=== PATIENT | female | born 1965 | race Caucasian/White ===

== ENCOUNTER 2022-11-20 11:33 | Outpatient (OUT) | payer MEDICAID, SELFPAY ==
--- NOTE | 2022-11-20 11:46 | PM.CN ---
Consult Note: HPI Data of Consult Patient: known to practice within the last 3 years Consult date: 11/20/22 Requesting Physician: JÚNIOR GOLDBERG NP Primary Care Provider: BIANCA GARCIA Consult Narrative Reason for consult: right low back pain Narrative: Arianna is here for f/u to right LCIH injection 10/09/22. She received 85% relief with increased fx after procedure. She would like to proceed with RFA of same area. No new sensorimotor sx or bowel or bladder issues. No medication SE. Flexeril refilled. She does not have narcan at home. Will prescribe today. cc:: CC: JÚNIOR GOLDBERG NP Review of Systems ROS Status of ROS 10 or more systems reviewed and unremarkable except as noted in history and below Meds Home Medications and Allergies Home Medications Medication Instructions Recorded Confirmed Type albuterol sulfate 2.5 mg/3 mL 2.5 mg inhalation Q4H PRN 11/20/22 11/20/22 History (0.083 %) solution for nebulization shortness of breath or wheezing amlodipine 5 mg tablet (Norvasc) 5 mg PO QDAY 11/20/22 11/20/22 History cyclobenzaprine 10 mg tablet 10 mg PO TID 11/20/22 11/20/22 History meloxicam 15 mg tablet 15 mg PO QDAY 11/20/22 11/20/22 History multivitamin 1 tab PO QDAY 11/20/22 11/20/22 History oxycodone-acetaminophen 7.5 mg-325 1 tab PO TID 11/20/22 11/20/22 History mg tablet (Endocet) pregabalin 75 mg capsule (Lyrica) 75 mg PO QDAY 11/20/22 11/20/22 History trazodone 50 mg tablet 50 mg PO QDAY 11/20/22 11/20/22 History Allergies Allergy/AdvReac Type Severity Reaction Status Date / Time No Known Drug Allergies Allergy Verified 11/20/22 11:52 Exam Constitutional: Common normals: no apparent distress, average body habitus, oriented x3, no limitations, healthy appearing, alert and well nourished General appearance: cooperative and comfortable Orientation/consciousness: Yes awake, Yes oriented to person, Yes oriented to place and Yes oriented to time HENMT: Common normals: normocephalic Head and scalp: normal to inspection Face and sinus: normal facial exam Neck & C-Spine: Common normals: full ROM General: normal visual inspection Respiratory: Common normals: normal respiratory effort, no retractions and no use of accessory muscles Effort & inspection: able to speak in complete sentences Back & Pelvis: Common normals: thoracic and lumbar spine normal to inspection and straight leg raise negative bilaterally Lumbar spine/lower back: normal to inspection, ROM limited, pain with ROM, lumbar spinal tenderness, paraspinal muscle tenderness, paraspinal muscle spasm, straight leg raise negative bilaterally and other soft tissue findings (positive facet loading bilat, positive rosa right, positive thigh thrust) Extremity: Common normals: normal to inspection Other: muscle strength 5/5 bilat LE with intact sensation Skin: Common normals: no rashes or lesions noted and no wounds Assessment and Plan Assessment and Plan (1) Neuritis: (2) Muscle spasm: Plan schedule RFA right LCIH with sedation narcan rx flexeril refill
== END 2022-11-20 11:34 ==
PROVIDERS: PCP Family Medicine; Visit Provider Nurse Practitioner
DX: M79.2 Neuralgia and neuritis, unspecified (principal); M62.838 Other muscle spasm
CPT/HCPCS: G0463

== ENCOUNTER 2023-01-29 14:55 | Outpatient (OUT) | payer MEDICAID, SELFPAY ==
--- NOTE | 2023-01-29 | CONS_ITS ---
CONSULTATION DATE: ??01/29/2023 TO: Warren Harman D.O.? CHIEF COMPLAINT:? Includes right sided hip pain, buttock pain. HISTORY:? She reports this as 5-7/10 pain, sharp in character with a burning component, increased with activities such as standing, walking and performing transitioning maneuvers.? She feels most comfortable in the semi-recumbent position.? Denies any change in bowel and bladder habits or new sensorimotor changes in the lower extremities. EXAM:? Notable for patient having no clinical radiculopathy or myelopathy involving the lower extremities.? Patient did have dysesthesia and hyperesthesia overlying the distribution of the right superior gluteal nerve, and myofascial spasm of the right gluteus medius. IMPRESSION: ?Our impression is patient with chronic pain secondary to post laminectomy syndrome, complicated by neuritis involving the right superior gluteal nerve.? RECOMMENDATIONS:? I have recommended she proceed with diagnostic right superior gluteal nerve injection under fluoroscopic guidance.? I have asked her to continue with the Lyrica, Flexeril and Percocet.? She does report the Percocet improves her quality of life, level of functioning and, at times, her sleep pattern.? She denies any sign of < > with the same.? Her DONNA on today?s visit was 44. As part of providing excellent, safe, comprehensive care, the following was completed at our patient's visit: 1. A medication reconciliation and review to ensure accurate knowledge of current/active medications, including asking our patients to inform us about any yiym-wut-vljiyxh medications or herbal remedies/nutritional supplements/alternative remedies. 2. A review to specifically ensure our patients have had annual screening for: elevated body mass index (BMI, see intake chart for exact total), tobacco use, screening for depression, and screening for unhealthy alcohol use.? When screening is concerning, patients are provided with education and the specific recommendation to discuss the concerning health issue and treatment options with their primary care provider. WILI
== END 2023-01-29 14:56 | disposition home or self-care (01) ==
LOC: PM 14:56
PROVIDERS: PCP Family Medicine; Visit Provider Anesthesiology Pain Medicine
DX: M96.1 Postlaminectomy syndrome, not elsewhere classified (principal); M47.816 Spondylosis without myelopathy or radiculopathy, lumbar region; G89.29 Other chronic pain
CPT/HCPCS: 72100; G0463

== ENCOUNTER 2023-01-29 15:57 | Outpatient (OUT) | payer MEDICAID, SELFPAY ==
--- NOTE | 2023-01-29 | XR_ITS ---
The [address] [address] Patient Name: INGA POLO MRN: [id number] date: 1965 Sex: F Assigned Patient Location: [facility] Current Patient Location: Accession/Order Number: [id number] Exam Date: 01/29/2023 16:25 Report Date: 01/30/2023 09:28 At the request of: YANE VLAERA Procedure: XR lumbar spine 2-3V EXAM: XR lumbar spine 2-3V HISTORY: Lumbar Post Lami Syndrome COMPARISON: None. TECHNIQUE: 3 views FINDINGS/IMPRESSION: S-shaped scoliosis. Posterior fusion of L4-S1. Intact hardware. Multilevel endplate degenerative changes, disc disease and anterior spurring of L3-S1. No acute fracture. Electronically authenticated by: MARY MAHONEY Date: 01/30/2023 09:28
== END 2023-01-29 15:58 | disposition home or self-care (01) ==
PROVIDERS: PCP Family Medicine; Visit Provider Anesthesiology Pain Medicine
DX: M96.1 Postlaminectomy syndrome, not elsewhere classified (principal); M47.816 Spondylosis without myelopathy or radiculopathy, lumbar region
CPT/HCPCS: 72100

== ENCOUNTER 2023-03-11 10:58 | Outpatient (OUT) | payer MEDICAID, SELFPAY ==
--- NOTE | 2023-03-11 11:18 | P.CN_ITS ---
Consult Note: HPI Data of Consult Requesting Physician: Tori Noyola NP Primary Care Provider: BIANCA GARCIA Consult Narrative Reason for consult: f/u Narrative: Arianna Tucker a pleasant 58 year old female presents for evaluation of chronic low back and bilateral LCIH pain. Patient rating pain 5/10 today burning aching that radiates to bilateral knees, worse on left than right. cc:: CC: Tori Noyola NP Review of Systems ROS Status of ROS 10 or more systems reviewed and unremarkable except as noted in history and below Musculoskeletal Reports: back pain Meds Home Medications and Allergies Home Medications Medication Instructions Recorded Confirmed Type albuterol sulfate 2.5 mg/3 mL 2.5 mg inhalation Q4H PRN 11/20/22 11/20/22 History (0.083 %) solution for nebulization shortness of breath or wheezing amlodipine 5 mg tablet (Norvasc) 5 mg PO QDAY 11/20/22 11/20/22 History cyclobenzaprine 10 mg tablet 10 mg PO TID 11/20/22 11/20/22 History meloxicam 15 mg tablet 15 mg PO QDAY 11/20/22 11/20/22 History multivitamin 1 tab PO QDAY 11/20/22 11/20/22 History oxycodone-acetaminophen 7.5 mg-325 1 tab PO TID 11/20/22 11/20/22 History mg tablet (Endocet) pregabalin 75 mg capsule (Lyrica) 75 mg PO QDAY 11/20/22 11/20/22 History trazodone 50 mg tablet 50 mg PO QDAY 11/20/22 11/20/22 History cyclobenzaprine 10 mg tablet 20 mg PO DAILY #60 tabs 03/03/23 Rx oxycodone-acetaminophen 7.5 mg-325 1 tab PO TID PRN pain #90 tabs 03/03/23 Rx mg tablet (Percocet) pregabalin 75 mg capsule (Lyrica) 75 mg PO DAILY #30 caps 03/03/23 Rx celecoxib 100 mg capsule (Celebrex) 100 mg PO BID #60 caps 03/11/23 Rx Allergies Allergy/AdvReac Type Severity Reaction Status Date / Time No Known Drug Allergies Allergy Verified 11/20/22 11:52 Exam Constitutional Documenting provider has reviewed patient's vital signs: yes Common normals: no apparent distress, oriented x3, healthy appearing, alert and well nourished General appearance: cooperative HENMT Common normals: normocephalic, hearing grossly normal bilaterally and moist oral mucous membranes Head and scalp: normocephalic Eye Common normals: PERRL Pupil: PERRL Neck & C-Spine Common normals: full ROM General: normal visual inspection Chest Common normals: inspection of chest normal Respiratory Common normals: normal respiratory effort, no retractions and no use of accessory muscles Back & Pelvis Lumbar spine/lower back: ROM limited, pain with ROM, paraspinal muscle spasm and straight leg raise negative bilaterally Sacroiliac joints: SI joint(s) abnormal Other: bilateral facet loading positive L>R pain from back to anterior thighs stopping at the knees L>R tenderness over bilateral PSIS, positive gaenslens thigh thrust FABERS bilaterally L>R pain with pressure on bilateral LCIH nerve Extremity Common normals: normal to inspection and full ROM Neuro Common normals: oriented x3, CN's II-XII intact bilaterally, moves all extremities, no focal motor deficits, no sensory deficits noted and deep tendon reflexes 2+ bilaterally Sensorium/orientation: alert Gait (neuro): normal gait Motor exam: strength 5/5 throughout and no movement abnormalities noted Psych Common normals: mental status grossly normal, thought process normal, cooperative, affect normal, speech normal and activity/motor behavior normal Speech: normal speech Thought process: normal thought process Results Additional Findings Additional findings: I have checked an OARRS report on this patient today and there are no aberrancies noted in the prescribing history.?? A drug screen was completed and reviewed within the last year, and if there has not been a drug screen completed we ordered one today to monitor higher risk, state monitored pain medication use. As part of providing excellent, safe, comprehensive care, the following was completed at our patient's visit: 1. A medication reconciliation and review to ensure accurate knowledge of current/active medications, including asking our patients to inform us about any cboy-jpb-cqyuqyp medications or herbal remedies/nutritional supplements/alternative remedies. 2. A review to specifically ensure our patients have had annual screening for: elevated body mass index (BMI), tobacco use, screening for depression, and screening for unhealthy alcohol use. When screening is concerning, patients are provided with education and the specific recommendation to discuss the concerning health issue and treatment options with their primary care provider. Assessment and Plan Assessment and Plan (1) Muscle spasm: (2) Neuritis: Assessment and Plan: insurance denied right LCIH nerve block. 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 The patient does not report intolerable side effects. The patient is NOT opioid naive and non-pharmacologic and non-opioid treatment has failed to significantly relieve the patient's pain and improve functionality. The patient has a diagnosis that is related to a somatic or visceral pain etiology. ? ?? I reviewed with the patient the potential risks and side effects with the use of? opioid medications including but not limited to respiratory depression,? sedation, and even . I verified the patient has access to naloxone should? these effects occur. I advised the patient to avoid the use of any other? sedation substances including alcohol, THC, and benzodiazepines while? taking opioid medications due to the risk of compounding side effects and? detrimental outcomes. I reviewed the VENDING MACHINE ASSEMBLER, pain treatment agreement, urine? drug screen, and opioid start talking forms. The patient was advised to let? their family know they had Naloxone in case they would need to administer? the medication.? ?? (6) BMI 28.0-28.9,adult: Assessment and Plan: The patient was counseled that proper dietary changes and consistent participation in a home exercise plan can lead to weight loss. Weight loss can help to improve functionality in patients with chronic pain.? Plan stop mobic, start celebrex 100mg QD-BID PRN increase flexeril 10mg TID as previously tolerated continue HEP continue percocet 7.5-325 mg TID PRN, narcan previously ordered and discussed can discuss additional injection therapy at f/u in 2-3 months depending on insurance coverage at that time
== END 2023-03-11 10:59 | disposition home or self-care (01) ==
PROVIDERS: PCP Family Medicine; Visit Provider Nurse Practitioner
DX: M47.26 Other spondylosis with radiculopathy, lumbar region (principal); M62.838 Other muscle spasm; Z79.891 Long term (current) use of opiate analgesic; Z98.1 Arthrodesis status
CPT/HCPCS: G0463

== ENCOUNTER 2023-03-18 10:05 | Outpatient (OUT) | payer MEDICAID, SELFPAY ==
--- NOTE | 2023-03-18 10:08 | CT_ITS ---
[address] [address] Patient Name: INGA POLO MRN: [id number] date: 1965 Sex: F Assigned Patient Location: CT Current Patient Location: Accession/Order Number: [id number] Exam Date: 03/18/2023 10:15 Report Date: 03/19/2023 07:07 At the request of: BETY SILVERMAN Procedure: CT lung screening low-dose EXAMINATION: CT lung screening low-dose HISTORY: Cigarette Nicotine Dependence F17.219 COMPARISON: CT chest 03/01/2022, 08/30/2020 TECHNIQUE: Axial, Coronal, and Sagittal images were created without the administration of IV contrast material. Dose reduction techniques were achieved by using automated exposure control and/or adjustment of mA and/or kV according to patient size and/or use of iterative reconstruction technique. FINDINGS: LUNGS: Right middle lobe stable 5 mm nodule. Mild emphysematous changes. PLEURA: No mass, effusion, or pneumothorax. VASCULATURE: No abnormality. DALE: No mass or pathologic adenopathy. MEDIASTINUM: No mass or pathologic adenopathy. CARDIAC: No enlargement, pericardial thickening, or significant calcification. AORTA: No aneurysm or dissection. CHEST WALL: No mass or axillary adenopathy BONES: No bone lesion or fracture. LIMITED ABDOMEN: No suspicious findings. Limited images of the upper abdomen. OTHER: Negative. CT/CT lung screening low-dose IMPRESSION: 1. Lung-RADS 2- Benign Appearance or Behavior. Nodules with a very low likelihood of becoming a clinically active cancer due to size or lack of growth. Follow-up CT Chest in 1 year. Electronically authenticated by: SONU COLLINS Date: 03/19/2023 07:07
== END 2023-03-18 10:06 | disposition home or self-care (01) ==
LOC: CT 10:05
PROVIDERS: PCP Family Medicine; Visit Provider Internal Medicine
DX: F17.210 Nicotine dependence, cigarettes, uncomplicated (principal)
CPT/HCPCS: 71271

== ENCOUNTER 2023-05-06 11:33 | Outpatient (OUT) | payer MEDICAID, SELFPAY ==
--- NOTE | 2023-05-06 12:13 | P.CN_ITS ---
Consult Note: HPI Data of Consult Patient: known to practice within the last 3 years Requesting Physician: Tori Noyola NP Primary Care Provider: BIANCA GARCIA Consult Narrative Reason for consult: f/u Narrative: Arianna flores pleasant 58 year old female presents for evaluation and management of chronic low back pain and right knee pain. Patient reporting pain 8/10 today. Patient would like to discuss medication managent for chronic pain and further evaluate right knee pain. cc:: CC: Tori Noyola NP Review of Systems ROS Status of ROS 10 or more systems reviewed and unremarkable except as noted in history and below Meds Home Medications and Allergies Home Medications Medication Instructions Recorded Confirmed Type albuterol sulfate 2.5 mg/3 mL 2.5 mg inhalation Q4H PRN 11/20/22 11/20/22 History (0.083 %) solution for nebulization shortness of breath or wheezing amlodipine 5 mg tablet (Norvasc) 5 mg PO QDAY 11/20/22 11/20/22 History cyclobenzaprine 10 mg tablet 10 mg PO TID 11/20/22 11/20/22 History meloxicam 15 mg tablet 15 mg PO QDAY 11/20/22 11/20/22 History multivitamin 1 tab PO QDAY 11/20/22 11/20/22 History oxycodone-acetaminophen 7.5 mg-325 1 tab PO TID 11/20/22 11/20/22 History mg tablet (Endocet) pregabalin 75 mg capsule (Lyrica) 75 mg PO QDAY 11/20/22 11/20/22 History trazodone 50 mg tablet 50 mg PO QDAY 11/20/22 11/20/22 History cyclobenzaprine 10 mg tablet 20 mg PO DAILY #60 tabs 03/03/23 Rx oxycodone-acetaminophen 7.5 mg-325 1 tab PO TID PRN pain #90 tabs 03/03/23 Rx mg tablet (Percocet) pregabalin 75 mg capsule (Lyrica) 75 mg PO DAILY #30 caps 03/03/23 Rx celecoxib 100 mg capsule (Celebrex) 100 mg PO BID #60 caps 03/11/23 Rx oxycodone-acetaminophen 7.5 mg-325 1 tab PO TID PRN pain #90 tabs 04/02/23 Rx mg tablet (Percocet) oxycodone-acetaminophen 7.5 mg-325 1 tab PO TID PRN pain #90 tabs 04/30/23 Rx mg tablet (Percocet) Allergies Allergy/AdvReac Type Severity Reaction Status Date / Time No Known Drug Allergies Allergy Verified 11/20/22 11:52 Exam Constitutional Documenting provider has reviewed patient's vital signs: yes Common normals: no apparent distress, oriented x3, healthy appearing, alert and well nourished General appearance: cooperative HENMT Common normals: normocephalic, hearing grossly normal bilaterally and moist oral mucous membranes Head and scalp: normocephalic Eye Common normals: PERRL Pupil: PERRL Neck & C-Spine Common normals: full ROM General: normal visual inspection Chest Common normals: inspection of chest normal Respiratory Common normals: normal respiratory effort, no retractions and no use of accessory muscles Back & Pelvis Lumbar spine/lower back: ROM limited, pain with ROM, paraspinal muscle spasm and straight leg raise negative bilaterally Sacroiliac joints: SI joint(s) abnormal Other: bilateral facet loading positive L>R pain from back to anterior thighs stopping at the knees L>R tenderness over bilateral PSIS, positive gaenslens thigh thrust FABERS bilaterally L>R pain with pressure on bilateral LCIH nerve Extremity Common normals: normal to inspection and full ROM Right lower extremity: knee joint (enlarged diameter, mild crepitus on exam. ) Other: negative lateral and medial stress testing Neuro Common normals: oriented x3, CN's II-XII intact bilaterally, moves all extremities, no focal motor deficits, no sensory deficits noted and deep tendon reflexes 2+ bilaterally Sensorium/orientation: alert Gait (neuro): normal gait Motor exam: strength 5/5 throughout and no movement abnormalities noted Psych Common normals: mental status grossly normal, thought process normal, cooperative, affect normal, speech normal and activity/motor behavior normal Speech: normal speech Thought process: normal thought process Results Additional Findings Additional findings: I have checked an OARRS report on this patient today and there are no aberrancies noted in the prescribing history.?? A drug screen was completed and reviewed within the last year, and if there has not been a drug screen completed we ordered one today to monitor higher risk, state monitored pain medication use. As part of providing excellent, safe, comprehensive care, the following was completed at our patient's visit: 1. A medication reconciliation and review to ensure accurate knowledge of current/active medications, including asking our patients to inform us about any bxud-ktj-esvizhm medications or herbal remedies/nutritional sup plements/alternative remedies. 2. A review to specifically ensure our patients have had annual screening for: elevated body mass index (BMI), tobacco use, screening for depression, and screening for unhealthy alcohol use. When screening is concerning, patients are provided with education and the specific recommendation to discuss the concerning health issue and treatment options with their primary care provider. Assessment and Plan Assessment and Plan (1) Right knee pain: (2) Chronic prescription opiate use: Assessment and Plan: I feel these medications are improving the patient's quality of life and allow them to tolerate activities of daily living as well as participate in recreational activity.? The patient does not report intolerable side effects. The patient is NOT opioid naive and non-pharmacologic and non-opioid treatment has failed to significantly relieve the patient's pain and improve functionality. The patient has a diagnosis that is related to a somatic or visceral pain etiology. ? ?? I reviewed with the patient the potential risks and side effects with the use of? opioid medications including but not limited to respiratory depression,? sedation, and even . I verified the patient has access to naloxone should? these effects occur. I advised the patient to avoid the use of any other? sedation substances including alcohol, THC, and benzodiazepines while? taking opioid medications due to the risk of compounding side effects and? detrimental outcomes. I reviewed the FUNERAL DIRECTOR, pain treatment agreement, urine? drug screen, and opioid start talking forms. The patient was advised to let? their family know they had Naloxone in case they would need to administer? the medication.? patient able to work, complete ADLs, take care of self with the help of these medications. no adverse effects. discussed we will not increase the dose or frequency ?? (3) History of lumbar fusion: (4) Lumbar radiculopathy: (5) Lumbar spondylosis: (6) Muscle spasm: (7) Neuritis: Plan right knee xray, right knee steroid injection if evidence of OA continue celebrex 100mg QD-BID PRN continue flexeril 10mg TID PRN continue HEP continue percocet 7.5-325 mg TID PRN, narcan previously ordered and discussed xray reviewed, mild OA of right knee. Plan for steroid injection with Dr Murillo f/u 2-4 weeks post injection
== END 2023-05-06 11:34 | disposition home or self-care (01) ==
LOC: PM 11:33
PROVIDERS: PCP Family Medicine; Visit Provider Nurse Practitioner
DX: M25.561 Pain in right knee (principal); Z79.891 Long term (current) use of opiate analgesic
CPT/HCPCS: 73562; G0463

== ENCOUNTER 2023-05-06 12:25 | Outpatient (OUT) | payer MEDICAID, SELFPAY ==
--- NOTE | 2023-05-06 12:33 | XR_ITS ---
The [address] [address] Patient Name: INGA POLO MRN: [id number] date: 1965 Sex: F Assigned Patient Location: [facility] Current Patient Location: [facility] Accession/Order Number: [id number] Exam Date: 05/06/2023 12:43 Report Date: 05/06/2023 15:56 At the request of: FELICIA INGRAM Procedure: XR knee RT 3V EXAM: XR knee RT 3V 04/05/2023 FINDINGS: Frontal, oblique, and lateral views for 3 views obtained. HISTORY: right knee pain COMPARISON: None. XR/XR knee RT 3V IMPRESSION: 1. Mild varus deformity with moderate bicompartmental predominant arthritic changes involving patellofemoral and medial joint compartments noted. 2. No acute fracture or dislocation. 3. Trace volume of joint fluid within the suprapatellar bursa noted. Small superior patellar enthesophyte is noted. Electronically authenticated by: KHANH MATHEW Date: 05/06/2023 15:56
== END 2023-05-06 12:26 | disposition home or self-care (01) ==
LOC: RAD 12:28
PROVIDERS: PCP Family Medicine; Visit Provider Nurse Practitioner
DX: M25.561 Pain in right knee (principal)
CPT/HCPCS: 73562

== ENCOUNTER 2023-06-11 15:01 | Outpatient (OUT) | payer MEDICAID, SELFPAY ==
--- NOTE | 2023-06-11 | CONS_ITS ---
PROCEDURE DATE: 06/11/2023 PROCEDURE: Right knee joint injection. PREOPERATIVE DIAGNOSIS: Pain secondary to osteoarthrosis right knee joint. POSTOPERATIVE DIAGNOSIS: Pain secondary to osteoarthrosis right knee joint. SOLUTION USED FOR INJECTION: 2 mL of 2% lidocaine, 2 mL of 0.25% Marcaine and 10 mg of Kenalog, total of 5 mL. IMMEDIATE COMPLICATIONS: None. PROCEDURE: After informed consent was obtained from the patient, placed in the sitting. Skin overlying the area was prepped with alcohol. A 25 gauge, 1 ?? needle inserted into the right knee joint space. After encountering same, we injected 5 mL of solution. No indication of intravascular or intraneural needle tip placement or injection. Post procedure, patient reports reduction in pain symptoms. WILI
--- OUTSIDE RECORDS SUMMARY | 2023-06-11 15:04 | XMS_ITS | CCD ---
Author Name Unknown Address [address] [facility] [address] [place] [address] Organization [facility] Care Team Providers Care Panel Machine Setter Name Role Phone Bianca Garcia Unavailable AsaJohn vance Unavailable MARNI ., DR LENORE Becker Attending Unavailable JOSE, DR VALENZUELA Primary Care Unavailable STINSON ., JOSE ALEJANDRO Consulting Unavailable STOLL ., DR LENORE Becker Admitting Unavailable STOLL ., DR LENORE Becker Attending Unavailable STOLL ., DR LENORE Becker Admitting Unavailable JOSE, DR VALENZUELA Primary Care Unavailable STINSON ., JOSE ALEJANDRO Consulting Unavailable STOLL ., DR LENORE Becker Consulting Unavailable STOLL ., DR LENORE Becker Attending Unavailable JOSE, DR VALENZUELA Primary Care Unavailable STOLL ., DR LENORE Becker Admitting Unavailable STOLL ., DR LENORE Becker Attending Unavailable JOSE, DR VALENZUELA Primary Care Unavailable STINSON ., JOSE ALEJANDRO Consulting Unavailable STOLL ., DR LENORE Becker Admitting Unavailable HALKER ., JÚNIOR Admitting Unavailable JOSE, DR VALENZUELA Primary Care Unavailable HALKER ., JÚNIOR Attending Unavailable JOSE, DR VALENZUELA Primary Care Unavailable STOLL ., DR LENORE Becker Attending Unavailable STOLL ., DR LENORE Becker Admitting Unavailable STOLL ., DR LENORE Becker Consulting Unavailable GALDAMEZ, BEBA Consulting Unavailable JOSE, DR VALENZUELA Primary Care Unavailable STINSON ., JOSE ALEJANDRO Consulting Unavailable STOLL ., DR LENORE Becker Admitting Unavailable STOLL ., DR LENORE Becker Attending Unavailable STOLL ., DR LENORE Becker Consulting Unavailable STOLL ., DR LENORE Becker Attending Unavailable JOSE, DR VALENZUELA Primary Care Unavailable STOLL ., DR LENORE Becker Admitting Unavailable EDEN DAVIS Consulting Unavailable JOSE, DR VALENZUELA Primary Care Unavailable LAKSHMIPATHY ., NARENDRANATH Consulting Mora vailable LAKSHMIPATHY ., NARENDRANATH Attending Mora vailable LAKSHMIPATHY ., NARENDRANATH Admitting Mora tricia GARCIA, DR VALENZUELA Consulting Unavailable JOSE, DR VALENZUELA Attending Unavailable JOSE, DR VALENZUELA Admitting Unavailable JOSE, DR VALENZUELA Primary Care Unavailable ANDRA ., BETY Attending Unavailable ANDRA ., BETY Admitting Unavailable JOSE, DR VALENZUELA Primary Care Unavailable DENNIS, DR SONU Lozano Consulting Unavailable SAM ., BETY Consulting Unavailable ELIZAPATHCari ., YANE Consulting Mora tricia GARCIA, DR VALENZUELA Primary Care Unavailable CAYDENSHMIJACK ., YANE Attending Mora vailable LAKSHMIJACK ., NARENDRANATH Admitting Mora vailable STOLL ., DR LENORE Becker Attending Unavailable JOSE, DR VALENZUELA Primary Care Unavailable JOSE ALEJANDRO ARNETT Consulting Unavailable MARNI ., DR LENORE Becker Admitting Unavailable Allergies Allergy Classification Reported Allergen(s) Allergy Type Date of Onset Reaction(s) Facility (4 sources) hydrOXYzine Drug Allergy 3 heart palpitations IT'SUGAR Other Medications Current Medications Medication Drug Class(es) Dates Sig (Normalized) Sig (Original) acetaminophen 325 mg / oxyCODONE hydrochloride 7.5 mg oral tablet (4 sources) Opioid Agonist Start: 08-14-2014 Percocet 7.5-325 MG 1 tablet Orally q8-12 hrs prn Jul, Active [id number] actuat albuterol 0.09 mg/actuat metered dose inhaler (4 sources) beta2-Adrenergic Agonist Start: 05-27-2016 Ventolin HFA 108 (90 Base) MCG/ACT 2 inhalations Inhalation qid prn May, Active amLODIPine 5 mg oral tablet (4 sources) Dihydropyridine Calcium Channel Sabiha take 1 tablet by mouth once daily amLODIPine Besylate 5 mg TAKE 1 TABLET BY MOUTH ONCE DAILY for 30 Active cyclobenzaprine hydrochloride 10 mg oral tablet (4 sources) Muscle Relaxant take 2 tablets by mouth every twenty-four hours Cyclobenzaprine HCl 10 MG 2 tablet at bedtime as needed Orally Once a day Active melatonin 5 mg oral tablet (4 sources) take 1 tablet by mouth once daily at bedtime as needed Melatonin 5 MG 1 tablet at bedtime as needed Orally Once a day for 30 day(s) Active meloxicam 15 mg oral tablet (4 sources) Nonsteroidal Anti-inflammatory Drug take 1 tablet by mouth every twenty-four hours Meloxicam 15 MG 1 tablet Orally Once a day Active Multi For Her (4 sources) Multi For Her Orally Active pregabalin 75 mg oral capsule (4 sources) take 1 capsule by mouth once Pregabalin 75 MG 1 capsule Orally once at night Active 28 actuat tiotropium 0.0025 mg/actuat inhalation spray (4 sources) Anticholinergic take 2 puff(s) by inhalation once daily Spiriva Respimat 2.5 MCG/ACT 2 puffs Inhalation Once a day Active traZODone hydrochloride 50 mg oral tablet (4 sources) Serotonin Reuptake Inhibitor take 1 tablet by mouth every twenty-four hours traZODone HCl 50 MG 1 tablet at bedtime as needed Orally Once a day Active Completed/Discontinued Medications Medication Drug Class(es) Dates Sig (Normalized) Sig (Original) Triamcinolone (12 sources) Corticosteroid Start: 02-20-2017 KENALOG - 10 m g Feb, 2 cc Start: 01-08-2017 KENALOG - 10 m g Dec, 1.5 cc Start: 12-05-2016 KENALOG - 10 m g Nov, 1.5 cc Problems Active Problems Problem Classification Problem Date Documented Da te Episodic/Chronic Adjustment disorders (4 sources) Reaction to severe stress, unspecified; Translations: [Stress] Chronic Anxiety disorders (6 sources) Anxiety; Translations: [Anxiety disorder, unspecified] Chronic Calculus of urinary tract (4 sources) Kidney stone; Translations: [Calculus of kidney] Episodic Chronic obstructive pulmonary disease and bronchiectasis (6 sources) Chronic obstructive lung disease; Translations: [Chronic obstructive pulmonary disease, unspecified] Chronic Diseases of white blood cells (4 sources) Leukocytosis; Translations: [Elevated white blood cell count, unspecified] Chronic Disorders of lipid metabolism (7 sources) Hyperlipidemia; Translations: [Hyperlipidemia, unspecified] Onset: 07-27-2022 Chronic Osteoarthritis (4 sources) Arthritis; Translations: [Unspecified osteoarthritis, unspecified site] Chronic Other and unspecified benign neoplasm (4 sources) History of polyp of colon; Translations: [Personal history of colonic polyps] Episodic Other circulatory disease (1 source) Elevated blood-pressure reading, without diagnosis of hypertension Episodic Other connective tissue disease (4 sources) Other muscle spasm; Translations: [OTHER MUSCLE SPASM] Onset: 08-28-2022 Episodic Other gastrointestinal disorders (4 sources) Constipation; Translations: [Constipation, unspecified] Episodic Other liver diseases (1 source) Abnormal levels of other serum enzymes Episodic Other lower respiratory disease (4 sources) Nodule of lung; Translations: [Solitary pulmonary nodule] Episodic Other nervous system disorders (2 sources) Other chronic pain; Translations: [OTHER CHRONIC PAIN] Onset: 07-29-2022 Chronic Other nervous system disorders (1 source) Other specified mononeuropathies; Translations: [OTHER SPECIFIED MONONEUROPATHIES] Onset: 10-13-2022 Chronic Other nervous system disorders (4 sources) Skin sensation disturbance; Translations: [Paresthesia of skin] Episodic Other non-traumatic joint disorders (4 sources) Pain in right hip; Translations: [PAIN IN RIGHT HIP] Onset: 10-09-2022 Episodic Other screening for suspected conditions (not mental disorders or infectious disease) (2 sources) Encounter for screening for malignant neoplasm of colon; Translations: [Other abnormal findings in specimens from other organs, systems and tissues] Episodic Residual codes; unclassified (1 source) Other specified health status Episodic Spondylosis; intervertebral disc disorders; other back problems (11 sources) Spondylosis without myelopathy or radiculopathy, cervical region; Translations: [Other cervical disc degeneration, unspecified cervical region] Onset: 11-12-2021 Chronic Substance-related disorders (4 sources) Nicotine dependence; Translations: [Nicotine dependence, unspecified, uncomplicated] Chronic Unclassified (1 source) LOW BACK PAIN, UNSPECIFIED; Translations: [LOW BACK PAIN, UNSPECIFIED] Onset: 09-02-2022 Past or Other Problems Problem Classification Problem Date Documented Date Episodic/Chronic Diabetes mellitus without complication (6 sources) Hyperglycemia, unspecified; Translations: [HYPERGLYCEMIA UNSPECIFIED] Onset: 07-26-2022 Episodic Genitourinary symptoms and ill-defined conditions (3 sources) Hematuria, unspecified; Translations: [HEMATURIA UNSPECIFIED] Onset: 07-27-2022 Episodic Other aftercare (2 sources) Other exterminator helper termite (current) drug therapy; Translations: [OTH SENIOR LIVING CURRENT DRUG THERAPY] Onset: 07-27-2022 Episodic Other lower respiratory disease (5 sources) Solitary pulmonary nodule; Translations: [SOLITARY PULMONARY NODULE] Onset: 03-01-2022 Episodic Other nutritional; endocrine; and metabolic disorders (3 sources) Abnormal weight loss; Translations: [ABNORMAL WEIGHT LOSS] Onset: 07-27-2022 Episodic Spondylosis; intervertebral disc disorders; other back problems (11 sources) Intervertebral disc disorders with radiculopathy, lumbar region; Translations: [Radiculopathy, lumbar region] Onset: 11-13-2021 Episodic Unclassified (2 sources) Lumbar pain M54.50 Results Test Name Value Interpretation Reference Range Facil ity CBC AUTO DIFFon 07-26-2022 BASO # 0.1 103/ul Normal 0.0-0.1 [facility] Comment on above: Performed By: #### U RCX #### [facility] [address] [address] [address] Roderick Greene Basophils/100 WBC (Bld) 0.6 % Normal 0.2-2.0 [facility] Comment on above: Performed By: #### U RCX #### [facility] [address] [address] [address] Roderick Greene EO # 0.8 103/ul Critically high 0.0-0.7 [facility] Comment on above: Performed By: #### U RCX #### [facility] [address] [address] [address] Roderick Greene Eosinophils/100 WBC (Bld) 7.9 % Critically high 0.9-7.0 [facility] Comment on above: Performed By: #### U RCX #### [facility] [address] [address] [address] Roderick Greene Erythrocyte distribution width (RBC) [Ratio] 13.2 % Normal 11.0-15.0 [facility] Comment on above: Performed By: #### U RCX #### [facility] [address] [address] [address] Roderick Greene Hematocrit (Bld) [Volume fraction] 50.3 % Critically high 36.0-48.0 [facility] Comment on above: Performed By: #### U RCX #### [facility] [address] [address] [address] Roderick Greene Hemoglobin (Bld) [Mass/Vol] 16.0 g/dL Normal 12.0-16.0 [facility] Comment on above: Performed By: #### U RCX #### [facility] [address] [place] [address] Dr. Roderick Greene IG # 0.02 10e3/ul Normal 0.00-0.03 [facility] Comment on above: Performed By: #### U RCX #### [facility] [address] [place] [address] Dr. Roderick Greene IG % 0.2 % Normal 0.0-0.5 [facility] Comment on above: Performed By: #### U RCX #### [facility] [address] [place] [address] Dr. Roderick Greene LYMPH # 2.3 103/ul Normal 1.2-3.8 [facility] Comment on above: Performed By: #### U RCX #### [facility] [address] [place] [address] Dr. Roderick Greene Lymphocytes/100 WBC (Bld) 24.5 % Normal 20.5-60.0 [facility] Comment on above: Performed By: #### U RCX #### [facility] [address] [place] [address] Dr. Roderick Greene MANUAL DIFF REQ NO Normal [facility] Comment on above: Performed By: #### U RCX #### [facility] [address] [place] [address] Dr. Roderick Greene MCH (RBC) [Entitic mass] 31.4 pg Normal 26.7-34.0 [facility] Comment on above: Performed By: #### U RCX #### [facility] [address] [place] [address] Dr. Roderick Greene MCHC (RBC) [Mass/Vol] 31.8 g/dL Normal 29.9-35.2 [facility] Comment on above: Performed By: #### U RCX #### [facility] [address] [place] [address] Dr. Roderick Greene MCV (RBC) [Entitic vol] 98.8 fL Normal 81.0-99.0 [facility] Comment on above: Performed By: #### U RCX #### [facility] [address] [place] [address] Dr. Roderick Greene MONO # 0.4 103/ul Normal 0.3-0.8 [facility] Comment on above: Performed By: #### U RCX #### [facility] [address] [place] [address] Dr. Roderick Greene Monocytes/100 WBC (Bld) 3.7 % Normal 1.7-12.0 [facility] Comment on above: Performed By: #### U RCX #### [facility] [address] [place] [address] Dr. Roderick Greene NEUT # 6.0 103/ul Normal 1.4-6.5 [facility] Comment on above: Performed By: #### U RCX #### [facility] [address] [place] [address] Dr. Roderick Greene Neutrophils/100 WBC (Bld) 63.1 % Normal 43.0-75.0 [facility] Comment on above: Performed By: #### U RCX #### [facility] [address] [place] [address] Dr. Roderick Greene Platelet mean volume (Bld) [Entitic vol] 10.7 fL Normal 9.5-13.5 [facility] Comment on above: Performed By: #### U RCX #### [facility] [address] [place] [address] Dr. Roderick Greene PLT 290 103/ul Normal 150-450 [facility] Comment on above: Performed By: #### U RCX #### [facility] [address] [place] [address] Dr. Roderick Greene RBC 5.09 106/ul Normal 4.20-5.40 [facility] Comment on above: Performed By: #### U RCX #### [facility] [address] [place] [address] Dr. Roderick Greene WBC 9.5 103/ul Normal 4.0-11.0 [facility] Comment on above: Performed By: #### U RCX #### [facility] [address] [address] [address] Roderick Greene CULTURE URINEon 07-26-2022 CULTURE URINE Culture Observations: LIGHT GROWTH OF MIXED GENITAL MATEO. NO POTENTIAL PATHOGENS SEEN. Normal [facility] Comment on above: Performed By: #### U RCX #### [facility] [address] [address] [address] Roderick Greene GLYCOHEMOGLOBIN A1Con 2022 ADA RECOMMENDATION SEE BELOW Normal [facility] Comment on above: Result Comment: ADA RECOMMENDED LIMIT 4.0 - 6.0 ADA THERAPEUTIC TARGET < 7.0 ACTION SUGGESTED > 7.0 Performed By: #### A 1C #### [facility] [address] [place] [address] Dr. Roderick Greene Glucose [Mass/Vol] 108 mg/dL Critically high 74-106 [facility] Comment on above: Performed By: #### A 1C #### [facility] [address] [place] [address] Dr. Roderick Greene Performed By: #### T SH, LIPID, CMP #### [facility] [address] [place] [address] Dr. Roderick Greene HbA1c (Bld) [Mass fraction] 5.4 % Normal 4.5-6.2 [facility] Comment on above: Performed By: #### A 1C #### [facility] [address] [place] [address] Dr. Roderick Greene LIPID PROFILEon 07-26-2022 CHOL-HDL RATIO NORM SEE BELOW Normal [facility] Comment on above: Result Comment: 3.3 - 4.4 LOW RISK 4.4 - 7.1 AVERAGE RISK 7.1 - 11.0 MODERATE RISK >11.0 HIGH RISK Performed By: #### U RCX #### [facility] [address] [place] [address] Dr. Roderick Greene Cholesterol [Mass/Vol] 217 mg/dL Critically high <=200 [facility] Comment on above: Performed By: #### U RCX #### [facility] [address] [place], [place] [id number] Dr. Roderick Greene Cholesterol in HDL [Mass/Vol] 55 mg/dL Normal 40-60 [facility] Comment on above: Performed By: #### U RCX #### [facility] [address] [address] [address] Roderick Greene Cholesterol in LDL [Mass/Vol] 143.6 mg/dL Normal [facility] Comment on above: Performed By: #### U RCX #### [facility] [address] [address] [address] Roderick Greene Cholesterol.total/Cho lesterol in HDL [Mass ratio] 3.9 {ratio} Normal [facility] Comment on above: Performed By: #### U RCX #### [facility] [address] [place] [address] Dr. Roderick Greene HDL NORMAL > or = 60 mg/dl - LOW CARDIOVASCULAR RISK <40 mg/dl - HIGH CARDIOVASCULAR RISK Normal [facility] Comment on above: Performed By: #### U RCX #### [facility] [address] [address] [address] Roderick Greene LDL CALC NORMAL SEE BELOW Normal [facility] Comment on above: Result Comment: <100 mg/dl OPTIMAL 100 - 129 mg/dl NEAR OR ABOVE OPTIMAL 130 - 159 mg/dl BORDERLINE HIGH 160 - 189 mg/dl HIGH >190 mg/dl VERY HIGH Performed By: #### U RCX #### [facility] [address] [address] [address] Roderick Greene Triglyceride [Mass/Vol] 92 mg/dL Normal <=150 [facility] Comment on above: Performed By: #### U RCX #### [facility] [address] [address] [address] Roderick Greene VLDL CALC 18.4 mg/dL Normal [facility] Comment on above: Performed By: #### U RCX #### [facility] [address] [address] [address] Roderick Greene PROF 14(COMP METB)on 023 Albumin [Mass/Vol] 3.7 g/dL Normal 3.4-5.0 [facility] Comment on above: Performed By: #### T SH, LIPID, CMP #### [facility] [address] [address] [address] Roderick Greene Albumin/Globulin [Mass ratio] 1.0 {ratio} Normal [facility] Comment on above: Performed By: #### T SH, LIPID, CMP #### [facility] [address] [address] [address] Roderick Greene ALP [Catalytic activity/Vol] 146 U/L Critically high 46-116 [facility] Comment on above: Performed By: #### T SH, LIPID, CMP #### [facility] [address] [address] [address] Roderick Greene ALT [Catalytic activity/Vol] 24 U/L Normal 14-59 [facility] Comment on above: Performed By: #### T SH, LIPID, CMP #### [facility] [address] [address] [address] Roderick Greene Anion gap [Moles/Vol] 11.7 mmol/L Normal [facility] Comment on above: Performed By: #### T SH, LIPID, CMP #### [facility] [address] [address] [address] Roderick Greene AST [Catalytic activity/Vol] 23 U/L Normal 15-37 [facility] Comment on above: Performed By: #### T SH, LIPID, CMP #### [facility] [address] [address] [address] Roderick Greene Bilirubin [Mass/Vol] 0.5 mg/dL Normal 0.2-1.0 [facility] Comment on above: Performed By: #### T SH, LIPID, CMP #### [facility] [address] [address] [address] Roderick Greene Calcium [Mass/Vol] 9.3 mg/dL Normal 8.5-10.1 [facility] Comment on above: Performed By: #### T SH, LIPID, CMP #### [facility] [address] [address] [address] Roderick Greene Chloride [Moles/Vol] 105 mmol/L Normal 98-107 [facility] Comment on above: Performed By: #### T SH, LIPID, CMP #### [facility] [address] [address] [address] Roderick Greene CO2 [Moles/Vol] 31.0 mmol/L Normal 21.0-32.0 [facility] Comment on above: Performed By: #### T SH, LIPID, CMP #### [facility] [address] [place] [address] Dr. Roderick Greene Creatinine [Mass/Vol] 0.65 mg/dL Normal 0.55-1.02 [facility] Comment on above: Performed By: #### T SH, LIPID, CMP #### [facility] [address] [place] [address] Dr. Roderick Greene EGFR-AF CYMRO >60 Normal >=60 [facility] Comment on above: Performed By: #### T SH, LIPID, CMP #### [facility] [address] [place] [address] Dr. Roderick Greene EGFR-NON AF CYMRO >60 Normal >=60 [facility] Comment on above: Performed By: #### T SH, LIPID, CMP #### [facility] [address] [place] [address] Dr. Roderick Greene Globulin (S) [Mass/Vol] 3.6 g/dL Normal [facility] Comment on above: Performed By: #### T SH, LIPID, CMP #### [facility] [address] [place] [address] Dr. Roderick Greene Potassium [Moles/Vol] 4.7 mmol/L Normal 3.5-5.1 [facility] Comment on above: Performed By: #### T SH, LIPID, CMP #### [facility] [address] [place] [address] Dr. Roderick Greene Protein [Mass/Vol] 7.3 g/dL Normal 6.4-8.2 [facility] Comment on above: Performed By: #### T SH, LIPID, CMP #### [facility] [address] [place] [address] Dr. Roderick Greene Sodium [Moles/Vol] 143 mmol/L Normal 136-145 [facility] Comment on above: Performed By: #### T ASVANAH LIPID, CMP #### [facility] [address] [place] [address] Dr. Roderick Greene Urea nitrogen [Mass/Vol] 13.0 mg/dL Normal 7.0-18.0 [facility] Comment on above: Performed By: #### T SAVANAH LIPID, CMP #### [facility] [address] [place] [address] Dr. Roderick Greene Urea nitrogen/Creatinine [Mass ratio] 20.0 mg/mg Normal [facility] Comment on above: Performed By: #### T SAVANAH LIPID, CMP #### [facility] [address] [place] [address] Dr. Roderick Greene TSHon 07-26-2022 TSH 0.822 uIU/mL Normal 0.358-3.740 [facility] Comment on above: Performed By: #### T SAVANAH LIPID, CMP #### [facility] [address] [place] [address] Dr. Roderick Greene UA RANDOM W/MICROSCOPICon BACTERIA TRACE Abnormal NONE SEEN [facility] Comment on above: Performed By: #### U AMIC #### [facility] [address] [place] [address] Dr. Roderick Greene Bilirubin Ql (U) Negative Normal NEGATIVE [facility] Comment on above: Performed By: #### U AMIC #### [facility] [address] [place] [address] Dr. Rodeirck Greene CAST NONE SEEN Normal NONE SEEN [facility] Comment on above: Performed By: #### U AMIC #### [facility] [address] [place] [address] Dr. Roderick Greene Clarity (U) CLEAR Normal CLEAR [facility] Comment on above: Performed By: #### U AMIC #### [facility] [address] [place] [address] Dr. Roderick Greene Color (U) LT. YELLOW Normal YELLOW [facility] Comment on above: Performed By: #### U AMIC #### [facility] [address] [address] [address] Roderick Greene Crystals LM Nom (Urine sed) NONE SEEN Normal NONE SEEN [facility] Comment on above: Performed By: #### U AMIC #### [facility] [address] [address] [address] Roderick Greene Epithelial cells LM Ql (Urine sed) FEW Abnormal NONE SEEN /RARE [facility] Comment on above: Performed By: #### U AMIC #### [facility] [address] [address] [address] Roderick Greene Glucose Ql (U) Negative Normal NEGATIVE [facility] Comment on above: Performed By: #### U AMIC #### [facility] [address] [address] [address] Roderick Greene Hemoglobin Ql (U) Negative Normal NEGATIVE The [facility] Comment on above: Performed By: #### U AMIC #### [facility] [address] [address] [address] Roderick Greene Ketones Ql (U) Negative Normal NEGATIVE [facility] Comment on above: Performed By: #### U AMIC #### [facility] [address] [address] [address] Roderick Greene LEUKOCYTES Negative Normal NEGATIVE The [facility] Comment on above: Performed By: #### U AMIC #### [facility] [address] [address] [address] Roderick Greene MUCOUS SMALL Abnormal NONE SEEN The [facility] Comment on above: Performed By: #### U AMIC #### [facility] [address] [address] [address] Roderick Greene Nitrite Ql (U) Negative Normal NEGATIVE [facility] Comment on above: Performed By: #### U AMIC #### [facility] [address] [address] [address] Roderick Greene pH (U) 8.0 [pH] Normal 5-9 [facility] Comment on above: Performed By: #### U AMIC #### [facility] [address] [address] [address] Roderick Greene RBC NONE SEEN Abnormal 0-2 The [facility] Comment on above: Performed By: #### U AMIC #### [facility] [address] [address] [address] Roderick Greene SPEC GRAVITY 1.020 Normal 1.005-<=1.025 The [facility] Comment on above: Performed By: #### U AMIC #### [facility] [address] [place] [address] Dr. Roderick Greene UA PROTEIN Negative Normal NEGATIVE/ TRACE The [facility] Comment on above: Performed By: #### U AMIC #### [facility] [address] [place] [address] Dr. Roderick Greene Urobilinogen Qn (U) 0.2 {Jordan'U}/dL Normal 0.2 - 1. 0 The [facility] Comment on above: Performed By: #### U AMIC #### [facility] [address] [place] [address] Dr. Roderick Greene WBC NONE SEEN Normal NONE SEEN The [facility] Comment on above: Performed By: #### U AMIC #### [facility] [address] [place] [address] CHEST WO CONon 03-03-2022 CT CHEST WO CON EXAMINATION: CT CHEST WO CON HISTORY: Solitary nodule of lung COMPARISON: CT chest 03/04/2021, 08/30/2020 TECHNIQUE: Axial, Coronal, and Sagittal images were created without the administration of IV contrast material. Dose reduction techniques were achieved by using automated exposure control and/or adjustment of mA and/or kV according to patient size and/or use of iterative reconstruction technique. FINDINGS: LUNGS: Stable 5 mm nodule within right middle lobe. Minimal emphysematous changes bilaterally with apical predominance. PLEURA: No mass, effusion, or pneumothorax. VASCULATURE: No abnormality. DALE: No mass or adenopathy. MEDIASTINUM: No mass or adenopathy. CARDIAC: No enlargement or pericardial thickening. AORTA: No aneurysm or dissection. CHEST WALL: No mass or axillary adenopathy. BONES: No bone lesion or fracture. LIMITED ABDOMEN: No suspicious findings. Limited images of the upper abdomen. OTHER: Negative. IMPRESSION: 1. Stable 5 mm nodule within right middle lobe. 2. Mild emphysematous changes. 3. Consider follow-up imaging in one year to document stability if patient is at increased risk for lung cancer. Electronically authenticated by: SONU COLLINS Date: 2022-03-03 07:51 Normal [facility] Vital Signs Date Time Vital Sign Value Performing Clinician Facility 07-30-2022 12:10-0500 Body height 162.56 cm Bianca Garcia Other [facility] Other 07-30-2022 12:10-0500 Body mass index (BMI) [Ratio] 27.12 kg/m2 Bianca Garcia Other [facility] Other 07-30-2022 12:10-0500 Body temperature 96.6 [degF] Bianca Garcia Other [facility] Other 07-30-2022 12:10-0500 Body weight 71.67 kg Bianca Garcia Other [facility] Other 07-30-2022 12:10-0500 Diastolic blood pressure 86 mm[Hg] Bianca Garcia Other [facility] Other 07-30-2022 12:10-0500 Respiratory rate 18 /min Bianca Garcia Other [facility] Other 07-30-2022 12:10-0500 SaO2% (BldA) [Mass fraction] 98 % Bianca Garcia Other [facility] Other 07-30-2022 12:10-0500 Systolic blood pressure 120 mm[Hg] Bianca Garcia Other [facility] Other 07-21-2022 11:30-0500 Body height 162.56 cm Bianca Garcia Other [facility] Other 07-21-2022 11:30-0500 Body mass index (BMI) [Ratio] 27.55 kg/m2 Bianca Garcia Other [facility] Other 07-21-2022 11:30-0500 Body temperature 98.4 [degF] Bianca Garcia Other [facility] Other 07-21-2022 11:30-0500 Body weight 72.8 kg Bianca Garcia Other [facility] Other 07-21-2022 11:30-0500 Diastolic blood pressure 88 mm[Hg] Bianca Garcia Other [facility] Other 07-21-2022 11:30-0500 Respiratory rate 18 /min Bianca Garcia Other [facility] Other 07-21-2022 11:30-0500 SaO2% (BldA) [Mass fraction] 95 % Bianca Garcia Other [facility] Other 07-21-2022 11:30-0500 Systolic blood pressure 122 mm[Hg] Bianca Garcia Other [facility] Other Encounters Encounter Date Encounter Type Care Provider Facility Start: 11-20-2022 ambulatory JÚNIOR GOLDBERG . Facili ty:[facility] Start: 11-04-2022 End: 11-04-[address] BIANCA GARCIA Facility:[facility] Start: 10-09-2022 End: 10-10-2022 ambulatory YANE VALERA . Facility:[facility] Start: 10-01-2022 End: 10-01-2022 ambulatory Bianca Garcia Other [facility] Other Start: 10-01-2022 Telephone encounter Bianca Garcia [facility] Start: 08-28-2022 End: 08-29-[address] LENORE STOLL . Facility:[facility] Start: 08-05-2022 End: 08-05-2022 ambulatory John Diallopinky Other [facility] Other Start: 08-05-2022 Telephone encounter Lidiapinky [facility] Start: 07-30-2022 End: 07-30-2022 ambulatory Bianca Garcia Other [facility] Other Start: 07-30-2022 Office outpatient visit 25 minutes Bianca Garcia [facility] Start: 07-26-2022 End: 07-27-[address] BIANCA GARCIA Facility:[facility] Start: 07-24-2022 End: 07-25-[address] LENORE STOLL . Facility:[facility] Start: 07-21-2022 End: 07-21-2022 ambulatory Bianca Garcia Other [facility] Other Start: 07-21-2022 Office outpatient visit 15 minutes Bianca Garcia [facility] Start: 05-27-2022 End: 05-27-[address] LENORE STOLL . Facility:[facility] Start: 04-24-2022 End: 04-25-[address] LENORE STOLL . Facility:[facility] Start: 03-01-2022 End: 03-02-2022 ambulatory BETY CHARITY . Facility:[facility] Start: 02-20-2022 End: 02-21-[address] LENORE STOLL . Facility:[facility] Start: 01-14-2022 End: 01-14-[address] BIANCA GARCIA Facility:[facility] Start: 12-18-2021 End: 12-19-[address] BIANCA GARCIA Facility:[facility] Start: 11-12-2021 End: 11-12-[address] LENORE STOLL . Facility:[facility] Immunizations Immunization Date Immunization Notes Care Provider Fa cility 02-09-2021 COVID-19 Pfizer Bianca Garcia Other [facility] Other 01-21-2021 COVID-19 Irvin Garcia Other [facility] Other Payers Date Payer Category Payer Medicaid [id number] 2. [id number] 1965 Unknown [id number] 2.16.84 [id number] 1966 Unknown [id number] 2.16.84 [id number] 1966 Unknown [id number] 2.16.84 [id number] 1966 Unknown [id number] 2.16.84 [id number] 1966 Unknown [id number] 2.16.84 [id number] 1966 Unknown [id number] 2.16.84 0.1.561122.3.579.2.593 1966 Unknown [id number] 2.16.84 [id number] 1966 Unknown [id number] 2.16.84 [id number] 1966 Unknown [id number] 2.16.84 0.1.296944.3.579.2.593 1966 Unknown [id number] .16.84 [id number] 1966 Unknown [id number] 2.16.84 0.1.599116.3.579.2.593 1966 Unknown [id number] 2.16.84 [id number] 1966 Unknown [id number] 2.16.84 [id number] 1959 Unknown [id number] Social History Date Type Detail Facility Unknown if ever smoked [facility] Other Sex Assigned At Sex Assigned At Bir th [facility] Other Consultation note 10-09-2022 Note Date & Type Note Facility 10-09-2022 Note CONSULTATION CONSULTATION DATE: 10/09/2022 TO: Bianca Garcia D.O. CHIEF COMPLAINT: Includes severe right hip pain, buttock pain. HISTORY: She reports the pain as being 5-7/10 pain, sharp/burning in character, increased with activities such as standing, walking and performing transitioning maneuvers. She also reports sensitivity of her skin overlying the right hip and buttock area. She feels most comfortable in the semi-recumbent position. She denies any change in bowel and bladder habits or new sensorimotor changes in her lower extremities. EXAM: Notable for patient having no clinical radiculopathy or myelopathy involving the lower extremities. Patient did have spasms and tenderness involving the right gluteus medius and dysesthesia and hyperesthesia overlying the distribution of the lateral cutaneous branch of the iliohypogastric nerve on the right side. 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 RECOMMENDATIONS: I have asked her to increase the Flexeril as tolerated, 10 mg pills, half a pill b.i.d. and two at h.s., and to proceed with a diagnostic right sided injection of the lateral cutaneous branch of the iliohypogastric nerve under fluoroscopic guidance. We will also obtain urine toxicology screen on today's visit. As part of providing excellent, safe, comprehensive care, the following was completed at our patient's visit: 1. A medication reconciliation and review to ensure accurate knowledge of current/active medications, including asking our patients to inform us about any [id number] medications or herbal remedies/nutritional supplements/alternative remedies. 2. A review to specifically ensure our patients have had annual screening for: elevated body mass index (BMI, see intake chart for exact total), tobacco use, screening for depression, and screening for unhealthy alcohol use. When screening is concerning, patients are provided with education and the specific recommendation to discuss the concerning health issue and treatment options with their primary care provider. [facility] Consultation note 08-28-2022 Note Date & Type Note Facility 08-28-2022 Note CONSULTATION CONSULTATION DATE: 08/28/2022 HISTORY OF PRESENT ILLNESS: This is a 57-year-old female who returns to the clinic for a four week follow up for increased neck pain and lower back pain. Today, she rates her pain 7/10. It is primarily to her neck on the left side. She has been using heat and massage with minimal improvement. It is very painful to laterally rotate her neck as well as doing activities such as pushing, pulling and housework. Medications include Percocet 5/325 t.i.d., Lyrica 75 mg q.h.s., Mobic 15 mg daily, Flexeril 20 mg q.h.s., trazodone and multivitamin. Patient's REVIEW OF SYSTEMS / PAST MEDICAL HISTORY / ALLERGIES and IMAGES have been reviewed and noted on the chart. PHYSICAL EXAM: VITAL SIGNS: Blood pressure 150/89, heart rate is 59. Temperature is 97.5. She is 5'5 and weighs 74 kg. GENERAL IMPRESSION: Pleasant, appropriate, in no acute distress. FOCUSED EXAM - NECK: Range of motion is guarded with left lateral rotation. Point tenderness along the left cervical trapezius muscle at the level of C5. Compression of this reproduces the patient's pain pattern. Mild spinal axial pain upon compression of the cervical facets of C5-C6 bilaterally. BACK: Paravertebral muscles are taut but non-spasmodic. Point tenderness along the lower lumbar facets of L1, L2 and L3 bilaterally. Fullness palpated well, indicative of facet arthropathy, lumbar spondylosis. MUSCULOSKELETAL: Bilateral upper and lower extremities motor is 4/5 bilaterally. Slight muscle weakness noted to left hand. Gross and fine motor are intact. NEUROLOGICALLY: Patchy hypoesthesia noted along the left C5-C6 distribution to the level of the wrist. +1 bilateral brachioradialis reflexes. DIAGNOSIS: Cervical spasms, cervical spondylosis, cervical degenerative disc disease, cervicalgia, lower back pain. PLAN: We discussed cervical trigger point injection; however, it was decided that she will go on a prednisone burst to address inflammatory responses. She is to continue with heat and stretches for both her back and her neck. She is compliant with her multivitamin at this time. Patient will be brought back to the clinic in six weeks' time to re-evaluate her spinal axial pain of her neck as well as her spasms. Patient agrees with this plan and all questions answered. [facility] Evaluation note 07-30-2022 Note Date & Type Note Facility 07-30-2022 Evaluation note Encounter Date Diagnosis Assessment Notes Jul, Hyperlipidemia (ICD-10 - E78.5) Discussed cholesterol results with patient today. Total is 217. HDL is 55. LDL is 143.6. Triglycerides are 96. VLDL is 18.4. Her readings have improved since last checked. I encouraged her to watch her intake of carbs and sugars. Stay active. Jul, Hyperglycemia (ICD-10 - R73.9) Discussed blood sugar results with patient today. Glucose is 108. HgA1C is down from 5.9 to 5.4 which is normal. Jul, Elevated alkaline phosphatase level (ICD-10 - R74.8) Her alk phos level was elevated at 146 when checked. She has never been told that she has low Vitamin D before. I did advise her that this level can be elevated when someone's Vitamin D level is low. It can also be associated with bones, intestines or liver. If needed we may need to order a nuclear bone scan. Jul, Eosinophil count raised (ICD-10 - R89.8) Her eosinophils were elevated, she denies being sick or feeling sick recently. I will repeat lab to see if this has returned to normal. This could have been an allergic reaction to something. Jul, Elevated blood pressure (ICD-10 - R03.0) Blood pressure is controlled, continue with above medication daily. Jul, COPD (chronic obstructive pulmonary disease) (ICD-10 - J44.9) Continue with Dr. Govea as scheduled. Jul, Anxiety (ICD-10 - F41.9) She voices that the Vistaril made her heart race. I did advise her that because of the other medications she is on I am limited on what medications she can be given for her anxiety. I did recommend that she see a psychiatrist to discuss medications that she can take. I provided her with a name and phone number of someone she can see through [facility]. She voices that she will think about it. I asked her not to take anymore Vistaril. Jul, Lumbar pain (ICD-10 - M54.50) She voices that Dr. Stoll is retiring and his POSTAL WORKER is leaving. She is scheduled for an epidural on 08-27-22. She voices that her insurance will not cover anesthesia prior to the epidural so the last time she had to go through it without any medication. She cannot take Vistaril now. I would like her to contact Dr. Stoll's office and see if they will give her one Valium to take prior to the procedure to help calm her down but she would not be able to take her pain medication if she is given the Valium. I cannot prescribe Valium for her. Jul, Hematuria (ICD-10 - R31.9) No blood noted in her urinalysis. Jul, Weight loss (ICD-10 - R63.4) She voices that her weight fluctuates between 155-160. Since her last office visit here she has lost 2.5 pounds. When she was in the 200 pound range and dropped down to 145 and voices that she did this without trying. Her TSH is normal at 0.822. Jul, Other specified health status (ICD-10 - Z78.9) Jul, Other She refuses a mammogram today 07-30-22. She does do monthly self breast exams and reports no abnormalities. We discussed ovarian and cervical cancer today. She is to call for the lab results and at that time we will determine when she should be seen again and if/when testing needs to be repeated. [facility] Other Consultation note 07-24-2022 Note Date & Type Note Facility 07-24-2022 Note CONSULTATION CONSULTATION DATE: 07/24/2022 HISTORY OF PRESENT ILLNESS: This is a 57-year-old female who returns to the clinic for a three month follow up for her chronic lower back pain. Patient had a lumbar epidural steroid injection on 05/27/2022 and she received 75% improvement for two weeks. Prior to that, she had bilateral radicular pain, specifically to her right hip. The patient stated that epidural completely mitigated that pain but, as of today, it has returned. She feels her pain is back at baseline at 6/10. She reports sensation of a burning and aching, that does radiate down the anterior portion of her right lower extremity to her foot. Twisting, pushing, pulling, standing, walking, transitioning positions and bending aggravates the pain. Application of heat decreases the pain. Medications include Lyrica 75 mg q.h.s., Flexeril 20 mg q.h.s., trazodone and Percocet 7.5/325 t.i.d. Patient's REVIEW OF SYSTEMS / PAST MEDICAL HISTORY / ALLERGIES and IMAGES have been reviewed and noted on the chart. PHYSICAL EXAM: VITAL SIGNS: Blood pressure 155/83, heart rate is 87. Temperature is 98.2. She is 5'5 , weighs 73 kg. GENERAL IMPRESSION: Pleasant, appropriate, no acute distress. FOCUSED EXAM - BACK: Range of motion is functional in lateral rotation and flexion/extension. Paravertebral muscles are non-spasmodic. Mild spinal axial pain upon compression bilaterally of L4, L5, S1. Pain does radiate below the knee to the right side that extends to the foot. Patchy dermatomal radiating pain to her left leg to the level of the knee. MUSCULOSKELETAL: Motor is intact, 4/5 bilaterally. Patient walks unassisted with a stable gait. Muscle tone is good. NEUROLOGICALLY: Hypoesthesia noted to the L3, L4, L5 distribution bilaterally, right greater than left, to the level of the foot. +1 bilateral patellar reflexes. DIAGNOSIS: Lumbar radiculitis, chronic lower back pain, lumbar degenerative disc disease and lumbar spondylosis. PLAN: At this time, there will be no medication changes. She is to continue with heat application and stretches. She will receive an oral tox screen today. Patient will return to the clinic in 4-5 weeks for re-evaluation. The patient is in agreement to this. [facility] Evaluation note 07-21-2022 Note Date & Type Note Facility 07-21-2022 Evaluation note Encounter Date Diagnosis Assessment Notes Jun, Anxiety (ICD-10 - F41.9) In the last year she has had a lot of anxiety, she feels it is coming from the inside of her. She had an epidural injection last year and her insurance stopped paying for the anesthesia, and she had to go through with the procedure anyways and voices that she was hyperventilating because of the anxiety from the procedure. Because she is on pain medication I cannot give her a benzodiazepine medication. We discussed other medication that can be used to treat anxiety, medications that are used to treat depression cannot be used with Trazodone because they raise the serotonin level. I will provide her with Vistaril which is not addictive. Side effects/risks/bene fits of medication were reviewed. If she needs this prior to her procedure she should take it an hour and a half prior to the procedure and should have a electric mule driver to take her to the procedure and back home. She should only use the medication as needed. Jun, Lumbar pain (ICD-10 - M54.50) She continues to follow with Dr. Stoll for her back. She will return to see him on 07-24-22. She voices that the last epidural injection helped for about two weeks. It has been almost a year since her last epidural injection. She voices that she has pain in her right hip as well. 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 She is considering applying for disability. She voices that she tries to stay going because she was told that if she didn't keep moving she would lock up . I did advise her that I am not a disability determining doctor so she will have to see one to help guide her through this. Jun, Hyperlipidemia (ICD-10 - E78.5) Will provide her with an order to have fasting lab drawn soon. 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 Govea as directed/scheduled . Jun, Pulmonary nodule (ICD-10 - R91.1) She is following with Dr. Govea, she voices that the nodule is being watched but it has not grown any. Jun, Colon cancer screening (ICD-10 - Z12.11) I did recommend that she have a colonoscopy and she agrees. Jun, Other I did recommend that she have a mammogram done but she refuses. [facility] Other Consultation note 04-24-2022 Note Date & Type Note Facility 04-24-2022 Note CONSULTATION CONSULTATION DATE: 04/24/2022 HISTORY OF PRESENT ILLNESS: This is a 57-year-old female returning to the clinic for a two month follow up for her chronic lower back pain and left leg pain. Patient was last seen on 02/20/2022 and, at that time, she was started on Lyrica 75 mg q.h.s. and meloxicam 15 mg daily. The patient has noticed improvement with her left leg pain and with overall joint pain since starting those medications. In addition to those medications, she also takes trazodone 50 mg q.h.s. and Percocet 5/325 t.i.d. The patient was on long standing Percocet 7.5/325 t.i.d. and, with the introduction of the Lyrica and Mobic, she was trialed on 5 mg pills. She does report a pain of 7/10 today. 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 With increased activity, her pain can reach 9/10. Last intervention was a lumbar epidural steroid injection in December of this year, which afforded her significant relief. Patient is inquiring about another injection. The patient reports all physical activity aggravates her pain. Lying down and heat does improve her symptoms. Patient's REVIEW OF SYSTEMS / PAST MEDICAL HISTORY / ALLERGIES and IMAGES have been reviewed and they are noted on the chart. PHYSICAL EXAM: VITAL SIGNS: Blood pressure 126/77, heart rate is 54. She is 5'5 and weighs 71 kg. GENERAL IMPRESSION: Pleasant, appropriate, no acute distress. FOCUSED EXAM - BACK: Range of motion is functional in lateral rotation and flexion/extension. Paravertebral muscles are taut but non-spasmodic. Kaylin's point is non-tender. Negative FABERs and compression test. MUSCULOSKELETAL: Slight motor weakness noted to left anterior tibialis. Extensors are intact. Patient does not use assistive device and has a steady and equal gait. NEUROLOGICALLY: Patchy hypoesthesia noted along left L5-S1 to the level of the ankle. +1 left patellar, +2 right patellar reflexes. DIAGNOSIS: Lumbar radiculitis, lumbar degenerative disc disease and chronic lower back pain. PLAN: We will authorize for a lumbar epidural steroid injection at the level of L2. Patient is to maintain on the meloxicam and Lyrica at the set doses. I did agree, at her next Percocet refill, to revert back to the 7.5/325 t.i.d. Patient is in agreement with this plan of care and will be followed up in the clinic post procedure. [facility] Consultation note 02-20-2022 Note Date & Type Note Facility 02-20-2022 Note CONSULTATION CONSULTATION DATE: 02/20/2022 HISTORY OF PRESENT ILLNESS: This is a pleasant, 56-year-old female who returns to the clinic for a two month follow up and status post lumbar epidural steroid injection. Her procedure was on 01/14/2022, which afforded her 60% relief for five days. Historically, she does very well with epidural procedures, but they are not long lasting. She reports her pain a 6/10 today and describes it as achy and burning. She is having radiating pain down the left anterior portion of her left lower extremity as well as left upper extremity radicular pain to her forearm. Her pain is aggravated by twisting, turning, standing, walking, lifting, bending and housework. She does use heat to her back, which is helpful to her. She is requesting a trazodone refill today, as she has been on some medications for a long time and is unable to sleep comfortably. Current medications include Percocet 7.5/325 t.i.d., Flexeril 20 mg q.h.s., gabapentin 300 mg daily and trazodone 50 mg q.h.s. She does take the ibuprofen occasionally. She denies any new radicular pain. No vasomotor changes. Patient's REVIEW OF SYSTEMS / PAST MEDICAL HISTORY / ALLERGIES and IMAGES have been reviewed and they are noted on the chart. PHYSICAL EXAM: VITAL SIGNS: Blood pressure 146/84, heart rate is 84. Temperature is 98. She is 5'5 and weighs 70.4 kg. GENERAL APPEARANCE: Pleasant, appropriate, no acute distress. FOCUSED EXAM - BACK: Range of motion is functional in lateral rotation and flexion/extension. No reproduction of spinal axial pain to compression along the lumbar facets. Kaylin's point is non-tender bilaterally. Paravertebral muscles are non-spasmodic but taut. MUSCULOSKELETAL: Motor is intact to upper and lower extremities, 4/5, with no vasomotor changes noted. Muscle tone is good. Patient ambulates with a steady gait. Does not use an assistive device. Slight motor weakness noted to the left anterior tibialis in extensor digitorum longus. NEUROLOGICAL: Patchy hypoesthesia noted along left upper extremity along the C6-C7 dermatome to the level of the forearm and left lower extremity to L3-L4 dermatome to the level of the knee. +1 bilateral brachioradialis and patellar reflexes. DIAGNOSIS: Lumbar radiculitis, cervical neuritis, lumbar degenerative disc disease. PLAN: Refill for trazodone 50 mg q.h.s. will be sent. She was instructed to stop gabapentin and we will start her on Lyrica 75 mg q.h.s. in hopes of catching more radicular pain. We will start her on meloxicam 15 mg daily to address her inflammation. Vitamin compliance was encouraged. She will be brought back to the clinic in six weeks' time to re-evaluate our new plan of care and medication efficacy. Patient agrees to this and all questions answered. [facility] Consultation note 12-18-2021 Note Date & Type Note Facility 12-18-2021 Note CONSULTATION CONSULTATION DATE: 12/18/2921 This is a pleasant 56-year-old female who returns to the clinic for a follow-up bilateral cervical RFAs of C5, C6, C6 and T1, last completed on 11/12/2020. The patient has received 80% relief from that procedure. Approximately one week ago the patient states she picked up a heavy flower pot and felt a pop in her lower back. She is very uncomfortable today and did consider going to the emergency department. She was doing home stretches and taking her muscle relaxer which has been helpful. She does have a history of lumbar fusion in the past. Activities such as pushing, pulling, sitting, sanding, walking and bending aggravate her pain. She uses heat which helps to relieve her pain. Medications include ibuprofen 400 mg q. p.m., Percocet 7.5/325 t.i.d., Flexeril 20 mg q.h.s. and gabapentin 300 mg q. day. The patient is complaining of what she feels is muscle spasms as well in her back but pain does radiate through her bilateral buttocks into the lateral portion of her lower extremities. The patient did have a lumbar epidural steroid injection back in May 2021 that afforded her significant relief. REVIEW OF SYSTEMS, PAST MEDICAL HISTORY, ALLERGIES AND IMAGES: Have been reviewed and noted in the chart. PHYSICAL EXAM: VITAL SIGNS: Blood pressure 145/83, heart rate is 72. She is 5'5 and weighs 72 kg. GENERAL APPEARANCE: Pleasant, appropriate, uncomfortable sitting in a chair and leaning to her left side. FOCUSED EXAM: BACK: Range of motion is limited and guarded in lateral rotation and flexion/extension. Bilateral paravertebral muscles are spasmodic. Reproduction of spinoaxial pain to direct compression along T12 and L1 with positive jump response. Kaylin's point is non-tender bilaterally. Luisito's and compression test is negative. MUSCULOSKELETAL: Motor is intact bilaterally, 4 out of 5 with slight weakness noted to bilateral anterior tibialis. Patellar reflexes are +1. DIAGNOSIS: Lumbar radiculitis, lumbar spondylosis, lumbar degenerative disk spinoaxial lower back pain. PLAN: We will preauthorize for a lumbar epidural steroid injection at the level of L2. She is to start with her multivitamin and adding magnesium glycinate 400 mg q.h.s. I did encourage her to use a heat rub mixed with Voltaren as well as a heat source to her back. Extension exercises were encouraged as was massage for her lumbar spasms. The plan is for her next refill to decrease her Percocet to 5/325 t.i.d. The patient agrees to the plan of care and would like to proceed. She will be followed up in the clinic. [facility] Signed and Approved by: JOSE ALEJANDRO STINSON . 12/26/2021 16:26:00 [facility] History general Narrative - Reported 08-11-2011 Note Date & Type Note Facility 08-11-2011 History general N arrative - Reported Type Medical History Gestational Diabetes Medical History History of Hemorrhoids Medical History Chest X-Ray Done 08-11-11 Medical History Lumbar Spine X-Ray Done 08-11-11 Medical History Pelvic Ultrasound 08-11-12; [facility] Medical History Transvaginal US 08-12-12; [facility] Medical History CT Abdomen and Pelvi s 08-16-12; [facility] Medical History TDap (Adacel) 01-03-15 [place] [facility] Medical History 01/2015 Dr So, 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 Lu Colonosc opy, Diverticulosis 10-05-2012 Surgical History injection in back - Pain Mgmt Surgical History Nerve block in back 06/2019 Hospitalization History Tonsillectomy Hospitalization History Childbirth Hospitalization History [facility] hes in [facility] hand cut during washing dishes 01/03/2015 [facility] Other Evaluation note Note Date & Type Note Facility Evaluation note No Information [facility] Other Reason for Referral Reason appt 09/05/22 at 8am pt needs screening colonoscopy Diagnosis 1 Colon cancer screeni ng (Z12.11) Referral Organization [facility] Referring Provider First Name Bianca Referring Provider Last Name Jose Referring Provider Specialty Family Prac guero Referred Organization [facility] Gastroenterolo gy Referred Provider John Cedillo Referred Address [address] [place] [phone] Referred Provider Specialty Gastroentero logy Referral Priority Routine Referral Appointment Date 2022-09-05 General Notes Delilah Sandoval 07/21/2022 11:57:58 AM > referral sent p2p. pt understands she will be contacted to schedule this appt. Delilah Sandoval 08/06/2022 10:17:55 AM > colonoscopy scheduled on 09/05/22 at 8am Summary Purpose Family History No Family History Records Found Advance Directives No Advanced Directives Records Found Additional Source Comments REASON FOR VISIT (unrecogniz ed section and content) check upreview labsMAIL [facility] ammogram and Colonoscopy INFORMATION SOURCE (unrecogn ized section and content) DATE CREATED AUTHOR 11/05/2022 [facility] FOR RECORDS PERTAINING TO PATIENTS WHO ARE OR HAVE BEEN ENROLLED IN A CHEMICAL DEPENDENCY/SUBSTANCEABUSE PROGRAM, SOME INFORMATION MAY BE OMITTED. This clinical summary was aggregated from multiple sources. Caution should be exercised in using it in the provision of clinical care. This summary normalizes information from multiple sources, and as a consequence, information in this document may materially change the coding, format and clinical context of patient data. In addition, data may be omitted in some cases. CLINICAL DECISIONS SHOULD BE BASED ON THE PRIMARY CLINICAL RECORDS. [facility] [employer] [facility]. provides no warranty or guarantee of the accuracy or completeness of information in this document.
== END 2023-06-11 15:02 | disposition home or self-care (01) ==
LOC: PM 15:02
PROVIDERS: PCP Family Medicine; Visit Provider Anesthesiology Pain Medicine
DX: M17.5 Other unilateral secondary osteoarthritis of knee (principal)
CPT/HCPCS: 20610

== ENCOUNTER 2023-07-16 10:42 | Outpatient (OUT) | payer MEDICAID, SELFPAY ==
--- OUTSIDE RECORDS SUMMARY | 2023-07-16 10:46 | XMS_ITS | CCD ---
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 Name Role Phone Bianca Garcia Unavailable AsaJohn vance Unavailable MARNI ., DR LENORE Becker Attending Unavailable JOSE, DR VALENZEULA Primary Care Unavailable STINSON ., JOSE ALEJANDRO [...] Unavailable JOSE, DR VALENZUELA Primary Care Unavailable TSOLL ., DR LENORE Becker Attending Unavailable STOLL [...] sources) hydrOXYzine Drug Allergy 3 heart palpitations [employer] Other Medications Current Medications Medication Drug Class(es) Dates Sig (Normalized) Sig (Original) acetaminophen 325 mg / oxyCODONE hydrochloride 7.5 mg oral tablet (4 sources) Opioid Agonist Start: 08-14-2014 Percocet 7.5-325 MG 1 tablet Orally q8-12 hrs prn Jul, Active [id number] 200 actuat albuterol 0.09 mg/actuat metered dose [...] 07-27-2022 Episodic Other aftercare (2 sources) Other residential (current) drug therapy; 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 Roderick Greene Basophils/100 WBC (Bld) 0.6 % Normal 0.2-2.0 [facility] Comment on above: Performed By: #### U RCX #### [facility] [address] [address] [address] Roderick Greene EO # 0.8 103/ul Critically high 0.0-0.7 [facility] Comment on above: Performed By: #### U RCX #### [facility] [address] [address] [address] Roderick Greene Eosinophils/100 WBC (Bld) 7.9 % Critically high 0.9-7.0 [facility] Comment on above: Performed By: #### U RCX #### [facility] [address] [address] [address] Roderick Greene Erythrocyte distribution width (RBC) [Ratio] 13.2 % Normal 11.0-15.0 [facility] Comment on above: Performed By: #### U RCX #### [facility] [address] [address] [address] Roderick Greene Hematocrit (Bld) [Volume fraction] 50.3 % Critically high 36.0-48.0 [facility] Comment on above: Performed By: #### U RCX #### [facility] [address] [address] [address] Roderick Greene Hemoglobin (Bld) [Mass/Vol] 16.0 g/dL Normal 12.0-16.0 [facility] Comment on above: Performed By: #### U RCX #### [facility] [address] [place] [address] Dr. Roderick Greene IG # 0.02 10e3/ul Normal 0.00-0.03 [facility] Comment on above: Performed By: #### U RCX #### [facility] [address] [place] [address] Dr. Roderick Greene IG % 0.2 % Normal 0.0-0.5 [facility] Comment on above: Performed By: #### U RCX #### [facility] [address] [place] [address] Dr. Roderick Greene LYMPH # 2.3 103/ul Normal 1.2-3.8 [facility] Comment on above: Performed By: #### U RCX #### [facility] [address] [place] [address] Dr. Roderick Greene Lymphocytes/100 WBC (Bld) 24.5 % Normal 20.5-60.0 [facility] Comment on above: Performed By: #### U RCX #### [facility] [address] [place] [address] Dr. Roderick Greene MANUAL DIFF REQ NO Normal [facility] Comment on above: Performed By: #### U RCX #### [facility] [address] [place] [address] Dr. Roderick Greene MCH (RBC) [Entitic mass] 31.4 pg Normal 26.7-34.0 [facility] Comment on above: Performed By: #### U RCX #### [facility] [address] [place] [address] Dr. Roderick Greene MCHC (RBC) [Mass/Vol] 31.8 g/dL Normal 29.9-35.2 [facility] Comment on above: Performed By: #### U RCX #### [facility] [address] [place] [address] Dr. Roderick Greene MCV (RBC) [Entitic vol] 98.8 fL Normal 81.0-99.0 [facility] Comment on above: Performed By: #### U RCX #### [facility] [address] [place] [address] Dr. Roderick Greene MONO # 0.4 103/ul Normal 0.3-0.8 [facility] Comment on above: Performed By: #### U RCX #### [facility] [address] [place] [address] Dr. Roderick Greene Monocytes/100 WBC (Bld) 3.7 % Normal 1.7-12.0 [facility] Comment on above: Performed By: #### U RCX #### [facility] [address] [place] [address] Dr. Roderick Greene NEUT # 6.0 103/ul Normal 1.4-6.5 [facility] Comment on above: Performed By: #### U RCX #### [facility] [address] [place] [address] Dr. Roderick Greene Neutrophils/100 WBC (Bld) 63.1 % Normal 43.0-75.0 [facility] Comment on above: Performed By: #### U RCX #### [facility] [address] [place] [address] Dr. Roderick Greene Platelet mean volume (Bld) [Entitic vol] 10.7 fL Normal 9.5-13.5 [facility] Comment on above: Performed By: #### U RCX #### [facility] [address] [place] [address] Dr. Roderick Greene PLT 290 103/ul Normal 150-450 [facility] Comment on above: Performed By: #### U RCX #### [facility] [address] [place] [address] Dr. Roderick Greene RBC 5.09 106/ul Normal 4.20-5.40 [facility] Comment on above: Performed By: #### U RCX #### [facility] [address] [place] [address] Dr. Roderick Greene WBC 9.5 103/ul Normal 4.0-11.0 [facility] Comment on above: Performed By: #### U RCX #### [facility] [address] [address] [address] Roderick Greene CULTURE URINEon 07-26-2022 CULTURE URINE Culture Observations: LIGHT GROWTH OF MIXED GENITAL MATEO. NO POTENTIAL PATHOGENS SEEN. Normal [facility] Comment on above: Performed By: #### U RCX #### [facility] [address] [address] [address] Roderick Greene GLYCOHEMOGLOBIN A1Con 2022 ADA RECOMMENDATION SEE BELOW Normal [facility] Comment on above: Result Comment: ADA RECOMMENDED LIMIT 4.0 - 6.0 ADA THERAPEUTIC TARGET < 7.0 ACTION SUGGESTED > 7.0 Performed By: #### A 1C #### [facility] [address] [place] [address] Dr. Roderick Greene Glucose [Mass/Vol] 108 mg/dL Critically high 74-106 [facility] Comment on above: Performed By: #### A 1C #### [facility] [address] [place] [address] Dr. Roderick Greene Performed By: #### T SH, LIPID, CMP #### [facility] [address] [place] [address] Dr. Roderick Greene HbA1c (Bld) [Mass fraction] 5.4 % Normal 4.5-6.2 [facility] Comment on above: Performed By: #### A 1C #### [facility] [address] [place] [address] Dr. Roderick Greene LIPID PROFILEon 07-26-2022 CHOL-HDL RATIO NORM SEE BELOW Normal [facility] Comment on above: Result Comment: 3.3 - 4.4 LOW RISK 4.4 - 7.1 AVERAGE RISK 7.1 - 11.0 MODERATE RISK >11.0 HIGH RISK Performed By: #### U RCX #### [facility] [address] [place] [address] Dr. Roderick Greene Cholesterol [Mass/Vol] 217 mg/dL Critically high <=200 [facility] Comment on above: Performed By: #### U RCX #### [facility] [address] [place], [place] [id number] Dr. Roderick Greene Cholesterol in HDL [Mass/Vol] 55 mg/dL Normal 40-60 [facility] Comment on above: Performed By: #### U RCX #### [facility] [address] [address] [address] Roderick Greene Cholesterol in LDL [Mass/Vol] 143.6 mg/dL Normal [facility] Comment on above: Performed By: #### U RCX #### [facility] [address] [address] [address] Roderick Greene Cholesterol.total/Cho lesterol in HDL [Mass ratio] 3.9 {ratio} Normal [facility] Comment on above: Performed By: #### U RCX #### [facility] [address] [place] [address] Dr. Roderick Greene HDL NORMAL > or = 60 mg/dl - LOW CARDIOVASCULAR RISK <40 mg/dl - HIGH CARDIOVASCULAR RISK Normal [facility] Comment on above: Performed By: #### U RCX #### [facility] [address] [address] [address] Roderick Greene LDL CALC NORMAL SEE BELOW Normal [facility] Comment on above: Result Comment: <100 mg/dl OPTIMAL 100 - 129 mg/dl NEAR OR ABOVE OPTIMAL 130 - 159 mg/dl BORDERLINE HIGH 160 - 189 mg/dl HIGH >190 mg/dl VERY HIGH Performed By: #### U RCX #### [facility] [address] [address] [address] Roderick Greene Triglyceride [Mass/Vol] 92 mg/dL Normal <=150 [facility] Comment on above: Performed By: #### U RCX #### [facility] [address] [address] [address] Roderick Greene VLDL CALC 18.4 mg/dL Normal [facility] Comment on above: Performed By: #### U RCX #### [facility] [address] [address] [address] Roderick Greene PROF 14(COMP METB)on 023 Albumin [Mass/Vol] 3.7 g/dL Normal 3.4-5.0 [facility] Comment on above: Performed By: #### T SH, LIPID, CMP #### [facility] [address] [address] [address] Roderick Greene Albumin/Globulin [Mass ratio] 1.0 {ratio} Normal [facility] Comment on above: Performed By: #### T SH, LIPID, CMP #### [facility] [address] [address] [address] Roderick Greene ALP [Catalytic activity/Vol] 146 U/L Critically high 46-116 [facility] Comment on above: Performed By: #### T SH, LIPID, CMP #### [facility] [address] [address] [address] Roderick Greene ALT [Catalytic activity/Vol] 24 U/L Normal 14-59 [facility] Comment on above: Performed By: #### T SH, LIPID, CMP #### [facility] [address] [address] [address] Roderick Greene Anion gap [Moles/Vol] 11.7 mmol/L Normal [facility] Comment on above: Performed By: #### T SH, LIPID, CMP #### [facility] [address] [address] [address] Roderick Greene AST [Catalytic activity/Vol] 23 U/L Normal 15-37 [facility] Comment on above: Performed By: #### T SH, LIPID, CMP #### [facility] [address] [address] [address] Roderick Greene Bilirubin [Mass/Vol] 0.5 mg/dL Normal 0.2-1.0 [facility] Comment on above: Performed By: #### T SH, LIPID, CMP #### [facility] [address] [address] [address] Roderick Greene Calcium [Mass/Vol] 9.3 mg/dL Normal 8.5-10.1 [facility] Comment on above: Performed By: #### T SH, LIPID, CMP #### [facility] [address] [address] [address] Roderick Greene Chloride [Moles/Vol] 105 mmol/L Normal 98-107 [facility] Comment on above: Performed By: #### T SH, LIPID, CMP #### [facility] [address] [address] [address] Roderick Greene CO2 [Moles/Vol] 31.0 mmol/L Normal 21.0-32.0 [facility] Comment on above: Performed By: #### T SH, LIPID, CMP #### [facility] [address] [place] [address] Dr. Roderick Greene Creatinine [Mass/Vol] 0.65 mg/dL Normal 0.55-1.02 [facility] Comment on above: Performed By: #### T SH, LIPID, CMP #### [facility] [address] [place] [address] Dr. Roderick Greene EGFR-AF BANGLADESHI >60 Normal >=60 [facility] Comment on above: Performed By: #### T SH, LIPID, CMP #### [facility] [address] [place] [address] Dr. Roderick Greene EGFR-NON AF BANGLADESHI >60 Normal >=60 [facility] Comment on above: Performed By: #### T SH, LIPID, CMP #### [facility] [address] [place] [address] Dr. Roderick Greene Globulin (S) [Mass/Vol] 3.6 g/dL Normal [facility] Comment on above: Performed By: #### T SH, LIPID, CMP #### [facility] [address] [place] [address] Dr. Roderick Greene Potassium [Moles/Vol] 4.7 mmol/L Normal 3.5-5.1 [facility] Comment on above: Performed By: #### T SH, LIPID, CMP #### [facility] [address] [place] [address] Dr. Roderick Greene Protein [Mass/Vol] 7.3 g/dL Normal 6.4-8.2 [facility] Comment on above: Performed By: #### T SH, LIPID, CMP #### [facility] [address] [place] [address] Dr. Roderick Greene Sodium [Moles/Vol] 143 mmol/L Normal 136-145 [facility] Comment on above: Performed By: #### T SAVANAH LIPID, CMP #### [facility] [address] [place] [address] Dr. Roderick Greene Urea nitrogen [Mass/Vol] 13.0 mg/dL Normal 7.0-18.0 [facility] Comment on above: Performed By: #### T SAVANAH LIPID, CMP #### [facility] [address] [place] [address] Dr. Roderick Greene Urea nitrogen/Creatinine [Mass ratio] 20.0 mg/mg Normal [facility] Comment on above: Performed By: #### T SAVANAH LIPID, CMP #### [facility] [address] [place] [address] Dr. Roderick Greene TSHon 07-26-2022 TSH 0.822 uIU/mL Normal 0.358-3.740 [facility] Comment on above: Performed By: #### T SAVANAH LIPID, CMP #### [facility] [address] [place] [address] Dr. Roderick Greene UA RANDOM W/MICROSCOPICon BACTERIA TRACE Abnormal NONE SEEN [facility] Comment on above: Performed By: #### U AMIC #### [facility] [address] [place] [address] Dr. Roderick Greene Bilirubin Ql (U) Negative Normal NEGATIVE [facility] Comment on above: Performed By: #### U AMIC #### [facility] [address] [place] [address] Dr. Roderick Greene CAST NONE SEEN Normal NONE SEEN [facility] Comment on above: Performed By: #### U AMIC #### [facility] [address] [place] [address] Dr. Roderick Greene Clarity (U) CLEAR Normal CLEAR [facility] Comment on above: Performed By: #### U AMIC #### [facility] [address] [place] [address] Dr. Roderick Greene Color (U) LT. YELLOW Normal YELLOW [facility] Comment on above: Performed By: #### U AMIC #### [facility] [address] [address] [address] Roderick Greene Crystals LM Nom (Urine sed) NONE SEEN Normal NONE SEEN [facility] Comment on above: Performed By: #### U AMIC #### [facility] [address] [address] [address] Roderick Greene Epithelial cells LM Ql (Urine sed) FEW Abnormal NONE SEEN /RARE [facility] Comment on above: Performed By: #### U AMIC #### [facility] [address] [address] [address] Roderick Greene Glucose Ql (U) Negative Normal NEGATIVE [facility] Comment on above: Performed By: #### U AMIC #### [facility] [address] [address] [address] Roderick Greene Hemoglobin Ql (U) Negative Normal NEGATIVE [facility] Comment on above: Performed By: #### U AMIC #### [facility] [address] [address] [address] Roderick Greene Ketones Ql (U) Negative Normal NEGATIVE [facility] Comment on above: Performed By: #### U AMIC #### [facility] [address] [address] [address] Roderick Greene LEUKOCYTES Negative Normal NEGATIVE [facility] Comment on above: Performed By: #### U AMIC #### [facility] [address] [address] [address] Roderick Greene MUCOUS SMALL Abnormal NONE SEEN [facility] Comment on above: Performed By: #### U AMIC #### [facility] [address] [address] [address] Roderick Greene Nitrite Ql (U) Negative Normal NEGATIVE [facility] Comment on above: Performed By: #### U AMIC #### [facility] [address] [address] [address] Roderick Greene pH (U) 8.0 [pH] Normal 5-9 [facility] Comment on above: Performed By: #### U AMIC #### [facility] [address] [address] [address] Roderick Greene RBC NONE SEEN Abnormal 0-2 [facility] Comment on above: Performed By: #### U AMIC #### [facility] [address] [address] [address] Roderick Greene SPEC GRAVITY 1.020 Normal 1.005-<=1.025 [facility] Comment on above: Performed By: #### U AMIC #### [facility] [address] [place] [address] Dr. Roderick Greene UA PROTEIN Negative Normal NEGATIVE/ TRACE [facility] Comment on above: Performed By: #### U AMIC #### [facility] [address] [place] [address] Dr. Roderick Greene Urobilinogen Qn (U) 0.2 {Jordan'U}/dL Normal 0.2 - 1. 0 [facility] Comment on above: Performed By: #### U AMIC #### [facility] [address] [place] [address] Dr. Rdoerick Greene WBC NONE SEEN Normal NONE SEEN [facility] Comment on above: Performed By: #### U AMIC #### [facility] [address] [place] [address] CHEST WO CONon [...] by: SONU COLLINS Date: 2022-03-03 07:51 Normal [facility] Vital Signs Date Time Vital Sign Value Performing Clinician Facility 07-30-2022 12:10-0500 Body height 162.56 cm Bianca Garcia Other [facility] Other 07-30-2022 12:10-0500 Body mass index (BMI) [Ratio] 27.12 kg/m2 Bianca Garcia Other [employer] Other 07-30-2022 12:10-0500 Body temperature 96.6 [degF] Bianca Garcia Other [employer] Other 07-30-2022 12:10-0500 Body weight 71.67 kg Bianca Garcia Other [employer] Other 07-30-2022 12:10-0500 Diastolic blood pressure 86 mm[Hg] Bianca Garcia Other [employer] Other 07-30-2022 12:10-0500 Respiratory rate 18 /min Bianca Garcia Other [employer] Other 07-30-2022 12:10-0500 SaO2% (BldA) [Mass fraction] 98 % Bianca Garcia Other [employer] Other 07-30-2022 12:10-0500 Systolic blood pressure 120 mm[Hg] Bianca Garcia Other [employer] Other 07-21-2022 11:30-0500 Body height 162.56 cm Bianca Garcia Other [employer] Other 07-21-2022 11:30-0500 Body mass index (BMI) [Ratio] 27.55 kg/m2 Bianca Garcia Other [facility] Other 07-21-2022 11:30-0500 Body temperature 98.4 [degF] Bianca Garcia Other [employer] Other 07-21-2022 11:30-0500 Body weight 72.8 kg Bianca Garcia Other [facility] Other 07-21-2022 11:30-0500 Diastolic blood pressure 88 mm[Hg] Bianca Garcia Other [facility] Other 07-21-2022 11:30-0500 Respiratory rate 18 /min Bianca Garcia Other [employer] Other 07-21-2022 11:30-0500 SaO2% (BldA) [Mass fraction] 95 % Bianca Garcia Other [employer] Other 07-21-2022 11:30-0500 Systolic blood pressure 122 mm[Hg] Bianca Garcia Other [employer] Other Encounters Encounter Date Encounter Type Care Provider Facility Start: 11-20-2022 ambulatory JÚNIOR GOLDBERG . Facili ty:[facility] Start: 11-04-2022 End: 11-04-[address] BIANCA GARCIA Facility:[facility] Start: 10-09-2022 End: 10-10-2022 ambulatory YANE VALERA . Facility:[facility] Start: 10-01-2022 End: 10-01-2022 ambulatory Bianca Garcia Other [facility] Other Start: 10-01-2022 Telephone encounter Bianca Garcia [facility] Start: 08-28-2022 End: 08-29-[address] LENORE STOLL . Facility:[facility] Start: 08-05-2022 End: 08-05-2022 ambulatory John Diallopinky Other [employer] Other Start: 08-05-2022 Telephone encounter Lidiap[facility] Start: 07-30-2022 End: 07-30-2022 ambulatory Bianca Garcia Other [employer] Other Start: 07-30-2022 Office outpatient visit 25 minutes Bianca Garcia [facility] Start: 07-26-2022 End: 07-27-[address] BIANCA GARCIA Facility:[facility] Start: 07-24-2022 End: 07-25-[address] LENORE STOLL . Facility:[facility] Start: 07-21-2022 End: 07-21-2022 ambulatory Bianca Garcia Other [employer] Other Start: 07-21-2022 Office outpatient visit 15 minutes Bianca Garcia [facility] Start: 05-27-2022 End: 05-27-[address] LENORE STOLL . Facility:[facility] Start: 04-24-2022 End: 04-25-[address] LENORE STOLL . Facility:[facility] Start: 03-01-2022 End: 03-02-2022 ambulatory BETY CHARITY . Facility:[facility] Start: 02-20-2022 End: 02-21-[address] LENORE STOLL . Facility:[facility] Start: 01-14-2022 End: 01-14-[address] BIANCA GARCIA Facility:[facility] Start: 12-18-2021 End: 12-19-[address] BIANCA GARCAI Facility:[facility] Start: 11-12-2021 End: 11-12-[address] LENORE STOLL . Facility:[facility] Immunizations Immunization Date Immunization Notes Care Provider Fa cility 02-09-2021 COVID-19 Pfizer Bianca Garcia Other [facility] Other 01-21-2021 COVID-19 rIvin Garcia Other [facility] Other Payers Date Payer Category Payer Medicaid [id number] 2. [id number] 1966 Unknown [id number] 2.16.84 [id number] 1966 Unknown [id number] 2.16.84 [id number] 1966 Unknown [id number] 2.16.84 [id number] 1966 Unknown [id number] 2.16.84 [id number] 1966 Unknown [id number] 2.16.84 [id number] 1966 Unknown [id number] 2.16.84 [id number] 1966 Unknown [id number] 2.16.84 [id number] 1966 Unknown [id number] 2.16.84 0.1.330082.3.579.2.593 1966 Unknown [id number] 2.16.84 0.1.182369.3.579.2.593 1966 Unknown [id number] .16.84 [id number] 1966 Unknown [id number] 2.16.84 0.1.764681.3.579.2.593 1966 Unknown [id number] 2.16.84 0.1.240793.3.579.2.593 1966 Unknown [id number] 2.16.84 [id number] 1959 Unknown [id number] Social History Date Type Detail Facility Unknown if ever smoked [facility] Other Sex Assigned At Sex Assigned At Bir th [employer] Other Consultation note 10-09-2022 Note Date & [...] our patients to inform us about any clhq-xot-vuhqmrp medications or herbal remedies/nutritional supplements/alternative remedies. 2. [...] options with their primary care provider. [facility] Consultation note 08-28-2022 Note Date [...] this plan and all questions answered. [facility] Evaluation note 07-30-2022 Note Date [...] number of someone she can see through [facility]. She voices that she will think about it. I asked her not to take anymore Vistaril. Jul, Lumbar pain (ICD-10 - M54.50) She voices that Dr. Stoll is retiring and his FLOW SPECIALIST is leaving. She is scheduled for an [...] and if/when testing needs to be repeated. [facility] Other Consultation note 07-24-2022 Note Date & [...] patient is in agreement to this. [facility] Evaluation note 07-21-2022 Note Date [...] to the procedure and should have a city driver to take her to the procedure [...] Jun, Hyperglycemia (ICD-10 - R73.9) Jun, Other intermediate card tender (current) drug therapy (ICD-10 - Z79.899) Jun, [...] have a mammogram done but she refuses. [facility] Other Consultation note 04-24-2022 Note Date & [...] flexion/extension. Paravertebral muscles are taut but non-spasmodic. Kayiln's point is non-tender. Negative FABERs and compression [...] up in the clinic post procedure. [facility] Consultation note 02-20-2022 Note Date [...] to this and all questions answered. [facility] Consultation note 12-18-2021 Note Date [...] will be followed up in the clinic. [facility] Signed and Approved by: JOSE ALEJANDRO STINSON . 12/26/2021 16:26:00 [facility] History general Narrative - Reported 08-11-2011 Note Date & Type Note Facility 08-11-2011 History general N arrative - Reported Type Medical History Gestational Diabetes Medical History History of Hemorrhoids Medical History Chest X-Ray Done 08-11-11 Medical History Lumbar Spine X-Ray Done 08-11-11 Medical History Pelvic Ultrasound 08-11-12; [facility] Medical History Transvaginal US 08-12-12; [facility] Medical History CT Abdomen and Pelvi s 08-16-12; [facility] Medical History TDap (Adacel) 01-03-15 [place] [facility] Medical History 01/2015 Dr So, 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 Lu Colonosc opy, Diverticulosis 10-05-2012 Surgical History injection in back - Pain Mgmt Surgical History Nerve block in back 06/2019 Hospitalization History Tonsillectomy Hospitalization History Childbirth Hospitalization History [place] [facility] stic hes in rt hand cut during washing dishes 01/03/2015 [employer] Other Evaluation note Note Date & Type Note Facility Evaluation note No Information [facility] Other Reason for Referral Reason appt 09/05/22 at 8am pt needs screening colonoscopy Diagnosis 1 Colon cancer screeni ng (Z12.11) Referral Organization [facility] [place] Referring Provider First Name Bianca Referring Provider Last Name Jose Referring Provider Specialty Family Prac guero Referred Organization [facility] Gastroenterolo gy Referred Provider John Cedillo Referred Address [address] [place] [id number] Referred Provider Specialty Gastroentero logy Referral Priority [...] BE BASED ON THE PRIMARY CLINICAL RECORDS. [facility] [employer] [facility]. provides no warranty or guarantee of the accuracy or completeness of information in this document.
--- NOTE | 2023-07-16 10:52 | P.CN_ITS ---
Consult Note: HPI Data of Consult Patient: known to practice within the last 3 years Requesting Physician: Tori Noyola NP Primary Care Provider: BIANCA GARCIA Consult Narrative Reason for consult: f/u Narrative: Arianna flores pleasant 58 year old female presents for evaluation and management of chronic low back pain. Patient reporting pain 6/10 today. Patient finding 100% improvement in right knee pain since right knee injection. Patient continues to have aching burning sharp low back pain with numbness tingling pain in bilateral legs not extending past knees, worse with activity and work. DONNA today 38%. Continues to find functional improvement and mild pain relief from current medication regimen. Patient starting new oral medication to stop smoking. At this time patient has filed for disability but continues to work 15/hrs a week. cc:: CC: Tori Noyola NP Review of Systems ROS Status of ROS 10 or more systems reviewed and unremark able except as noted in history and below Musculoskeletal Reports: back pain Meds Home Medications and Allergies Home Medications Medication Instructions Recorded Confirmed Type albuterol sulfate 2.5 mg/3 mL 2.5 mg inhalation Q4H PRN 11/20/22 11/20/22 History (0.083 %) solution for nebulization shortness of breath or wheezing amlodipine 5 mg tablet (Norvasc) 5 mg PO QDAY 11/20/22 11/20/22 History cyclobenzaprine 10 mg tablet 10 mg PO TID 11/20/22 11/20/22 History meloxicam 15 mg tablet 15 mg PO QDAY 11/20/22 11/20/22 History multivitamin 1 tab PO QDAY 11/20/22 11/20/22 History oxycodone-acetaminophen 7.5 mg-325 1 tab PO TID 11/20/22 11/20/22 History mg tablet (Endocet) pregabalin 75 mg capsule (Lyrica) 75 mg PO QDAY 11/20/22 11/20/22 History trazodone 50 mg tablet 50 mg PO QDAY 11/20/22 11/20/22 History cyclobenzaprine 10 mg tablet 20 mg (2 x 10 mg) PO DAILY #60 tabs 03/03/23 Rx oxycodone-acetaminophen 7.5 mg-325 1 tab PO TID PRN pain #90 tabs 03/03/23 Rx mg tablet (Percocet) pregabalin 75 mg capsule (Lyrica) 75 mg PO DAILY #30 caps 03/03/23 Rx celecoxib 100 mg capsule (Celebrex) 100 mg PO BID #60 caps 03/11/23 Rx oxycodone-acetaminophen 7.5 mg-325 1 tab PO TID PRN pain #90 tabs 04/02/23 Rx mg tablet (Percocet) oxycodone-acetaminophen 7.5 mg-325 1 tab PO TID PRN pain #90 tabs 04/30/23 Rx mg tablet (Percocet) oxycodone-acetaminophen 7.5 mg-325 1 tab PO TID PRN pain #90 tabs 06/01/23 Rx mg tablet (Percocet) trazodone 50 mg tablet 50 mg PO DAILY #30 tabs 06/01/23 Rx oxycodone-acetaminophen 7.5 mg-325 1 tab PO TID PRN pain #90 tabs 06/29/23 Rx mg tablet (Percocet) Allergies Allergy/AdvReac Type Severity Reaction Status Date / Time No Known Drug Allergies Allergy Verified 11/20/22 11:52 Exam Constitutional Documenting provider has reviewed patient's vital signs: yes Common normals: no apparent distress, oriented x3, healthy appearing, alert and well nourished General appearance: cooperative HENMT Common normals: normocephalic, hearing grossly normal bilaterally and moist oral mucous membranes Head and scalp: normocephalic Eye Common normals: PERRL Pupil: PERRL Neck & C-Spine Common normals: full ROM General: normal visual inspection Chest Common normals: inspection of chest normal Respiratory Common normals: normal respiratory effort, no retractions and no use of accessory muscles Back & Pelvis Lumbar spine/lower back: ROM limited, pain with ROM, paraspinal muscle spasm and straight leg raise negative bilaterally Sacroiliac joints: SI joint(s) abnormal Other: bilateral facet loading positive L>R pain from back to anterior thighs stopping at the knees L>R tenderness over bilateral PSIS, positive gaenslens thigh thrust FABERS bilaterally L>R pain with pressure on bilateral LCIH nerve Extremity Common normals: normal to inspection and full ROM Right lower extremity: knee joint (enlarged diameter, mild crepitus on exam. ) Other: negative lateral and medial stress testing Neuro Common normals: oriented x3, CN's II-XII intact bilaterally, moves all extremities, no focal motor deficits, no sensory deficits noted and deep tendon reflexes 2+ bilaterally Sensorium/orientation: alert Gait (neuro): normal gait Motor exam: strength 5/5 throughout and no movement abnormalities noted Psych Common normals: mental status grossly normal, thought process normal, cooperative, affect normal, speech normal and activity/motor behavior normal Speech: normal speech Thought process: normal thought process Assessment and Plan Assessment and Plan (1) Chronic prescription opiate use: (2) History of lumbar fusion: (3) Lumbar spondylosis: (4) Failed back syndrome: (5) Muscle spasm: (6) Chronic low back pain: (7) Chronic pain syndrome: Plan discussed current medication regimen is providing mild pain relief and functional improvement without side effects, will not make any changes at this time continue efforts to stop tobacco use discussed SCS as last procedural intervention for low back pain post fusion, failed back syndrome, and chronic low back pain with radicular pain. handout provided, patient would like to think about this f/u 3 months for medication management, sooner to talk about SCS if she would like
== END 2023-07-16 10:43 | disposition home or self-care (01) ==
LOC: PM 10:42
PROVIDERS: PCP Family Medicine; Visit Provider Nurse Practitioner
DX: M47.816 Spondylosis without myelopathy or radiculopathy, lumbar region (principal); Z98.1 Arthrodesis status; Z79.899 Other long term (current) drug therapy; M62.838 Other muscle spasm; G89.4 Chronic pain syndrome; M54.50 Low back pain, unspecified; M96.1 Postlaminectomy syndrome, not elsewhere classified
CPT/HCPCS: G0463

== ENCOUNTER 2023-08-01 08:27 | Outpatient (OUT) | payer MEDICAID, SELFPAY ==
--- OUTSIDE RECORDS SUMMARY | 2023-08-01 08:29 | XMS_ITS | CCD ---
Author Name Unknown Address [address] [place] [address] Organization [facility] Care Team Providers Care Director Agency & Strategic Partnerships Name Role Phone Bianca Garcia Unavailable John Cedillo Unavailable MARNI ., DR LENORE Becker Attending Unavailable JOSE, DR VALENZUELA Primary Care Unavailable STINSON ., JOSE ALEJANDRO Consulting Unavailable STOLL ., DR LENORE Becker Admitting Unavailable STOLL ., DR LENORE Becker Attending Unavailable STOLL ., DR LENORE Becker Admitting Unavailable JOES, DR VALENZUELA Primary Care Unavailable STINSON ., [...] ., DR LENORE Becker Admitting Unavailable HALKER .JÚNIOR Admitting Unavailable JOSE, DR VALENZUELA Primary Care Unavailable HALSENG ., JÚNIOR Attending Unavailable JOSE, DR VALENZUELA [...] Becker Consulting Unavailable STOLL ., DR LENORE Becekr Attending Unavailable JOSE, DR VALENZUELA Primary Care Unavailable STOLL ., DR LENORE Becker Admitting Unavailable EDEN DAVIS Consulting Unavailable JOSE, DR VALENZUELA Primary Care Unavailable LAKSHMIPATHY ., NARENDRANATH Consulting Mora vailable LAKSHMIPATHY ., NARENDRANATH Attending Mora vailable LAKSHMIPATHY ., NARKAROLINA Admitting Mora tricia GARCIA, DR VALENZUELA Consulting Unavailable JOSE, DR VALENZUELA Attending Unavailable JOSE, DR VALENZUELA Admitting Unavailable JOSE, DR VALENZUELA Primary Care Unavailable ANDRA ., BETY Attending Unavailable ANDRA ., BETY Admitting Unavailable JOSE, DR VALENZUELA Primary Care Unavailable DENNIS, DR SONU Lozano Consulting Unavailable SAM ., BETY Consulting Unavailable SOTO ., YANE Consulting Mora tricia GARCIA, DR VALENZUELA Primary Care Unavailable SOTO ., YANE Attending Mora vailable SOTO ., YANE Admitting Mora vailable STOLL ., DR LENORE Becker Attending Unavailable JOSE, DR VALENZUELA Primary Care Unavailable SHANTELL .JOSE ALEJANDRO Consulting Unavailable MARNI ., DR LENORE Becker Admitting Unavailable Allergies Allergy Classification Reported Allergen(s) Allergy Type Date of Onset Reaction(s) Facility (5 sources) hydrOXYzine Drug Allergy 3 heart palpitations [employer] Other Medications Current Medications Medication Drug Class(es) Dates Sig (Normalized) Sig (Original) acetaminophen 325 mg / oxyCODONE hydrochloride 7.5 mg oral tablet (5 sources) Opioid Agonist Start: 08-14-2014 Percocet 7.5-325 MG 1 tablet Orally q8-12 hrs prn Jul, Active [id number] 200 actuat albuterol 0.09 mg/actuat metered dose inhaler (5 sources) beta2-Adrenergic Agonist Start: 05-27-2016 Ventolin HFA 108 (90 Base) MCG/ACT 2 inhalations Inhalation qid prn May, Active amLODIPine 5 mg oral tablet (5 sources) Dihydropyridine Calcium Channel Sabiha take 1 tablet by mouth once daily amLODIPine Besylate 5 mg TAKE 1 TABLET BY MOUTH ONCE DAILY Active celecoxib 100 mg oral capsule (1 source) Nonsteroidal Anti-inflammatory Drug Start: 07-23-2023 CeleBREX 100 MG 1 or 2 capsules Orally Once a day Jul, Active cyclobenzaprine hydrochloride 10 mg oral tablet (5 sources) Muscle Relaxant take 2 tablets by mouth every twenty-four hours Cyclobenzaprine HCl 10 MG 2 tablet at bedtime as needed Orally Once a day Active melatonin 5 mg oral tablet (5 sources) take 1 tablet by mouth every twenty-four hours Melatonin 5 MG 1 tablet at bedtime as needed Orally Once a day for 30 day(s) Active meloxicam 15 mg oral tablet (4 sources) Nonsteroidal Anti-inflammatory Drug take 1 tablet by mouth every twenty-four hours Meloxicam 15 MG 1 tablet Orally Once a day Active Multi For Her (5 sources) Multi For Her Orally Active 10 actuat olodaterol 0.0025 mg/actuat / tiotropium 0.0025 mg/actuat inhalation spray (1 source) Anticholinergic, beta2-Adrenergic Agonist Stiolto Respimat 2.5-2.5 MCG/ACT 2 puffs Inhalation Once a day Active pregabalin 75 mg oral capsule (5 sources) take 1 capsule by mouth once Pregabalin 75 MG 1 capsule Orally once at night Active traZODone hydrochloride 50 mg oral tablet (5 sources) Serotonin Reuptake Inhibitor take 1 tablet by mouth every twenty-four hours traZODone HCl 50 MG 1 tablet at bedtime as needed Orally Once a day Active varenicline (1 source) Partial Cholinergic Nicotinic Agonist Varenicline Tartrate (Starter) Active Completed/Discontinued Medications Medication Drug Class(es) Dates Sig (Normalized) Sig (Original) 10 actuat tiotropium 0.0025 mg/actuat inhalation spray (5 sources) Anticholinergic take 2 puff(s) by inhalation once daily as needed Spiriva Respimat 2.5 MCG/ACT 2 puffs Inhalation Once a day Not-Taking/PRN take 2 puff(s) by inhalation onc e daily Spiriva Respimat 2.5 MCG/ACT 2 puffs Inhalation Once a day Active Triamcinolone (15 sources) Corticosteroid Start: 02-20-2017 KENALOG - 10 m g Feb, 2 cc Start: 01-08-2017 KENALOG - 10 m g Dec, 1.5 cc Start: 12-05-2016 KENALOG - 10 m g Nov, 1.5 cc Problems Active Problems Problem Classification Problem Date Documented Da te Episodic/Chronic Adjustment disorders (5 sources) Reaction to severe stress, unspecified; Translations: [Stress] Chronic Anxiety disorders (7 sources) Anxiety; Translations: [Anxiety disorder, unspecified] Chronic Calculus of urinary tract (5 sources) Kidney stone; Translations: [Calculus of kidney] Episodic Chronic obstructive pulmonary disease and bronchiectasis (7 sources) Chronic obstructive lung disease; Translations: [Chronic obstructive pulmonary disease, unspecified] Chronic Diabetes mellitus without complication (7 sources) Hyperglycemia, unspecified; Translations: [HYPERGLYCEMIA UNSPECIFIED] Onset: 07-26-2022 Episodic Diseases of white blood cells (5 sources) Leukocytosis; Translations: [Elevated white blood cell count, unspecified] Chronic Disorders of lipid metabolism (9 sources) Hyperlipidemia; Translations: [Hyperlipidemia, unspecified] Onset: 07-27-2022 Chronic Osteoarthritis (5 sources) Arthritis; Translations: [Unspecified osteoarthritis, unspecified site] Chronic Other aftercare (3 sources) Other terminal operations supervisor (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) drug therapy; Translations: [OTH GROUP HOME CURRENT DRUG THERAPY] Onset: 07-27-2022 Episodic Other and unspecified benign neoplasm (5 sources) History of polyp of colon; Translations: [Personal history of colonic polyps] Episodic Other circulatory disease (2 sources) Elevated blood-pressure reading, without diagnosis of hypertension Episodic Other connective tissue disease (4 sources) Other muscle spasm; Translations: [OTHER MUSCLE SPASM] Onset: 08-28-2022 Episodic Other gastrointestinal disorders (5 sources) Constipation; Translations: [Constipation, unspecified] Episodic Other liver diseases (2 sources) Abnormal levels of other serum enzymes Episodic Other lower respiratory disease (5 sources) Nodule of lung; Translations: [Solitary pulmonary nodule] Episodic Other nervous system disorders (2 sources) Other chronic pain; Translations: [OTHER CHRONIC PAIN] Onset: 07-29-2022 Chronic Other nervous system disorders (1 source) Other specified mononeuropathies; Translations: [OTHER SPECIFIED MONONEUROPATHIES] Onset: 10-13-2022 Chronic Other nervous system disorders (5 sources) Skin sensation disturbance; Translations: [Paresthesia of skin] Episodic Other non-traumatic joint disorders (4 sources) Pain in right hip; Translations: [PAIN IN RIGHT HIP] Onset: 10-09-2022 Episodic Other nutritional; endocrine; and metabolic disorders (1 source) Abnormal weight gain Episodic Other screening for suspected conditions (not mental disorders or infectious disease) (3 sources) Encounter for screening for malignant neoplasm of colon; Translations: [Other abnormal findings in specimens from other organs, systems and tissues] Episodic Residual codes; unclassified (1 source) Other specified health status Episodic Residual codes; unclassified (1 source) Amnesia; Translations: [Other amnesia] Episodic Residual codes; unclassified (1 source) Other amnesia Episodic Spondylosis; intervertebral disc disorders; other back problems (11 sources) Spondylosis without myelopathy or radiculopathy, cervical region; Translations: [Other cervical disc degeneration, unspecified cervical region] Onset: 11-12-2021 Chronic Substance-related disorders (5 sources) Nicotine dependence; Translations: [Nicotine dependence, unspecified, uncomplicated] Chronic Unclassified (1 source) LOW BACK PAIN, UNSPECIFIED; Translations: [LOW BACK PAIN, UNSPECIFIED] Onset: 09-02-2022 Past or Other Problems Problem Classification Problem Date Documented Date Episodic/Chronic Genitourinary symptoms and ill-defined conditions (3 sources) Hematuria, unspecified; Translations: [HEMATURIA UNSPECIFIED] Onset: 07-27-2022 Episodic Other lower respiratory disease (5 sources) Solitary pulmonary nodule; Translations: [SOLITARY PULMONARY NODULE] Onset: 03-01-2022 Episodic Other nutritional; endocrine; and metabolic disorders (3 sources) Abnormal weight loss; Translations: [ABNORMAL WEIGHT LOSS] Onset: 07-27-2022 Episodic Spondylosis; intervertebral disc disorders; other back problems (11 sources) Intervertebral disc disorders with radiculopathy, lumbar region; Translations: [Radiculopathy, lumbar region] Onset: 11-13-2021 Episodic Unclassified (3 sources) Lumbar pain M54.50 Results Test Name Value Interpretation Reference Range Facil ity Physician Referralon 024 Physician Referral [id number] Normal [facility] CBC AUTO DIFFon 07-26-2022 BASO # 0.1 103/ul Normal 0.0-0.1 [facility] Comment on above: Performed By: #### U RCX #### [facility] [address] [address] [address] Roderick Greene Basophils/100 WBC (Bld) 0.6 % Normal 0.2-2.0 [facility] Comment on above: Performed By: #### U RCX #### [facility] [address] [place], [place] [address] Dr. Roderick Greene EO # 0.8 103/ul Critically high 0.0-0.7 [facility] Comment on above: Performed By: #### U RCX #### [facility] [address] [place] [address] Dr. Roderick Greene Eosinophils/100 WBC (Bld) 7.9 % Critically high 0.9-7.0 [facility] Comment on above: Performed By: #### U RCX #### [facility] [address] [place] [address] Dr. Roderick Greene Erythrocyte distribution width (RBC) [Ratio] 13.2 % Normal 11.0-15.0 [facility] Comment on above: Performed By: #### U RCX #### [facility] [address] [place] [address] Dr. Roderick Greene Hematocrit (Bld) [Volume fraction] 50.3 % Critically high 36.0-48.0 [facility] Comment on above: Performed By: #### U RCX #### [facility] [address] [place] [address] Dr. Roderick Greene Hemoglobin (Bld) [Mass/Vol] 16.0 g/dL Normal 12.0-16.0 [facility] Comment on above: Performed By: #### U RCX #### [facility] [address] [place] [address] Dr. Roderick Greene IG # 0.02 10e3/ul Normal 0.00-0.03 [facility] Comment on above: Performed By: #### U RCX #### [facility] [address] [place] [address] Dr. Roderick Greene IG % 0.2 % Normal 0.0-0.5 [facility] Comment on above: Performed By: #### U RCX #### [facility] [address] [place] [address] Dr. Roderick Greene LYMPH # 2.3 103/ul Normal 1.2-3.8 [facility] Comment on above: Performed By: #### U RCX #### [facility] [address] [place] [address] Dr. Roderick Greene Lymphocytes/100 WBC (Bld) 24.5 % Normal 20.5-60.0 [facility] Comment on above: Performed By: #### U RCX #### [facility] [address] [place] [address] Dr. Roderick Greene MANUAL DIFF REQ NO Normal [facility] Comment on above: Performed By: #### U RCX #### [facility] [address] [place] [address] Dr. Roderick Greene MCH (RBC) [Entitic mass] 31.4 pg Normal 26.7-34.0 [facility] Comment on above: Performed By: #### U RCX #### [facility] [address] [place] [address] Dr. Roderick Greene MCHC (RBC) [Mass/Vol] 31.8 g/dL Normal 29.9-35.2 [facility] Comment on above: Performed By: #### U RCX #### [facility] [address] [place] [address] Dr. Roderick Greene MCV (RBC) [Entitic vol] 98.8 fL Normal 81.0-99.0 [facility] Comment on above: Performed By: #### U RCX #### [facility] [address] [place] [address] Dr. Roderick Greene MONO # 0.4 103/ul Normal 0.3-0.8 [facility] Comment on above: Performed By: #### U RCX #### [facility] [address] [place] [address] Dr. Roderick Greene Monocytes/100 WBC (Bld) 3.7 % Normal 1.7-12.0 [facility] Comment on above: Performed By: #### U RCX #### [facility] [address] [place] [address] Dr. Roderick Greene NEUT # 6.0 103/ul Normal 1.4-6.5 [facility] Comment on above: Performed By: #### U RCX #### [facility] [address] [place] [address] Dr. Roderick Greene Neutrophils/100 WBC (Bld) 63.1 % Normal 43.0-75.0 [facility] Comment on above: Performed By: #### U RCX #### [facility] [address] [place] [address] Dr. Roderick Greene Platelet mean volume (Bld) [Entitic vol] 10.7 fL Normal 9.5-13.5 [facility] Comment on above: Performed By: #### U RCX #### [facility] [address] [place] [address] Dr. Roderick Greene PLT 290 103/ul Normal 150-450 [facility] Comment on above: Performed By: #### U RCX #### [facility] [address] [place] [address] Dr. Roderick Greene RBC 5.09 106/ul Normal 4.20-5.40 [facility] Comment on above: Performed By: #### U RCX #### [facility] [address] [place] [address] Dr. Roderick Greene WBC 9.5 103/ul Normal 4.0-11.0 [facility] Comment on above: Performed By: #### U RCX #### [facility] [address] [place] [address] Dr. Roderick Greene CULTURE URINEon 07-26-2022 CULTURE URINE Culture Observations: LIGHT GROWTH OF MIXED GENITAL MATEO. NO POTENTIAL PATHOGENS SEEN. Normal [facility] Comment on above: Performed By: #### U RCX #### [facility] [address] [place] [address] Dr. Roderick Greene GLYCOHEMOGLOBIN A1Con 2022 ADA RECOMMENDATION SEE BELOW Normal [facility] Comment on above: Result Comment: ADA RECOMMENDED LIMIT 4.0 - 6.0 ADA THERAPEUTIC TARGET < 7.0 ACTION SUGGESTED > 7.0 Performed By: #### A 1C #### [facility] [address] [place] [address] Dr. Roderick Greene Glucose [Mass/Vol] 108 mg/dL Critically high 74-[address] [facility] Comment on above: Performed By: #### A 1C #### [facility] [address] [place] [address] Dr. Roderick Greene Performed By: #### T SH, LIPID, CMP #### [facility] [address] [address] [address] Roderick Greene HbA1c (Bld) [Mass fraction] 5.4 % Normal 4.5-6.2 [facility] Comment on above: Performed By: #### A 1C #### [facility] [address] [address] [address] Roderick Greene LIPID PROFILEon 07-26-2022 CHOL-HDL RATIO NORM SEE BELOW Normal [facility] Comment on above: Result Comment: 3.3 - 4.4 LOW RISK 4.4 - 7.1 AVERAGE RISK 7.1 - 11.0 MODERATE RISK >11.0 HIGH RISK Performed By: #### U RCX #### [facility] [address] [place] [address] Dr. Roderick Greene Cholesterol [Mass/Vol] 217 mg/dL Critically high <=200 [facility] Comment on above: Performed By: #### U RCX #### [facility] [address] [address] [address] Roderick Greene Cholesterol in HDL [Mass/Vol] 55 mg/dL Normal 40-60 [facility] Comment on above: Performed By: #### U RCX #### [facility] [address] [address] [address] Roderick Greene Cholesterol in LDL [Mass/Vol] 143.6 mg/dL Normal [facility] Comment on above: Performed By: #### U RCX #### [facility] [address] [address] [address] Roderick Greene Cholesterol.total/Cho lesterol in HDL [Mass ratio] 3.9 {ratio} Normal [facility] Comment on above: Performed By: #### U RCX #### [facility] [address] [address] [address] Roderick Greene HDL NORMAL > or = 60 mg/dl - LOW CARDIOVASCULAR RISK <40 mg/dl - HIGH CARDIOVASCULAR RISK Normal [facility] Comment on above: Performed By: #### U RCX #### [facility] [address] [address] [address] Roderick Greene LDL CALC NORMAL SEE BELOW Normal [facility] Comment on above: Result Comment: <100 mg/dl OPTIMAL 100 - 129 mg/dl NEAR OR ABOVE OPTIMAL 130 - 159 mg/dl BORDERLINE HIGH 160 - 189 mg/dl HIGH >190 mg/dl VERY HIGH Performed By: #### U RCX #### [facility] [address] [address] [address] Roderick Greene Triglyceride [Mass/Vol] 92 mg/dL Normal <=150 [facility] Comment on above: Performed By: #### U RCX #### [facility] [address] [address] [address] Roderick Greene VLDL CALC 18.4 mg/dL Normal [facility] Comment on above: Performed By: #### U RCX #### [facility] [address] [place] [address] Dr. Roderick Greene PROF 14(COMP METB)on 023 Albumin [Mass/Vol] 3.7 g/dL Normal 3.4-5.0 [facility] Comment on above: Performed By: #### T SH, LIPID, CMP #### [facility] [address] [place] [address] Dr. Roderick Greene Albumin/Globulin [Mass ratio] 1.0 {ratio} Normal [facility] Comment on above: Performed By: #### T SH, LIPID, CMP #### [facility] [address] [place] [address] Dr. Roderick Greene ALP [Catalytic activity/Vol] 146 U/L Critically high 46-116 [facility] Comment on above: Performed By: #### T SH, LIPID, CMP #### [facility] [address] [address] [address] Roderick Greene ALT [Catalytic activity/Vol] 24 U/L Normal 14-59 [facility] Comment on above: Performed By: #### T SH, LIPID, CMP #### [facility] [address] [address] [address] Roderick Greene Anion gap [Moles/Vol] 11.7 mmol/L Normal [facility] Comment on above: Performed By: #### T SH, LIPID, CMP #### [facility] [address] [place] [address] Dr. Roderick Greene AST [Catalytic activity/Vol] 23 U/L Normal 15-37 [facility] Comment on above: Performed By: #### T SH, LIPID, CMP #### [facility] [address] [place] [address] Dr. Roderick Greene Bilirubin [Mass/Vol] 0.5 mg/dL Normal 0.2-1.0 [facility] Comment on above: Performed By: #### T SH, LIPID, CMP #### [facility] [address] [place] [address] Dr. Roderick Greene Calcium [Mass/Vol] 9.3 mg/dL Normal 8.5-10.1 [facility] Comment on above: Performed By: #### T SH, LIPID, CMP #### [facility] [address] [place] [address] Dr. Roderick Greene Chloride [Moles/Vol] 105 mmol/L Normal 98-107 [facility] Comment on above: Performed By: #### T SH, LIPID, CMP #### [facility] [address] [place] [address] Dr. Roderick Greene CO2 [Moles/Vol] 31.0 mmol/L Normal 21.0-32.0 [facility] Comment on above: Performed By: #### T SH, LIPID, CMP #### [facility] [address] [place] [address] Dr. Roderick Greene Creatinine [Mass/Vol] 0.65 mg/dL Normal 0.55-1.02 [facility] Comment on above: Performed By: #### T SH, LIPID, CMP #### [facility] [address] [place] [address] Dr. Roderick Greene EGFR-AF KOSOVAN >60 Normal >=60 [facility] Comment on above: Performed By: #### T SH, LIPID, CMP #### [facility] [address] [place] [address] Dr. Roderick Greene EGFR-NON AF KOSOVAN >60 Normal >=60 [facility] Comment on above: Performed By: #### T SH, LIPID, CMP #### [facility] [address] [place] [address] Dr. Roderick Greene Globulin (S) [Mass/Vol] 3.6 g/dL Normal [facility] Comment on above: Performed By: #### T SH, LIPID, CMP #### [facility] [address] [place] [address] Dr. Roderick Greene Potassium [Moles/Vol] 4.7 mmol/L Normal 3.5-5.1 [facility] Comment on above: Performed By: #### T SH LIPID, CMP #### [facility] [address] [place] [address] Dr. Roderick Greene Protein [Mass/Vol] 7.3 g/dL Normal 6.4-8.2 [facility] Comment on above: Performed By: #### T SH, LIPID, CMP #### [facility] [address] [place] [address] Dr. Roderick Greene Sodium [Moles/Vol] 143 mmol/L Normal 136-145 [facility] Comment on above: Performed By: #### T SH, LIPID, CMP #### [facility] [address] [place] [address] Dr. Roderick Greene Urea nitrogen [Mass/Vol] 13.0 mg/dL Normal 7.0-18.0 [facility] Comment on above: Performed By: #### T SH, LIPID, CMP #### [facility] [address] [place] [address] Dr. Roderick Greene Urea nitrogen/Creatinine [Mass ratio] 20.0 mg/mg Normal [facility] Comment on above: Performed By: #### T SH, LIPID, CMP #### [facility] [address] [place] [address] Dr. Roderick Greene TSHon 07-26-2022 TSH 0.822 uIU/mL Normal 0.358-3.740 [facility] Comment on above: Performed By: #### T SH, LIPID, CMP #### [facility] [address] [address] [address] Roderick Greene UA RANDOM W/MICROSCOPICon BACTERIA TRACE Abnormal NONE SEEN [facility] Comment on above: Performed By: #### U AMIC #### [facility] [address] [address] [address] Roderick Greene Bilirubin Ql (U) Negative Normal NEGATIVE [facility] Comment on above: Performed By: #### U AMIC #### [facility] [address] [address] [address] Roderick Greene CAST NONE SEEN Normal NONE SEEN [facility] Comment on above: Performed By: #### U AMIC #### [facility] [address] [address] [address] Roderick Greene Clarity (U) CLEAR Normal CLEAR [facility] Comment on above: Performed By: #### U AMIC #### [facility] [address] [address] [address] Roderick Greene Color (U) LT. YELLOW Normal YELLOW [facility] Comment on above: Performed By: #### U AMIC #### [facility] [address] [address] [address] Roderick Greene Crystals LM Nom (Urine sed) NONE SEEN Normal NONE SEEN [facility] Comment on above: Performed By: #### U AMIC #### [facility] [address] [address] [address] Roderick Greene Epithelial cells LM Ql (Urine sed) FEW Abnormal NONE SEEN /RARE The [facility] Comment on above: Performed By: #### U AMIC #### [facility] [address] [address] [address] Roderick Greene Glucose Ql (U) Negative Normal NEGATIVE The [facility] Comment on above: Performed By: #### U AMIC #### [facility] [address] [address] [address] Roderick Greene Hemoglobin Ql (U) Negative Normal NEGATIVE The [facility] Comment on above: Performed By: #### U AMIC #### [facility] [address] [place] [address] Dr. Roderick Greene Ketones Ql (U) Negative Normal NEGATIVE The [facility] Comment on above: Performed By: #### U AMIC #### [facility] [address] [place] [address] Dr. Roderick Greene LEUKOCYTES Negative Normal NEGATIVE The [facility] Comment on above: Performed By: #### U AMIC #### [facility] [address] [place] [address] Dr. Roderick Greene MUCOUS SMALL Abnormal NONE SEEN The [facility] Comment on above: Performed By: #### U AMIC #### [facility] [address] [place] [address] Dr. Roderick Greene Nitrite Ql (U) Negative Normal NEGATIVE The [facility] Comment on above: Performed By: #### U AMIC #### [facility] [address] [place] [address] Dr. Roderick Greene pH (U) 8.0 [pH] Normal 5-9 [facility] Comment on above: Performed By: #### U AMIC #### [facility] [address] [place] [address] Dr. Roderick Greene RBC NONE SEEN Abnormal 0-2 [facility] Comment on above: Performed By: #### U AMIC #### [facility] [address] [place] [address] Dr. Roderick Greene SPEC GRAVITY 1.020 Normal 1.005-<=1.025 The [facility] Comment on above: Performed By: #### U AMIC #### [facility] [address] [place] [address] Dr. Roderick Greene UA PROTEIN Negative Normal NEGATIVE/ TRACE The [facility] Comment on above: Performed By: #### U AMIC #### [facility] [address] [place] [address] Dr. Roderick Greene Urobilinogen Qn (U) 0.2 {Jordan'U}/dL Normal 0.2 - 1. 0 The [facility] Comment on above: Performed By: #### U AMIC #### [facility] [address] [place] [address] Dr. Roderick Greene WBC NONE SEEN Normal NONE SEEN The [facility] Comment on above: Performed By: #### U [facility] #### [facility] [address] CHEST WO CONon [...] by: SONU COLLINS Date: 2022-03-03 07:51 Normal The [facility] Vital Signs Date Time Vital Sign Value Performing Clinician Facility 07-23-2023 09:50-0500 Body height 162.56 cm Bianca Garcia Other [facility] Other 07-23-2023 09:50-0500 Body mass index (BMI) [Ratio] 29.69 kg/m2 Bianca Garcia Other [facility] Other 07-23-2023 09:50-0500 Body temperature 98.1 [degF] Bianca Garcia Other [facility] Other 07-23-2023 09:50-0500 Body weight 78.47 kg Bianca Jose Other [facility] Other 07-23-2023 09:50-0500 Diastolic blood pressure 88 mm[Hg] Bianca Jose Other [facility] Other 07-23-2023 09:50-0500 Respiratory rate 18 /min Bianca Garcia Other [facility] Other 07-23-2023 09:50-0500 SaO2% (BldA) [Mass fraction] 99 % Bianca Garcia Other [facility] Other 07-23-2023 09:50-0500 Systolic blood pressure 128 mm[Hg] Bianca Garcia Other [facility] Other 07-30-2022 12:10-0500 Body height 162.56 cm Bianca Lorenzotrae Other [facility] Other 07-30-2022 12:10-0500 Body mass index (BMI) [Ratio] 27.12 kg/m2 Bianca Lorenzotrae Other [facility] Other 07-30-2022 12:10-0500 Body temperature 96.6 [degF] Bianca Garcia Other [facility] Other 07-30-2022 12:10-0500 Body weight 71.67 kg Bianca Garcia Other [facility] Other 07-30-2022 12:10-0500 Diastolic blood pressure 86 mm[Hg] Bianca Garcia Other [facility] Other 07-30-2022 12:10-0500 Respiratory rate 18 /min Bianca Garcia Other [facility] Other 07-30-2022 12:10-0500 SaO2% (BldA) [Mass fraction] 98 % Bianca Garcia Other [facility] Other 07-30-2022 12:10-0500 Systolic blood pressure 120 mm[Hg] Bianca Garcia Other [facility] Other 07-21-2022 11:30-0500 Body height 162.56 cm Bianca Garcia Other [facility] Other 07-21-2022 11:30-0500 Body mass index (BMI) [Ratio] 27.55 kg/m2 Bianca Garcia Other [facility] Other 07-21-2022 11:30-0500 Body temperature 98.4 [degF] Bianca Garcia Other [facility] Other 07-21-2022 11:30-0500 Body weight 72.8 kg Bianca Garcia Other [facility] Other 07-21-2022 11:30-0500 Diastolic blood pressure 88 mm[Hg] Bianca Garcia Other [facility] Other 07-21-2022 11:30-0500 Respiratory rate 18 /min Bianca Garcia Other [facility] Other 07-21-2022 11:30-0500 SaO2% (BldA) [Mass fraction] 95 % Bianca Garcia Other [facility] Other 07-21-2022 11:30-0500 Systolic blood pressure 122 mm[Hg] Bianca Garcia Other [facility] Other Encounters Encounter Date Encounter Type Care Provider Facility Start: 07-27-2023 ambulatory Facility:[facility] Start: 07-23-2023 End: 07-23-2023 ambulatory Bianca Garcia Other [facility] Other Start: 07-23-2023 Office outpatient visit 25 minutes Bianca Garcia [facility] [place] Start: 11-20-2022 ambulatory JÚNIOR GOLDBERG . Facili ty:[facility] Start: 11-04-2022 End: 11-04-[address] BIANCA GARCIA Facility:[facility] Start: 10-09-2022 End: 10-10-2022 ambulatory BONNIECIERA RODARTESAVANAHPAPIJACK . Facility:[facility] Start: 10-01-2022 End: 10-01-2022 ambulatory Bianca Garcia Other [facility] Other Start: 10-01-2022 Telephone encounter Bianca Garcia [facility] [place] Start: 08-28-2022 End: 08-29-[address] LENORE STOLL . Facility:[facility] Start: 08-05-2022 End: 08-05-2022 ambulatory Impinky Asapinky Other [facility] Other Start: 08-05-2022 Telephone encounter Imad Asaad [facility] Start: 07-30-2022 End: 07-30-2022 ambulatory Bianca Garcia Other [facility] Other Start: 07-30-2022 Office outpatient visit 25 minutes iBanca Garcia [facility] [place] Start: 07-26-2022 End: 07-27-[address] BIANCA GARCIA Facility:[facility] Start: 07-24-2022 End: 07-25-[address] LENORE STOLL . Facility:[facility] Start: 07-21-2022 End: 07-21-2022 ambulatory Bianca Garcia Other [facility] Other Start: 07-21-2022 Office outpatient visit 15 minutes Bianca Garcia [facility] [place] Start: 05-27-2022 End: 05-27-[address] LENORE STOLL . Facility:[facility] Start: 04-24-2022 End: 04-25-[address] LENORE STOLL . Facility:[facility] Start: 03-01-2022 End: 03-02-2022 ambulatory BETY SILVERMAN . Facility:[facility] Start: 02-20-2022 End: 02-21-[address] LENORE STOLL . Facility:[facility] Start: 01-14-2022 End: 01-14-[address] BIANCA GARCIA Facility:[facility] Start: 12-18-2021 End: 12-19-[address] BIANCA GARCIA Facility:[facility] Start: 11-12-2021 End: 11-12-[address] LENORE STOLL . Facility:[facility] Immunizations Immunization Date Immunization Notes Care Provider Madiha ramirez 02-09-2021 COVID-19 Irvin Garcia Other [facility] Other 01-21-2021 COVID-19 Irvin Garcia Other [facility] Other Payers Date Payer Category Payer Medicaid [id number] . [id number] 1966 Unknown [id number] 2.16.84 [id number] 1966 Unknown [id number] 2.16.84 0.1.963369.3.579.2.59 1966 Unknown [id number] 2.16.84 0.1.903072.3.579.2.593 1966 Unknown [id number] 2.16.84 0.1.846588.3.579.2.59 1966 Unknown [id number] 2.16.84 0.1.502020.3.579.2.593 1966 Unknown [id number] 2.16.84 0.1.952614.3.579.2.593 1966 Unknown [id number] 2.16.84 0.1.948403.3.579.2.593 1966 Unknown [id number] 2.16.84 0.1.184717.3.579.2.593 1966 Unknown [id number] 2.16.84 0.1.827691.3.579.2.593 1966 Unknown [id number] 2.16.84 0.1.164407.3.579.2.593 1966 Unknown [id number] 2.16.84 0.1.747107.3.579.2.593 1966 Unknown [id number] 2.16.84 0.1.169190.3.579.2.593 1966 Unknown [id number] 2.16.84 0.1.609742.3.579.2.593 1959 Unknown [id number] Social History Date Type Detail Facility Unknown if ever smoked [facility] Other Sex Assigned At Sex Assigned At Bir th [facility] Other Clinical Notes 08-11-2011 to 07-23-2023 Note Date & Type Note Facility 07-23-2023 Evaluation note Encounter Date Diagnosis Assessment Notes Jul, Memory changes (ICD-10 - R41.3) While driving, she has forgotten where she was for several minutes, she is in places she should be familiar with. She can read things but has to read them three times to remember what she read. If she is at the store and leaves the parking lot she has not gotten lost going home. She does not feel she was daydreaming when these episodes occur. She is able to recall what she had for dinner last night (pork chops) and that she did not eat breakfast this morning. We discussed that Flexeril can affect her memory, and she takes this three times a day. This medication slows the central nervous system including the brain. This will not help her thinking and could be why she is forgetting and having thinking issues. This medication affects reaction time. She loses her thought process during her conversation and forgets what she is saying. I did recommend that she see a neurologist to be sure we are not missing anything, and she agrees. I explained to her that they may order blood work and possibly diagnostic imaging if they feel this is warranted to rule out abnormalities. A referral is provided for her to see whomever can see her first at [facility]. Jul, Lumbar pain (ICD-10 - M54.50) She voices that she takes her pain medication three times a day in addition to the Flexeril. I did advise her that the Flexeril can affect her memory. I did recommend that she discuss this medication with Dr. Bettencourt to see if there is a different muscle relaxer that she can take that would not affect her memory/thinkin g. I did recommend that she try to take the Flexeril as needed but she voices that she hurts all over all the time. She voices that pain management is coming to the conclusion that there is nothing more that can be offered. They have discussed putting a spinal cord stimulator in her back but she is not sure that she wants to proceed with this. She did file for disability, she worked three jobs last year but she has gotten worse. 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 She could not work 8 hours anywhere. She just started the disability process. She voices that her Meloxicam was stopped and she is now taking Celebrex. Jul, Hyperglycemia (ICD-10 - R73.9) Jul, Elevated alkaline phosphatase level (ICD-10 - R74.8) I did want her to have lab drawn last year (07/2022) to evaluate this further but she did not have it drawn. She is provided with another order today and voices that she will have it drawn. Jul, Hyperlipidemia (ICD-10 - E78.5) I did provide her with an order to have her cholesterol checked. Jul, Colon cancer screening (ICD-10 - Z12.11) I did recommend that she have a screening colonoscopy done. She voices that she was scheduled to have one done with Dr. Cedillo but when she called to find out when her procedure was she was called the day of her procedure so she missed it. She would like to have the colonoscopy done locally, I will send her to Dr. Little. She is to be sure to tell him she is in pain management. 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 Continue with above medication daily as directed. Jul, Other She voices that she was anxious to come into the office today but once she was in her exam room she was calmed down. [facility] Other 04-20-2023 NoteCONSULTATION CONSULTATION DATE: 10/09/2022 TO: Bianca Garcia D.O. [...] our patients to inform us about any [id number] medications or herbal remedies/nutritional supplements/alternative remedies. 2. [...] and treatment options with their primary care provider.[id number] Note CONSULTATION CONSULTATION DATE: 08/28/2022 HISTORY OF [...] agrees with this plan and all questions answered.[id number] Evaluation note* Encounter Date Diagnosis Assessment Notes Treatment Notes Treatment Clinical Notes Jul, Hyperlipidemia (ICD-10 - E78.5) Discussed [...] disease) (ICD-10 - J44.9) Continue with Dr. Silverman as scheduled. Jul, Anxiety (ICD-10 - F41.9) [...] number of someone she can see through [facility]. She voices that she will think about it. I asked her not to take anymore Vistaril. Jul, Lumbar pain (ICD-10 - M54.50) She voices that Dr. Stoll is retiring and his SUPERVISOR [employer]URNACE ROOM is leaving. She is scheduled for an [...] and if/when testing needs to be repeated. [facility] Other 02-02-2023 NoteCONSULTATION CONSULTATION DATE: 07/24/2022 HISTORY OF PRESENT ILLNESS: [...] re-evaluation. The patient is in agreement to this.[id number] Evaluation note * Encounter Date Diagnosis Assessment Notes Treatment Notes Treatment Clinical Notes Jun, Anxiety (ICD-10 - F41.9) In [...] with Vistaril which is not addictive. Side effects/risks/benefit s of medication were reviewed. If she needs this prior to her procedure she should take it an hour and a half prior to the procedure and should have a oil truck driver to take her to the procedure [...] Jun, Hyperglycemia (ICD-10 - R73.9) Jun, Other usp (current) drug therapy (ICD-10 - Z79.899) Jun, Hematuria (ICD-10 - R31.9) Jun, Weight loss (ICD-10 - R63.4) Jun, COPD (chronic obstructive pulmonary disease) (ICD-10 - J44.9) Continue to follow with Dr. Silverman as directed/scheduled. Jun, Pulmonary nodule (ICD-10 - R91.1) She is following with Dr. Silverman, she voices that the nodule is being watched but it has not grown any. Jun, Colon cancer screening (ICD-10 - Z12.11) I did recommend that she have a colonoscopy and she agrees. Jun, Other I did recommend that she have a mammogram done but she refuses. [facility] Other 11-03-2022 NoteCONSULTATION CONSULTATION DATE: 04/24/2022 HISTORY OF PRESENT ILLNESS: [...] be followed up in the clinic post procedure.[id number] NoteCONSULTATION CONSULTATION DATE: 02/20/2022 HISTORY OF PRESENT ILLNESS: [...] Patient agrees to this and all questions answered.[id number] NoteCONSULTATION CONSULTATION DATE: 12/18/2921 This is a pleasant [...] T12 and L1 with positive jump response. Kaylni's point is non-tender bilaterally. Luisito's and compression [...] will be followed up in the clinic. [facility] Signed and Approved by: JOSE ALEJANDRO STINSON . 12/26/2021 16:26:00[facility]02-20-2012 History general Narrative - Reported* Type Description Date Medical History Gestational Diabetes Medical History History of Hemorrhoids Medical History Chest X-Ray Done 08-11-11 Medical History Lumbar Spine X-Ray Done 08-11-11 Medical History Pelvic Ultrasound 08-11-12; [facility] [place] Medical History Transvaginal US 08-12-12; [facility] [place] Medical History CT Abdomen and Pelvis 08-16-12; [facility] [place] Medical History TDap (Adacel) 01-03-15 [facility] [facility] Medical History 01/2015 Dr So, 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 uL Colonoscopy, Divert iculosis 10-05-2012 Surgical History injection in back - Pain Mgmt Surgical History Nerve block in back 06/2019 Hospitalization History Tonsillectomy Hospitalization History Childbirth Hospitalization History [place] [facility] stic hes in rt hand cut during washing dishes 01/03/2015 [facility] Other Reason for visit Narrativecheck up/discuss dementia, discuss multiple issues, see treatment [facility] Other Reason for Referral Reason appt 09/05/22 at 8am pt needs screening colonoscopy Diagnosis 1 Colon cancer screeni ng (Z12.11) Referral Organization [facility] Family [facility] [place] Referring Provider First Name Bianca Referring Provider Last Name Jose Referring Provider Specialty Family Prac guero Referred Organization [facility] Referred Provider John Cedillo Referred Address [address] ,[place], [place],[address] Referred Provider Specialty Gastroentero logy Referral Priority Routine Referral Appointment Date 2022-09-05 General Notes Delilah Sandoval 07/21/2022 11:57:58 AM > referral sent p2p. pt understands she will be contacted to schedule this appt. Delilah Sandoval 08/06/2022 10:17:55 AM > colonoscopy scheduled on 09/05/22 at 8am Reason appt pt needs cons ult to discuss memory changes Diagnosis 1 Memory changes (R41. 3) Referral Organization [facility] Family [facility] [place] Referring Provider First Name Bianca Referring Provider Last Name Jose Referring Provider Specialty Family Prac guero Referred Organization [facility] Referred Provider Carlitos Lu Referred Address [address] [place],[address] Referred Provider Specialty Neurology Referral Priority Routine General Notes Delilah Sandoval 07/23/2023 11:40:43 AM > referral faxed thru [facility] with visit note and insurance card. pt understands she will be contacted to schedule this appt. Reason appt pt needs scre ening colonoscopy Diagnosis 1 Colon cancer screeni corazon (Z12.11) Referral Organization [facility] Family [facility] [place] Referring Provider First Name Bianca Referring Provider Last Name Jose Referring Provider Specialty Family Prac guero Referred Organization [facility] Referred Provider Esa Little Referred Address [address], [place],[address] Referred Provider Specialty Surgery Referral Priority Routine General Notes Delilah Sandoval 07/23/2023 11:39:03 AM > referral faxed thru [facility] with visit note and insurance card. pt understands she will be contacted to schedule this appt. Summary Purpose Family History No Family History Records FoundNo Family History Records Found Advance Directives No Advanced Directives Records FoundNo Advanced Directives Records Found Additional Source Comments REASON FOR VISIT (unrecogniz ed section and content) check upreview labsMAIL PPWM ammogram and Colonoscopy INFORMATION SOURCE (unrecogn ized section and content) DATE CREATED AUTHOR 11/05/2022 [facility] DATE CREATED AUTHOR AUTHOR'S ORGANIZ ATION 07/28/2023 [facility] FOR RECORDS PERTAINING TO PATIENTS WHO ARE [...] BE BASED ON THE PRIMARY CLINICAL RECORDS. [employer] provides no warranty or guarantee of the accuracy or completeness of information in this document.
[2023-08-01 08:50] LABS: Basophils Absolute Auto 0.1 10^3/uL (0.0-0.1); Basophils Percent Auto 0.6 % (0.2-2.0); Eosinophils Absolute Auto 0.2 10^3/uL (0.0-0.7); Eosinophils Percent Auto 2.3 % (0.9-7.0); Hematocrit 45.9 % (36.0-48.0); Hemoglobin 14.9 g/dL (12.0-16.0); Immature Granulocytes Abs Auto 0.02 10^3/uL (0.00-0.03); Immature Granulocytes Pct Auto 0.2 % (0.0-0.5); Lymphocytes Absolute Auto 2.4 10^3/uL (1.2-3.8); Lymphocytes Percent Auto 22.9 % (20.5-60.0); Mean Corpuscular HGB Conc 32.5 g/dL (29.9-35.2); Mean Corpuscular Hemoglobin 31.1 pg (26.7-34.0); Mean Corpuscular Volume 95.8 fL (81.0-99.0); Mean Platelet Volume 10.3 fL (9.5-13.5); Monocytes Absolute Auto 0.5 10^3/uL (0.3-0.8); Monocytes Percent Auto 4.7 % (1.7-12.0); Neutrophils Absolute Auto 7.1 10^3/uL (1.4-6.5); Neutrophils Percent Auto 69.3 % (43.0-75.0); Platelet Count 254 10^3/uL (150-450); Red Blood Count 4.79 10^6/uL (4.20-5.40); Red Cell Distribution Width 13.2 % (11.0-15.0); White Blood Count 10.3 10^3/uL (4.0-11.0)
[2023-08-01 09:11] LABS: Estimated Average Glucose 105 mg/dL; Glycohemoglobin A1C 5.3 % (4.5-6.2)
[2023-08-01 09:58] LABS: Alanine Aminotransferase 19 U/L (14-59); Albumin Globulin Ratio 0.9; Albumin Level 3.3 g/dL (3.4-5.0); Alkaline Phosphatase 116 U/L (46-116); Anion Gap 9.9; Aspartate Amino Transferase 14 U/L (15-37); BUN Creatinine Ratio 13.4; Bilirubin Total 0.6 mg/dL (0.2-1.0); Calcium 8.9 mg/dL (8.5-10.1); Carbon Dioxide 32.5 mmol/L (21.0-32.0); Chloride 106 mmol/L (98-107); Chol HDL Ratio 3.3; Cholesterol 219 mg/dL (<=200); Estimated GFR (African America >60 (>=60); Estimated GFR (Non-African Ame >60 (>=60); Globulin 3.6 g/dL; Glucose 93 mg/dL (74-106); HDL Cholesterol 66 mg/dL (40-60); Potassium 4.4 mmol/L (3.5-5.1); Sodium 144 mmol/L (136-145); Thyroid Stimulating Hormone 0.807 uIU/mL (0.358-3.740); Total Protein 6.9 g/dL (6.4-8.2); Triglycerides 91 mg/dL (<=150); VLDL CHOLESTEROL 18.2 mg/dL
== END 2023-08-01 08:28 | disposition home or self-care (01) ==
LOC: LAB 08:27
PROVIDERS: PCP Family Medicine; Visit Provider Family Medicine
DX: R73.9 Hyperglycemia, unspecified (principal); Z79.899 Other long term (current) drug therapy; R74.8 Abnormal levels of other serum enzymes; E78.5 Hyperlipidemia, unspecified; R63.5 Abnormal weight gain
CPT/HCPCS: 36415; 80053; 80061; 82306; 83036; 84075; 84080; 84443; 85025

== ENCOUNTER 2023-08-31 12:52 | Outpatient (OUT) | payer MEDICAID, SELFPAY ==
--- OUTSIDE RECORDS SUMMARY | 2023-08-31 12:57 | XMS_ITS | CCD ---
Author Name Unknown Address [address] [place] [address] Organization [facility] Care Team Providers Care Jig And Fixture Maker Name Role Phone Bianca Garcia Unavailable John [...] Consulting Unavailable SOTO ., YANE Consulting Mora glennilawilli GARCIA, DR VALENZUELA Primary Care Unavailable ENEDINAMIJACK ., YANE Attending Mora vailable CAYDENSHMIKOFFIY ., YANE Admitting Mora vailable STOLL ., DR LENORE Becker Attending Unavailable JOSE, DR VALENZUELA Primary Care Unavailable JOSE ALEJANDRO ARNETT Consulting Unavailable MARNI ., DR LENORE Becker Admitting Unavailable Jose, Bianca Kidd Referring Unavailable Esa LITTLE Attending Unavailable Allergies Allergy Classification Reported Allergen(s) Allergy Type Date of Onset Reaction(s) Facility (5 sources) hydrOXYzine Drug Allergy 3 heart palpitations Partly Other Medications Current Medications Medication Drug Class(es) Dates Sig (Normalized) Sig (Original) acetaminophen 325 mg / oxyCODONE hydrochloride 7.5 mg oral tablet (5 sources) Opioid Agonist Start: 08-14-2014 Percocet 7.5-325 MG 1 tablet Orally q8-12 hrs prn Jul, Active [id number] 200 actuat albuterol 0.09 mg/actuat metered dose [...] site] Chronic Other aftercare (3 sources) Other penitentiary (current) drug therapy; Translations: [OTH HALF-WAY CURRENT DRUG THERAPY] Onset: 07-27-2022 Episodic Other [...] Name Value Interpretation Reference Range Facil ity Provider Letteron 08-17-2023 Provider Letter August 17, 2023 INGA TUCKER [address] [place] [id number] : 1965 Dear Ms. Tucker, We have been trying to reach you with no success regarding a referral from Dr Garcia. It is important that you return our call upon receiving this letter so that we can set up an appointment for you. Also, at the time of your call, please provide us with your current demographic and insurance information. Thank you for your prompt attention to this matter. Sincerely, [facility] General Surgery [phone] [facility] Physician Referralon 024 Physician Referral [phone] [id number] #[id number] Normal [facility] CBC AUTO DIFFon 07-26-2022 BASO # 0.1 103/ul Normal 0.0-0.1 [facility] Comment on above: Performed By: #### U RCX #### [facility] [address] [address] [address] Roderick Greene Basophils/100 WBC (Bld) 0.6 % Normal 0.2-2.0 [facility] Comment on above: Performed By: #### U RCX #### [facility] [address] [place] [address] Dr. Roderick Greene EO # 0.8 103/ul Critically high 0.0-0.7 [facility] Comment on above: Performed By: #### U RCX #### [facility] [address] [place] [address] Dr. Roderick Greene Eosinophils/100 WBC (Bld) 7.9 % Critically high 0.9-7.0 [facility] Comment on above: Performed By: #### U RCX #### [facility] [address] [place] [address] Dr. Roderick Greene Erythrocyte distribution width (RBC) [Ratio] 13.2 % Normal 11.0-15.0 [facility] Comment on above: Performed By: #### U RCX #### [facility] [address] [place] [address] Dr. Roderick Greene Hematocrit (Bld) [Volume fraction] 50.3 % Critically high 36.0-48.0 [facility] Comment on above: Performed By: #### U RCX #### [facility] [address] [place] [address] Dr. Roderick Greene Hemoglobin (Bld) [Mass/Vol] 16.0 g/dL Normal 12.0-16.0 [facility] Comment on above: Performed By: #### U RCX #### [facility] [address] [place] [address] Dr. Roderick Greene IG # 0.02 10e3/ul Normal 0.00-0.03 [facility] Comment on above: Performed By: #### U RCX #### [facility] [address] [address] [address] Roderick Greene IG % 0.2 % Normal 0.0-0.5 [facility] Comment on above: Performed By: #### U RCX #### [facility] [address] [address] [address] Roderick Greene LYMPH # 2.3 103/ul Normal 1.2-3.8 [facility] Comment on above: Performed By: #### U RCX #### [facility] [address] [place] [address] Dr. Roderick Greene Lymphocytes/100 WBC (Bld) 24.5 % Normal 20.5-60.0 [facility] Comment on above: Performed By: #### U RCX #### [facility] [address] [place] [address] Dr. Roderick Greene MANUAL DIFF REQ NO Normal [facility] Comment on above: Performed By: #### U RCX #### [facility] [address] [place] [address] Dr. Roderick Greene MCH (RBC) [Entitic mass] 31.4 pg Normal 26.7-34.0 [facility] Comment on above: Performed By: #### U RCX #### [facility] [address] [place] [address] Dr. Roderick Greene MCHC (RBC) [Mass/Vol] 31.8 g/dL Normal 29.9-35.2 [facility] Comment on above: Performed By: #### U RCX #### [facility] [address] [place] [address] Dr. Roderick Greene MCV (RBC) [Entitic vol] 98.8 fL Normal 81.0-99.0 [facility] Comment on above: Performed By: #### U RCX #### [facility] [address] [place] [address] Dr. Roderick Greene MONO # 0.4 103/ul Normal 0.3-0.8 [facility] Comment on above: Performed By: #### U RCX #### [facility] [address] [address] [address] Roderick Greene Monocytes/100 WBC (Bld) 3.7 % Normal 1.7-12.0 [facility] Comment on above: Performed By: #### U RCX #### [facility] [address] [address] [address] Roderick Greene NEUT # 6.0 103/ul Normal 1.4-6.5 [facility] Comment on above: Performed By: #### U RCX #### [facility] [address] [place] [address] Dr. Roderick Greene Neutrophils/100 WBC (Bld) 63.1 % Normal 43.0-75.0 [facility] Comment on above: Performed By: #### U RCX #### [facility] [address] [place] [address] Dr. Roderick Greene Platelet mean volume (Bld) [Entitic vol] 10.7 fL Normal 9.5-13.5 [facility] Comment on above: Performed By: #### U RCX #### [facility] [address] [place] [address] Dr. Roderick Greene PLT 290 103/ul Normal 150-450 [facility] Comment on above: Performed By: #### U RCX #### [facility] [address] [place] [address] Dr. Roderick Greene RBC 5.09 106/ul Normal 4.20-5.40 [facility] Comment on above: Performed By: #### U RCX #### [facility] [address] [place] [address] Dr. Roderick Greene WBC 9.5 103/ul Normal 4.0-11.0 [facility] Comment on above: Performed By: #### U RCX #### [facility] [address] [place] [address] Dr. Roderick Greene CULTURE URINEon 07-26-2022 CULTURE URINE Culture Observations: LIGHT GROWTH OF MIXED GENITAL MATEO. NO POTENTIAL PATHOGENS SEEN. Normal [facility] Comment on above: Performed By: #### U RCX #### [facility] [address] [address] [address] Roderick Greene GLYCOHEMOGLOBIN A1Con 2022 ADA RECOMMENDATION SEE BELOW Normal [facility] Comment on above: Result Comment: ADA RECOMMENDED LIMIT 4.0 - 6.0 ADA THERAPEUTIC TARGET < 7.0 ACTION SUGGESTED > 7.0 Performed By: #### A 1C #### [facility] [address] [address] [address] Roderick Greene Glucose [Mass/Vol] 108 mg/dL Critically high 74-106 [facility] Comment on above: Performed By: #### A 1C #### [facility] [address] [place] [address] Dr. Roderick Greene Performed By: #### T SH, LIPID, CMP #### [facility] [address] [place] [address] Dr. Roderick Greene HbA1c (Bld) [Mass fraction] 5.4 % Normal 4.5-6.2 [facility] Comment on above: Performed By: #### A 1C #### [facility] [address] [place] [address] Dr. Roderick Greene LIPID PROFILEon 07-26-2022 CHOL-HDL RATIO NORM SEE BELOW Normal [facility] Comment on above: Result Comment: 3.3 - 4.4 LOW RISK 4.4 - 7.1 AVERAGE RISK 7.1 - 11.0 MODERATE RISK >11.0 HIGH RISK Performed By: #### U RCX #### [facility] [address] [place] [address] Dr. Roderick Greene Cholesterol [Mass/Vol] 217 mg/dL Critically high <=200 [facility] Comment on above: Performed By: #### U RCX #### [facility] [address] [place] [address] Dr. Roderick Greene Cholesterol in HDL [Mass/Vol] 55 mg/dL Normal 40-60 [facility] Comment on above: Performed By: #### U RCX #### [facility] [address] [address] [address] Roderick Greene Cholesterol in LDL [Mass/Vol] 143.6 mg/dL Normal [facility] Comment on above: Performed By: #### U RCX #### [facility] [address] [address] [address] Roderick Greene Cholesterol.total/Cho lesterol in HDL [Mass ratio] 3.9 {ratio} Normal [facility] Comment on above: Performed By: #### U RCX #### [facility] [address] [address] [address] Roderick Greene HDL NORMAL > or = 60 mg/dl - LOW CARDIOVASCULAR RISK <40 mg/dl - HIGH CARDIOVASCULAR RISK Normal [facility] Comment on above: Performed By: #### U RCX #### [facility] [address] [place] [address] Dr. Roderick Greene LDL CALC NORMAL SEE BELOW Normal [facility] Comment on above: Result Comment: <100 mg/dl OPTIMAL 100 - 129 mg/dl NEAR OR ABOVE OPTIMAL 130 - 159 mg/dl BORDERLINE HIGH 160 - 189 mg/dl HIGH >190 mg/dl VERY HIGH Performed By: #### U RCX #### [facility] [address] [place] [address] Dr. Roderick Greene Triglyceride [Mass/Vol] 92 mg/dL Normal <=150 [facility] Comment on above: Performed By: #### U RCX #### [facility] [address] [address] [address] Roderick Greene VLDL CALC 18.4 mg/dL Normal [facility] Comment on above: Performed By: #### U RCX #### [facility] [address] [address] [address] Roderick Greene PROF 14(COMP METB)on 023 Albumin [Mass/Vol] 3.7 g/dL Normal 3.4-5.0 [facility] Comment on above: Performed By: #### T SH, LIPID, CMP #### [facility] [address] [address] [address] Roderick Greene Albumin/Globulin [Mass ratio] 1.0 {ratio} Normal [facility] Comment on above: Performed By: #### T SH, LIPID, CMP #### [facility] [address] [address] [address] Roderick Greene ALP [Catalytic activity/Vol] 146 U/L Critically high 46-116 [facility] Comment on above: Performed By: #### T SH, LIPID, CMP #### [facility] [address] [address] [address] Roderick Greene ALT [Catalytic activity/Vol] 24 U/L Normal 14-59 [facility] Comment on above: Performed By: #### T SH, LIPID, CMP #### [facility] [address] [address] [address] Roderick Greene Anion gap [Moles/Vol] 11.7 mmol/L Normal [facility] Comment on above: Performed By: #### T SH, LIPID, CMP #### [facility] [address] [address] [address] Roderick Greene AST [Catalytic activity/Vol] 23 U/L Normal 15-37 [facility] Comment on above: Performed By: #### T SH, LIPID, CMP #### [facility] [address] [address] [address] Roderick Greene Bilirubin [Mass/Vol] 0.5 mg/dL Normal 0.2-1.0 [facility] Comment on above: Performed By: #### T SH, LIPID, CMP #### [facility] [address] [address] [address] Roderick Greene Calcium [Mass/Vol] 9.3 mg/dL Normal 8.5-10.1 [facility] Comment on above: Performed By: #### T SH, LIPID, CMP #### [facility] [address] [address] [address] Roderick Greene Chloride [Moles/Vol] 105 mmol/L Normal 98-107 [facility] Comment on above: Performed By: #### T SH, LIPID, CMP #### [facility] [address] [address] [address] Roderick Greene CO2 [Moles/Vol] 31.0 mmol/L Normal 21.0-32.0 [facility] Comment on above: Performed By: #### T SH, LIPID, CMP #### [facility] [address] [address] [address] Roderick Greene Creatinine [Mass/Vol] 0.65 mg/dL Normal 0.55-1.02 [facility] Comment on above: Performed By: #### T SH, LIPID, CMP #### [facility] [address] [address] [address] Roderick Greene EGFR-AF BURUNDIAN >60 Normal >=60 [facility] Comment on above: Performed By: #### T SH, LIPID, CMP #### [facility] [address] [address] [address] Roderick Greene EGFR-NON AF BURUNDIAN >60 Normal >=60 [facility] Comment on above: Performed By: #### T SH, LIPID, CMP #### [facility] [address] [address] [address] Roderick Greene Globulin (S) [Mass/Vol] 3.6 g/dL Normal [facility] Comment on above: Performed By: #### T SH, LIPID, CMP #### [facility] [address] [address] [address] Roderick Greene Potassium [Moles/Vol] 4.7 mmol/L Normal 3.5-5.1 [facility] Comment on above: Performed By: #### T SH, LIPID, CMP #### [facility] [address] [address] [address] Roderick Greene Protein [Mass/Vol] 7.3 g/dL Normal 6.4-8.2 [facility] Comment on above: Performed By: #### T SH, LIPID, CMP #### [facility] [address] [address] [address] Roderick Greene Sodium [Moles/Vol] 143 mmol/L Normal 136-145 [facility] Comment on above: Performed By: #### T SH, LIPID, CMP #### [facility] [address] [address] [address] Roderick Greene Urea nitrogen [Mass/Vol] 13.0 mg/dL Normal 7.0-18.0 [facility] Comment on above: Performed By: #### T SH, LIPID, CMP #### [facility] [address] [place] [address] Dr. Roderick Greene Urea nitrogen/Creatinine [Mass ratio] 20.0 mg/mg Normal [facility] Comment on above: Performed By: #### T SH, LIPID, CMP #### [facility] [address] [place] [address] Dr. Roderick Greene TSHon 07-26-2022 TSH 0.822 uIU/mL Normal 0.358-3.740 [facility] Comment on above: Performed By: #### T SH, LIPID, CMP #### [facility] [address] [place] [address] Dr. Roderick Greene UA RANDOM W/MICROSCOPICon BACTERIA TRACE Abnormal NONE SEEN [facility] Comment on above: Performed By: #### U AMIC #### [facility] [address] [place] [address] Dr. Roderick Greene Bilirubin Ql (U) Negative Normal NEGATIVE [facility] Comment on above: Performed By: #### U AMIC #### [facility] [address] [place] [address] Dr. Roderick Greene CAST NONE SEEN Normal NONE SEEN [facility] Comment on above: Performed By: #### U AMIC #### [facility] [address] [place] [address] Dr. Roderick Greene Clarity (U) CLEAR Normal CLEAR [facility] Comment on above: Performed By: #### U AMIC #### [facility] [address] [place] [address] Dr. Roderick Greene Color (U) LT. YELLOW Normal YELLOW [facility] Comment on above: Performed By: #### U AMIC #### [facility] [address] [place] [address] Dr. Roderick Greene Crystals LM Nom (Urine sed) NONE SEEN Normal NONE SEEN [facility] Comment on above: Performed By: #### U AMIC #### [facility] [address] [address] [address] Roderick Greene Epithelial cells LM Ql (Urine sed) FEW Abnormal NONE SEEN /RARE [facility] Comment on above: Performed By: #### U AMIC #### [facility] [address] [address] [address] Roderick Greene Glucose Ql (U) Negative Normal NEGATIVE [facility] Comment on above: Performed By: #### U AMIC #### [facility] [address] [address] [address] Roderick Greene Hemoglobin Ql (U) Negative Normal NEGATIVE [facility] Comment on above: Performed By: #### U AMIC #### [facility] [address] [address] [address] Roderick Greene Ketones Ql (U) Negative Normal NEGATIVE [facility] Comment on above: Performed By: #### U AMIC #### [facility] [address] [place] [address] Dr. Roderick Greene LEUKOCYTES Negative Normal NEGATIVE [facility] Comment on above: Performed By: #### U AMIC #### [facility] [address] [address] [address] Roderick Greene MUCOUS SMALL Abnormal NONE SEEN [facility] Comment on above: Performed By: #### U AMIC #### [facility] [address] [place] [address] Dr. Roderick Greene Nitrite Ql (U) Negative Normal NEGATIVE [facility] Comment on above: Performed By: #### U AMIC #### [facility] [address] [address] [address] Roderick Greene pH (U) 8.0 [pH] Normal 5-9 [facility] Comment on above: Performed By: #### U AMIC #### [facility] [address] [place] [address] Dr. Roderick Greene RBC NONE SEEN Abnormal 0-2 [facility] Comment on above: Performed By: #### U AMIC #### [facility] [address] [place] [address] Dr. Roderick Greene SPEC GRAVITY 1.020 Normal 1.005-<=1.025 [facility] Comment on above: Performed By: #### U AMIC #### [facility] [address] [address] [address] oRderick Greene UA PROTEIN Negative Normal NEGATIVE/ TRACE [facility] Comment on above: Performed By: #### U AMIC #### [facility] [address] [address] [address] Roderick Greene Urobilinogen Qn (U) 0.2 {Jordan'U}/dL Normal 0.2 - 1. 0 [facility] Comment on above: Performed By: #### U AMIC #### [facility] [address] [address] [address] Roderick Greene WBC NONE SEEN Normal NONE SEEN [facility] Comment on above: Performed By: #### U AMIC #### [facility] [address] [address] CHEST WO CONon [...] by: SONU COLLINS Date: 2022-03-03 07:51 Normal [facility] Vital Signs Date Time Vital Sign Value Performing Clinician Facility 07-23-2023 09:50-0500 Body height 162.56 cm Bianca Garcia Other [facility] Other 07-23-2023 09:50-0500 Body mass index (BMI) [Ratio] 29.69 kg/m2 Bianca Garcia Other [facility] Other 07-23-2023 09:50-0500 Body temperature 98.1 [degF] Bianca Garcia Other [facility] Other 07-23-2023 09:50-0500 Body weight 78.47 kg Bianca Garcia Other [facility] Other 07-23-2023 09:50-0500 Diastolic blood pressure 88 mm[Hg] Bianca Garcia Other [facility] Other 07-23-2023 09:50-0500 Respiratory rate 18 /min Bianca Garcia Other [facility] Other 07-23-2023 09:50-0500 SaO2% (BldA) [Mass fraction] 99 % Bianca Garcia Other [facility] Other 07-23-2023 09:50-0500 Systolic blood pressure 128 mm[Hg] Bianca Garcia Other [facility] Other 07-30-2022 12:10-0500 Body height 162.56 cm Bianca Garcia Other [facility] Other 07-30-2022 12:10-0500 Body mass index (BMI) [Ratio] 27.12 kg/m2 Bianca Garcia Other [facility] Other 07-30-2022 12:10-0500 Body temperature 96.6 [degF] Bianca Garcia Other [facility] Other 07-30-2022 12:10-0500 Body weight 71.67 kg Bianca Jose Other [facility] Other 07-30-2022 12:10-0500 Diastolic blood pressure 86 mm[Hg] Bianca Garcia Other [facility] Other 07-30-2022 12:10-0500 Respiratory rate 18 /min Bianca Garcia Other [facility] Other 07-30-2022 12:10-0500 SaO2% (BldA) [Mass fraction] 98 % Bianca Garcia Other [facility] Other 07-30-2022 12:10-0500 Systolic blood pressure 120 mm[Hg] Bianca Garcia Other [facility] Other 07-21-2022 11:30-0500 Body height 162.56 cm Bianca Garcia Other [facility] Other 07-21-2022 11:30-0500 Body mass index (BMI) [Ratio] 27.55 kg/m2 Bianca Garcia Other [facility] Other 07-21-2022 11:30-0500 Body temperature 98.4 [degF] Bianca Garcia Other [facility] Other 07-21-2022 11:30-0500 Body weight 72.8 kg Bianca Garcia Other [facility] Other 07-21-2022 11:30-0500 Diastolic blood pressure 88 mm[Hg] Bianca Garcia Other [facility] Other 07-21-2022 11:30-0500 Respiratory rate 18 /min Bianca Garcia Other [facility] Other 07-21-2022 11:30-0500 SaO2% (BldA) [Mass fraction] 95 % Bianca Garcia Other [facility] Other 07-21-2022 11:30-0500 Systolic blood pressure 122 mm[Hg] Bianca Garcia Other [facility] Other Encounters Encounter Date Encounter Type Care Provider Facility Start: 09-30-2023 ambulatory Bianca Garcia Facility :[facility] Start: 07-27-2023 ambulatory Bianca Garcia Facility:[facility] Start: 07-23-2023 End: 07-23-2023 ambulatory Bianca Garcia Other [facility] Other Start: 07-23-2023 Office outpatient visit 25 minutes Bianca Garcia [facility] Start: 11-20-2022 ambulatory JÚNIOR GOLDBERG . Facili ty:[facility] Start: 11-04-2022 End: 11-04-[address] BIANCA GARCIA Facility:[facility] Start: 10-09-2022 End: 10-10-2022 ambulatory YANE MCCONNELLMIPATHCari . Facility:[facility] Start: 10-01-2022 End: 10-01-2022 ambulatory Bianca Garcia Other [facility] Other Start: 10-01-2022 Telephone encounter Bianca Garcia [facility] Start: 08-28-2022 End: 08-29-[address] LENORE STOLL . Facility:[facility] Start: 08-05-2022 End: 08-05-2022 ambulatory Imad Asaad Other [facility] Other Start: 08-05-2022 Telephone encounter Imad Asaad [facility] Start: 07-30-2022 End: 07-30-2022 ambulatory Bianca Garcia Other [facility] Other Start: 07-30-2022 Office outpatient visit 25 minutes Bianca Garcia [facility] Start: 07-26-2022 End: 07-27-[address] BIANCA GARCIA Facility:[facility] Start: 07-24-2022 End: 07-25-[address] LENORE STOLL . Facility:[facility] Start: 07-21-2022 End: 07-21-2022 ambulatory Bianca Garcia Other [facility] Other Start: 07-21-2022 Office outpatient visit 15 minutes Bianca Garcia [facility] Start: 05-27-2022 End: 05-27-[address] LENORE STOLL . Facility:[facility] Start: 04-24-2022 End: 04-25-[address] LENORE STOLL . Facility:[facility] Start: 03-01-2022 End: 03-02-2022 ambulatory BETY ANDRA . Facility:[facility] Start: 02-20-2022 End: 02-21-[address] LENORE STOLL . Facility:[facility] Start: 01-14-2022 End: 01-14-[address] BIANCA GARCIA Facility:[facility] Start: 12-18-2021 End: 12-19-[address] BIANCA GARCIA Facility:[facility] Start: 11-12-2021 End: 11-12-[address] LENORE STOLL . Facility:[facility] Immunizations Immunization Date Immunization Notes Care Provider Fa cili 02-09-2021 COVID-19 Irvin Garcia Other Partly Other 01-21-2021 COVID-19 Irvin Garcia Other Partly Other Payers Date Payer Category Payer Medicaid [id number] 2. [id number] 1965 Unknown [id number] 2.16.84 0.1.608361.3.579.2.593 1966 Unknown [id number] 2.16.84 0.1.637905.3.579.2.593 1966 Unknown [id number] 2.16.84 0.1.459514.3.579.2.593 1966 Unknown [id number] 2.16.84 0.1.470527.3.579.2.593 1966 Unknown [id number] 2.16.84 0.1.853431.3.579.2.593 1966 Unknown [id number] 2.16.84 0.1.662495.3.579.2.593 1966 Unknown [id number] 2.16.84 0.1.731323.3.579.2.593 1966 Unknown [id number] 2.16.84 0.1.020543.3.579.2.593 1966 Unknown [id number] 2.16.84 0.1.774993.3.579.2.593 1966 Unknown [id number] 2.16.84 0.1.355567.3.579.2.593 1966 Unknown [id number] 2.16.84 0.1.244574.3.579.2.593 1966 Unknown [id number] 2.16.84 0.1.405720.3.579.2.593 1966 Unknown [id number] 2.16.84 0.1.586744.3.579.2.593 1966 Unknown [id number] 2.16.8 40.1.700625.3.579.2.727 1959 Unknown [id number] Social History Date Type Detail Facility Unknown if ever smoked [facility] Other Sex Assigned At Sex Assigned At Bir th [facility] Other Clinical Notes 08-11-2011 to 07-23-2023 Note [...] she is in pain management. 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 Continue with above medication daily as directed. Jul, Other She voices that she was anxious to come into the office today but once she was in her exam room she was calmed down. [facility]ly Other 04-20-2023 NoteCONSULTATION CONSULTATION DATE: 10/09/2022 TO: [...] our patients to inform us about any scmw-qlf-ebjzdbi medications or herbal remedies/nutritional supplements/alternative remedies. 2. [...] treatment options with their primary care provider.[id number] Note CONSULTATION CONSULTATION DATE: 08/28/2022 HISTORY OF [...] with this plan and all questions answered.[facility] [id number] Evaluation note* Encounter Date Diagnosis Assessment Notes [...] number of someone she can see through [facility]. She voices that she will think about it. I asked her not to take anymore Vistaril. Jul, Lumbar pain (ICD-10 - M54.50) She voices that Dr. 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 She is scheduled for an [...] and if/when testing needs to be repeated. [facility]ly Other 02-02-2023 NoteCONSULTATION CONSULTATION DATE: 07/24/2022 HISTORY [...] The patient is in agreement to this.[facility] [id number] Evaluation note * Encounter Date Diagnosis Assessment [...] to the procedure and should have a set key driver to take her to the procedure [...] Jun, Hyperglycemia (ICD-10 - R73.9) Jun, Other penitentiary (current) drug therapy (ICD-10 - Z79.899) Jun, Hematuria (ICD-10 - R31.9) Jun, Weight loss (ICD-10 - R63.4) Jun, COPD (chronic obstructive pulmonary disease) (ICD-10 - J44.9) Continue to follow with Dr. Govea as directed/scheduled. Jun, Pulmonary nodule (ICD-10 - R91.1) She is following with Dr. Govea, she voices that the nodule is being watched but it has not grown any. Jun, Colon cancer screening (ICD-10 - Z12.11) I did recommend that she have a colonoscopy and she agrees. Jun, Other I did recommend that she have a mammogram done but she refuses. [facility] Other 11-03-2022 NoteCONSULTATION CONSULTATION DATE: 04/24/2022 HISTORY [...] followed up in the clinic post procedure.[facility] [id number] NoteCONSULTATION CONSULTATION DATE: 02/20/2022 HISTORY OF PRESENT [...] agrees to this and all questions answered.[facility] [id number] NoteCONSULTATION CONSULTATION DATE: 12/18/2921 This is a [...] will be followed up in the clinic. [facility] Signed and Approved by: JOSE ALEJANDRO STINSON . 12/26/2021 16:26:00[facility]02-20-2012 History general Narrative - Reported* Type Description Date Medical History Gestational Diabetes Medical History History of Hemorrhoids Medical History Chest X-Ray Done 08-11-11 Medical History Lumbar Spine X-Ray Done 08-11-11 Medical History [place]12[place] [facility] [place]12[place]12[place] [facility] [place] Abdomen and Pelvis 08-16-12; [facility] [place] Medical History TDap (Adacel) 01-03-15 [facility] Medical History 01/2015 Dr So, 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 Lu Colonoscopy, Divert iculosis 10-05-2012 Surgical History injection in back - Pain Mgmt Surgical History Nerve block in back 06/2019 Hospitalization History Tonsillectomy Hospitalization History Childbirth Hospitalization History [facility] stic hes in rt hand cut during washing dishes 01/03/2015 Partly Other Evaluation noteNo InformationNoEndeka Group Other Reason for visit Narrativecheck up/discuss dementia, discuss multiple issues, see treatment plan for further informationNoEndeka Group Other Reason for Referral Reason appt 09/05/22 at 8am pt needs screening colonoscopy Diagnosis 1 Colon cancer screeni ng (Z12.11) Referral Organization [facility] Referring Provider First Name Bianca Referring Provider Last Name Jose Referring Provider Specialty Family Prac guero Referred Organization [facility] Gastroenterolo gy Referred Provider John Cedillo Referred Address [address] ,[place], [place],[address] Referred Provider Specialty Gastroentero logy Referral Priority Routine Referral Appointment Date 2022-09-05 General Notes Delilah Sandoval 07/21/2022 11:57:58 AM > referral sent p2p. pt understands she will be contacted to schedule this appt. Delilah Sandoval 08/06/2022 10:17:55 AM > colonoscopy scheduled on 09/05/22 at 8am Reason appt pt needs cons ult to discuss memory changes Diagnosis 1 Memory changes (R41. 3) Referral Organization [facility] Referring Provider First Name Bianca Referring Provider Last Name Jose Referring Provider Specialty Family Prac guero Referred Organization [facility] Referred Provider Carlitos Lu [address] [place], [place],[address] Referred Provider Specialty Neurology Referral Priority Routine General Notes Delilah Sandoval 07/23/2023 11:40:43 AM > referral faxed thru [facility] with visit note and insurance card. pt understands she will be contacted to schedule this appt. Reason appt pt needs scre ening colonoscopy Diagnosis 1 Colon cancer screeni ng (Z12.11) Referral Organization [facility] Family [facility] Referring Provider First Name Bianca Referring Provider Last Name Jose Referring Provider Specialty Family Prac guero Referred Organization [facility] Referred Provider Esa Little Referred Address [address] [place], [place],[address] Referred Provider Specialty Surgery Referral Priority Routine [...] pital DATE CREATED AUTHOR AUTHOR'S ORGANIZ ATION 08/26/2023 [facility] FOR RECORDS PERTAINING TO PATIENTS WHO ARE [...] BE BASED ON THE PRIMARY CLINICAL RECORDS. [facility] provides no warranty or guarantee of the accuracy or completeness of information in this document.
--- NOTE | 2023-08-31 13:56 | RT_ITS ---
[facility] Test Date: 2023-08-31 Pat Name: INGA POLO Department: Room: - Gender: Female Assistant Clinical Director: Shoaib Currie RRT : 1965 Requested By: Nuno Govea Order Number: [id number] Reading MD: Nuno Govea Interpretive Statements Pulmonary function testing was completed according to ATS criteria. Findings were considered accurate and reproducible, with exception of pre-bronchodilator FVC which did not meet ATS standards. Both pre- and post-bronchodilator values utilized for spirometry. Spirometry (based on pre-bronchodilator values): -FEV1/FVC: Normal @ 76% -FEV1: Normal @ 85% -FVC: Normal @ 87% -There is no significant bronchodilator response. -Post-bronchodilator, FEV1/FVC drops to 70% and FEV1 decreases to 82% Lung volumes by plethysmography (based on pre-bronchodilator values): -RV: Increased @ 133% -TLC: Normal @ 115% Diffusion capacity: -DLCO: Moderate reduction @ 61% when corrected for Hb 14.9g/dL Flow-volume loop: -Mild obstructive pattern Impressions: -Though spirometry is technically normal, pre-bronchodilator FVC did not meet ATS standards; on post-bronchodilator testing, values were more consistent with a mild-moderate obstructive pattern. An elevated RV suggests air trapping. There is a moderately reduced diffusion capacity. Overall study suggests mild-moderate COPD/emphysema. Clinical correlation required. Electronically Signed On 09-01-2023 10:51:08 EDT by Nuno Govea
[2023-08-31] MEDS: ALBUTEROL SULFATE 2.5 MG/3 ML VIAL NEB IH (13:58)
== END 2023-08-31 12:53 | disposition home or self-care (01) ==
LOC: CARD 12:52
PROVIDERS: PCP Family Medicine; Visit Provider Internal Medicine
DX: J43.2 Centrilobular emphysema (principal)
CPT/HCPCS: 94060; 94726; 94729

== ENCOUNTER 2023-10-15 10:27 | Outpatient (OUT) | payer MEDICAID, SELFPAY ==
--- NOTE | 2023-10-15 10:35 | PM.CN ---
Consult Note: HPI Data of Consult Patient: known to practice within the last 3 years Requesting Physician: Tori Noyola NP Primary Care Provider: BIANCA GARCIA Consult Narrative Reason for consult: f/u Narrative: Arianna flores pleasant 58 year old female presents for evaluation and management of chronic low back pain and right knee pain. Patient reporting pain 6/10 today. Patient found greater than 80% improvement in right knee pain for 3 months following last right knee injection, but has since worn off. Patient continues to have aching burning sharp low back pain with numbness tingling pain in bilateral legs not extending past knees, worse with activity and work. DONNA today 38%. Continues to find functional improvement and mild pain relief from current medication regimen. A cc:: CC: Tori Noyola NP Review of Systems ROS Status of ROS 10 or more systems reviewed and unremarkable except as noted in history and below Musculoskeletal Reports: back pain Meds Home Medications and Allergies Home Medications ?Medication ?Instructions ?Recorded ?Confirmed ?Type albuterol sulfate 2.5 mg/3 mL 2.5 mg inhalation Q4H PRN 11/20/22 11/20/22 History (0.083 %) solution for nebulization shortness of breath or wheezing amlodipine 5 mg tablet (Norvasc) 5 mg PO QDAY 11/20/22 11/20/22 History cyclobenzaprine 10 mg tablet 10 mg PO TID 11/20/22 11/20/22 History multivitamin 1 tab PO QDAY 11/20/22 11/20/22 History oxycodone-acetaminophen 7.5 mg-325 1 tab PO TID 11/20/22 11/20/22 History mg tablet (Endocet) celecoxib 100 mg capsule (Celebrex) 100 mg PO BID #60 caps 03/11/23 Rx pregabalin 75 mg capsule (Lyrica) 75 mg PO BID #60 caps 07/30/23 Rx trazodone 50 mg tablet 50 mg PO .hs #30 tabs 08/28/23 Rx Allergies Allergy/AdvReac Type Severity Reaction Status Date / Time No Known Drug Allergies Allergy Verified 11/20/22 11:52 Exam Constitutional Documenting provider has reviewed patient's vital signs: yes Common normals: no apparent distress, oriented x3, healthy appearing, alert and well nourished General appearance: cooperative HENMT Common normals: normocephalic, hearing grossly normal bilaterally and moist oral mucous membranes Head and scalp: normocephalic Eye Common normals: PERRL Pupil: PERRL Neck & C-Spine Common normals: full ROM General: normal visual inspection Chest Common normals: inspection of chest normal Respiratory Common normals: normal respiratory effort, no retractions and no use of accessory muscles Back & Pelvis Lumbar spine/lower back: ROM limited, pain with ROM, paraspinal muscle spasm and straight leg raise negative bilaterally Sacroiliac joints: SI joint(s) abnormal Other: bilateral facet loading positive L>R pain from back to anterior thighs stopping at the knees L>R tenderness over bilateral PSIS, positive gaenslens thigh thrust FABERS bilaterally L>R pain with pressure on bilateral LCIH nerve Extremity Common normals: normal to inspection and full ROM Right lower extremity: knee joint (enlarged diameter, mild crepitus on exam. ) Other: positive lateral and medial stress testing, pain with activity and weight bearing Neuro Common normals: oriented x3, CN's II-XII intact bilaterally, moves all extremities, no focal motor deficits, no sensory deficits noted and deep tendon reflexes 2+ bilaterally Sensorium/orientation: alert Gait (neuro): normal gait Motor exam: strength 5/5 throughout and no movement abnormalities noted Psych Common normals: mental status grossly normal, thought process normal, cooperative, affect normal, speech normal and activity/motor behavior normal Speech: normal speech Thought process: normal thought process Results Additional Findings Additional findings: If on a controlled substance or opioids, I have checked an [place]ARRS report on this patient and there are no aberrancies noted in the prescribing history.??If on a controlled substance or opioid a drug screen was completed and reviewed within the last year, and if there has not been a drug screen completed we ordered one today to monitor higher risk, state monitored pain medication use. As part of providing excellent, safe, comprehensive care, the following was completed at our patient's visit: 1. A medication reconciliation and review to ensure accurate knowledge of current/active medications, including asking our patients to inform us about any [id number]-ynknccm medications or herbal remedies/nutritional supplements/alternative remedies. 2. A review to specifically ensure our patients have had annual screening for screening for depression, screening for tobacco use, and screening for unhealthy alcohol use. For concerning screenings had a discussion with the patient, provided patient education, and recommended follow-up with primary care provider when appropriate. If patient noted with a risk of falling, they received education on strength, gait, and balance training to prevent future risk of falling. Assessment and Plan Assessment and Plan (1) History of lumbar fusion: (2) Chronic prescription opiate use: Assessment and Plan: I feel these medications are improving the patient's quality of life and allow them to tolerate activities of daily living as well as participate in recreational activity.? The patient does not report intolerable side effects. The patient is NOT opioid naive and non-pharmacologic and non-opioid treatment has failed to significantly relieve the patient's pain and improve functionality. The patient has a diagnosis that is related to a somatic or visceral pain etiology. ? ?? I reviewed with the patient the potential risks and side effects with the use of? opioid medications including but not limited to respiratory depression,? sedation, and even . I verified the patient has access to naloxone should? these effects occur. I advised the patient to avoid the use of any other? sedation substances including alcohol, THC, and benzodiazepines while? taking opioid medications due to the risk of compounding side effects and? detrimental outcomes. I reviewed the BROACH OPERATOR, pain treatment agreement, urine? drug screen, and opioid start talking forms. The patient was advised to let? their family know they had Naloxone in case they would need to administer? the medication.? ?? A drug screen was completed within the last year, and no aberrancies were noted regarding their use of controlled substances. The patient understands they are subject to the terms and conditions of the pain contract that they have signed. ? ?? I have checked an OARRS report on this patient today and there are no aberrancies noted in the prescribing history.? (3) Lumbar spondylosis: (4) Failed back syndrome: (5) Muscle spasm: (6) Chronic low back pain: (7) Chronic pain syndrome: Plan repeat right knee injection with Dr Murillo [facility] today discussed current medication regimen is providing mild pain relief and functional improvement without side effects, will not make any changes at this time. percocet was sent in wrong last refill, is to be percocet 7.5mg TID PRN moderate to severe pain continue efforts to stop tobacco use not interested in spinal cord stimulator trial consider botox in right lower lumbar paraspinal muscle for chronic knot and pain f/u after knee injection
--- OUTSIDE RECORDS SUMMARY | 2023-10-15 10:44 | XMS_ITS | CCD ---
Author Organization [facility] Care Team Providers Care Sales Representative [employer] Name Role Phone Bianca Garcia Unavailable Asaad, Imad Unavailable MARNI ., DR LENORE Becker Attending [...] Primary Care Unavailable STOLL ., DR LENORE Becekr Admitting Unavailable STOLL ., DR LENORE Becker [...] STOLL ., DR LENORE Becker Consulting Unavailable BEBA GALDAMEZ Consulting Unavailable JOSE, DR VALENZUELA Primary Care [...] ., NARENDRANATH Consulting Mora vailable LAKSHMIPATHY ., NARENDJOSÉ MIGUELATH Attending Mora vailable ENEDINAMIPATHCari ., YANE Admitting Mora vailable JOSE, DR VALENZUELA Consulting Unavailable JOSE, DR VALENZUELA Attending Unavailable JOSE, DR VALENZUELA Admitting Unavailable JOSE, DR VALENZUELA Primary Care Unavailable ANDRA .BETY Attending Unavailable SAM ., BETY Admitting Unavailable JOSE, DR VALNEZUELA Primary Care Unavailable DENNIS, DR SONU Lozano Consulting Unavailable SAMSA ., BETY Consulting Unavailable LAKSHMIPATHY ., NARENDRANATH Consulting Mora vailable JOSE, DR VALENZUELA Primary Care Unavailable LAKSHMIPATHY ., YANE Attending Mora vailable LAKSHMIPATHY ., YANE Admitting Mora vailable STOLL ., DR LENORE Becker Attending Unavailable JOSE, DR VALENZUELA Primary Care Unavailable SHANTELL ., JOSE ALEJANDRO Consulting Unavailable MARNI ., DR LENORE Becker Admitting Unavailable Bianca Garcia Primary Care Physician DO Bianca Garcia Primary Care Provider DO Carlitos Lu Attending Provider [phone] Bianca Garcia Referring Unavailable Esa LITTLE Attending Unavailable Bianca Garcia Primary Care Unavailable Carlitos Lu Attending Unavailab le Carlitos Lu Admitting Unavailab llanos Allergies Allergy Classification Reported Allergen(s) Allergy Type Date of Onset Reaction(s) Facility (6 sources) hydrOXYzine; Translations: [hydroxyzine] Drug Allergy 3 Palpitations (finding) General Surgery Mitzi (1 source) hydrOXYzine; Translations: [Vistaril] Drug Allergy [facility] Repository (1 source) hydrOXYzine Drug Allergy [address] [place] [address] Repository Medications Current Medications Medication Drug Class(es) Dates Sig (Normalized) Sig (Original) acetaminophen 325 mg / oxyCODONE hydrochloride 7.5 mg oral tablet (6 sources) Opioid Agonist Start: 08-24-2023 take 1 tablet by mouth every eight hours as needed for pain Percocet 7.5 mg-325 mg oral tablet 1 tab(s), Oral, q8hr as needed for pain, Refill(s) 0 Start Date: 08/24/23 Status: Ordered Start: 08-14-2014 Percocet 7.5-3 25 MG 1 tablet Orally q8-12 hrs prn Jul, Active [id number] 200 actuat albuterol 0.09 mg/actuat metered dose inhaler (5 sources) beta2-Adrenergic Agonist Start: 05-27-2016 Ventolin HFA 108 (90 Base) MCG/ACT 2 inhalations Inhalation qid prn May, Active amLODIPine 5 mg oral tablet (9 sources) Dihydropyridine Calcium Channel Sabiha Start: 09-03-2023 take 1 tablet by mouth once daily Amlodipine Active 0 .ROUTE .COMPLEX September 03, 2023 11:42am TAKE 1 TABLET BY MOUTH ONCE DAILY Start: 08-24-2023 End: 09-03-2023 take 5 mg by mouth once daily Amlodipine Discontinued 5 MG PO Daily September 03, 2023 11:41am September 03, 2023 11:42am take 1 tablet by michael th once daily amLODIPine Besylate 5 mg TAKE 1 TABLET BY MOUTH ONCE DAILY Active celecoxib 100 mg oral capsule (2 sources) Nonsteroidal Anti-inflammatory Drug Start: 08-24-2023 take 1-2 capsules by mouth once daily CeleBREX 100 mg Cap 1-2 caps, Oral, Daily, Refills(s) 0 Start Date: 08/24/23 Status: Ordered Start: 07-23-2023 CeleBREX 100 M G 1 or 2 capsules Orally Once a day Jul, Active cyclobenzaprine hydrochloride 10 mg oral tablet (6 sources) Muscle Relaxant Start: 08-24-2023 take 2 tablets by mouth at bedtime as needed for muscle spasms cyclobenzaprine 10 mg Tab 20 mg = 2 tab(s), Oral, Bedtime, PRN for spasm, Refills(s) 0 Start Date: 08/24/23 Status: Ordered take 2 tablets by mo [facility] every twenty-four hours Cyclobenzaprine HCl 10 MG 2 tablet at bedtime as needed Orally Once a day Active melatonin 5 mg oral tablet (6 sources) Start: 08-24-2023 take 1 tablet by mouth once daily at bedtime as needed melatonin 5 mg oral tablet 5 mg = 1 tab(s), Oral, Once a day (at bedtime), PRN for insomnia, Refills(s) 0 Start Date: 08/24/23 Status: Ordered take 1 tablet by michael every twenty-four hours Melatonin 5 MG 1 tablet at bedtime as needed Orally Once a day for 30 day(s) Active meloxicam 15 mg oral tablet (4 sources) Nonsteroidal Anti-inflammatory Drug take 1 tablet by mouth every twenty-four hours Meloxicam 15 MG 1 tablet Orally Once a day Active Multi For Her (5 sources) Multi For Her Orally Active Multi Vitamins oral tablet (1 source) Start: take 1 tablet by mouth once daily Multi Vitamins oral tablet 1 tab(s), Oral, Daily, Refill(s) 0 Start Date: 08/24/23 Status: Ordered 60 actuat olodaterol 0.0025 mg/actuat / tiotropium 0.0025 mg/actuat inhalation spray (2 sources) Anticholinergic, beta2-Adrenergic Agonist Start: Stiolto Respimat 2.5 mcg-2.5 mcg inhalation aerosol = 2 puff(s), Inhalation, q24hr, Refills(s) 0 Start Date: 08/24/23 Status: Ordered Stiolto Respimat 2.5-2.5 MCG/ACT 2 puffs Inhalation Once a day Active pregabalin 75 mg oral capsule (6 sources) Start: 08-24-2023 take 1 capsule by mouth at bedtime Lyrica 75 mg Cap 75 mg = 1 cap(s), Oral, Bedtime, Refills(s) 0 Start Date: 08/24/23 Status: Ordered take 1 capsule by mouth once Pre gabalin 75 MG 1 capsule Orally once at night Active traZODone hydrochloride 50 mg oral tablet (6 sources) Serotonin Reuptake Inhibitor Start: 08-24-2023 take 1 tablet by mouth once daily at bedtime traZODONE 50 mg Tab 50 mg = 1 tab(s), Oral, Once a day (at bedtime), Refills(s) 0 Start Date: 08/24/23 Status: Ordered take 1 tablet by michael th every twenty-four hours traZODone HCl 50 MG 1 tablet at bedtime as needed Orally Once a day Active varenicline 1 mg oral tablet (2 sources) Partial Cholinergic Nicotinic Agonist Start: 08-24-2023 Chantix 1 mg oral tablet Refills(s) 0 Start Date: 08/24/23 Status: Ordered Varenicline Tart rate (Starter) Active Ventolin HFA 90 mcg/inh Aerosol-Adpt (1 source) Start: 08-24-2023 take 2 puff(s) by inhalation four times daily Ventolin HFA 90 mcg/inh Aerosol-Adpt 2 puff(s), Inhalation, QID Shortness of breath or wheezing, Refill(s) 0 Start Date: 08/24/23 Status: Ordered Completed/Discontinued Medications Medication Drug Class(es) Dates Sig [...] disease, unspecified] Chronic Diabetes mellitus without complication (8 sources) Hyperglycemia, unspecified; Translations: [Hyperglycemia] Onset: 07-26-2022 Episodic Diseases of white blood cells (5 sources) Leukocytosis; Translations: [Elevated white blood cell count, unspecified] Chronic Disorders of lipid metabolism (10 sources) Hyperlipidemia; Translations: [Hyperlipidemia, unspecified] Onset: 07-27-2022 Chronic Diverticulosis and diverticulitis (1 source) Diverticular disease 08-24-2023 Chronic Osteoarthritis (5 sources) Arthritis; Translations: [Unspecified osteoarthritis, unspecified site] Chronic Other aftercare (3 sources) Other assisted (current) drug therapy; Translations: [OTH PILE DRIVING NOZZLEMAN CURRENT DRUG THERAPY] Onset: 02-05-2023 Episodic Other and unspecified benign neoplasm (5 [...] disturbance; Translations: [Paresthesia of skin] Episodic Other nervous system disorders (1 source) Ataxia, unspecified; Translations: [Ataxia, unspecified] Onset: 10-01-2023 Episodic Other non-traumatic joint disorders (4 sources) Pain in right hip; Translations: [PAIN IN RIGHT HIP] Onset: 10-09-2022 Episodic Other nutritional; endocrine; and metabolic disorders (1 source) Abnormal weight gain Episodic Other nutritional; endocrine; and metabolic disorders (1 source) Overweight 08-24-2023 Episodic Other nutritional; endocrine; and metabolic disorders (1 source) Overweight in adulthood with body mass index of 25 or more but less than 30 09-30-2023 Episodic Other screening for suspected conditions (not mental disorders or infectious disease) (4 sources) Encounter for screening for malignant neoplasm of colon; Translations: [Other abnormal findings in specimens from other organs, systems and tissues] Onset: 09-30-2023 Episodic Residual codes; unclassified (1 source) Other specified health status Episodic Residual codes; unclassified (1 source) Amnesia; Translations: [Other amnesia] Episodic Residual codes; unclassified (1 source) Other amnesia Episodic Residual codes; unclassified (1 source) Memory impairment 08-24-2023 Episodic Spondylosis; intervertebral disc disorders; other back problems (12 sources) Spondylosis without myelopathy or radiculopathy, cervical region; Translations: [Other cervical disc degeneration, unspecified cervical region] Onset: 09-23-2012 Chronic Substance-related disorders (5 sources) Nicotine dependence; Translations: [Nicotine dependence, unspecified, uncomplicated] Chronic Unclassified (1 source) LOW BACK PAIN, UNSPECIFIED; Translations: [LOW BACK PAIN, UNSPECIFIED] Onset: 09-02-2022 Unclassified (2 sources) Patient encounter status 08-24-2023 Past or Other Problems Problem Classification Problem [...] Results Test Name Value Interpretation Reference Range Facility Consent for Procedure/Surger yon 10-02-2023 Consent for Procedure/Surgery [id number] 0TIFF Normal [facility] MR head/brain wo/w conon MR head/brain wo/w con [facility] [place] [address] MRI Report Signed Patient: Arianna Tucker MR#: [id number] 2 : 1965 Acct:[id number] Age/Sex: 58 / F ADM Date: 10/01/23 Loc: MR Room: Type: [facility] Attending Dr: Carlitos Lu DO Copies to: Carlitos Lu DO Ordering Provider: Carlitos Lu DO Date of Service: 10/01/23 MR/MR head/brain wo/w con: R27.0 MR head/brain wo/w con 10/01/2023 7:16 PM SIGN AND SYMPTOMS: Cognitive decline S.br R27.0 PROTOCOL: Multiplanar multisequence MR images of brain were obtained with and without IV contrast CONTRAST: 15 mL of intravenous ProHance COMPARISON: 08/07/2008 FINDINGS: Extra axial spaces: Age appropriate. Hemorrhage: None. Ventricular system: Within normal limits. Basal cisterns: Within normal limits and not effaced. Cerebral parenchyma: There are punctate foci of T2 and FLAIR hyperintense signal in the periventricular and subcortical white matter suspicious for chronic microvascular ischemic change. Midline shift: None.. Cerebellum: Within normal limits. Brainstem: Within normal limits. OTHER: Calvarium: Normal marrow signal. Vascular system: Satisfactory flow voids within the anterior and posterior circulation. Visualized Paranasal sinuses: Within normal limits. Visualized Orbits: Within normal limits. Visualized upper cervical spine: Within normal limits. Sella and skull base: Within normal limits. MR/MR head/brain wo/w con IMPRESSION: No acute intracranial pathology. No abnormal postcontrast enhancement. No focal atrophy. There are punctate foci of T2 and FLAIR hyperintense signal in the periventricular and subcortical white matter suspicious for chronic microvascular ischemic change. Impression dictated by: Maciel Duarte M.D.10/02/2023 12:33 PM Dictation Location: [place] [address] Transcribed By: [facility] 10/02/23 1233 Dictated By: Maciel Duarte II, MD 10/02/23 1225 Signed By: 10/02/23 1233 Normal [facility] Facesheeton 10-01-2023 Facesheet [id number] 0TIFF Normal [facility] Ambulatory Visit Summaryon 0 09-30-2023 Ambulatory Visit Summary ARIANNA TUCKER Endy :1965 Visit Date:09/30/2023 Ambulatory Visit Instructions Your Care Team Attending Physician - LIZBETH CONNELLY, Esa Lozano Primary Care Physician - Bianca Garcia DO Referring Physician - Bianca Garcia DO This Is Your Medications List Contact prescribing physician if questions or concerns acetaminophen-oxycodon e (Percocet 7.5 mg-325 mg oral tablet) albuterol (Ventolin HFA 90 mcg/inh Aerosol-Adpt) amlodipine (amLODIPine 5 mg Tab) celecoxib (CeleBREX 100 mg Cap) cyclobenzaprine (cyclobenzaprine 10 mg Tab) melatonin (melatonin 5 mg oral tablet) multivitamin (Multi Vitamins oral tablet) olodaterol-tiotropium (Stiolto Respimat 2.5 mcg-2.5 mcg inhalation aerosol) pregabalin (Lyrica 75 mg Cap) trazodone (traZODONE 50 mg Tab) varenicline (Chantix 1 mg oral tablet) Procedures Performed Colonoscopy (10/05/2012), History of lumbar laminectomy, Tonsillectomy, Tubal ligation. Discharge Vitals Heart Rate (Peripheral) 76 Respiratory Rate 16 Blood Pressure 138/84 Height 162.5 cm Height 64 in Weight 78.8 kg Weight 173.36 lb BMI 29.84 Medications What How Much When Instructions Unchanged acetaminophen-oxycodon e (Percocet 7.5 mg-325 mg oral tablet) 1 Tablets By Mouth Every 8 hours as needed for as needed for pain Contact prescribing physician if questions or concerns Unchanged albuterol (Ventolin HFA 90 mcg/ inh Aerosol-Adpt) 2 Puffs Inhalation 4 times a day as needed for Shortness of breath or wheezing Contact prescribing physician if questions or concerns Unchanged amlodipine (amLODIPine 5 mg Tab) 1 Tablets By Mouth Every day Contact prescribing physician if questions or concerns Unchanged celecoxib (CeleBREX 100 mg Cap) 1-2 caps By Mouth Every day Contact prescribing physician if questions or concerns Unchanged cyclobenzaprine (cyclobenzaprine 10 mg Tab) 2 Tablets By Mouth At bedtime as needed for for spasm Contact prescribing physician if questions or concerns Unchanged melatonin (melatonin 5 mg oral tablet) 1 Tablets By Mouth Once a day (at bedtime) as needed for for insomnia Contact prescribing physician if questions or concerns Unchanged multivitamin (Multi Vitamins oral tablet) 1 Tablets By Mouth Every day Contact prescribing physician if questions or concerns Unchanged olodaterol-tiotropium (Stiolto Respimat 2.5 mcg-2.5 mcg inhalation aerosol) 2 Puffs Inhalation Every 24 hours Contact prescribing physician if questions or concerns Unchanged pregabalin (Lyrica 75 mg Cap) 1 Capsules By Mouth At bedtime Contact prescribing physician if questions or concerns Unchanged trazodone (traZODONE 50 mg Tab) 1 Tablets By Mouth Once a day (at bedtime) Contact prescribing physician if questions or concerns Unchanged varenicline (Chantix 1 mg oral tablet) Contact prescribing physician if questions or concerns Allergies Vistaril (Palpitations) Problems Ongoing - Any problem that you are currently receiving treatment for. BMI 29.0-29.9,adult Diverticulosis Hyperglycemia Hyperlipidemia Lumbosacral spondylosis without myelopathy Memory changes Overweight Screening for colon cancer Patient Survey You may receive a survey via text or e-mail asking about your office visit. Please share your experience with us by completing your survey. We appreciate your feedback and thank you for choosing us for your care. Normal [facility] Provider Letteron 08-17-2023 Provider Letter August 17, 2023 ARIANNA MELANI [address] [place] [id number] : 1965 Dear Ms. Tucker, We have [...] your prompt attention to this matter. Sincerely, [facility] General Surgery [phone] Normal [facility] No Panel Informationon 08-01 Miscellaneous Test COMMENT . [facility] Comment on above: Test Ordered: [id number] Alk Phos IsoenzymeAlkaline Phosphatase 117 IU/L CB Reference Range: 44-121Liver Fraction: 52 % CB Reference Range: 18-85Bone Fraction: 46 % CB Reference Range: 14-68Intestinal Frac.: 2 % CB Reference Range: 0-18Performed at: CB - [facility] [address] [id number] Director: Cam Reyes PhD, Phone: [phone] Physician Referralon 024 Physician Referral [id number] 0TIFF Normal [facility] CBC AUTO DIFFon 07-26-2022 BASO # 0.1 103/ul Normal 0.0-0.1 [facility] Comment on above: Performed By: #### U RCX #### [facility] [address] [place] [address] [address] Roderick Greene Basophils/100 WBC (Bld) 0.6 % Normal 0.2-2.0 [facility] Comment on above: Performed By: #### U RCX #### [facility] [address] [place] [address] [address] Roderick Greene EO # 0.8 103/ul Critically high 0.0-0.7 [facility] Comment on above: Performed By: #### U RCX #### [facility] [address] [place] [address] Dr. Roderick Greene Eosinophils/100 WBC (Bld) 7.9 % Critically high 0.9-7.0 [facility] Comment on above: Performed By: #### U RCX #### [facility] [address] [place] [address] Dr. Roderick Greene Erythrocyte distribution width (RBC) [Ratio] 13.2 % Normal 11.0-15.0 [facility] Comment on above: Performed By: #### U RCX #### [facility] [address] [place] [address] Dr. Roderick Greene Hematocrit (Bld) [Volume fraction] 50.3 % Critically high 36.0-48.0 [facility] Comment on above: Performed By: #### U RCX #### [facility] [address] [place] [address] Dr. Roderick Greene Hemoglobin (Bld) [Mass/Vol] 16.0 g/dL Normal 12.0-16.0 [facility] Comment on above: Performed By: #### U RCX #### [facility] [address] [place] [address] Dr. Roderick Greene IG # 0.02 10e3/ul Normal 0.00-0.03 [facility] Comment on above: Performed By: #### U RCX #### [facility] [address] [place] [address] Dr. Roderick Greene IG % 0.2 % Normal 0.0-0.5 [facility] Comment on above: Performed By: #### U RCX #### [facility] [address] [place] [address] [address] Roderick Greene LYMPH # 2.3 103/ul Normal 1.2-3.8 [facility] Comment on above: Performed By: #### U RCX #### [facility] [address] [place] [address] Dr. Roderick Greene Lymphocytes/100 WBC (Bld) 24.5 % Normal 20.5-60.0 [facility] Comment on above: Performed By: #### U RCX #### [facility] [address] [place] [address] Dr. Roderick Greene MANUAL DIFF REQ NO Normal [facility] Comment on above: Performed By: #### U RCX #### [facility] [address] [place] [address] Dr. Roderick Greene MCH (RBC) [Entitic mass] 31.4 pg Normal 26.7-34.0 [facility] Comment on above: Performed By: #### U RCX #### [facility] [address] [place] [address] Dr. Roderick Greene MCHC (RBC) [Mass/Vol] 31.8 g/dL Normal 29.9-35.2 [facility] Comment on above: Performed By: #### U RCX #### [facility] [address] [place] [address] Dr. Roderick Greene MCV (RBC) [Entitic vol] 98.8 fL Normal 81.0-99.0 [facility] Comment on above: Performed By: #### U RCX #### [facility] [address] [place] [address] Dr. Roderick Greene MONO # 0.4 103/ul Normal 0.3-0.8 [facility] Comment on above: Performed By: #### U RCX #### [facility] [address] [place] [address] Dr. Roderick Greene Monocytes/100 WBC (Bld) 3.7 % Normal 1.7-12.0 [facility] Comment on above: Performed By: #### U RCX #### [facility] [address] [place] [address] [address] Roderick Greene NEUT # 6.0 103/ul Normal 1.4-6.5 [facility] Comment on above: Performed By: #### U RCX #### [facility] [address] [place] [address] [address] Roderick Greene Neutrophils/100 WBC (Bld) 63.1 % Normal 43.0-75.0 [facility] Comment on above: Performed By: #### U RCX #### [facility] [address] [place] [address] Dr. Roderick Greene Platelet mean volume (Bld) [Entitic vol] 10.7 fL Normal 9.5-13.5 [facility] Comment on above: Performed By: #### U RCX #### [facility] [address] [place] [address] Dr. Roderick Greene PLT 290 103/ul Normal 150-450 [facility] Comment on above: Performed By: #### U RCX #### [facility] [address] [place] [address] Dr. Roderick Greene RBC 5.09 106/ul Normal 4.20-5.40 [facility] Comment on above: Performed By: #### U RCX #### [facility] [address] [place] [address] Dr. Roderick Greene WBC 9.5 103/ul Normal 4.0-11.0 [facility] Comment on above: Performed By: #### U RCX #### [facility] [address] [place] [address] Dr. Roderick Greene CULTURE URINEon 07-26-2022 CULTURE URINE Culture Observations : LIGHT GROWTH OF MIXED GENITAL MATEO. NO POTENTIAL PATHOGENS SEEN. Normal [facility] Comment on above: Performed By: #### U RCX #### [facility] [address] [place] [address] Dr. Roderick Greene GLYCOHEMOGLOBIN A1Con 2022 ADA RECOMMENDATION SEE BELOW Normal [facility] Comment on above: Result Comment: ADA RECOMMENDED LIMIT 4.0 - 6.0 ADA THERAPEUTIC TARGET < 7.0 ACTION SUGGESTED > 7.0 Performed By: #### A 1C #### [facility] [address] [place] [address] Dr. Roderick Greene Glucose [Mass/Vol] 108 mg/dL Critically high 74-106 [facility] Comment on above: Performed By: #### A 1C #### [facility] [address] [place] [address] Dr. Roderick Greene Performed By: #### T SH, LIPID, CMP #### [facility] [address] [place] [address] Dr. Roderick Greene HbA1c (Bld) [Mass fraction] 5.4 % Normal 4.5-6.2 [facility] Comment on above: Performed By: #### A 1C #### [facility] [address] [place] [address] Dr. Roderick Greene LIPID PROFILEon 07-26-2022 CHOL-HDL RATIO NORM SEE BELOW Normal [facility] Comment on above: Result Comment: 3.3 - 4.4 LOW RISK 4.4 - 7.1 AVERAGE RISK 7.1 - 11.0 MODERATE RISK >11.0 HIGH RISK Performed By: #### U RCX #### [facility] [address] [place] [address] Dr. Roderick Greene Cholesterol [Mass/Vol] 217 mg/dL Critically high <=200 [facility] Comment on above: Performed By: #### U RCX #### [facility] [address] [place] [address] Dr. Roderick Greene Cholesterol in HDL [Mass/Vol] 55 mg/dL Normal 40-60 [facility] Comment on above: Performed By: #### U RCX #### [facility] [address] [place] [address] Dr. Roderick Greene Cholesterol in LDL [Mass/Vol] 143.6 mg/dL Normal [facility] Comment on above: Performed By: #### U RCX #### [facility] [address] [place] [address] Dr. Roderick Greene Cholesterol.total/Ch olesterol in HDL [Mass ratio] 3.9 {ratio} Normal [facility] Comment on above: Performed By: #### U RCX #### [facility] [address] [address] [address] Roderick Greene HDL NORMAL > or = 60 mg/dl - LO W CARDIOVASCULAR RISK <40 mg/dl - HIGH CARDIOVASCULAR RISK Normal [facility] Comment on above: Performed By: #### U RCX #### [facility] [address] [address] [address] Roderick Greene LDL CALC NORMAL SEE BELOW Normal [facility] Comment on above: Result Comment: <100 mg/dl OPTIMAL 100 - 129 mg/dl NEAR OR ABOVE OPTIMAL 130 - 159 mg/dl BORDERLINE HIGH 160 - 189 mg/dl HIGH >190 mg/dl VERY HIGH Performed By: #### U RCX #### [facility] [address] [place] [address] Dr. Roderick Greene Triglyceride [Mass/Vol] 92 mg/dL Normal <=150 [facility] Comment on above: Performed By: #### U RCX #### [facility] [address] [address] [address] Roderick Greene VLDL CALC 18.4 mg/dL Normal [facility] Comment on above: Performed By: #### U RCX #### [facility] [address] [address] [address] Roderick Greene PROF 14(COMP METB)on 023 Albumin [Mass/Vol] 3.7 g/dL Normal 3.4-5.0 [facility] Comment on above: Performed By: #### T SH, LIPID, CMP #### [facility] [address] [address] [address] Roderick Greene Albumin/Globulin [Mass ratio] 1.0 {ratio} Normal [facility] Comment on above: Performed By: #### T SH, LIPID, CMP #### [facility] [address] [address] [address] Roderick Greene ALP [Catalytic activity/Vol] 146 U/L Critically high 46-116 [facility] Comment on above: Performed By: #### T SH, LIPID, CMP #### [facility] [address] [address] [address] Roderick Greene ALT [Catalytic activity/Vol] 24 U/L Normal 14-59 [facility] Comment on above: Performed By: #### T SH, LIPID, CMP #### [facility] [address] [address] [address] Roderick Greene Anion gap [Moles/Vol] 11.7 mmol/L Normal [facility] Comment on above: Performed By: #### T SH, LIPID, CMP #### [facility] [address] [address] [address] Roderick Greene AST [Catalytic activity/Vol] 23 U/L Normal 15-37 [facility] Comment on above: Performed By: #### T SH, LIPID, CMP #### [facility] [address] [address] [address] Roderick Greene Bilirubin [Mass/Vol] 0.5 mg/dL Normal 0.2-1.0 [facility] Comment on above: Performed By: #### T SH, LIPID, CMP #### [facility] [address] [address] [address] Roderick Greene Calcium [Mass/Vol] 9.3 mg/dL Normal 8.5-10.1 [facility] Comment on above: Performed By: #### T SH, LIPID, CMP #### [facility] [address] [address] [address] Roderick Greene Chloride [Moles/Vol] 105 mmol/L Normal 98-107 [facility] Comment on above: Performed By: #### T SH, LIPID, CMP #### [facility] [address] [address] [address] Roderick Greene CO2 [Moles/Vol] 31.0 mmol/L Normal 21.0-32.0 [facility] Comment on above: Performed By: #### T SH, LIPID, CMP #### [facility] [address] [address] [address] Roderick Greene Creatinine [Mass/Vol] 0.65 mg/dL Normal 0.55-1.02 [facility] Comment on above: Performed By: #### T SH, LIPID, CMP #### [facility] [address] [place] [address] Dr. Roderick Greene EGFR-AF WELSH >60 Normal >=60 [facility] Comment on above: Performed By: #### T SH, LIPID, CMP #### [facility] [address] [place] [address] Dr. Roderick Greene EGFR-NON AF WELSH >60 Normal >=60 [facility] Comment on above: Performed By: #### T SH, LIPID, CMP #### [facility] [address] [place] [address] Dr. Roderick Greene Globulin (S) [Mass/Vol] 3.6 g/dL Normal [facility] Comment on above: Performed By: #### T SH, LIPID, CMP #### [facility] [address] [place] [address] Dr. Roderick Greene Potassium [Moles/Vol] 4.7 mmol/L Normal 3.5-5.1 [facility] Comment on above: Performed By: #### T SH, LIPID, CMP #### [facility] [address] [place] [address] Dr. Roderick Greene Protein [Mass/Vol] 7.3 g/dL Normal 6.4-8.[address] [facility] Comment on above: Performed By: #### T SH, LIPID, CMP #### [facility] [address] [place] [address] Dr. Roderick Greene Sodium [Moles/Vol] 143 mmol/L Normal 136-[address] [facility] Comment on above: Performed By: #### T SH, LIPID, CMP #### [facility] [address] [place] [address] Dr. Roderick Greene Urea nitrogen [Mass/Vol] 13.0 mg/dL Normal 7.0-18.0 [facility] Comment on above: Performed By: #### T SH, LIPID, CMP #### [facility] [address] [place] [address] Dr. Roderick Greene Urea nitrogen/Creatinine [Mass ratio] 20.0 mg/mg Normal [facility] Comment on above: Performed By: #### T SH, LIPID, CMP #### [facility] [address] [place] [address] Dr. Roderick Greene TSHon 07-26-2022 TSH 0.822 uIU/mL Normal 0.358-3.740 [facility] Comment on above: Performed By: #### T SH, LIPID, CMP #### [facility] [address] [place] [address] Dr. Roderick Greene UA RANDOM W/MICROSCOPICon BACTERIA TRACE Abnormal NONE SEEN [facility] Comment on above: Performed By: #### U AMIC #### [facility] [address] [place] [address] Dr. Roderick Greene Bilirubin Ql (U) Negative Normal NEGATIVE [facility] Comment on above: Performed By: #### U AMIC #### [facility] [address] [place] [address] Dr. Roderick Greene CAST NONE SEEN Normal NONE SEEN [facility] Comment on above: Performed By: #### U AMIC #### [facility] [address] [place] [address] Dr. Roderick Greene Clarity (U) CLEAR Normal CLEAR [facility] Comment on above: Performed By: #### U AMIC #### [facility] [address] [place] [address] Dr. Roderick Greene Color (U) LT. YELLOW Normal YELLOW [facility] Comment on above: Performed By: #### U AMIC #### [facility] [address] [place] [address] Dr. Roderick Greene Crystals LM Nom (Urine sed) NONE SEEN Normal NONE SEEN [facility] Comment on above: Performed By: #### U AMIC #### [facility] [address] [place] [address] Dr. Roderick Greene Epithelial cells LM Ql (Urine sed) FEW Abnormal NONE SEEN /RARE [facility] Comment on above: Performed By: #### U AMIC #### [facility] [address] [address] [address] Rodeirck Greene Glucose Ql (U) Negative Normal NEGATIVE [facility] Comment on above: Performed By: #### U AMIC #### [facility] [address] [address] [address] Roderick Greene Hemoglobin Ql (U) Negative Normal NEGATIVE [facility] Comment on above: Performed By: #### U AMIC #### [facility] [address] [address] [address] Roderick Greene Ketones Ql (U) Negative Normal NEGATIVE [facility] Comment on above: Performed By: #### U AMIC #### [facility] [address] [address] [address] Roderick Greene LEUKOCYTES Negative Normal NEGATIVE [facility] Comment on above: Performed By: #### U AMIC #### [facility] [address] [address] [address] Roderick Greene MUCOUS SMALL Abnormal NONE SEEN [facility] Comment on above: Performed By: #### U AMIC #### [facility] [address] [address] [address] Roderick Greene Nitrite Ql (U) Negative Normal NEGATIVE [facility] Comment on above: Performed By: #### U AMIC #### [facility] [address] [place] [address] Dr. Roderick Greene pH (U) 8.0 [pH] Normal 5-9 [facility] Comment on above: Performed By: #### U AMIC #### [facility] [address] [address] [address] Roderick Greene RBC NONE SEEN Abnormal 0-2 [facility] Comment on above: Performed By: #### U AMIC #### [facility] [address] [address] [address] Roderick Greene SPEC GRAVITY 1.020 Normal 1.005-<=1.025 [facility] Comment on above: Performed By: #### U AMIC #### [facility] [address] [address] [address] Roderick Greene UA PROTEIN Negative Normal NEGATIVE/ TRACE [facility] Comment on above: Performed By: #### U AMIC #### [facility] [address] [address] [address] Roderick Greene Urobilinogen Qn (U) 0.2 {Jordan'U}/dL Normal 0.2 - 1. 0 [facility] Comment on above: Performed By: #### U AMIC #### [facility] [address] [address] [address] Roderick Greene WBC NONE SEEN Normal NONE SEEN [facility] Comment on above: Performed By: #### U AMIC #### [facility] [address] CHEST WO CONon 03-03-2022 CT CHEST WO CON EXAMINATION: CT CHES T WO CON HISTORY: Solitary nodule of lung [...] by: SONU COLLINS Date: 2022-03-03 07:51 Normal [facility] Vital Signs Date Time Vital Sign Value Performing Clinician Facility 10-01-2023 07:08-0400 Body height 165.1 cm DO Bianca Garcia Work Phone: [facility] 10-01-2023 07:08-0400 Body weight 77.11 kg DO Bianca Venturatrae Work Phone: [facility] 09-30-2023 15:26-0400 Blood Pressure Location Esa TROTTERL [facility] [place] 09-30-2023 15:26-0400 Diastolic blood pressure 84 mm[Hg] Esa NILL [facility] [place] 09-30-2023 15:26-0400 Heart rate 76 /min Esa NILL [facility] [place] 09-30-2023 15:26-0400 Respiratory rate 16 /min Esa NILL [facility] [place] 09-30-2023 15:26-0400 Systolic blood pressure 138 mm[Hg] Esa NILL [facility] 07-23-2023 09:50-0500 Body height 162.56 cm Bianca Garcia Other [facility] 07-23-2023 09:50-0500 Body mass index (BMI) [Ratio] 29.69 kg/m2 Bianca Garcia Other [facility] [employer] Other 07-23-2023 09:50-0500 Body temperature 98.1 [degF] Bianca Garcia Other [employer] [facility] [employer] Other 07-23-2023 09:50-0500 Body weight 78.47 kg Bianca Garcia Other [facility] 07-23-2023 09:50-0500 Diastolic blood pressure 88 mm[Hg] Bianca Garcia Other [facility] 07-23-2023 09:50-0500 Respiratory rate 18 /min Bianca Garcia Other [employer] [facility] [employer] Other 07-23-2023 09:50-0500 SaO2% (BldA) [Mass fraction] 99 % Bianca Garcia Other [employer] Other 07-23-2023 09:50-0500 Systolic blood pressure 128 mm[Hg] Bianca Garcia Other [facility] 07-30-2022 12:10-0500 Body height 162.56 cm Bianca Garcia Other [employer] Other 07-30-2022 12:10-0500 Body mass index (BMI) [Ratio] 27.12 kg/m2 Bianca Garcia Other [employer] Other 07-30-2022 12:10-0500 Body temperature 96.6 [degF] Bianca Garcia Other [employer] Other 07-30-2022 12:10-0500 Body weight 71.67 kg Bianca Garcia Other [employer] Other 07-30-2022 12:10-0500 Diastolic blood pressure 86 mm[Hg] Bianca Garcia Other [employer] Other 07-30-2022 12:10-0500 Respiratory rate 18 /min Bianca Garcia Other [employer] Other 07-30-2022 12:10-0500 SaO2% (BldA) [Mass fraction] 98 % Bianca Garcia Other [employer] Other 07-30-2022 12:10-0500 Systolic blood pressure 120 mm[Hg] Bianca Garcia Other [employer] Other 07-21-2022 11:30-0500 Body height 162.56 cm Bianca Garcia Other [employer] Other 07-21-2022 11:30-0500 Body mass index (BMI) [Ratio] 27.55 kg/m2 Bianca Garcia Other [employer] Other 07-21-2022 11:30-0500 Body temperature 98.4 [degF] Bianca Garcia Other [employer] Other 07-21-2022 11:30-0500 Body weight 72.8 kg Bianca Garcia Other [employer] Other 07-21-2022 11:30-0500 Diastolic blood pressure 88 mm[Hg] Bianca Garcia Other [employer] Other 07-21-2022 11:30-0500 Respiratory rate 18 /min Bianca Garcia Other [employer] Other 07-21-2022 11:30-0500 SaO2% (BldA) [Mass fraction] 95 % Bianca Garcia Other [employer] Other 07-21-2022 11:30-0500 Systolic blood pressure 122 mm[Hg] Bianca Garcia Other [employer] Other Encounters Encounter Date Encounter Type Care Provider Facility Start: 10-06-2023 End: 10-06-2023 ambulatory Not Available Start: 10-01-2023 End: 10-01-2023 ambulatory Bianca Garcia Facility:[facility] Start: 10-01-2023 End: 10-01-2023 ambulatory DO Bianca Garcia Work Phone: [facility] Work Phone: Start: 10-01-2023 End: 10-01-2023 Patient encounter procedure DO Bianca Garcia Work Phone: [facility] [place] Work Phone: Start: 09-30-2023 End: 10-01-2023 ambulatory Bianca Garcia Facility:[facility] Start: 09-30-2023 End: 09-30-2023 Patient encounter procedure Esa Lozano LIZBETH [facility] Start: 09-03-2023 Non-patient / Non-visit DO Bianca Garcia Work Phone: [facility] Work Phone: Start: 08-01-2023 Non-patient / Non-visit DO Bianca Garcia Work Phone: [facility] Work Phone: Start: 07-27-2023 ambulatory Bianca Garcia Facility:[facility] Start: 07-23-2023 End: 07-23-2023 ambulatory Bianca Garcia Other [employer] Other Start: 07-23-2023 Office outpatient visit 25 minutes Bianca Garcia [facility] Start: 07-23-2023 End: 07-23-2023 Patient encounter procedure DO Bianca Garcia Work Phone: [facility]- Start: 11-20-2022 ambulatory JÚNIOR GOLDBERG . Facili ty:[facility] Start: 11-04-2022 End: 11-04-[address] BIANCA GARCIA Facility:[facility] Start: 10-09-2022 End: 10-10-2022 ambulatory YANE MCCONNELLMIPATHCari . Facility:[facility] Start: 10-01-2022 End: 10-01-2022 ambulatory Bianca Garcia Other [employer] Other Start: 10-01-2022 Telephone encounter Bianca Garcia [facility] Start: 08-28-2022 End: 08-29-[address] LENORE STOLL . Facility:[facility] Start: 08-05-2022 End: 08-05-2022 ambulatory John Asaad Other [employer] Other Start: 08-05-2022 Telephone encounter John Cedillo [facility] [employer] Start: 07-30-2022 End: 07-30-2022 ambulatory Bianca Garcia Other [employer] Other Start: 07-30-2022 Office outpatient visit 25 minutes Bianca Garcia [facility] Start: 07-26-2022 End: 07-27-[address] BIANCA GARCIA Facility:[facility] Start: 07-24-2022 End: 07-25-[address] LENORE STOLL . Facility:[facility] Start: 07-21-2022 End: 07-21-2022 ambulatory Bianca Garcia Other [employer] Other Start: 07-21-2022 Office outpatient visit 15 minutes Bianca Garcia [facility] Start: 05-27-2022 End: 05-27-[address] LENORE STLOL . Facility:[facility] Start: 04-24-2022 End: 04-25-[address] LENORE STOLL . Facility:[facility] Start: 03-01-2022 End: 03-02-2022 ambulatory BETY SILVERMAN . Facility:[facility] Start: 02-20-2022 End: 02-21-[address] LENORE STOLL . Facility:[facility] Start: 01-14-2022 End: 01-14-[address] BIANCA GARCIA Facility:[facility] Start: 12-18-2021 End: 12-19-[address] BIANCA GARCIA Facility:[facility] Start: 11-12-2021 End: 11-12-[address] LENORE STOLL . Facility:[facility] Procedures Date Procedure Procedure Detail Performing Clinician Start: 10-05-2012 Colonoscopy Esa WESTBROOK History of lumbar laminectomy Esa LITTLE Ligation of fallopian tube Lynda tabares LIZBETH Tonsillectomy Esa LITTLE Plan of Treatment Date Care Activity Detail Author Start: 10-01-2023 MR Unspecified body region [facility] Start: 10-01-2023 MRI of head MR head/brain wo/w con [facility] Immunizations Immunization Date Immunization Notes Care Provider Fa cility 02-09-2021 COVID-19 Irvin Garcia Other General Surgery [facility] 01-21-2021 COVID-19 Irvin Garcia Other [facility] [place] Payers Date Payer Category Payer Self-pay 2022 Medicaid [id number] 2. [id number] 1966 Unknown [id number] 2.16.84 [id number] 1966 Unknown [id number] 2.16.84 0.1.996337.3.579.2.593 1966 Unknown [id number] 2.16.84 0.1.535352.3.579.2.593 1966 Unknown [id number] 2.16.84 0.1.092505.3.579.2.593 1966 Unknown [id number] 2.16.84 0.1.478874.3.579.2.593 1966 Unknown [id number] 2.16.84 0.1.888884.3.579.2.593 1966 Unknown [id number] 2.16.84 0.1.152053.3.579.2.593 1966 Unknown [id number] 2.16.84 0.1.681248.3.579.2.593 1966 Unknown [id number] 2.16.84 0.1.782119.3.579.2.593 1966 Unknown [id number] 2.16.84 0.1.304641.3.579.2.593 1966 Unknown [id number] 2.16.84 0.1.447504.3.579.2.593 1966 Unknown [id number] 2.16.84 0.1.248027.3.579.2.593 1966 Unknown [id number] 2.16.84 0.1.295239.3.579.2.593 1966 Unknown [id number] 2.16.8 40.1.127178.3.579.2.727 1966 Unknown [id number] 2.16.84 0.1.206484.3.579.2.1259 1959 Unknown [id number] Medicaid [employer] [id number] Unknown [id number] 2.16.8 40.1.039883.3.579.2.531 Social History Date Type Detail Facility Unknown if ever smoked [employer] Other Sex Assigned At [facility] Start: 09-30-2023 Tobacco smoking status Light t obacco smoker (finding) [facility] [place] Tobacco smoking status Never Gener al [facility] [place] Start: 08-04-2023 Tobacco smoking stat [facility] Smoker (finding) [facility] Start: 1965 Sex Assigned At Female F [facility] Functional Status Date Assessment Result Facility 09-30-2023 Functional Status N/A [facility] 08-11-2011 to 09-30-2023 Note Date & Type Note Facility 09-30-2023 Note Chief Complaint consultation for colonoscopy HPI Staff 58 year old female presents on consultation from Dr. Garcia for screening colonoscopy. Denies abdominal or rectal pain. No rectal bleeding or change in bowel habits. Denies nausea or vomiting. No unexplained weight loss. Last colonoscopy completed 09/2012 with diverticulosis. No known family history of colon cancer. History of Present Illness 58 yo female with h/o hyperlipidemia, lumbosacral spondylosis, referred for colorectal screening; denies change in bms or blood in stools; no abdominal complaints; denies asa use, on Celebrex, no SBE prophylaxis; abdominal operations significant for tubal ligation, last colonoscopy 2012 with diverticulosis; no fmhx of GI malignancy or IBD; smokes daily. Review of Systems PHQ Score Initial Depression Screen Score: 0 SCORE ROS - Provider Constitutional: no fever, no sweats, no weight loss. Eyes: no glasses, no blurred vision, no visual loss. ENMT: no dentures, no hoarseness, no swallowing difficulties, no hearing loss, no ear infection(s), no nose bleeds. Cardiovascular: normal blood pressure, no chest pain, regular heartbeat, no heart murmur. Respiratory: no shortness of breath, no cough, no asthma, no wheezing. Gastrointestinal: no nausea, no vomiting, no diarrhea, no constipation, no blood in stool, no change in bowel habits, no abdominal pain, no hepatitis. Genitourinary: no kidney stones, no urine infection, no dysuria. Musculoskeletal: no pain, no weakness. Skin: no changing moles, no rash, no skin lumps. Neurologic: no seizures, no epilepsy, no headache. Psychiatric: no emotional or psychiatric problem. Heme/Lymph: no bleeding problems, no anemia, no blood clots, no transfusions. Allergy/Immunologic: no swollen lymph nodes/glands, no IV drug abuse. Other: Additional ROS info: Except as noted in the above Review of Systems and in the History of Present Illness, all other systems have been reviewed and are negative or noncontributory. Physical Exam Vitals & Measurements HR: 76(Peripheral) RR: 16 BP: 138/84 HT: 64 in HT: 162.5 cm WT: 78.8 kg WT: 173.36 lb BMI: 29.84 Assessment/Plan 1. Screening for malignant neoplasm of colon (Z12.11: Encounter for screening for malignant neoplasm of colon) plan colonoscopy under anesthesia, informed consent obtained. Follow-up No qualifying data available Problem List/Past Medical History Ongoing BMI 29.0-29.9,adult Diverticulosis Hyperglycemia Hyperlipidemia Lumbosacral spondylosis without myelopathy Memory changes Overweight Screening for colon cancer Screening for malignant neoplasm of colon Historical No qualifying data Procedure/Surgical History Colonoscopy (10/05/2012), History of lumbar laminectomy, Tonsillectomy, Tubal ligation. Medications amLODIPine 5 mg Tab, 5 mg= 1 tab(s), Oral, Daily CeleBREX 100 mg Cap, 1-2 caps, Oral, Daily Chantix 1 mg oral tablet cyclobenzaprine 10 mg Tab, 20 mg= 2 tab(s), Oral, Bedtime, PRN Lyrica 75 mg Cap, 75 mg= 1 cap(s), Oral, Bedtime melatonin 5 mg oral tablet, 5 mg= 1 tab(s), Oral, Once a day (at bedtime), PRN Multi Vitamins oral tablet, 1 tab(s), Oral, Daily Percocet 7.5 mg-325 mg oral tablet, 1 tab(s), Oral, q8hr, PRN Stiolto Respimat 2.5 mcg-2.5 mcg inhalation aerosol, 2 puff(s), Inhalation, q24hr traZODONE 50 mg Tab, 50 mg= 1 tab(s), Oral, Once a day (at bedtime) Ventolin HFA 90 mcg/inh Aerosol-Adpt, 2 puff(s), Inhalation, QID, PRN Allergies Vistaril (Palpitations) Social History Alcohol - Denies Alcohol Use, 09/30/2023 Substance Abuse - Denies Substance Abuse, 09/30/2023 Tobacco 5-9 cigarettes (between 1/4 to 1/2 pack)/day in last 30 days Tobacco Use:. Never Smokeless Tobacco Use:. Cigarettes, 0.25 per day. Started age 16.0 Years. Yes, 09/30/2023 Family History COPD: Father. Diabetes mellitus type 2: Brother. Primary malignant neoplasm of lung: Mother. Immunizations Vaccine Date Status SARS-CoV-2 (COVID-19) mRNA BNT-162b2 vax 02/09/2021 Recorded SARS-CoV-2 (COVID-19) mRNA BNT-162b2 vax 01/21/2021 Recorded [facility] Comment on above: Result Comment: Elec tronically Signed By: LIZBETH CONNELLY, Esa Cervantes\Date and Time Signed: 09/30/23 18:22 EDT 07-23-2023 Evaluation note Encounter Date Diagnosis Assessment [...] she is in pain management. 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 Continue with above medication daily as directed. Jul, Other She voices that she was anxious to come into the office today but once she was in her exam room she was calmed down. [employer] Other 04-20-2023 NoteCONSULTATION CONSULTATION DATE: 10/09/2022 TO: [...] our patients to inform us about any iabn-yao-fdiigio medications or herbal remedies/nutritional supplements/alternative remedies. 2. [...] treatment options with their primary care provider.[id number] Note CONSULTATION CONSULTATION DATE: 08/28/2022 HISTORY OF [...] with this plan and all questions answered.[facility] [id number] Evaluation note* Encounter Date Diagnosis Assessment Notes [...] number of someone she can see through [facility]. She voices that she will think about it. I asked her not to take anymore Vistaril. Jul, Lumbar pain (ICD-10 - M54.50) She voices that Dr. 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 She is scheduled for an [...] and if/when testing needs to be repeated. [employer] Other 02-02-2023 NoteCONSULTATION CONSULTATION DATE: 07/24/2022 HISTORY [...] The patient is in agreement to this.[facility] [id number] Evaluation note * Encounter Date Diagnosis Assessment [...] to the procedure and should have a driver merchandiser to take her to the procedure and back home. She should only use the medication as needed. Jun, Lumbar pain (ICD-10 - M54.50) She continues to follow with Dr. tSoll for her back. She will return to [...] Jun, Hyperglycemia (ICD-10 - R73.9) Jun, Other assisted (current) drug therapy (ICD-10 - Z79.899) Jun, [...] have a mammogram done but she refuses. [employer] Other 11-03-2022 NoteCONSULTATION CONSULTATION DATE: 04/24/2022 HISTORY [...] followed up in the clinic post procedure.[facility] [id number] NoteCONSULTATION CONSULTATION DATE: 02/20/2022 HISTORY OF PRESENT [...] agrees to this and all questions answered.[facility] [id number] NoteCONSULTATION CONSULTATION DATE: 12/18/2921 This is a [...] will be followed up in the clinic. [facility] Signed and Approved by: JOSE ALEJANDRO STINSON . 12/26/2021 16:26:00[facility] [id number] History general Narrative - Reported* Type Description Date Medical History Gestational Diabetes Medical History History of Hemorrhoids Medical History Chest X-Ray Done 08-11-11 Medical History Lumbar Spine X-Ray Done 08-11-11 Medical History Pelvic [place] 08[place]-12[place] [facility] [place]12[place] [facility] [place] Ab[place]en and Pelvis 08-16-12; [place] [facility] [place] TDap (Adacel) 01-03-15 [facility] Medical History 01/2015 Dr So, 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 Lu Colonoscopy, Divert iculosis 10-05-2012 Surgical History injection in back - Pain Mgmt Surgical History Nerve block in back 06/2019 Hospitalization History Tonsillectomy Hospitalization History Childbirth Hospitalization History [facility] stic hes in rt hand cut during washing dishes 01/03/2015 [facility] Other Evaluation + Plan note No data available for this section General Surgery [facility] Evaluation noteNo InformationNortElectricite du [place] Other Evaluation noteNo assessment information available [facility] Work Phone: Hospital Discharge instructions No data available for this section General Surgery [facility] Progress note No data available for this section General Surgery [facility] Reason for visit Narrativecheck up/discuss dementia, discuss multiple issues, see treatment plan for further informationNoG-Tech Medical Other Reason for Referral Reason appt 09/05/22 at 8am pt needs screening colonoscopy Diagnosis 1 Colon cancer screeni ng (Z12.11) Referral Organization [facility] Family Medicin e [facility]itz[facility] Referring Provider First Name Bianca Referring Provider Last Name Jose Referring Provider Specialty Family Prac guero Referred Organization [facility] Gastroenterolo gy Referred Provider John Cedillo Referred Address [address] [facility],[place] [address] ,[place], [place],[address] Referred Provider Specialty Gastroentero logy Referral Priority [...] Memory changes (R41. 3) Referral Organization [facility] Referring Provider First Name Bianca Referring Provider Last Name Lorenzotrae Referring Provider Specialty Family Prac guero Referred Organization [facility] Referred Provider Carlitos Lu Referred Address [address] [place], [place],[address] Referred Provider Specialty Neurology Referral Priority Routine General Notes Natalia Sandovalh 07/23/2023 11:40:43 AM > referral faxed thru [facility] with visit note and insurance card. pt understands she will be contacted to schedule this appt. Reason appt pt needs scre ening colonoscopy Diagnosis 1 Colon cancer screeni ng (Z12.11) Referral Organization [facility] Family Medic[facility] e [facility] Referring Provider First Name Bianca Referring Provider Last Name Lorenzotrae Referring Provider Specialty Family Prac guero Referred Organization [facility] Referred Provider Esa Little Referred Address [address] [place], [place],[address] Referred Provider Specialty Surgery Referral Priority Routine General Notes Delilah Sandoval 07/23/2023 11:39:03 AM > referral faxed thru [facility] with visit note and insurance card. pt understands she will be contacted to schedule this appt. Summary Purpose Family History No Family History Records Found Relationship Condition Age at Onset Recorded Date/T meagan brother Diabetes mellitus Unknown father Unknown Family history of emphysema Unknown grandparent Unknown Not Specified Malignant neoplasm Unknown Family history of lung cancer Unknown Unknown Advance Directives No Advanced Directives Records Found Advance Directive Response Recorded Date/ Time Advance Directives No July 23, 2023 11:53am Chief Complaint and Reason for Visit Chief Complaint Check Up/Discuss Dem entia Amb Documentation r27.0 Additional Source Comments REASON FOR VISIT (unrecogniz ed section and content) check upreview labsMAIL PPWM ammogram and Colonoscopy INFORMATION SOURCE (unrecogn ized section and content) DATE CREATED AUTHOR 11/05/2022 [facility] DATE CREATED AUTHOR AUTHOR'S ORGANIZ ATION 10/03/2023 [facility] DATE CREATED AUTHOR AUTHOR'S ORGANIZ ATION 10/06/2023 [facility] DATE CREATED AUTHOR AUTHOR'S ORGANIZ ATION 10/07/2023 [facility] EPIC Patient Care team informatio n (unrecognized section and content) Team Status: Active Member Role Status Dates Bianca Garcia DO Primary Care Provider Active Team Status: Inactive Member Role Status Dates Bianca Garcia DO Attending Provider Active Star t: July 23, 2023 End: July 23, 2023 Team Status: Active Member Role Status Dates Bianca Garcia DO Primary Care Provide r, Attending Provider Active Start: August 01, 2023 Team Status: Active Member Role Status Dates Bianca Garcia DO Primary Care Provider Active S tart: September 03, 2023 Franco Acosta LPN Attending Provider Active St art: September 03, 2023 Team Status: Inactive Member Role Status Dates Bianca Garcia DO Primary Care Provider Active S tart: October 01, 2023 End: October 01, 2023 Carlitos Lu DO Attending Provider Active Start: October 01, 2023 End: October 01, 2023 Goals (unrecognized section and content) Goals may be documented in a n alternate section FOR RECORDS PERTAINING TO PATIENTS WHO ARE [...] BE BASED ON THE PRIMARY CLINICAL RECORDS. [employer] provides no warranty or guarantee of the accuracy or completeness of information in this document.
== END 2023-10-15 10:28 | disposition home or self-care (01) ==
PROVIDERS: PCP Family Medicine; Visit Provider Nurse Practitioner
DX: M47.816 Spondylosis without myelopathy or radiculopathy, lumbar region (principal); M62.838 Other muscle spasm; M54.50 Low back pain, unspecified; G89.4 Chronic pain syndrome
CPT/HCPCS: G0463

== ENCOUNTER 2023-10-20 14:59 | Outpatient (OUT) | payer MEDICAID, SELFPAY ==
--- NOTE | 2023-10-20 | CONS_ITS ---
PROCEDURE DATE: 10/20/2023 OUTPATIENT PROCEDURE NOTE DONE IN THE OFFICE PROCEDURE: Right knee joint injection. PREOPERATIVE DIAGNOSIS: Right knee joint pain secondary to osteoarthrosis, degenerative joint disease. POSTOPERATIVE DIAGNOSIS: Right knee joint pain secondary to osteoarthrosis, degenerative joint disease. SOLUTION USED FOR INJECTION: 2 mL of 2% lidocaine, 2 mL of 0.25% Marcaine, 40 mg of Kenalog, total of 5 mL, and 5 mL used for the injection. IMMEDIATE COMPLICATIONS: None. PROCEDURE: After informed consent was obtained, the patient placed in the sitting position. Skin overlying the area was prepped with alcohol. A 25 gauge 1?? needle inserted into the right knee joint space, using a medial approach. After encountering the space, no indication of intravascular or intraneural needle tip placement. 5 mL of solution was injected. Post procedure, reports reduction of pain symptoms. She was discharged after meeting criteria, after needles were removed. WILI
== END 2023-10-20 15:00 | disposition home or self-care (01) ==
LOC: PM 15:00
PROVIDERS: PCP Family Medicine; Visit Provider Anesthesiology Pain Medicine
DX: M25.561 Pain in right knee (principal); M17.11 Unilateral primary osteoarthritis, right knee
CPT/HCPCS: 20610

== ENCOUNTER 2023-11-04 13:00 | Outpatient (OUT) | payer MEDICAID, SELFPAY | END 2023-11-04 13:01 | disposition home or self-care (01) | LOC: PST 13:05 | PROVIDERS: PCP Family Medicine; Visit Provider Surgery | DX: Z01.818 Encounter for other preprocedural examination (principal); Z12.11 Encounter for screening for malignant neoplasm of colon ==

== ENCOUNTER 2024-01-21 12:40 | Outpatient (OUT) | payer MEDICAID, SELFPAY ==
--- NOTE | 2024-01-21 13:08 | P.CN_ITS ---
Consult Note: HPI Data of Consult Patient: known to practice within the last 3 years Requesting Physician: Tori Noyola NP Primary Care Provider: BIANCA GARCIA Consult Narrative Reason for consult: f/u Narrative: Arianna flores pleasant 58 year old female presents for evaluation and management of chronic low back pain and right knee pain. Patient reporting pain 6/10 today. Patient found greater than 80% improvement in right knee pain for 3 months following last right knee injection, and now feels it is wearing off. Continues to find functional improvement and mild pain relief from current medication regimen. Low back pain persisting, increased myofascial pain and spinal tenderness, cannot tolerate interventional therapy without IV sedation. cc:: CC: Tori Noyola NP Review of Systems ROS Status of ROS 10 or more systems reviewed and unremark able except as noted in history and below Musculoskeletal Reports: back pain and joint pain [facility] Medical History (Updated 01/21/24 @ 13:10 by Tori Noyola NP) Lung nodule ?R91.1 - Solitary pulmonary nodule (ICD-10) Fibromyalgia ?M79.7 - Fibromyalgia (ICD-10) Arthritis ?M19.90 - Unspecified osteoarthritis, unspecified site (ICD-10) Back pain ?M54.9 - Dorsalgia, unspecified (ICD-10) Insomnia ?G47.00 - Insomnia, unspecified (ICD-10) Anxiety ?F41.9 - Anxiety disorder, unspecified (ICD-10) Chronic obstructive pulmonary disease ?J44.9 - Chronic obstructive pulmonary disease, unspecified (ICD-10) Asthma ?J45.909 - Unspecified asthma, uncomplicated (ICD-10) Migraine ?G43.909 - Migraine, unspecified, not intractable, without status migrainosus (ICD-10) Lumbosacral spondylosis without myelopathy ?M47.817 - Spondylosis without myelopathy or radiculopathy, lumbosacral region (ICD-10) Hyperlipemia ?E78.5 - Hyperlipidemia, unspecified (ICD-10) Hyperglycemia ?R73.9 - Hyperglycemia, unspecified (ICD-10) Diverticulosis ?K57.90 - Diverticulosis of intestine, part unspecified, without perforation or abscess without bleeding (ICD-10) BMI 29.0-29.9,adult ?Z68.29 - Body mass index [BMI] 29.0-29.9, adult (ICD-10) Surgical History History of tubal ligation ?Z98.51 - Tubal ligation status (ICD-10) History of tonsillectomy ?Z90.89 - Acquired absence of other organs (ICD-10) H/O colonoscopy ?Z98.890 - Other specified postprocedural states (ICD-10) H/O laminectomy ?Z98.890 - Other specified postprocedural states (ICD-10) Family History Father Family history of COPD (chronic obstructive pulmonary disease) Brother Family history of diabetes mellitus Mother Family history of cancer Other Family history of hypertension Social History Within the past year, how often did you have a drink containing alcohol: never Score interpretation: A score less than 3 is consistent with normal alcohol consumption. Smoking status: Current every day smoker What tobacco products do you use: cigarettes Cigarettes per day: 8 Years smoked: 40 Smoking pack-years: 16.00 Non-prescribed substance use: denies use Highest level of school completed/degree received: high school graduate Meds Home Medications and Allergies Home Medications ?Medication ?Instructions ?Recorded ?Confirmed ?Type albuterol sulfate 2.5 mg/3 mL 2.5 mg inhalation Q4H PRN 11/20/22 11/04/23 History (0.083 %) solution for nebulization shortness of breath or wheezing celecoxib 100 mg capsule (Celebrex) 100 mg PO BID #60 caps 03/11/23 11/04/23 Rx trazodone 50 mg tablet 50 mg PO .hs #30 tabs 08/28/23 11/04/23 Rx oxycodone-acetaminophen 7.5 mg-325 1 tab PO TID PRN pain #90 tabs 10/28/23 11/04/23 Rx mg tablet (Endocet) pregabalin 75 mg capsule (Lyrica) 75 mg PO BID #60 caps 10/28/23 11/04/23 Rx albuterol sulfate 90 mcg/actuation 2 inh inhalation QID PRN shortness 10/29/23 10/29/23 History aerosol inhaler (ProAir HFA) of breath or wheezing cyclobenzaprine 10 mg tablet 20 mg PO BEDTIME PRN muscle spasm 10/29/23 10/29/23 History melatonin 10 mg capsule 10 mg PO BEDTIME PRN sleep 10/29/23 10/29/23 History multivitamin 1 tab PO DAILY 10/29/23 10/29/23 History amlodipine 5 mg tablet 5 mg PO DAILY 11/04/23 11/04/23 History tiotropium 2.5 mcg-olodaterol 2.5 2 inh inhalation Q24H 11/04/23 11/04/23 History mcg/actuation mist for inhalation (Stiolto Respimat) oxycodone-acetaminophen 7.5 mg-325 1 tab PO TID PRN pain #90 tabs 11/30/23 Rx mg tablet (Percocet) trazodone 50 mg tablet 50 mg PO DAILY #30 tabs 11/30/23 Rx oxycodone-acetaminophen 7.5 mg-325 1 tab PO TID PRN pain #90 tabs 12/23/23 Rx mg tablet (Percocet) Allergies Allergy/AdvReac Type Severity Reaction Status Date / Time hydroxyzine [From Vistaril] AdvReac Unknown Palpitation Verified 10/29/23 14:30 s Exam Constitutional Documenting provider has reviewed patient's vital signs: yes Common normals: no apparent distress, oriented x3, healthy appearing, alert and well nourished General appearance: cooperative [facility] Common normals: normocephalic, hearing grossly normal bilaterally and moist oral mucous membranes Head and scalp: normocephalic Eye Common normals: PERRL Pupil: PERRL Neck & C-Spine Common normals: full ROM General: normal visual inspection Chest Common normals: inspection of chest normal Respiratory Common normals: normal respiratory effort, no retractions and no use of accessory muscles Back & Pelvis Lumbar spine/lower back: ROM limited, pain with ROM, paraspinal muscle spasm and straight leg raise negative bilaterally Sacroiliac joints: SI joint(s) abnormal Other: bilateral facet loading positive L>R pain from back to anterior thighs stopping at the knees L>R tenderness over bilateral PSIS, positive gaenslens thigh thrust FABERS bilaterally L>R pain with pressure on bilateral LCIH nerve significant myofascial pain above lumbar fusion scar Extremity Common normals: normal to inspection and full ROM Right lower extremity: knee joint (enlarged diameter, mild crepitus on exam. ) Other: positive lateral and medial stress testing, pain with activity and weight bearing. mild crepitus noted Neuro Common normals: oriented x3, CN's II-XII intact bilaterally, moves all extremities, no focal motor deficits, no sensory deficits noted and deep tendon reflexes 2+ bilaterally Sensorium/orientation: alert Gait (neuro): normal gait Motor exam: strength 5/5 throughout and no movement abnormalities noted Psych Common normals: mental status grossly normal, thought process normal, cooperative, affect normal, speech normal and activity/motor behavior normal Speech: normal speech Thought process: normal thought process Results Additional Findings Additional findings: If on a controlled substance or opioids, I have checked an [place] report on this patient and there are no aberrancies noted in the prescribing history.??If on a controlled substance or opioid a drug screen was completed and reviewed within the last year, and if there has not been a drug screen completed we ordered one today to monitor higher risk, state monitored pain medication use. As part of providing excellent, safe, comprehensive care, the following was completed at our patient's visit: 1. A medication reconciliation and review to ensure accurate knowledge of current/active medications, including asking our patients to inform us about any [id number] medications or herbal remedies/nutritional supplements/alternative remedies. 2. A review to specifically ensure our patients have had annual screening for screening for depression, screening for tobacco use, and screening for unhealthy alcohol use. For concerning screenings had a discussion with the patient, provided patient education, and recommended follow-up with primary care provider when appropriate. If patient noted with a risk of falling, they received education on strength, gait, and balance training to prevent future risk of falling. Assessment and Plan Assessment and Plan (1) Osteoarthritis of right knee: (2) History of lumbar fusion: (3) Chronic prescription opiate use: Assessment and Plan: I feel these medications are improving the patient's quality of life and allow them to tolerate activities of daily living as well as participate in recreational activity.? The patient does not report intolerable side effects. The patient is NOT opioid naive and non-pharmacologic and non-opioid treatment has failed to significantly relieve the patient's pain and improve functionality. The patient has a diagnosis that is related to a somatic or visceral pain etiology. ? ?? I reviewed with the patient the potential risks and side effects with the use of? opioid medications including but not limited to respiratory depression,? sedation, and even . I verified the patient has access to naloxone should? these effects occur. I advised the patient to avoid the use of any other? sedation substances including alcohol, THC, and benzodiazepines while? taking opioid medications due to the risk of compounding side effects and? detrimental outcomes. 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 drug screen, and opioid start talking forms. The patient was advised to let? their family know they had Naloxone in case they would need to administer? the medication.? ?? A drug screen was completed within the last year, and no aberrancies were noted regarding their use of controlled substances. The patient understands they are subject to the terms and conditions of the pain contract that they have signed. ? ?? I have checked an [place]AR[place] report on this patient today and there are no aberrancies noted in the prescribing history.? (4) Lumbar spondylosis: (5) Failed back syndrome: (6) Muscle spasm: (7) Chronic low back pain: (8) Chronic pain syndrome: Plan repeat right knee injection with Dr Murillo discussed current medication regimen is providing mild pain relief and functional improvement without side effects, will not make any changes at this time limit nsaids as discussed, hx of GERD. risks vs benefits reviewed continue efforts to stop tobacco use not interested in spinal cord stimulator trial consider botox in right lower lumbar paraspinal muscle for chronic knot and pain f/u after knee injection
== END 2024-01-21 12:41 | disposition home or self-care (01) ==
LOC: PM 12:41
PROVIDERS: PCP Family Medicine; Visit Provider Nurse Practitioner
DX: M17.11 Unilateral primary osteoarthritis, right knee (principal); M43.26 Fusion of spine, lumbar region; Z79.891 Long term (current) use of opiate analgesic; M47.816 Spondylosis without myelopathy or radiculopathy, lumbar region; M96.1 Postlaminectomy syndrome, not elsewhere classified; M62.838 Other muscle spasm
CPT/HCPCS: G0463

== ENCOUNTER 2024-02-09 13:28 | Outpatient (OUT) | payer MEDICAID, SELFPAY ==
--- NOTE | 2024-02-09 | CONS_ITS ---
PROCEDURE DATE: 02/09/2024 PROCEDURE: Right knee joint injection. PREOPERATIVE DIAGNOSIS: Pain secondary to right knee joint pain from degenerative joint disease. POSTOPERATIVE DIAGNOSIS: Pain secondary to right knee joint pain from degenerative joint disease. SOLUTION USED FOR INJECTION: 2 mL of 2% lidocaine, 2 mL of 0.25% Marcaine and 40 mg of Kenalog, total of 5 mL, and 5 mL used for the injection. IMMEDIATE COMPLICATIONS: None. PROCEDURE: After informed consent was obtained from the patient, placed in the sitting position. Skin overlying the area was prepped with alcohol. A 25 gauge, 1 ?? needle inserted into the right knee joint space. After encountering the same, we injected 5 mL of solution. No indication of intravascular or intraneural needle tip placement or injection was noted. Patient reports a dramatic reduction in pain symptoms post procedurally. CC: Dr. Ghazal RASHEED
== END 2024-02-09 13:29 | disposition home or self-care (01) ==
LOC: PM 13:28
PROVIDERS: PCP Family Medicine; Visit Provider Anesthesiology Pain Medicine
DX: M25.561 Pain in right knee (principal)
CPT/HCPCS: 20610; J0665; J3301

== ENCOUNTER 2024-03-24 10:06 | Outpatient (OUT) | payer MEDICAID, SELFPAY ==
--- NOTE | 2024-03-24 | CT_ITS ---
The [address] [address] Patient Name: INGA POLO MRN: [id number] date: 1965 Sex: F Assigned Patient Location: CT Current Patient Location: Accession/Order Number: [id number] Exam Date: 03/24/2024 10:28 Report Date: 03/25/2024 05:11 At the request of: BETY SILVERMAN Procedure: CT lung screening low-dose EXAMINATION: CT lung screening low-dose HISTORY: Nicotine Dependence COMPARISON: CT lung screening 03/18/2023 TECHNIQUE: Axial, Coronal, and Sagittal images were created without the administration of IV contrast material. Dose reduction techniques were achieved by using automated exposure control and/or adjustment of mA and/or kV according to patient size and/or use of iterative reconstruction technique. FINDINGS: LUNGS: Stable 5 mm nodule within right middle lobe. Mild emphysematous changes. PLEURA: No mass, effusion, or pneumothorax. VASCULATURE: No abnormality. DALE: No mass or pathologic adenopathy. MEDIASTINUM: No mass or pathologic adenopathy. CARDIAC: No enlargement, pericardial thickening, or pericardial effusion. Coronary Artery calcifications: AORTA: No aneurysm or dissection. CHEST WALL: No mass or axillary adenopathy BONES: No bone lesion or fracture. LIMITED ABDOMEN: No suspicious findings. Limited images of the upper abdomen. OTHER: Negative. CT/CT lung screening low-dose IMPRESSION: 1. Lung-RADS 2- Benign Appearance or Behavior. Nodules with a very low likelihood of becoming a clinically active cancer due to size or lack of growth. Follow-up CT Chest in 1 year. Electronically authenticated by: SONU COLLINS Date: 03/25/2024 05:11
--- OUTSIDE RECORDS SUMMARY | 2024-03-24 10:09 | XMS_ITS | CCD ---
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 Name Role Phone Bianca Garcia Unavailable John [...] STOLL ., DR LENORE Becker Consulting Unavailable GALDAMEZBEBA SHEARER Consulting Unavailable JOSE, DR VALENZUELA Primary Care Unavailable STINSON ., JOSE ALEJANDRO Consulting Unavailable STOLL ., DR LENORE Becker Admitting Unavailable STOLL ., DR LENORE Becker Attending Unavailable STOLL ., DR LENORE Becker Consulting Unavailable STOLL ., DR LENORE Becker Attending Unavailable JOSE, DR VALENZUELA Primary Care Unavailable STOLL ., DR LENORE Becker Admitting Unavailable SUSANEDEN Pérez Consulting Unavailable OJSE, DR VALENZUELA Primary Care Unavailable LAKSHMIPATHY ., NARENDRANATH Consulting Mora vailable LAKSHMIPATHY ., NARENDRANATH Attending Mora vailable LAKSAVANAHMIPATHY ., NARENDRANATH Admitting Mora vailable JOSE, DR VALENZUELA Consulting Unavailable JOSE, DR VALENZUELA Attending Unavailable JOSE, DR VALENZUELA Admitting Unavailable JOSE, DR VALENZUELA Primary Care Unavailable ANDRA ., BETY Attending Unavailable SAMSA ., BETY Admitting Unavailable JOSE, DR VALENZUELA Primary Care Unavailable ZIEBER, DR SONU Lozano Consulting Unavailable SAMSA ., BETY Consulting Unavailable LAKSHMIPATHY ., YANE Consulting Mora vailable JOSE, DR VALENZUELA Primary Care Unavailable LAKSHMIPATHY ., NARKAROLINA Attending Mora vailable LAKSHMIPATHY ., NARENDRANATH Admitting Mora vailable STOLL ., DR LENORE Becker Attending Unavailable JOSE, DR VALENZUELA Primary Care Unavailable SHANTELL .JOSE ALEJANDRO Consulting Unavailable MARNI ., DR LENORE Becker Admitting Unavailable Bianca Garcia Primary Care Physician DO Bianca Garcia Primary Care Provider [phone] DO Carlitos Lu Attending Provider Bianca Garcia Primary Care Unavailable Carlitos Lu Attending Unavailab Carlitos Kelley Admitting Unavailab Bianca Willoughby Referring Unavailable Esa LITTLE Attending Unavailable BART LEMUS Attending Unavailable Allergies Allergy Classification Reported Allergen(s) Allergy Type Date of Onset Reaction(s) Facility (6 sources) hydrOXYzine; Translations: [hydroxyzine] Drug Allergy 3 Palpitations (finding) General Surgery [place] (1 source) hydrOXYzine Drug Allergy [address] [place] [address] Repository (1 source) hydrOXYzine; Translations: [Vistaril] Drug Allergy 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 00TIFF Normal [facility] Consent for Procedure/Surger yon 10-02-2023 Consent for Procedure/Surgery [id number] 0TIFF [facility] MR head/brain wo/w conon MR head/brain wo/w [facility] [place] [address] MRI Report Signed Patient: Arianna Tucker MR#: [id number] 2 : 1965 Acct:[id number] Age/Sex: 58 / F ADM Date: 10/01/23 Loc: MR Room: [facility] Attending Dr: Carlitos Lu DO Copies to: [...] Maciel Duarte M.D.10/02/2023 12:33 PM Dictation Location: [place] [address] Transcribed By: [facility] 10/02/23 1233 Dictated By: Maciel Duarte II, MD 10/02/23 1225 Signed By: 10/02/23 1233 Normal [facility] Facesheeton 10-01-2023 Facesheet [id number] 0TIFF Normal [facility] Ambulatory Visit Summaryon 0 09-30-2023 Ambulatory Visit Summary ARIANNA TUCKER :1965 Visit Date:09/30/2023 Ambulatory Visit Instructions Your [...] you for choosing us for your care. [facility] Provider Letteron 08-17-2023 Provider Letter August 17, 2023 ARIANNA TUCKER [address] [place] [id number] : 1965 Dear Ms. Tucker, We have [...] your prompt attention to this matter. Sincerely, [facility] General Surgery [phone] [facility] No Panel Informationon 08-01 Miscellaneous Test COMMENT . [facility] Comment on above: Test Ordered: [id number] Alk Phos IsoenzymeAlkaline Phosphatase 117 IU/L CB Reference Range: 44-121Liver Fraction: 52 % CB Reference Range: 18-85Bone Fraction: 46 % CB Reference Range: 14-68Intestinal Frac.: 2 % CB Reference Range: 0-18Performed at: - [facility] [address] [id number] Director: Cam Reyes PhD, Phone: [phone] Physician Referralon 024 Physician Referral [id number] 0TIFF Normal [facility] CBC AUTO DIFFon 07-26-2022 BASO # 0.1 103/ul Normal 0.0-0.1 [facility] Comment on above: Performed By: #### U RCX #### [facility] [address] [address] [address] Roderick Greene Basophils/100 WBC (Bld) 0.6 % Normal 0.2-2.0 [facility] Comment on above: Performed By: #### U RCX #### [facility] [address] [place] [address] Dr. Roderick Greene EO # 0.8 103/ul Critically high 0.0-0.7 [facility] Comment on above: Performed By: #### U RCX #### [facility] [address] [place] [address] Dr. Roderick Greene Eosinophils/100 WBC (Bld) 7.9 % Critically high 0.9-7.0 [facility] Comment on above: Performed By: #### U RCX #### [facility] [address] [address] [address] Roderick Greene Erythrocyte distribution width (RBC) [Ratio] 13.2 % Normal 11.0-15.0 [facility] Comment on above: Performed By: #### U RCX #### [facility] [address] [place] [address] Dr. Roderick Greene Hematocrit (Bld) [Volume fraction] 50.3 % Critically high 36.0-48.0 [facility] Comment on above: Performed By: #### U RCX #### [facility] [address] [place] [address] Dr. Roderick Greene Hemoglobin (Bld) [Mass/Vol] 16.0 g/dL Normal 12.0-16.0 [facility] Comment on above: Performed By: #### U RCX #### [facility] [address] [place] [address] Dr. Roderick Greene IG # 0.02 10e3/ul Normal 0.00-0.03 [facility] Comment on above: Performed By: #### U RCX #### [facility] [address] [address] [address] Roderick Greene IG % 0.2 % Normal 0.0-0.5 [facility] Comment on above: Performed By: #### U RCX #### [facility] [address] [place] [address] Dr. Roderick Greene LYMPH # 2.3 103/ul Normal 1.2-3.8 [facility] Comment on above: Performed By: #### U RCX #### [facility] [address] [place] [address] Dr. Roderick Greene Lymphocytes/100 WBC (Bld) 24.5 % Normal 20.5-60.0 [facility] Comment on above: Performed By: #### U RCX #### [facility] [address] [place] [address] Dr. Roderick Greene MANUAL DIFF REQ NO Normal [facility] Comment on above: Performed By: #### U RCX #### [facility] [address] [place] [address] Dr. Roderick Greene MCH (RBC) [Entitic mass] 31.4 pg Normal 26.7-34.0 [facility] Comment on above: Performed By: #### U RCX #### [facility] [address] [place] [address] Dr. Roderick Greene MCHC (RBC) [Mass/Vol] 31.8 g/dL Normal 29.9-35.2 [facility] Comment on above: Performed By: #### U RCX #### [facility] [address] [place] [address] Dr. Roderick Greene MCV (RBC) [Entitic vol] 98.8 fL Normal 81.0-99.0 [facility] Comment on above: Performed By: #### U RCX #### [facility] [address] [place] [address] Dr. Roderick Greene MONO # 0.4 103/ul Normal 0.3-0.8 [facility] Comment on above: Performed By: #### U RCX #### [facility] [address] [place] [address] Dr. Roderick Greene Monocytes/100 WBC (Bld) 3.7 % Normal 1.7-12.0 [facility] Comment on above: Performed By: #### U RCX #### [facility] [address] [place] [address] Dr. Roderick Greene NEUT # 6.0 103/ul Normal 1.4-6.5 [facility] Comment on above: Performed By: #### U RCX #### [facility] [address] [place] [address] Dr. Roderick Greene Neutrophils/100 WBC (Bld) 63.1 % Normal 43.0-75.0 [facility] Comment on above: Performed By: #### U RCX #### [facility] [address] [place] [address] Dr. Roderick Greene Platelet mean volume (Bld) [Entitic vol] 10.7 fL Normal 9.5-13.5 [facility] Comment on above: Performed By: #### U RCX #### [facility] [address] [place] [address] Dr. Roderick Greene PLT 290 103/ul Normal 150-450 [facility] Comment on above: Performed By: #### U RCX #### [facility] [address] [place] [address] Dr. Roderick Greene RBC 5.09 106/ul Normal 4.20-5.40 [facility] Comment on above: Performed By: #### U RCX #### [facility] [address] [place] [address] Dr. Roderick Greene WBC 9.5 103/ul Normal 4.0-11.0 [facility] Comment on above: Performed By: #### U RCX #### [facility] [address] [place] [address] Dr. Roderick Greene CULTURE URINEon 07-26-2022 CULTURE URINE Culture Observations : LIGHT GROWTH OF MIXED GENITAL MATEO. NO POTENTIAL PATHOGENS SEEN. Normal [facility] Comment on above: Performed By: #### U RCX #### [facility] [address] [address] [address] Roderick Greene GLYCOHEMOGLOBIN A1Con 2022 ADA RECOMMENDATION SEE BELOW Normal [facility] Comment on above: Result Comment: ADA RECOMMENDED LIMIT 4.0 - 6.0 ADA THERAPEUTIC TARGET < 7.0 ACTION SUGGESTED > 7.0 Performed By: #### A 1C #### [facility] [address] [place] [address] [address] Roderick Greene Glucose [Mass/Vol] 108 mg/dL Critically high 74-106 [facility] Comment on above: Performed By: #### A 1C #### [facility] [address] [place] [address] Dr. Roderick Greene Performed By: #### T SH, LIPID, CMP #### [facility] [address] [place] [address] Dr. Roderick Greene HbA1c (Bld) [Mass fraction] 5.4 % Normal 4.5-6.2 [facility] Comment on above: Performed By: #### A 1C #### [facility] [address] [place] [address] Dr. Roderick Greene LIPID PROFILEon 07-26-2022 CHOL-HDL RATIO NORM SEE BELOW Normal [facility] Comment on above: Result Comment: 3.3 - 4.4 LOW RISK 4.4 - 7.1 AVERAGE RISK 7.1 - 11.0 MODERATE RISK >11.0 HIGH RISK Performed By: #### U RCX #### [facility] [address] [place] [address] Dr. Roderick Greene Cholesterol [Mass/Vol] 217 mg/dL Critically high <=200 [facility] Comment on above: Performed By: #### U RCX #### [facility] [address] [place] [address] Dr. Roderick Greene Cholesterol in HDL [Mass/Vol] 55 mg/dL Normal 40-60 [facility] Comment on above: Performed By: #### U RCX #### [facility] [address] [place] [address] Dr. Roderick Greene Cholesterol in LDL [Mass/Vol] 143.6 mg/dL Normal [facility] Comment on above: Performed By: #### U RCX #### [facility] [address] [address] [address] Roderick Greene Cholesterol.total/Cho lesterol in HDL [Mass ratio] 3.9 {ratio} Normal [facility] Comment on above: Performed By: #### U RCX #### [facility] [address] [place] [address] [address] Roderick Greene HDL NORMAL > or = 60 mg/dl - LO W CARDIOVASCULAR RISK <40 mg/dl - HIGH CARDIOVASCULAR RISK Normal [facility] Comment on above: Performed By: #### U RCX #### [facility] [address] [place] [address] [address] Roderick Greene LDL CALC NORMAL SEE BELOW Normal [facility] Comment on above: Result Comment: <100 mg/dl OPTIMAL 100 - 129 mg/dl NEAR OR ABOVE OPTIMAL 130 - 159 mg/dl BORDERLINE HIGH 160 - 189 mg/dl HIGH >190 mg/dl VERY HIGH Performed By: #### U RCX #### [facility] [address] [place] [address] Dr. Roderick Greene Triglyceride [Mass/Vol] 92 mg/dL Normal <=150 [facility] Comment on above: Performed By: #### U RCX #### [facility] [address] [place] [address] [address] Roderick Greene VLDL CALC 18.4 mg/dL Normal [facility] Comment on above: Performed By: #### U RCX #### [facility] [address] [address] [address] Roderick Greene PROF 14(COMP METB)on 023 Albumin [Mass/Vol] 3.7 g/dL Normal 3.4-5.0 [facility] Comment on above: Performed By: #### T SH, LIPID, CMP #### [facility] [address] [place] [address] [address] Roderick Greene Albumin/Globulin [Mass ratio] 1.0 {ratio} Normal [facility] Comment on above: Performed By: #### T SH, LIPID, CMP #### [facility] [address] [address] [address] Roderick Greene ALP [Catalytic activity/Vol] 146 U/L Critically high 46-116 [facility] Comment on above: Performed By: #### T SH, LIPID, CMP #### [facility] [address] [address] [address] Roderick Greene ALT [Catalytic activity/Vol] 24 U/L Normal 14-59 [facility] Comment on above: Performed By: #### T SH, LIPID, CMP #### [facility] [address] [address] [address] Roderick Greene Anion gap [Moles/Vol] 11.7 mmol/L Normal [facility] Comment on above: Performed By: #### T SH, LIPID, CMP #### [facility] [address] [place] [address] Dr. Roderick Greene AST [Catalytic activity/Vol] 23 U/L Normal 15-37 [facility] Comment on above: Performed By: #### T SH, LIPID, CMP #### [facility] [address] [address] [address] Roderick Greene Bilirubin [Mass/Vol] 0.5 mg/dL Normal 0.2-1.0 [facility] Comment on above: Performed By: #### T SH, LIPID, CMP #### [facility] [address] [address] [address] Roderick Greene Calcium [Mass/Vol] 9.3 mg/dL Normal 8.5-10.1 [facility] Comment on above: Performed By: #### T SH, LIPID, CMP #### [facility] [address] [address] [address] Roderick Greene Chloride [Moles/Vol] 105 mmol/L Normal 98-107 [facility] Comment on above: Performed By: #### T SH, LIPID, CMP #### [facility] [address] [place] [address] Dr. Roderick Greene CO2 [Moles/Vol] 31.0 mmol/L Normal 21.0-32.0 [facility] Comment on above: Performed By: #### T SH, LIPID, CMP #### [facility] [address] [address] [address] Roderick Greene Creatinine [Mass/Vol] 0.65 mg/dL Normal 0.55-1.02 [facility] Comment on above: Performed By: #### T SH, LIPID, CMP #### [facility] [address] [address] [address] Roderick Greene EGFR-AF MOSOTHO >60 Normal >=60 [facility] Comment on above: Performed By: #### T SH, LIPID, CMP #### [facility] [address] [address] [address] Roderick Greene EGFR-NON AF MOSOTHO >60 Normal >=60 [facility] Comment on above: Performed By: #### T SH, LIPID, CMP #### [facility] [address] [address] [address] Roderick Greene Globulin (S) [Mass/Vol] 3.6 g/dL Normal [facility] Comment on above: Performed By: #### T SH, LIPID, CMP #### [facility] [address] [address] [address] Roderick Greene Potassium [Moles/Vol] 4.7 mmol/L Normal 3.5-5.1 [facility] Comment on above: Performed By: #### T SH, LIPID, CMP #### [facility] [address] [address] [address] Roderick Greene Protein [Mass/Vol] 7.3 g/dL Normal 6.4-8.2 [facility] Comment on above: Performed By: #### T SH, LIPID, CMP #### [facility] [address] [address] [address] Roderick Greene Sodium [Moles/Vol] 143 mmol/L Normal 136-145 [facility] Comment on above: Performed By: #### T SH, LIPID, CMP #### [facility] [address] [address] [address] Roderick Greene Urea nitrogen [Mass/Vol] 13.0 mg/dL Normal 7.0-18.0 [facility] Comment on above: Performed By: #### T SH, LIPID, CMP #### [facility] [address] [place] [address] Dr. Roderick Greene Urea nitrogen/Creatinine [Mass ratio] 20.0 mg/mg Normal [facility] Comment on above: Performed By: #### T SH, LIPID, CMP #### [facility] [address] [place] [address] Dr. Roderick Greene TSHon 07-26-2022 TSH 0.822 uIU/mL Normal 0.358-3.740 [facility] Comment on above: Performed By: #### T SH, LIPID, CMP #### [facility] [address] [place] [address] Dr. Roderick Greene UA RANDOM W/MICROSCOPICon BACTERIA TRACE Abnormal NONE SEEN [facility] Comment on above: Performed By: #### U AMIC #### [facility] [address] [place] [address] Dr. Roderick Greene Bilirubin Ql (U) Negative Normal NEGATIVE [facility] Comment on above: Performed By: #### U AMIC #### [facility] [address] [place] [address] Dr. Roderick Greene CAST NONE SEEN Normal NONE SEEN [facility] Comment on above: Performed By: #### U AMIC #### [facility] [address] [place] [address] Dr. Roderick Greene Clarity (U) CLEAR Normal CLEAR [facility] Comment on above: Performed By: #### U AMIC #### [facility] [address] [place] [address] Dr. Roderick Greene Color (U) LT. YELLOW Normal YELLOW [facility] Comment on above: Performed By: #### U AMIC #### [facility] [address] [place] [address] Dr. Roderick Greene Crystals LM Nom (Urine sed) NONE SEEN Normal NONE SEEN [facility] Comment on above: Performed By: #### U AMIC #### [facility] [address] [address] [address] Roderick Greene Epithelial cells LM Ql (Urine sed) FEW Abnormal NONE SEEN /RARE [facility] Comment on above: Performed By: #### U AMIC #### [facility] [address] [address] [address] Roderick Greene Glucose Ql (U) Negative Normal NEGATIVE [facility] Comment on above: Performed By: #### U AMIC #### [facility] [address] [address] [address] Roderick Greene Hemoglobin Ql (U) Negative Normal NEGATIVE [facility] Comment on above: Performed By: #### U AMIC #### [facility] [address] [place] [address] Dr. Roderick Greene Ketones Ql (U) Negative Normal NEGATIVE [facility] Comment on above: Performed By: #### U AMIC #### [facility] [address] [place] [address] Dr. Roderick Greene LEUKOCYTES Negative Normal NEGATIVE [facility] Comment on above: Performed By: #### U AMIC #### [facility] [address] [address] [address] Roderick Greene MUCOUS SMALL Abnormal NONE SEEN [facility] Comment on above: Performed By: #### U AMIC #### [facility] [address] [place] [address] Dr. Roderick Greene Nitrite Ql (U) Negative Normal NEGATIVE [facility] Comment on above: Performed By: #### U AMIC #### [facility] [address] [place] [address] Dr. Roderick Greene pH (U) 8.0 [pH] Normal 5-9 [facility] Comment on above: Performed By: #### U AMIC #### [facility] [address] [place] [address] Dr. Roderick Greene RBC NONE SEEN Abnormal 0-2 [facility] Comment on above: Performed By: #### U AMIC #### [facility] [address] [place] [address] Dr. Roderick Greene SPEC GRAVITY 1.020 Normal 1.005-<=1.025 [facility] Comment on above: Performed By: #### U AMIC #### [facility] [address] [address] [address] Roderick Greene UA PROTEIN Negative Normal NEGATIVE/ TRACE [facility] Comment on above: Performed By: #### U AMIC #### [facility] [address] [address] [address] Roderick Greene Urobilinogen Qn (U) 0.2 {Jordan'U}/dL Normal 0.2 - 1. 0 [facility] Comment on above: Performed By: #### U AMIC #### [facility] [address] [address] [address] Roderick Greene WBC NONE SEEN Normal NONE SEEN [facility] Comment on above: Performed By: #### U AMIC #### [facility] [address] [address] [address] CHEST WO CONon [...] by: SONU COLLINS Date: 2022-03-03 07:51 Normal [facility] Vital Signs Date Time Vital Sign Value Performing Clinician Facility 10-01-2023 07:08-0400 Body height 165.1 cm DO Bianca Garcia Work Phone: [facility] 10-01-2023 07:08-0400 Body weight 77.11 kg DO Bianca Garcia Work Phone: [facility] 09-30-2023 15:26-0400 Blood Pressure Location Esa NILL [facility] 09-30-2023 15:26-0400 Diastolic blood pressure 84 mm[Hg] Esa NILL [facility] 09-30-2023 15:26-0400 Heart rate 76 /min Esa NILL [facility] 09-30-2023 15:26-0400 Respiratory rate 16 /min Esa NILL [facility] 09-30-2023 15:26-0400 Systolic blood pressure 138 mm[Hg] Esa NILL [facility] 07-23-2023 09:50-0500 Body height 162.56 cm Bianca Garcia Other [facility] 07-23-2023 09:50-0500 Body mass index (BMI) [Ratio] 29.69 kg/m2 Bianca Garcia Other [employer] Other 07-23-2023 09:50-0500 Body temperature 98.1 [degF] Bianca Garcia Other [facility] [employer] Other 07-23-2023 09:50-0500 Body weight 78.47 kg Bianca Garcia Other [facility] 07-23-2023 09:50-0500 Diastolic blood pressure 88 mm[Hg] Bianca Garcia Other [facility] 07-23-2023 09:50-0500 Respiratory rate 18 /min Bianca Garcia Other [employer] Other 07-23-2023 09:50-0500 SaO2% (BldA) [Mass fraction] 99 % Bianca Garcia Other [employer] Other 07-23-2023 09:50-0500 Systolic blood pressure 128 mm[Hg] Bianca Gacria Other [facility] 07-30-2022 12:10-0500 Body height 162.56 cm Bianca Garcia Other [employer] Other 07-30-2022 12:10-0500 Body mass index (BMI) [Ratio] 27.12 kg/m2 Bianca Garcia Other [employer] Other 07-30-2022 12:10-0500 Body temperature 96.6 [degF] Bianca Garcia Other [employer] Other 07-30-2022 12:10-0500 Body weight 71.67 kg Bianca Garcia Other [employer] Other 07-30-2022 12:10-0500 Diastolic blood pressure 86 mm[Hg] Bianca Garcia Other [facility] Other 07-30-2022 12:10-0500 Respiratory rate 18 /min Bianca Garcia Other [facility] Other 07-30-2022 12:10-0500 SaO2% (BldA) [Mass fraction] 98 % Bianca Garcia Other [facility] Other 07-30-2022 12:10-0500 Systolic blood pressure 120 mm[Hg] Bianca Garcia Other [facility] Other 07-21-2022 11:30-0500 Body height 162.56 cm Bianca Garcia Other [facility] Other 07-21-2022 11:30-0500 Body mass index (BMI) [Ratio] 27.55 kg/m2 Bianca Garcia Other [facility] Other 07-21-2022 11:30-0500 Body temperature 98.4 [degF] Bianca Garcia Other [facility] Other 07-21-2022 11:30-0500 Body weight 72.8 kg Bianca Garcia Other [facility] Other 07-21-2022 11:30-0500 Diastolic blood pressure 88 mm[Hg] Bianca Garcia Other [facility] Other 07-21-2022 11:30-0500 Respiratory rate 18 /min Bianca Garcia Other [facility] Other 07-21-2022 11:30-0500 SaO2% (BldA) [Mass fraction] 95 % Bianca Garcia Other [facility] Other 07-21-2022 11:30-0500 Systolic blood pressure 122 mm[Hg] Bianca Garcia Other [facility] Other Encounters Encounter Date Encounter Type Care Provider Facility Start: 12-02-2023 End: 12-02-2023 ambulatory BART LEMUS Not Available Start: 11-12-2023 End: 11-12-2023 ambulatory BART LEMUS Not Available Start: 10-06-2023 End: 10-06-2023 ambulatory BART LEMUS Not Available Start: 10-01-2023 End: 10-01-2023 ambulatory Bianca Garcia Facility:[facility] Start: 10-01-2023 End: 10-01-2023 ambulatory DO Bianca Garcia Work Phone: [facility] Work Phone: Start: 10-01-2023 End: 10-01-2023 Patient encounter procedure DO Bianca Garcia Work Phone: [facility] Work Phone: Start: 09-30-2023 End: 10-01-2023 ambulatory Bianca Garcia Facility:[facility] Start: 09-30-2023 End: 09-30-2023 Patient encounter procedure Esa LITTLE [facility] [place] Start: 09-03-2023 Non-patient / Non-visit DO Bianca Garcia Work Phone: [facility] Work Phone: Start: 08-01-2023 Non-patient / Non-visit DO Bianca Garcia Work Phone: [facility] Work Phone: Start: 07-27-2023 ambulatory Bianca Garcia Facility:[facility] Start: 07-23-2023 End: 07-23-2023 ambulatory Bianca Garcia Other [facility] Other Start: 07-23-2023 Office outpatient visit 25 minutes Bianca Garcia [facility] Start: 07-23-2023 End: 07-23-2023 Patient encounter procedure DO Bianca Garcia Work Phone: [facility]- Start: 11-20-2022 ambulatory JÚNIOR GOLDBERG . Facili ty:[facility] Start: 11-04-2022 End: 11-04-[address] BIANCA GARCIA Facility:[facility] Start: 10-09-2022 End: 10-10-2022 ambulatory YANE VALERA . Facility:[facility] Start: 10-01-2022 End: 10-01-2022 ambulatory Bianca Garcia Other [facility] Other Start: 10-01-2022 Telephone encounter Bianca Garcia [facility] Start: 08-28-2022 End: 08-29-[address] LENORE STOLL . Facility:[facility] Start: 08-05-2022 End: 08-05-2022 ambulatory John Diallopinky Other [facility] Other Start: 08-05-2022 Telephone encounter Imad Asaad [facility] [address] [facility] Start: 07-30-2022 End: 07-30-2022 ambulatory Bianca Garcia Other [facility] Other Start: 07-30-2022 Office outpatient visit 25 minutes Bianca Garcia [facility] Start: 07-26-2022 End: 07-27-[address] BIANCA GARCIA Facility:[facility] Start: 07-24-2022 End: 07-25-[address] LENORE STOLL . Facility:[facility] Start: 07-21-2022 End: 07-21-2022 ambulatory Bianca Garcia Other [facility] Other Start: 07-21-2022 Office outpatient visit 15 minutes Bianca Garcia [facility] Start: 05-27-2022 End: 05-27-[address] LENORE STOLL . Facility:[facility] Start: 04-24-2022 End: 04-25-[address] LENORE STOLL . Facility:[facility] Start: 03-01-2022 End: 03-02-2022 ambulatory BETY NASH . Facility:[facility] Start: 02-20-2022 End: 02-21-[address] LENORE STOLL . Facility:[facility] Start: 01-14-2022 End: 01-14-[address] BIANCA GARCIA Facility:[facility] Start: 12-18-2021 End: 12-19-[address] BIANCA GARCIA Facility:[facility] Start: 11-12-2021 End: 11-12-[address] LENORE STOLL . Facility:[facility] Procedures Date Procedure Procedure Detail Performing Clinician Start: 04-16-2013 Colonoscopy Esa WESTBROOK History of lumbar laminectomy Esa LITTLE Ligation of fallopian tube Lynda LITTLE Tonsillectomy Esa LITTLE Plan of Treatment Date Care Activity Detail Author Start: 10-01-2023 MR Unspecified body region [facility] Start: 10-01-2023 MRI of head MR head/brain wo/w con [facility] Immunizations Immunization Date Immunization Notes Care Provider Fa cility 02-09-2021 COVID-19 Pfizer Bianca Garcia Other [facility] [place] 01-21-2021 COVID-19 Pfizer Bianca Garcia Other [facility] [place] Payers Date Payer Category Payer Self-pay 2022 Medicaid [id number] 2. [id number] 1966 Unknown [id number] 2.16.84 0.1.191513.3.579.2.593 1966 Unknown [id number] 2.16.84 0.1.944807.3.579.2.593 1966 Unknown [id number] 2.16.84 0.1.070916.3.579.2.593 1966 Unknown [id number] 2.16.84 0.1.170417.3.579.2.593 1966 Unknown [id number] 2.16.84 0.1.293930.3.579.2.593 1966 Unknown [id number] 2.16.84 0.1.275595.3.579.2.593 1966 Unknown [id number] 2.16.84 0.1.850663.3.579.2.593 1966 Unknown [id number] 2.16.84 0.1.323555.3.579.2.593 1966 Unknown [id number] 2.16.84 0.1.377858.3.579.2.593 1966 Unknown [id number] 2.16.84 0.1.762569.3.579.2.593 1966 Unknown [id number] 2.16.84 0.1.812927.3.579.2.593 1966 Unknown [id number] 2.16.84 0.1.445912.3.579.2.593 1966 Unknown [id number] 2.16.84 0.1.991361.3.579.2.593 1966 Unknown [id number] 2.16.8 40.1.721313.3.579.2.727 1966 Unknown [id number] 2.16.84 0.1.668674.3.579.2.1259 1966 Unknown [id number] 2.16.84 0.1.480652.3.579.2.1259 1966 Unknown [id number] 2.16.84 0.1.832945.3.579.2.1259 1959 Unknown [id number] Medicaid [place] [employer] [id number] Unknown [id number] 2.16.8 40.1.489443.3.579.2.531 Social History Date Type Detail Facility Unknown if ever smoked [facility] Other Sex Assigned At [facility] Start: 09-30-2023 Tobacco smoking status Light t obacco smoker (finding) [facility] [place] Tobacco smoking status Never [facility] Start: 08-04-2023 Tobacco smoking stat NHIS Smoker (finding) [facility] Start: 1965 Sex Assigned At Female F [facility] Functional Status Date Assessment Result Facility 09-30-2023 Functional Status N/A [facility] [place] Clinical Notes 08-11-2011 to 09-30-2023 Note Date [...] SARS-CoV-2 (COVID-19) mRNA BNT-162b2 vax 01/21/[address] [facility] Comment on above: Result Comment: Elec trotipally Signed By: LIZBETH CONNELLY, Esa Cervantes\Date and [...] see whomever can see her first at [facility]. Jul, Lumbar pain (ICD-10 - M54.50) She [...] she is in pain management. 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 Continue with above medication daily as directed. Jul, Other She voices that she was anxious to come into the office today but once she was in her exam room she was calmed down. [facility] Other 04-20-2023 NoteCONSULTATION CONSULTATION DATE: 10/09/2022 TO: [...] our patients to inform us about any [id number] medications or herbal remedies/nutritional supplements/alternative remedies. 2. [...] treatment options with their primary care provider.[facility] [id number] Note CONSULTATION CONSULTATION DATE: 08/28/2022 HISTORY OF [...] with this plan and all questions answered.[facility] [id number] Evaluation note* Encounter Date Diagnosis Assessment Notes [...] number of someone she can see through [facility]. She voices that she will think about it. I asked her not to take anymore Vistaril. Jul, Lumbar pain (ICD-10 - M54.50) She voices that Dr. 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 She is scheduled for an [...] and if/when testing needs to be repeated. 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 [facility] Other 11-03-2022 NoteCONSULTATION CONSULTATION DATE: 04/24/2022 HISTORY [...] followed up in the clinic post procedure.[facility] [id number] NoteCONSULTATION CONSULTATION DATE: 02/20/2022 HISTORY OF PRESENT [...] agrees to this and all questions answered.[facility] [id number] NoteCONSULTATION CONSULTATION DATE: 12/18/2921 This is a [...] up in the clinic. [facility] Signed and Approved by: JOSE ALEJANDRO STINSON . 12/26/2021 16:26:00[facility] [id number] History general Narrative - Reported* Type Description Date Medical History Gestational Diabetes Medical History History of Hemorrhoids Medical History Chest X-Ray Done 08-11-11 Medical History Lumbar Spine X-Ray Done 08-11-11 Medical History Pelvic Ultrasound 08-11-12; [facility] [place] History Transvaginal US 08-12-12; [facility] [place] History CT Abdomen and Pelvis 08-16-12; [facility] [place] Medical History TDap (Adacel) 01-03-15 [place] E R Medical History 01/2015 Dr So, 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 Lu Colonoscopy, Divert iculosis 10-05-2012 Surgical History injection in back - Pain Mgmt Surgical History Nerve block in back 06/2019 Hospitalization History Tonsillectomy Hospitalization History Childbirth Hospitalization History [place] [facility] stic hes in rt hand cut during washing dishes 01/03/2015 [facility] [employer] Other Evaluation + Plan note No data available for this section [facility] [place] Evaluation noteNo InformationN[facility]Sub[facility] [employer] Other Evaluation noteNo assessment information available [facility] Work Phone: Hospital Discharge instructions No data available for this section [facility] [place] Progress note No data available for this section [facility] [place] Reason for visit Narrativecheck up/discuss dementia, discuss multiple issues, see treatment [place] [employer] Other Reason for Referral Reason appt 09/05/22 at 8am pt needs screening colonoscopy Diagnosis 1 Colon cancer screeni ng (Z12.11) Referral Organization [facility] Family [facility] [place] Referring Provider First Name Bianca Referring Provider Last Name Jose Referring Provider Specialty Family Prac guero Referred Organization [facility] Gastroenterolo gy Referred Provider John Cedillo Referred Address [address] ,[place], [place],[address] Referred Provider Specialty Gastroentero logy Referral Priority Routine Referral Appointment Date 2022-09-05 General Notes Delilah Sandoval 07/21/2022 11:57:58 AM > referral sent p2p. pt understands she will be contacted to schedule this appt. Delilah Sandoval 08/06/2022 10:17:55 AM > colonoscopy scheduled on 09/05/22 at 8am Reason appt pt needs cons ult to discuss memory changes Diagnosis 1 Memory changes (R41. 3) Referral Organization [facility] [place] Referring Provider First Name Bianca Referring Provider Last Name Jose Referring Provider Specialty Family Prac guero Referred Organization [facility] Referred Provider Carlitos Lu Referred Address [address],[place], [place],[address] Referred Provider Specialty Neurology Referral Priority Routine General Notes Delilah Sandoval 07/23/2023 11:40:43 AM > referral faxed thru [facility] with visit note and insurance card. pt understands she will be contacted to schedule this appt. Reason appt pt needs scre ening colonoscopy Diagnosis 1 Colon cancer screeni ng (Z12.11) Referral Organization [facility] Family [facility] [place] Referring Provider First Name Bianca Referring Provider Last Name Jose Referring Provider Specialty Family Prac guero [facility] Organization [facility] Referred Provider Esa Little [place] Address [address] [place],[address] Referred Provider Specialty Surgery Referral Priority Routine [...] pital DATE CREATED AUTHOR AUTHOR'S ORGANIZ ATION 10/06/2023 [facility] DATE CREATED AUTHOR AUTHOR'S ORGANIZ ATION 10/27/2023 [facility] DATE CREATED AUTHOR AUTHOR'S ORGANIZ ATION 12/03/2023 [facility] EPIC Patient Care team informatio n (unrecognized section and content) Team Status: Active Member Role Status Dates Bianca Garcia DO Primary Care Provider Active Team Status: Inactive Member Role Status Harmeet Garcia DO Attending Provider Active Star t: July 23, 2023 End: July 23, 2023 Team Status: Active Member Role Status Harmeet Garcia DO Primary Care Provide r, Attending Provider Active Start: August 01, 2023 Team Status: Active Member Role Status Harmeet Garcia DO Primary Care Provider Active S tart: September 03, 2023 Franco Acosta LPN Attending Provider Active St art: September 03, 2023 Team Status: Inactive Member Role Status Harmeet Garcia DO Primary Care Provider Active S [...] BE BASED ON THE PRIMARY CLINICAL RECORDS. [facility] [employer] [facility]. provides no warranty or guarantee of the accuracy or completeness of information in this document.
== END 2024-03-24 10:07 | disposition home or self-care (01) ==
LOC: CT 10:06
PROVIDERS: PCP Family Medicine; Visit Provider Internal Medicine
DX: F17.219 Nicotine dependence, cigarettes, with unspecified nicotine-induced disorders (principal); Z12.2 Encounter for screening for malignant neoplasm of respiratory organs
CPT/HCPCS: 71271

== ENCOUNTER 2024-04-30 06:47 | Emergency (ER) | payer MEDICAID, SELFPAY ==
[2024-04-30 06:52] VITALS: BP 149/83; PULSE 78; TEMP 37.2; O2SAT 98; BMI 26.6
--- OUTSIDE RECORDS SUMMARY | 2024-04-30 06:54 | XMS_ITS | CCD ---
Author Organization [facility] Care Team Providers Care Sterile Tech Name Role Phone Bianca Garcia Unavailable John [...] Becker Admitting Unavailable SUSANEDEN Pérez Consulting Unavailable JOSE, DR VALENZUELA Primary Care [...] Care Provider DO Carlitos Lu Attending Provider Bianca Garcia Primary Care Unavailable Carlitos Lu Attending Unavailab Carlitos Kelley Admitting Unavailab Bianca Willoughby Referring Unavailable Esa LITTLE Attending Unavailable BART LEMUS Attending Unavailable Allergies Allergy Classification Reported Allergen(s) Allergy Type Date of Onset Reaction(s) Facility (6 sources) hydrOXYzine; Translations: [hydroxyzine] Drug Allergy 3 Palpitations (finding) General Surgery [place] (1 source) hydrOXYzine Drug Allergy [address] [place] [address] Repository (1 source) hydrOXYzine; Translations: [Vistaril] Drug Allergy [facility] Repository Medications Current Medications Medication Drug [...] tablet Orally q8-12 hrs prn Jul, Active [id number] 200 actuat albuterol 0.09 mg/actuat metered dose [...] Status: Ordered take 2 tablets by mo 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 00TIFF Normal [facility] Consent for Procedure/Surger yon 10-02-2023 Consent for Procedure/Surgery [id number] 0TIFF [facility] MR head/brain wo/w [facility]on MR head/brain wo/w [facility] [place] [address] MRI Report Signed Patient: Arianna Tucker MR#: [id number] 2 : 1965 Acct:[id number] Age/Sex: 58 / F ADM Date: 10/01/23 Loc: MR [facility]: [facility] Att[facility] Dr: Carlitos Lu DO [...] Maciel Duarte M.D.10/02/2023 12:33 PM Dictation Location: [place] [address] Transcribed By: [facility] 10/02/23 1233 Dictated By: Maciel Duarte II, MD 10/02/23 1225 Signed By: 10/02/23 1233 Normal [facility] Facesheeton 10-01-2023 Facesheet [id number] 0TIFF Normal [facility] Ambulatory Visit Summaryon 0 09-30-2023 Ambulatory [...] you for choosing us for your care. [facility] Provider Letteron 08-17-2023 Provider Letter August 17, 2023 ARI[address]NA TUCKER [address] [place] [id number] : 1965 Dear Ms. Tucker, We have [...] your prompt attention to this matter. Sincerely, [facility] General Surgery [phone] [facility] No Panel Informationon 08-01 Miscellaneous Test COMMENT . [facility] Comment on above: Test Ordered: [id number] Alk Phos IsoenzymeAlkaline Phosphatase 117 IU/L CB Reference Range: 44-121Liver Fraction: 52 % CB Reference Range: 18-85Bone Fraction: 46 % CB Reference Range: 14-68Intestinal Frac.: 2 % CB Reference Range: 0-18Performed at: - [facility] [address] [id number] Director: Cam Reyes PhD, Phone: [phone] Physician Referralon 024 Physician Referral [id number] 0TIFF Normal [facility] CBC AUTO DIFFon 07-26-2022 BASO # 0.1 103/ul Normal 0.0-0.1 [facility] Comment on above: Performed By: #### U RCX #### [facility] [address] [address] [address] Roderick Greene Basophils/100 WBC (Bld) 0.6 % Normal 0.2-2.0 [facility] Comment on above: Performed By: #### U RCX #### [facility] [address] [place] [address] Dr. Roderick Greene EO # 0.8 103/ul Critically high 0.0-0.7 [facility] Comment on above: Performed By: #### U RCX #### [facility] [address] [place] [address] Dr. Roderick Greene Eosinophils/100 WBC (Bld) 7.9 % Critically high 0.9-7.0 [facility] Comment on above: Performed By: #### U RCX #### [facility] [address] [address] [address] Roderick Greene Erythrocyte distribution width (RBC) [Ratio] 13.2 % Normal 11.0-15.0 [facility] Comment on above: Performed By: #### U RCX #### [facility] [address] [place] [address] Dr. Roderick Greene Hematocrit (Bld) [Volume fraction] 50.3 % Critically high 36.0-48.0 [facility] Comment on above: Performed By: #### U RCX #### [facility] [address] [place] [address] Dr. Roderick Greene Hemoglobin (Bld) [Mass/Vol] 16.0 g/dL Normal 12.0-16.0 [facility] Comment on above: Performed By: #### U RCX #### [facility] [address] [place] [address] Dr. Roderick Greene IG # 0.02 10e3/ul Normal 0.00-0.03 [facility] Comment on above: Performed By: #### U RCX #### [facility] [address] [address] [address] Roderick Greene IG % 0.2 % Normal 0.0-0.5 [facility] Comment on above: Performed By: #### U RCX #### [facility] [address] [place] [address] Dr. Roderick Greene LYMPH # 2.3 103/ul Normal 1.2-3.8 [facility] Comment on above: Performed By: #### U RCX #### [facility] [address] [place] [address] Dr. Roderick Greene Lymphocytes/100 WBC (Bld) 24.5 % Normal 20.5-60.0 [facility] Comment on above: Performed By: #### U RCX #### [facility] [address] [place] [address] Dr. Roderick Greene MANUAL DIFF REQ NO Normal [facility] Comment on above: Performed By: #### U RCX #### [facility] [address] [place] [address] Dr. Roderick Greene MCH (RBC) [Entitic mass] 31.4 pg Normal 26.7-34.0 [facility] Comment on above: Performed By: #### U RCX #### [facility] [address] [place] [address] Dr. Roderick Greene MCHC (RBC) [Mass/Vol] 31.8 g/dL Normal 29.9-35.2 [facility] Comment on above: Performed By: #### U RCX #### [facility] [address] [place] [address] Dr. Roderick Greene MCV (RBC) [Entitic vol] 98.8 fL Normal 81.0-99.0 [facility] Comment on above: Performed By: #### U RCX #### [facility] [address] [place] [address] Dr. Roderick Greene MONO # 0.4 103/ul Normal 0.3-0.8 [facility] Comment on above: Performed By: #### U RCX #### [facility] [address] [place] [address] Dr. Roderick Greene Monocytes/100 WBC (Bld) 3.7 % Normal 1.7-12.0 [facility] Comment on above: Performed By: #### U RCX #### [facility] [address] [place] [address] Dr. Roderick Greene NEUT # 6.0 103/ul Normal 1.4-6.5 [facility] Comment on above: Performed By: #### U RCX #### [facility] [address] [place] [address] Dr. Roderick Greene Neutrophils/100 WBC (Bld) 63.1 % Normal 43.0-75.0 [facility] Comment on above: Performed By: #### U RCX #### [facility] [address] [place] [address] Dr. Roderick Greene Platelet mean volume (Bld) [Entitic vol] 10.7 fL Normal 9.5-13.5 [facility] Comment on above: Performed By: #### U RCX #### [facility] [address] [place] [address] Dr. Roderick Greene PLT 290 103/ul Normal 150-450 [facility] Comment on above: Performed By: #### U RCX #### [facility] [address] [place] [address] Dr. Roderick Greene RBC 5.09 106/ul Normal 4.20-5.40 [facility] Comment on above: Performed By: #### U RCX #### [facility] [address] [place] [address] Dr. Roderick Greene WBC 9.5 103/ul Normal 4.0-11.0 [facility] Comment on above: Performed By: #### U RCX #### [facility] [address] [place] [address] Dr. Roderick Greene CULTURE URINEon 07-26-2022 CULTURE URINE Culture Observations : LIGHT GROWTH OF MIXED GENITAL MATEO. NO POTENTIAL PATHOGENS SEEN. Normal [facility] Comment on above: Performed By: #### U RCX #### [facility] [address] [address] [address] Roderick Greene GLYCOHEMOGLOBIN A1Con 2022 ADA RECOMMENDATION SEE BELOW Normal [facility] Comment on above: Result Comment: ADA RECOMMENDED LIMIT 4.0 - 6.0 ADA THERAPEUTIC TARGET < 7.0 ACTION SUGGESTED > 7.0 Performed By: #### A 1C #### [facility] [address] [address] [address] Roderick Greene Glucose [Mass/Vol] 108 mg/dL Critically high 74-106 [facility] Comment on above: Performed By: #### A 1C #### [facility] [address] [place] [address] Dr. Roderick Greene Performed By: #### T SH, LIPID, CMP #### [facility] [address] [place] [address] Dr. Roderick Greene HbA1c (Bld) [Mass fraction] 5.4 % Normal 4.5-6.2 [facility] Comment on above: Performed By: #### A 1C #### [facility] [address] [place] [address] Dr. Roderick Greene LIPID PROFILEon 07-26-2022 CHOL-HDL RATIO NORM SEE BELOW Normal [facility] Comment on above: Result Comment: 3.3 - 4.4 LOW RISK 4.4 - 7.1 AVERAGE RISK 7.1 - 11.0 MODERATE RISK >11.0 HIGH RISK Performed By: #### U RCX #### [facility] [address] [place] [address] Dr. Roderick Greene Cholesterol [Mass/Vol] 217 mg/dL Critically high <=200 [facility] Comment on above: Performed By: #### U RCX #### [facility] [address] [place] [address] Dr. Roderick Greene Cholesterol in HDL [Mass/Vol] 55 mg/dL Normal 40-60 [facility] Comment on above: Performed By: #### U RCX #### [facility] [address] [place] [address] Dr. Roderick Greene Cholesterol in LDL [Mass/Vol] 143.6 mg/dL Normal [facility] Comment on above: Performed By: #### U RCX #### [facility] [address] [address] [address] Roderick Greene Cholesterol.total/Cho lesterol in HDL [Mass ratio] 3.9 {ratio} Normal [facility] Comment on above: Performed By: #### U RCX #### [facility] [address] [address] [address] Roderick Greene HDL NORMAL > or = 60 mg/dl - LO W CARDIOVASCULAR RISK <40 mg/dl - HIGH CARDIOVASCULAR RISK Normal [facility] Comment on above: Performed By: #### U RCX #### [facility] [address] [address] [address] Roderick Greene LDL CALC NORMAL SEE BELOW Normal [facility] Comment on above: Result Comment: <100 mg/dl OPTIMAL 100 - 129 mg/dl NEAR OR ABOVE OPTIMAL 130 - 159 mg/dl BORDERLINE HIGH 160 - 189 mg/dl HIGH >190 mg/dl VERY HIGH Performed By: #### U RCX #### [facility] [address] [place] [address] Dr. Roderick Greene Triglyceride [Mass/Vol] 92 mg/dL Normal <=150 [facility] Comment on above: Performed By: #### U RCX #### [facility] [address] [address] [address] Roderick Greene VLDL CALC 18.4 mg/dL Normal [facility] Comment on above: Performed By: #### U RCX #### [facility] [address] [address] [address] Roderick Greene PROF 14(COMP METB)on 023 Albumin [Mass/Vol] 3.7 g/dL Normal 3.4-5.0 [facility] Comment on above: Performed By: #### T SH, LIPID, CMP #### [facility] [address] [address] [address] Roderick Greene Albumin/Globulin [Mass ratio] 1.0 {ratio} Normal [facility] Comment on above: Performed By: #### T SH, LIPID, CMP #### [facility] [address] [address] [address] Roderick Greene ALP [Catalytic activity/Vol] 146 U/L Critically high 46-116 [facility] Comment on above: Performed By: #### T SH, LIPID, CMP #### [facility] [address] [address] [address] Roderick Greene ALT [Catalytic activity/Vol] 24 U/L Normal 14-59 [facility] Comment on above: Performed By: #### T SH, LIPID, CMP #### [facility] [address] [address] [address] Roderick Greene Anion gap [Moles/Vol] 11.7 mmol/L Normal [facility] Comment on above: Performed By: #### T SH, LIPID, CMP #### [facility] [address] [place] [address] Dr. Roderick Greene AST [Catalytic activity/Vol] 23 U/L Normal 15-37 [facility] Comment on above: Performed By: #### T SH, LIPID, CMP #### [facility] [address] [address] [address] Roderick Greene Bilirubin [Mass/Vol] 0.5 mg/dL Normal 0.2-1.0 [facility] Comment on above: Performed By: #### T SH, LIPID, CMP #### [facility] [address] [address] [address] Roderick Greene Calcium [Mass/Vol] 9.3 mg/dL Normal 8.5-10.1 [facility] Comment on above: Performed By: #### T SH, LIPID, CMP #### [facility] [address] [address] [address] Roderick Greene Chloride [Moles/Vol] 105 mmol/L Normal 98-107 [facility] Comment on above: Performed By: #### T SH, LIPID, CMP #### [facility] [address] [place] [address] Dr. Roderick Greene CO2 [Moles/Vol] 31.0 mmol/L Normal 21.0-32.0 [facility] Comment on above: Performed By: #### T SH, LIPID, CMP #### [facility] [address] [address] [address] Roderick Greene Creatinine [Mass/Vol] 0.65 mg/dL Normal 0.55-1.02 [facility] Comment on above: Performed By: #### T SH, LIPID, CMP #### [facility] [address] [address] [address] Roderick Greene EGFR-AF BANGLADESHI >60 Normal >=60 [facility] Comment on above: Performed By: #### T SH, LIPID, CMP #### [facility] [address] [address] [address] Roderick Greene EGFR-NON AF BANGLADESHI >60 Normal >=60 [facility] Comment on above: Performed By: #### T SH, LIPID, CMP #### [facility] [address] [address] [address] Roderick Greene Globulin (S) [Mass/Vol] 3.6 g/dL Normal [facility] Comment on above: Performed By: #### T SH, LIPID, CMP #### [facility] [address] [address] [address] Roderick Greene Potassium [Moles/Vol] 4.7 mmol/L Normal 3.5-5.1 [facility] Comment on above: Performed By: #### T SH, LIPID, CMP #### [facility] [address] [address] [address] Roderick Greene Protein [Mass/Vol] 7.3 g/dL Normal 6.4-8.2 [facility] Comment on above: Performed By: #### T SH, LIPID, CMP #### [facility] [address] [address] [address] Roderick Greene Sodium [Moles/Vol] 143 mmol/L Normal 136-145 [facility] Comment on above: Performed By: #### T SH, LIPID, CMP #### [facility] [address] [address] [address] Roderick Greene Urea nitrogen [Mass/Vol] 13.0 mg/dL Normal 7.0-18.0 [facility] Comment on above: Performed By: #### T SH, LIPID, CMP #### [facility] [address] [place] [address] Dr. Roderick Greene Urea nitrogen/Creatinine [Mass ratio] 20.0 mg/mg Normal [facility] Comment on above: Performed By: #### T SH, LIPID, CMP #### [facility] [address] [place] [address] Dr. Roderick Greene TSHon 07-26-2022 TSH 0.822 uIU/mL Normal 0.358-3.740 [facility] Comment on above: Performed By: #### T SH, LIPID, CMP #### [facility] [address] [place] [address] Dr. Roderick Greene UA RANDOM W/MICROSCOPICon BACTERIA TRACE Abnormal NONE SEEN [facility] Comment on above: Performed By: #### U AMIC #### [facility] [address] [place] [address] Dr. Roderick Greene Bilirubin Ql (U) Negative Normal NEGATIVE [facility] Comment on above: Performed By: #### U AMIC #### [facility] [address] [place] [address] Dr. Roderick Greene CAST NONE SEEN Normal NONE SEEN [facility] Comment on above: Performed By: #### U AMIC #### [facility] [address] [place] [address] Dr. Roderick Greene Clarity (U) CLEAR Normal CLEAR [facility] Comment on above: Performed By: #### U AMIC #### [facility] [address] [place] [address] Dr. Roderick Greene Color (U) LT. YELLOW Normal YELLOW [facility] Comment on above: Performed By: #### U AMIC #### [facility] [address] [place] [address] Dr. Roderick Greene Crystals LM Nom (Urine sed) NONE SEEN Normal NONE SEEN [facility] Comment on above: Performed By: #### U AMIC #### [facility] [address] [address] [address] Roderick Greene Epithelial cells LM Ql (Urine sed) FEW Abnormal NONE SEEN /RARE [facility] Comment on above: Performed By: #### U AMIC #### [facility] [address] [address] [address] Roderick Greene Glucose Ql (U) Negative Normal NEGATIVE [facility] Comment on above: Performed By: #### U AMIC #### [facility] [address] [address] [address] Roderick Greene Hemoglobin Ql (U) Negative Normal NEGATIVE [facility] Comment on above: Performed By: #### U AMIC #### [facility] [address] [place] [address] Dr. Roderick Greene Ketones Ql (U) Negative Normal NEGATIVE [facility] Comment on above: Performed By: #### U AMIC #### [facility] [address] [place] [address] Dr. Roderick Greene LEUKOCYTES Negative Normal NEGATIVE [facility] Comment on above: Performed By: #### U AMIC #### [facility] [address] [address] [address] Roderick Greene MUCOUS SMALL Abnormal NONE SEEN [facility] Comment on above: Performed By: #### U AMIC #### [facility] [address] [place] [address] Dr. Roderick Greene Nitrite Ql (U) Negative Normal NEGATIVE [facility] Comment on above: Performed By: #### U AMIC #### [facility] [address] [place] [address] Dr. Roderick Grenee pH (U) 8.0 [pH] Normal 5-9 [facility] Comment on above: Performed By: #### U AMIC #### [facility] [address] [place] [address] Dr. Roderick Greene RBC NONE SEEN Abnormal 0-2 [facility] Comment on above: Performed By: #### U AMIC #### [facility] [address] [place] [address] Dr. Roderick Greene SPEC GRAVITY 1.020 Normal 1.005-<=1.025 [facility] Comment on above: Performed By: #### U AMIC #### [facility] [address] [address] [address] Roderick Greene UA PROTEIN Negative Normal NEGATIVE/ TRACE [facility] Comment on above: Performed By: #### U AMIC #### [facility] [address] [address] [address] Roderick Greene Urobilinogen Qn (U) 0.2 {Jordan'U}/dL Normal 0.2 - 1. 0 [facility] Comment on above: Performed By: #### U AMIC #### [facility] [address] [address] [address] Roderick Greene WBC NONE SEEN Normal NONE SEEN [facility] Comment on above: Performed By: #### U AMIC #### [facility] [address] [address] [address] CHEST WO CONon [...] by: SONU COLLINS Date: 2022-03-03 07:51 Normal [facility] Vital Signs Date Time Vital Sign Value Performing Clinician Facility 10-01-2023 07:08-0400 Body height 165.1 cm DO Bianca Garcia Work Phone: [facility] 10-01-2023 07:08-0400 Body weight 77.11 kg DO Bianca Garcia Work Phone: [facility] 09-30-2023 15:26-0400 Blood Pressure Location Esa NILL [facility] 09-30-2023 15:26-0400 Diastolic blood pressure 84 mm[Hg] Esa NILL [facility] 09-30-2023 15:26-0400 Heart rate 76 /min Esa NILL [facility] 09-30-2023 15:26-0400 Respiratory rate 16 /min Esa NILL [facility] 09-30-2023 15:26-0400 Systolic blood pressure 138 mm[Hg] Esa NILL [facility] 07-23-2023 09:50-0500 Body height 162.56 cm Bianca Garcia Other [facility] 07-23-2023 09:50-0500 Body mass index (BMI) [Ratio] 29.69 kg/m2 Bianca Garcia Other [employer] Other 07-23-2023 09:50-0500 Body temperature 98.1 [degF] Bianca Garcia Other [facility] [employer] Other 07-23-2023 09:50-0500 Body weight 78.47 kg Bianca Garcia Other [facility] 07-23-2023 09:50-0500 Diastolic blood pressure 88 mm[Hg] Bianca Garcia Other [facility] 07-23-2023 09:50-0500 Respiratory rate 18 /min Bianca Garcia Other [employer] Other 07-23-2023 09:50-0500 SaO2% (BldA) [Mass fraction] 99 % Bianca Garcia Other [employer] Other 07-23-2023 09:50-0500 Systolic blood pressure 128 mm[Hg] Bianca Garcia Other [facility] 07-30-2022 12:10-0500 Body height 162.56 cm Bianca Garcia Other [employer] Other 07-30-2022 12:10-0500 Body mass index (BMI) [Ratio] 27.12 kg/m2 Bianca Garcia Other [facility] Other 07-30-2022 12:10-0500 Body temperature 96.6 [degF] Bianca Garcia Other [facility] Other 07-30-2022 12:10-0500 Body weight 71.67 kg Bianca Garcia Other [employer] Other 07-30-2022 12:10-0500 Diastolic blood pressure 86 mm[Hg] Bianca Garcia Other [employer] Other 07-30-2022 12:10-0500 Respiratory rate 18 /min Bianca Garcia Other [employer] Other 07-30-2022 12:10-0500 SaO2% (BldA) [Mass fraction] 98 % Bianca Garcia Other [employer] Other 07-30-2022 12:10-0500 Systolic blood pressure 120 mm[Hg] Bianca Garcia Other [employer] Other 07-21-2022 11:30-0500 Body height 162.56 cm Bianca Garcia Other [employer] Other 07-21-2022 11:30-0500 Body mass index (BMI) [Ratio] 27.55 kg/m2 Bianca Garcia Other [employer] Other 07-21-2022 11:30-0500 Body temperature 98.4 [degF] Bianca Garcia Other [employer] Other 07-21-2022 11:30-0500 Body weight 72.8 kg Bianca Garcia Other [employer] Other 07-21-2022 11:30-0500 Diastolic blood pressure 88 mm[Hg] Bianca Garcia Other [employer] Other 07-21-2022 11:30-0500 Respiratory rate 18 /min Bianca Garcia Other [employer] Other 07-21-2022 11:30-0500 SaO2% (BldA) [Mass fraction] 95 % Bianca Garcia Other [employer] Other 07-21-2022 11:30-0500 Systolic blood pressure 122 mm[Hg] Bianca Garcia Other [employer] Other Encounters Encounter Date Encounter Type Care Provider Facility Start: 12-02-2023 End: 12-02-2023 ambulatory BART LEMUS Not Available Start: 11-12-2023 End: 11-12-2023 ambulatory BART LEMUS Not Available Start: 10-06-2023 End: 10-06-2023 ambulatory BART LEMUS Not Available Start: 10-01-2023 End: 10-01-2023 ambulatory Bianca Garcia Facility:[facility] Start: 10-01-2023 End: 10-01-2023 ambulatory DO Bianca Garcia Work Phone: [facility] Work Phone: Start: 10-01-2023 End: 10-01-2023 Patient encounter procedure DO Bianca Garcia Work Phone: [facility] [place] Work Phone: Start: 09-30-2023 End: 10-01-2023 ambulatory Bianca Garcia Facility:[facility] Start: 09-30-2023 End: 09-30-2023 Patient encounter procedure Esa LITTLE [facility] [place] Start: 09-03-2023 Non-patient / Non-visit DO Bianca Garcia Work Phone: [facility] [place] Work Phone: Start: 08-01-2023 Non-patient / Non-visit DO Bianca Garcia Work Phone: [facility] [place] Work Phone: Start: 07-27-2023 ambulatory Bianca Garcia Facility:[facility] Start: 07-23-2023 End: 07-23-2023 ambulatory Bianca Garcia Other [employer] Other Start: 07-23-2023 Office outpatient visit 25 minutes Bianca Garcia [facility] Start: 07-23-2023 End: 07-23-2023 Patient encounter procedure DO Bianca Garcia Work Phone: [facility]- Start: 11-20-2022 ambulatory JÚNIOR GOLDBERG . Facili ty:H1 Start: 11-04-2022 End: 11-04-[address] BIANCA GARCIA Facility:H1 Start: 10-09-2022 End: 10-10-2022 ambulatory YANE VALERA . Facility:[facility]1 Start: 10-01-2022 End: 10-01-2022 ambulatory Bianca Garcia Other [employer] Other Start: 10-01-2022 Telephone encounter Bianca Garcia [facility] Start: 08-28-2022 End: 08-29-[address] LENORE STOLL . Facility:[facility]1 Start: 08-05-2022 End: 08-05-2022 ambulatory John Diallopinky Other [employer] Other Start: 08-05-2022 Telephone encounter Imad Asaad [employer] Start: 07-30-2022 End: 07-30-2022 ambulatory Bianca Garcia Other [employer] Other Start: 07-30-2022 Office outpatient visit 25 minutes Bianca Garcia [facility] Start: 07-26-2022 End: 07-27-[address] BIANCA GARCIA Facility:[facility]1 Start: 07-24-2022 End: 07-25-[address] LENORE STOLL . Facility:[facility]1 Start: 07-21-2022 End: 07-21-2022 ambulatory Bianca Garcia Other [employer] Other Start: 07-21-2022 Office outpatient visit 15 minutes Bianca Garcia [facility] Start: 05-27-2022 End: 05-27-[address] [...] Author Start: 10-01-2023 MR Unspecified body region [facility] Start: 10-01-2023 MRI of head MR head/brain wo/w con [facility] Immunizations Immunization Date Immunization Notes Care Provider Fa cility 02-09-2021 COVID-19 Pfizer Bianca Garcia [facility] 01-21-2021 COVID-19 Pfizer Bianca Garcia Other [facility] [place] Payers Date Payer Category Payer Self-pay 2022 Medicaid [id number] 2. [id number] 1965 Unknown [id number] 2.16.84 0.1.412065.3.579.2.593 1965 Unknown [id number] 2.16.84 0.1.442235.3.579.2.593 1966 Unknown [id number] 2.16.84 0.1.140805.3.579.2.593 1966 Unknown [id number] 2.16.84 0.1.295018.3.579.2.593 1966 Unknown [id number] 2.16.84 0.1.042833.3.579.2.593 1966 Unknown [id number] 2.16.84 0.1.453706.3.579.2.593 1966 Unknown [id number] 2.16.84 0.1.630256.3.579.2.593 1966 Unknown [id number] 2.16.84 0.1.200829.3.579.2.593 1966 Unknown [id number] 2.16.84 0.1.291864.3.579.2.593 1966 Unknown [id number] 2.16.84 0.1.677803.3.579.2.593 1966 Unknown [id number] 2.16.84 0.1.642642.3.579.2.593 1966 Unknown [id number] 2.16.84 0.1.686762.3.579.2.593 1966 Unknown [id number] 2.16.84 0.1.598872.3.579.2.593 1966 Unknown [id number] 2.16.8 40.1.172951.3.579.2.727 1966 Unknown [id number] 2.16.84 0.1.152562.3.579.2.1259 1966 Unknown [id number] 2.16.84 0.1.562507.3.579.2.1259 1966 Unknown [id number] 2.16.84 0.1.970115.3.579.2.1259 1959 Unknown [id number] Medicaid [place] [employer] [id number] Unknown [id number] 2.16.8 40.1.129872.3.579.2.531 Social History Date Type Detail Facility Unknown if ever smoked [employer] Other Sex Assigned At [facility] Start: 09-30-2023 Tobacco smoking status Light t obacco smoker (finding) [facility] [place] Tobacco smoking status Never [facility] [place] Start: 08-04-2023 Tobacco smoking stat NHIS Smoker (finding) [facility] Start: 1965 Sex Assigned At Female F [facility] Functional Status Date Assessment Result Facility 09-30-2023 Functional Status N/A [facility] [place] Clinical Notes 08-11-2011 to 09-30-2023 Note Date [...] SARS-CoV-2 (COVID-19) mRNA BNT-162b2 vax 01/21/2021 Recorded [facility] Comment on above: Result Comment: Elec [...] see whomever can see her first at [facility]. Jul, Lumbar pain (ICD-10 - M54.50) She [...] she is in pain management. 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 Continue with above medication daily as directed. Jul, Other She voices that she was anxious to come into the office today but once she was in her exam room she was calmed down. [employer] Other 04-20-2023 NoteCONSULTATION CONSULTATION DATE: 10/09/2022 TO: [...] our patients to inform us about any enlt-zwu-szfkxyq medications or herbal remedies/nutritional supplements/alternative remedies. 2. [...] treatment options with their primary care provider.[facility] [id number] Note CONSULTATION CONSULTATION DATE: 08/28/2022 HISTORY OF [...] with this plan and all questions answered.[facility] [id number] Evaluation note* Encounter Date Diagnosis Assessment Notes [...] number of someone she can see through [facility]. She voices that she will think about it. I asked her not to take anymore Vistaril. Jul, Lumbar pain (ICD-10 - M54.50) She voices that Dr. Stoll is retiring and his INFORMATION TECHNOLOGY CONSULTANT is leaving. She is scheduled for an [...] and if/when testing needs to be repeated. [employer] Other 02-02-2023 NoteCONSULTATION CONSULTATION DATE: 07/24/2022 HISTORY [...] The patient is in agreement to this.[facility] [id number] Evaluation note * Encounter Date Diagnosis Assessment [...] to the procedure and should have a otr flatbed driver to take her to the procedure [...] Jun, Hyperglycemia (ICD-10 - R73.9) Jun, Other correction (current) drug therapy (ICD-10 - Z79.899) Jun, [...] have a mammogram done but she refuses. [employer] Other 11-03-2022 NoteCONSULTATION CONSULTATION DATE: 04/24/2022 HISTORY [...] followed up in the clinic post procedure.[facility] [id number] NoteCONSULTATION CONSULTATION DATE: 02/20/2022 HISTORY OF PRESENT [...] agrees to this and all questions answered.[facility] [id number] NoteCONSULTATION CONSULTATION DATE: 12/18/2921 This is a [...] will be followed up in the clinic. [facility] Signed and Approved by: JOSE ALEJANDRO STINSON . 12/26/2021 16:26:00[facility] [id number] History general Narrative - Reported* Type Description Date Medical History Gestational Diabetes Medical History History of Hemorrhoids Medical History Chest X-Ray Done 08-11-11 Medical History Lumbar Spine X-Ray Done 08-11-11 Medical History [place] [facility] [place]vag[place]12-12[place] [facility] [place] Abdomen and Pelvis 08-16-12; [facility] Medical History TDap (Adacel) 01-03-15 [place] E R Medical History 01/2015 Dr So, 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 Lu Colonoscopy, Divert iculosis 10-05-2012 Surgical History injection in back - Pain Mgmt Surgical History Nerve block in back 06/2019 Hospitalization History Tonsillectomy Hospitalization History Childbirth Hospitalization History [place] [facility] stic hes in rt hand cut during washing dishes 01/03/2015 [facility] [employer] Other Evaluation + Plan note No data available for this section [facility] [place] Evaluation noteNo InformationNortJefferson [facility] [employer] Other Evaluation noteNo assessment information available [facility] Work Phone: Hospital Discharge instructions No data available for this section [facility] [place] Progress note No data available for this section [facility] [place] Reason for visit Narrativecheck up/discuss dementia, discuss multiple issues, see treatment plan for further informationVulcan Gurnard [employer] Other Reason for Referral Reason appt 09/05/22 at 8am pt needs screening colonoscopy Diagnosis 1 Colon cancer screeni ng (Z12.11) Referral Organization [facility] Family Medicin e [place] Referring Provider First Name Bianca Referring Provider Last Name Jose Referring Provider Specialty Family Prac guero Referred Organization [facility] Gastroenterolo gy Referred Provider John Cedillo Referred Address [address],[facility] [address] ,[place], [place],[address] Referred Provider Specialty Gastroentero logy Referral Priority [...] Memory changes (R41. 3) Referral Organization [facility] [place] Referring Provider First Name Bianca Referring Provider Last Name Jose Referring Provider Specialty Family Prac guero Referred Organization [facility] Referred Provider Carlitos Lu Referred Address [address],[place], [place],[address] Referred Provider Specialty Neurology Referral Priority Routine General Notes Delilah Sandoval 07/23/2023 11:40:43 AM > referral faxed thru [facility] with visit note and insurance card. pt understands she will be contacted to schedule this appt. Reason appt pt needs scre ening colonoscopy Diagnosis 1 Colon cancer screeni ng (Z12.11) Referral Organization [facility] Family Medicin e [facility] Referring Provider First Name Bianca Referring Provider Last Name Jose Referring Provider Specialty Family Prac guero Referred Organization [facility] Referred Provider Esa Little [address] [place],[address] Referred Provider Specialty Surgery Referral Priority Routine [...] CREATED AUTHOR AUTHOR'S ORGANIZ ATION 10/06/2023 [facility] DATE CREATED AUTHOR AUTHOR'S ORGANIZ ATION 10/27/2023 [facility] DATE CREATED AUTHOR AUTHOR'S ORGANIZ ATION 12/03/2023 [facility] EPIC Patient Care team [...] BE BASED ON THE PRIMARY CLINICAL RECORDS. [facility]. provides no warranty or guarantee of the accuracy or completeness of information in this document.
--- NOTE | 2024-04-30 06:59 | XR_ITS ---
[facility] [place] [id number] Patient Name: INGA POLO MRN: [id number] date: 1965 Sex: F Assigned Patient Location: ED.MAIN Current Patient Location: ER Accession/Order Number: [id number] Exam Date: 04/30/2024 08:20 Report Date: 04/30/2024 09:06 At the request of: CHANDRAKANT FRAZIER Procedure: XR wrist LT min 3V EXAM: XR hand LT min 3V, XR wrist LT min 3V INDICATION: fall. COMPARISON: None. TECHNIQUE: Left hand, 3 views. Left wrist, 3 views. FINDINGS: LEFT HAND: No acute fracture or dislocation. Mild degenerative changes of the interphalangeal joint of the thumb. Lateral hand soft tissue swelling. LEFT WRIST: No acute fracture or dislocation. The joint spaces are preserved. Soft tissue swelling throughout the wrist and distal forearm. XR/XR wrist LT min 3V IMPRESSION: No acute osseous abnormality of the left hand or wrist. Electronically authenticated by: RJ JHAVERI Date: 04/30/2024 09:06
--- NOTE | 2024-04-30 06:59 | XR_ITS ---
[facility] [place] [id number] Patient Name: INGA POLO MRN: [id number] date: 1965 Sex: F Assigned Patient Location: ED.MAIN Current Patient Location: ER Accession/Order Number: [id number] Exam Date: 04/30/2024 08:20 Report Date: 04/30/2024 09:06 At the request of: CHANDRAKANT FRAZIER Procedure: XR hand LT min 3V EXAM: XR hand LT min 3V, XR wrist LT min 3V INDICATION: fall. COMPARISON: None. TECHNIQUE: Left hand, 3 views. Left wrist, 3 views. FINDINGS: LEFT HAND: No acute fracture or dislocation. Mild degenerative changes of the interphalangeal joint of the thumb. Lateral hand soft tissue swelling. LEFT WRIST: No acute fracture or dislocation. The joint spaces are preserved. Soft tissue swelling throughout the wrist and distal forearm. XR/XR hand LT min 3V IMPRESSION: No acute osseous abnormality of the left hand or wrist. Electronically authenticated by: RJ JHAVERI Date: 04/30/2024 09:06
--- NOTE | 2024-04-30 07:38 | ED_ITS ---
HPI HPI - Extremity Injury (Upper) General Chief Complaint: Extremity Injury, Upper Stated Complaint: UE INJURY Time Seen by Provider: 04/30/24 07:36 Source: patient Mode of arrival: walk-in Limitations: physical limitation History of Present Illness HPI narrative: 59-year-old female presents to the emergency department for pain in her left wrist. Yesterday she fell and landed on her outstretched hand. She is right- handed. The pain is severe and continuous and it hurts to move it. No other injury was sustained. Related Data Home Medications ?Medication ?Instructions ?Recorded ?Confirmed albuterol sulfate 2.5 mg/3 mL 2.5 mg inhalation Q4H PRN 11/20/22 04/30/24 (0.083 %) solution for nebulization shortness of breath or wheezing albuterol sulfate 90 mcg/actuation 2 inh inhalation QID PRN shortness 10/29/23 10/29/23 aerosol inhaler (ProAir HFA) of breath or wheezing cyclobenzaprine 10 mg tablet 20 mg PO BEDTIME PRN muscle spasm 10/29/23 04/30/24 melatonin 10 mg capsule 10 mg PO BEDTIME PRN sleep 10/29/23 04/30/24 multivitamin 1 tab PO DAILY 10/29/23 04/30/24 amlodipine 5 mg tablet 5 mg PO DAILY 11/04/23 04/30/24 tiotropium 2.5 mcg-olodaterol 2.5 2 inh inhalation Q24H 11/04/23 11/04/23 mcg/actuation mist for inhalation (Stiolto Respimat) Previous Rx's ?Medication ?Instructions ?Recorded celecoxib 100 mg capsule (Celebrex) 100 mg PO BID #60 caps 03/11/23 pregabalin 75 mg capsule (Lyrica) 75 mg PO BID #60 caps 10/28/23 trazodone 50 mg tablet 50 mg PO DAILY #30 tabs 11/30/23 oxycodone-acetaminophen 7.5 mg-325 1 tab PO TID PRN pain #90 tabs 01/25/24 mg tablet (Percocet) oxycodone-acetaminophen 7.5 mg-325 1 tab PO TID PRN pain #90 tabs 02/23/24 mg tablet (Percocet) pregabalin 75 mg capsule (Lyrica) 75 mg PO BID #60 caps 02/23/24 trazodone 50 mg tablet 50 mg PO .HS #30 tabs 02/23/24 oxycodone-acetaminophen 7.5 mg-325 1 tab PO TID PRN pain #90 tabs 03/29/24 mg tablet (Percocet) pregabalin 75 mg capsule (Lyrica) 75 mg PO BID #60 caps 03/29/24 celecoxib 100 mg capsule (Celebrex) 100 mg PO BID #60 caps 04/27/24 cyclobenzaprine 10 mg tablet 10 mg PO TID PRN muscle spasm #90 04/27/24 tabs naloxone 4 mg/actuation nasal 4 mg intranasal Q3M PRN opioid 04/27/24 spray (Narcan) overdose #2 ea oxycodone-acetaminophen 7.5 mg-325 1 tab PO TID PRN pain #90 tabs 04/27/24 mg tablet (Percocet) pregabalin 75 mg capsule (Lyrica) 75 mg PO BID #60 caps 04/27/24 Allergies Allergy/AdvReac Type Severity Reaction Status Date / Time hydroxyzine (From Vistaril) AdvReac Unknown Palpitation Verified 04/30/24 06:56 s Opioid HPI Opioid Management Most Recent Pain and Opioid Data: Last Pain Scale 10 04/30/24 07:08 04/30/24 Last ED Pain Assessment 04/30/24 07:08 Review of Systems ROS Narrative A ten point review of systems is negative except as noted above. [facility] Medical History (Updated 04/30/24 @ 09:25 by Long Zelaya MD) Lung nodule ?R91.1 - Solitary pulmonary nodule (ICD-10) Fibromyalgia ?M79.7 - Fibromyalgia (ICD-10) Arthritis ?M19.90 - Unspecified osteoarthritis, unspecified site (ICD-10) Back pain ?M54.9 - Dorsalgia, unspecified (ICD-10) Insomnia ?G47.00 - Insomnia, unspecified (ICD-10) Anxiety ?F41.9 - Anxiety disorder, unspecified (ICD-10) Chronic obstructive pulmonary disease ?J44.9 - Chronic obstructive pulmonary disease, unspecified (ICD-10) Asthma ?J45.909 - Unspecified asthma, uncomplicated (ICD-10) Migraine ?G43.909 - Migraine, unspecified, not intractable, without status migrainosus (ICD-10) Lumbosacral spondylosis without myelopathy ?M47.817 - Spondylosis without myelopathy or radiculopathy, lumbosacral region (ICD-10) Hyperlipemia ?E78.5 - Hyperlipidemia, unspecified (ICD-10) Hyperglycemia ?R73.9 - Hyperglycemia, unspecified (ICD-10) Diverticulosis ?K57.90 - Diverticulosis of intestine, part unspecified, without perforation or abscess without bleeding (ICD-10) BMI 29.0-29.9,adult ?Z68.29 - Body mass index [BMI] 29.0-29.9, adult (ICD-10) Surgical History History of tubal ligation ?Z98.51 - Tubal ligation status (ICD-10) History of tonsillectomy ?Z90.89 - Acquired absence of other organs (ICD-10) H/O colonoscopy ?Z98.890 - Other specified postprocedural states (ICD-10) H/O laminectomy ?Z98.890 - Other specified postprocedural states (ICD-10) Family History Father Family history of COPD (chronic obstructive pulmonary disease) Brother Family history of diabetes mellitus Mother Family history of cancer Other Family history of hypertension Social History Within the past year, how often did you have a drink containing alcohol: never Score interpretation: A score less than 3 is consistent with normal alcohol consumption. Smoking status: Current every day smoker What tobacco products do you use: cigarettes Cigarettes per day: 8 Years smoked: 40 Smoking pack-years: 16.00 Non-prescribed substance use: denies use Highest level of school completed/degree received: high school graduate Little interest or pleasure in doing things: not at all Feeling down, depressed, or hopeless: not at all Exam Narrative Exam Narrative: Nurses note and vital signs reviewed and patient is not hypoxic. General: The patient appears uncomfortable. Skin: Warm, dry, no pallor noted. There is no rash noted. Head: Normocephalic, atraumatic Eye: Normal conjunctiva, no drainage Ears, Nose, Mouth, and Throat: oral mucosa is moist. Nares patent. a Cardiovascular: Regular Rate and Rhythm Respiratory: Patient is in no distress, no accessory muscle use, lungs are clear to auscultation, no wheezing, rales or rhonchi Back: non-tender GI: Soft and nontender Musculoskeletal: The left arm is examined. She has some swelling in the left wrist area and she is reluctant to move it. Skin intact. Fingers are not swollen. Neurological: A&O, normal speech Psychiatric: Cooperative Constitutional Vital Signs, click to edit/add: Last Vital Signs Temp 98.9 F 04/30/24 06:52 Pulse 78 04/30/24 06:52 Resp 18 04/30/24 06:52 BP 149/83 H 04/30/24 06:52 Pulse Ox 98 04/30/24 06:52 O2 Del Method Room Air 04/30/24 06:52 Course Vital Signs Vital signs: Vital Signs Temperature 98.9 F 04/30/24 06:52 Pulse Rate 78 04/30/24 06:52 Respiratory Rate 18 04/30/24 06:52 Blood Pressure 149/83 H 04/30/24 06:52 Pulse Oximetry 98 04/30/24 06:52 Oxygen Delivery Method Room Air 04/30/24 06:52 Temperature 98.9 F 04/30/24 06:52 Pulse Rate 78 04/30/24 06:52 Respiratory Rate 18 04/30/24 06:52 Blood Pressure 149/83 H 04/30/24 06:52 Pulse Oximetry 98 04/30/24 06:52 Oxygen Delivery Method Room Air 04/30/24 06:52 MDM - Extremity Injury (Upper) MDM Narrative Medical decision making narrative: X-rays are negative per radiologist. Splint applied, application checked by me and found to be appropriate, she is neurovascular intact. She is prescribed Percocet and Celebrex and will take these for pain. Findings were discussed with the patient. Differential Diagnosis Differential diagnosis: Likely sprain and strain of wrist and other (Wrist fracture) Imaging Data Hand and wrist x-ray: Radiologist's impression: ITS Impressions Hand X-Ray 04/30/24 06:59 IMPRESSION: No acute osseous abnormality of the left hand or wrist. Electronically authenticated by: RJ JHAVERI Date: 04/30/2024 09:06 Wrist X-Ray 04/30/24 06:59 IMPRESSION: No acute osseous abnormality of the left hand or wrist. Electronically authenticated by: RJ JHAVERI Date: 04/30/2024 09:06 Discharge Plan Discharge Chief Complaint: Extremity Injury, Upper Clinical Impression: Left wrist sprain Patient Disposition: Home, Self-Care Time of Disposition Decision: 09:25 Condition: Good Mode of Transportation: Private Vehicle Prescriptions / Home Meds: No Action albuterol sulfate 2.5 mg /3 mL (0.083 %) solution for nebulization 2.5 mg inhalation Q4H PRN (Reason: shortness of breath or wheezing) pregabalin [Lyrica] 75 mg capsule 75 mg PO BID Qty: 60 2RF melatonin 10 mg capsule 10 mg PO BEDTIME PRN (Reason: sleep) multivitamin Tablet 1 tab PO DAILY albuterol sulfate [ProAir HFA] 90 mcg/actuation HFA aerosol inhaler 2 inh inhalation QID PRN (Reason: shortness of breath or wheezing) cyclobenzaprine 10 mg tablet 20 mg PO BEDTIME PRN (Reason: muscle spasm) amlodipine 5 mg tablet 5 mg PO DAILY Stiolto Respimat 2.5-2.5 mcg/actuation mist 2 inh INHALATION Q24H oxycodone-acetaminophen [Percocet] 7.5-325 mg tablet 1 tab PO TID PRN (Reason: pain) Qty: 90 0RF oxycodone-acetaminophen [Percocet] 7.5-325 mg tablet 1 tab PO TID PRN (Reason: pain) Qty: 90 0RF trazodone 50 mg tablet 50 mg PO .HS Qty: 30 2RF pregabalin [Lyrica] 75 mg capsule 75 mg PO BID Qty: 60 0RF pregabalin [Lyrica] 75 mg capsule 75 mg PO BID Qty: 60 0RF oxycodone-acetaminophen [Percocet] 7.5-325 mg tablet 1 tab PO TID PRN (Reason: pain) Qty: 90 0RF celecoxib [Celebrex] 100 mg capsule 100 mg PO BID Qty: 60 2RF trazodone 50 mg tablet 50 mg PO DAILY Qty: 30 2RF pregabalin [Lyrica] 75 mg capsule 75 mg PO BID Qty: 60 0RF cyclobenzaprine 10 mg tablet 10 mg PO TID PRN (Reason: muscle spasm) Qty: 90 2RF celecoxib [Celebrex] 100 mg capsule 100 mg PO BID Qty: 60 2RF oxycodone-acetaminophen [Percocet] 7.5-325 mg tablet 1 tab PO TID PRN (Reason: pain) Qty: 90 0RF naloxone [Narcan] 4 mg/actuation spray,non-aerosol 4 mg intranasal Q3M PRN (Reason: opioid overdose) Qty: 2 0RF Rx Instructions: spray 1 dose into ONE nostril; alternate nostrils w each dose until help arrives Print Language: Colombian Instructions: Wrist Sprain (ED) Additional Instructions: Ice and elevate Referrals: BIANCA GARCIA [Primary Care Provider] - 1 week
== END 2024-04-30 09:33 | disposition home or self-care (01) ==
PROVIDERS: Emergency Provider Emergency Medicine; PCP Family Medicine
DX: S63.502A Unspecified sprain of left wrist, initial encounter (principal); W19.XXXA Unspecified fall, initial encounter; F17.210 Nicotine dependence, cigarettes, uncomplicated
CPT/HCPCS: 73110; 73130; 99283

== ENCOUNTER 2024-05-04 10:57 | Outpatient (OUT) | payer MEDICAID, SELFPAY ==
--- OUTSIDE RECORDS SUMMARY | 2024-05-04 11:18 | XMS_ITS | CCD ---
Author Organization [facility] Care Team Providers Care Finishing Supervisor Name Role Phone Bianca Garcia Unavailable John [...] Drug Allergy 3 Palpitations (finding) General Surgery [place] (1 source) hydrOXYzine Drug Allergy [address] [place] [address] Repository (1 source) hydrOXYzine; Translations: [Vistaril] Drug Allergy [facility] Repository Medications Current Medications Medication Drug [...] tablet Orally q8-12 hrs prn Jul, Active [id number] 200 actuat albuterol 0.09 mg/actuat metered dose [...] Status: Ordered take 2 tablets by mo [facility] every twenty-four hours Cyclobenzaprine HCl [...] 08/24/23 Status: Ordered take 1 tablet [facility]-four hours Melatonin 5 MG [...] site] Chronic Other aftercare (3 sources) 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 Normal [facility] Consent for Procedure/Surger yon 10-02-2023 Consent for Procedure/Surgery [id number] 0TIFF [facility] MR head/brain wo/w [facility]on MR head/brain wo/w [facility] [place] [address] MRI Report Signed Patient: Arianna Tucker MR#: [id number] 2 : 1965 Acct:[id number] Age/Sex: 58 / F ADM Date: 10/01/23 Loc: MR [facility]: [facility]: Carlitos Lu DO Copies to: [...] M.D.10/02/2023 12:33 PM Dictation Location: [place] [address] Transcribed By: [facility] 10/02/23 1233 Dictated By: Maciel Duarte II, MD 10/02/23 1225 Signed By: 10/02/23 1233 Normal [facility] Facesheeton 10-01-2023 Facesheet [id number] 0TIFF Normal [facility] Ambulatory Visit Summaryon 0 09-30-2023 Ambulatory [...] you for choosing us for your care. [facility] Provider Letteron 08-17-2023 Provider Letter August 17, 2023 ARIANNA TUCKER [address] [place] [id number] : 1965 Dear Ms. Tucker, We have [...] your prompt attention to this matter. Sincerely, [facility] General Surgery [phone] [facility] No Panel Informationon 08-01 Miscellaneous Test COMMENT . [facility] Comment on above: Test Ordered: [id number] Alk Phos IsoenzymeAlkaline Phosphatase 117 IU/L CB Reference Range: 44-121Liver Fraction: 52 % CB Reference Range: 18-85Bone Fraction: 46 % CB Reference Range: 14-68Intestinal Frac.: 2 % CB Reference Range: 0-18Performed at: - [facility] [address] [id number] Director: Cam Reyes PhD, Phone: [phone] Physician Referralon 024 Physician Referral [id number] 0TIFF Normal [facility] CBC AUTO DIFFon 07-26-2022 BASO # 0.1 103/ul Normal 0.0-0.1 [facility] Comment on above: Performed By: #### U RCX #### [facility] [address] [address] [address] Roderick Greene Basophils/100 WBC (Bld) 0.6 % Normal 0.2-2.0 [facility] Comment on above: Performed By: #### U RCX #### [facility] [address] [place] [address] Dr. Roderick Greene EO # 0.8 103/ul Critically high 0.0-0.7 [facility] Comment on above: Performed By: #### U RCX #### [facility] [address] [place] [address] Dr. Roderick Greene Eosinophils/100 WBC (Bld) 7.9 % Critically high 0.9-7.0 [facility] Comment on above: Performed By: #### U RCX #### [facility] [address] [address] [address] Roderick Greene Erythrocyte distribution width (RBC) [Ratio] 13.2 % Normal 11.0-15.0 [facility] Comment on above: Performed By: #### U RCX #### [facility] [address] [place] [address] Dr. Roderick Greene Hematocrit (Bld) [Volume fraction] 50.3 % Critically high 36.0-48.0 [facility] Comment on above: Performed By: #### U RCX #### [facility] [address] [place] [address] Dr. Roderick Greene Hemoglobin (Bld) [Mass/Vol] 16.0 g/dL Normal 12.0-16.0 [facility] Comment on above: Performed By: #### U RCX #### [facility] [address] [place] [address] Dr. Roderick Greene IG # 0.02 10e3/ul Normal 0.00-0.03 [facility] Comment on above: Performed By: #### U RCX #### [facility] [address] [address] [address] Roderick Greene IG % 0.2 % Normal 0.0-0.5 [facility] Comment on above: Performed By: #### U RCX #### [facility] [address] [place] [address] Dr. Roderick Greene LYMPH # 2.3 103/ul Normal 1.2-3.8 [facility] Comment on above: Performed By: #### U RCX #### [facility] [address] [place] [address] Dr. Roderick Greene Lymphocytes/100 WBC (Bld) 24.5 % Normal 20.5-60.0 [facility] Comment on above: Performed By: #### U RCX #### [facility] [address] [place] [address] Dr. Roderick Greene MANUAL DIFF REQ NO Normal [facility] Comment on above: Performed By: #### U RCX #### [facility] [address] [place] [address] Dr. Roderick Greene MCH (RBC) [Entitic mass] 31.4 pg Normal 26.7-34.0 [facility] Comment on above: Performed By: #### U RCX #### [facility] [address] [place] [address] Dr. Roderick Greene MCHC (RBC) [Mass/Vol] 31.8 g/dL Normal 29.9-35.2 [facility] Comment on above: Performed By: #### U RCX #### [facility] [address] [place] [address] Dr. Roderick Greene MCV (RBC) [Entitic vol] 98.8 fL Normal 81.0-99.0 [facility] Comment on above: Performed By: #### U RCX #### [facility] [address] [place] [address] Dr. Roderick Greene MONO # 0.4 103/ul Normal 0.3-0.8 [facility] Comment on above: Performed By: #### U RCX #### [facility] [address] [place] [address] Dr. Roderick Greene Monocytes/100 WBC (Bld) 3.7 % Normal 1.7-12.0 [facility] Comment on above: Performed By: #### U RCX #### [facility] [address] [place] [address] Dr. Roderick Greene NEUT # 6.0 103/ul Normal 1.4-6.[address] [facility] Comment on above: Performed By: #### U RCX #### [facility] [address] [place] [address] Dr. Roderick Greene Neutrophils/100 WBC (Bld) 63.1 % Normal 43.0-75.0 [facility] Comment on above: Performed By: #### U RCX #### [facility] [address] [place] [address] Dr. Roderick Greene Platelet mean volume (Bld) [Entitic vol] 10.7 fL Normal 9.5-13.5 [facility] Comment on above: Performed By: #### U RCX #### [facility] [address] [place] [address] Dr. oRderick Greene PLT 290 103/ul Normal 150-[address] [facility] Comment on above: Performed By: #### U RCX #### [facility] [address] [place] [address] Dr. Roderick Greene RBC 5.09 106/ul Normal 4.20-5.[address] [facility] Comment on above: Performed By: #### U RCX #### [facility] [address] [place] [address] Dr. Roderick Greene WBC 9.5 103/ul Normal 4.0-11.[address] [facility] Comment on above: Performed By: #### U RCX #### [facility] [address] [place] [address] Dr. Roderick Greene CULTURE URINEon 07-26-2022 CULTURE URINE Culture Observations : LIGHT GROWTH OF MIXED GENITAL MATEO. NO POTENTIAL PATHOGENS SEEN. Normal [facility] Comment on above: Performed By: #### U RCX #### [facility] [address] [address] [address] Roderick Greene GLYCOHEMOGLOBIN A1Con 2022 ADA RECOMMENDATION SEE BELOW Normal [facility] Comment on above: Result Comment: ADA RECOMMENDED LIMIT 4.0 - 6.0 ADA THERAPEUTIC TARGET < 7.0 ACTION SUGGESTED > 7.0 Performed By: #### A 1C #### [facility] [address] [address] [address] Roderick Greene Glucose [Mass/Vol] 108 mg/dL Critically high 74-106 [facility] Comment on above: Performed By: #### A 1C #### [facility] [address] [place] [address] Dr. Roderick Greene Performed By: #### T SH, LIPID, CMP #### [facility] [address] [place] [address] Dr. Roderick Greene HbA1c (Bld) [Mass fraction] 5.4 % Normal 4.5-6.2 [facility] Comment on above: Performed By: #### A 1C #### [facility] [address] [place] [address] Dr. Roderick Greene LIPID PROFILEon 07-26-2022 CHOL-HDL RATIO NORM SEE BELOW Normal [facility] Comment on above: Result Comment: 3.3 - 4.4 LOW RISK 4.4 - 7.1 AVERAGE RISK 7.1 - 11.0 MODERATE RISK >11.0 HIGH RISK Performed By: #### U RCX #### [facility] [address] [place] [address] Dr. Roderick Greene Cholesterol [Mass/Vol] 217 mg/dL Critically high <=200 [facility] Comment on above: Performed By: #### U RCX #### [facility] [address] [place] [address] Dr. Roderick Greene Cholesterol in HDL [Mass/Vol] 55 mg/dL Normal 40-60 [facility] Comment on above: Performed By: #### U RCX #### [facility] [address] [place] [address] Dr. Roderick Greene Cholesterol in LDL [Mass/Vol] 143.6 mg/dL Normal [facility] Comment on above: Performed By: #### U RCX #### [facility] [address] [address] [address] Roderick Greene Cholesterol.total/Cho lesterol in HDL [Mass ratio] 3.9 {ratio} Normal [facility] Comment on above: Performed By: #### U RCX #### [facility] [address] [address] [address] Roderick Greene HDL NORMAL > or = 60 mg/dl - LO W CARDIOVASCULAR RISK <40 mg/dl - HIGH CARDIOVASCULAR RISK Normal [facility] Comment on above: Performed By: #### U RCX #### [facility] [address] [address] [address] Roderick Greene LDL CALC NORMAL SEE BELOW Normal [facility] Comment on above: Result Comment: <100 mg/dl OPTIMAL 100 - 129 mg/dl NEAR OR ABOVE OPTIMAL 130 - 159 mg/dl BORDERLINE HIGH 160 - 189 mg/dl HIGH >190 mg/dl VERY HIGH Performed By: #### U RCX #### [facility] [address] [place] [address] Dr. Roderick Greene Triglyceride [Mass/Vol] 92 mg/dL Normal <=150 [facility] Comment on above: Performed By: #### U RCX #### [facility] [address] [place] [address] [address] Roderick Greene VLDL CALC 18.4 mg/dL Normal [facility] Comment on above: Performed By: #### U RCX #### [facility] [address] [address] [address] Roderick Greene PROF 14(COMP METB)on 023 Albumin [Mass/Vol] 3.7 g/dL Normal 3.4-5.0 [facility] Comment on above: Performed By: #### T SH, LIPID, CMP #### [facility] [address] [address] [address] Roderick Greene Albumin/Globulin [Mass ratio] 1.0 {ratio} Normal [facility] Comment on above: Performed By: #### T SH, LIPID, CMP #### [facility] [address] [address] [address] Roderick Greene ALP [Catalytic activity/Vol] 146 U/L Critically high 46-116 [facility] Comment on above: Performed By: #### T SH, LIPID, CMP #### [facility] [address] [address] [address] Roderick Greene ALT [Catalytic activity/Vol] 24 U/L Normal 14-59 [facility] Comment on above: Performed By: #### T SH, LIPID, CMP #### [facility] [address] [address] [address] Roderick Greene Anion gap [Moles/Vol] 11.7 mmol/L Normal [facility] Comment on above: Performed By: #### T SH, LIPID, CMP #### [facility] [address] [place] [address] Dr. Roderick Greene AST [Catalytic activity/Vol] 23 U/L Normal 15-37 [facility] Comment on above: Performed By: #### T SH, LIPID, CMP #### [facility] [address] [address] [address] Roderick Greene Bilirubin [Mass/Vol] 0.5 mg/dL Normal 0.2-1.0 [facility] Comment on above: Performed By: #### T SH, LIPID, CMP #### [facility] [address] [address] [address] Roderick Greene Calcium [Mass/Vol] 9.3 mg/dL Normal 8.5-10.1 [facility] Comment on above: Performed By: #### T SH, LIPID, CMP #### [facility] [address] [address] [address] Roderick Greene Chloride [Moles/Vol] 105 mmol/L Normal 98-107 [facility] Comment on above: Performed By: #### T SH, LIPID, CMP #### [facility] [address] [place] [address] Dr. Roderick Greene CO2 [Moles/Vol] 31.0 mmol/L Normal 21.0-32.0 [facility] Comment on above: Performed By: #### T SH, LIPID, CMP #### [facility] [address] [address] [address] Roderick Greene Creatinine [Mass/Vol] 0.65 mg/dL Normal 0.55-1.02 [facility] Comment on above: Performed By: #### T SH, LIPID, CMP #### [facility] [address] [address] [address] Roderick Greene EGFR-AF PAKISTANI >60 Normal >=60 [facility] Comment on above: Performed By: #### T SH, LIPID, CMP #### [facility] [address] [address] [address] Roderick Greene EGFR-NON AF PAKISTANI >60 Normal >=60 [facility] Comment on above: Performed By: #### T SH, LIPID, CMP #### [facility] [address] [address] [address] Roderick Greene Globulin (S) [Mass/Vol] 3.6 g/dL Normal [facility] Comment on above: Performed By: #### T SH, LIPID, CMP #### [facility] [address] [address] [address] Roderick Greene Potassium [Moles/Vol] 4.7 mmol/L Normal 3.5-5.1 [facility] Comment on above: Performed By: #### T SH, LIPID, CMP #### [facility] [address] [address] [address] Roderick Greene Protein [Mass/Vol] 7.3 g/dL Normal 6.4-8.2 [facility] Comment on above: Performed By: #### T SH, LIPID, CMP #### [facility] [address] [address] [address] Roderick Greene Sodium [Moles/Vol] 143 mmol/L Normal 136-145 [facility] Comment on above: Performed By: #### T SH, LIPID, CMP #### [facility] [address] [address] [address] Roderick Greene Urea nitrogen [Mass/Vol] 13.0 mg/dL Normal 7.0-18.0 [facility] Comment on above: Performed By: #### T SH, LIPID, CMP #### [facility] [address] [place] [address] Dr. Roderick Greene Urea nitrogen/Creatinine [Mass ratio] 20.0 mg/mg Normal [facility] Comment on above: Performed By: #### T SH, LIPID, CMP #### [facility] [address] [place] [address] Dr. Roderick Greene TSHon 07-26-2022 TSH 0.822 uIU/mL Normal 0.358-3.740 [facility] Comment on above: Performed By: #### T SH, LIPID, CMP #### [facility] [address] [place] [address] Dr. Roderick Greene UA RANDOM W/MICROSCOPICon BACTERIA TRACE Abnormal NONE SEEN [facility] Comment on above: Performed By: #### U AMIC #### [facility] [address] [place] [address] Dr. Roderick Greene Bilirubin Ql (U) Negative Normal NEGATIVE [facility] Comment on above: Performed By: #### U AMIC #### [facility] [address] [place] [address] Dr. Roderick Greene CAST NONE SEEN Normal NONE SEEN [facility] Comment on above: Performed By: #### U AMIC #### [facility] [address] [place] [address] Dr. Roderick Greene Clarity (U) CLEAR Normal CLEAR [facility] Comment on above: Performed By: #### U AMIC #### [facility] [address] [place] [address] Dr. Roderick Greene Color (U) LT. YELLOW Normal YELLOW [facility] Comment on above: Performed By: #### U AMIC #### [facility] [address] [place] [address] Dr. Roderick Greene Crystals LM Nom (Urine sed) NONE SEEN Normal NONE SEEN [facility] Comment on above: Performed By: #### U AMIC #### [facility] [address] [address] [address] Roderick Greene Epithelial cells LM Ql (Urine sed) FEW Abnormal NONE SEEN /RARE [facility] Comment on above: Performed By: #### U AMIC #### [facility] [address] [address] [address] Roderick Greene Glucose Ql (U) Negative Normal NEGATIVE [facility] Comment on above: Performed By: #### U AMIC #### [facility] [address] [address] [address] Roderick Greene Hemoglobin Ql (U) Negative Normal NEGATIVE [facility] Comment on above: Performed By: #### U AMIC #### [facility] [address] [place] [address] Dr. Roderick Greene Ketones Ql (U) Negative Normal NEGATIVE [facility] Comment on above: Performed By: #### U AMIC #### [facility] [address] [place] [address] Dr. Roderick Greene LEUKOCYTES Negative Normal NEGATIVE [facility] Comment on above: Performed By: #### U AMIC #### [facility] [address] [address] [address] Roderick Greene MUCOUS SMALL Abnormal NONE SEEN [facility] Comment on above: Performed By: #### U AMIC #### [facility] [address] [place] [address] Dr. Roderick Greene Nitrite Ql (U) Negative Normal NEGATIVE [facility] Comment on above: Performed By: #### U AMIC #### [facility] [address] [place] [address] Dr. Roderick Greene pH (U) 8.0 [pH] Normal 5-[address] [facility] Comment on above: Performed By: #### U AMIC #### [facility] [address] [place] [address] Dr. Roderick Greene RBC NONE SEEN Abnormal 0-[address] [facility] Comment on above: Performed By: #### U AMIC #### [facility] [address] [place] [address] Dr. Roderick Greene SPEC GRAVITY 1.020 Normal 1.005-<=1.025 [facility] Comment on above: Performed By: #### U AMIC #### [facility] [address] [address] [address] Roderick Greene UA PROTEIN Negative Normal NEGATIVE/ TRACE [facility] Comment on above: Performed By: #### U AMIC #### [facility] [address] [address] [address] Roderick Greene Urobilinogen Qn (U) 0.2 {Jordan'U}/dL Normal 0.2 - 1. 0 [facility] Comment on above: Performed By: #### U AMIC #### [facility] [address] [address] [address] Roderick Greene WBC NONE SEEN Normal NONE SEEN [facility] Comment on above: Performed By: #### U AMIC #### [facility] [address] [address] CHEST WO CONon [...] by: SONU COLLINS Date: 2022-03-03 07:51 Normal [facility] Vital Signs Date Time Vital Sign Value Performing Clinician Facility 10-01-2023 07:08-0400 Body height 165.1 cm DO Bianca Garcia Work Phone: [facility] 10-01-2023 07:08-0400 Body weight 77.11 kg DO Bianca Garcia Work Phone: [facility] 09-30-2023 15:26-0400 Blood Pressure Location [facility] 09-30-2023 15:26-0400 Diastolic blood pressure 84 mm[Hg] [facility] 09-30-2023 15:26-0400 Heart rate 76 /min [facility] 09-30-2023 15:26-0400 Respiratory rate 16 /min [facility] 09-30-2023 15:26-0400 Systolic blood pressure 138 mm[Hg] [facility] 07-23-2023 09:50-0500 Body height 162.56 cm Bianca Garcia Other [facility] 07-23-2023 09:50-0500 Body mass index (BMI) [Ratio] 29.69 kg/m2 Bianca Garcia Other [employer] Other 07-23-2023 09:50-0500 Body temperature 98.1 [degF] Bianca Garcia Other [employer] [facility] [employer] Other 07-23-2023 09:50-0500 Body weight 78.47 kg Bianca Garcia Other [facility] 07-23-2023 09:50-0500 Diastolic blood pressure 88 mm[Hg] Bianca Garcia Other [facility] 07-23-2023 09:50-0500 Respiratory rate 18 /min Bianca Garcia Other [employer] Other 07-23-2023 09:50-0500 SaO2% (BldA) [Mass fraction] 99 % Bianca Garcia Other [employer] Other 07-23-2023 09:50-0500 Systolic blood pressure 128 mm[Hg] Bianca Garcia Other [facility] 07-30-2022 12:10-0500 Body height 162.56 cm Bianca Garcia Other [employer] Other 07-30-2022 12:10-0500 Body mass index (BMI) [Ratio] 27.12 kg/m2 Bianca Garcia Other [employer] Other 07-30-2022 12:10-0500 Body temperature 96.6 [degF] Bianca Garcia Other [employer] Other 07-30-2022 12:10-0500 Body weight 71.67 kg Bianca Garcia Other [employer] Other 07-30-2022 12:10-0500 Diastolic blood pressure 86 mm[Hg] Bianca Garcia Other [employer] Other 07-30-2022 12:10-0500 Respiratory rate 18 /min Bianca Garcia Other [employer] Other 07-30-2022 12:10-0500 SaO2% (BldA) [Mass fraction] 98 % Bianca Garcia Other [employer] Other 07-30-2022 12:10-0500 Systolic blood pressure 120 mm[Hg] Bianca Garcia Other [employer] Other 07-21-2022 11:30-0500 Body height 162.56 cm Bianca Garcia Other [employer] Other 07-21-2022 11:30-0500 Body mass index (BMI) [Ratio] 27.55 kg/m2 Bianca Garcia Other [employer] Other 07-21-2022 11:30-0500 Body temperature 98.4 [degF] Bianca Garcia Other [employer] Other 07-21-2022 11:30-0500 Body weight 72.8 kg Bianca Garcia Other [employer] Other 07-21-2022 11:30-0500 Diastolic blood pressure 88 mm[Hg] Bianca Garcia Other [employer] Other 07-21-2022 11:30-0500 Respiratory rate 18 /min Bianca Garcia Other [employer] Other 07-21-2022 11:30-0500 SaO2% (BldA) [Mass fraction] 95 % Bianca Garcia Other [employer] Other 07-21-2022 11:30-0500 Systolic blood pressure 122 mm[Hg] Bianca Garcia Other [employer] Other Encounters Encounter Date Encounter Type Care Provider Facility Start: 12-02-2023 End: 12-02-2023 ambulatory [facility] LEMUS Not Available Start: 11-12-2023 End: 11-12-2023 ambulatory [facility] LEMUS Not Available Start: 10-06-2023 End: 10-06-2023 ambulatory BART LEMUS Not Available Start: 10-01-2023 End: 10-01-2023 ambulatory Bianca Garcia Facility:[facility] Start: 10-01-2023 End: 10-01-2023 ambulatory DO Bianca Garcia Work Phone: [facility] Work Phone: Start: 10-01-2023 End: 10-01-2023 Patient encounter procedure DO Bianca Garcia Work Phone: [facility] [place] Work Phone: Start: 09-30-2023 End: 10-01-2023 ambulatory Bianca Garcia Facility:[facility] Start: 09-30-2023 End: 09-30-2023 Patient encounter procedure Esa LITTLE General Surgery [facility] Start: 09-03-2023 Non-patient / Non-visit DO Bianca Garcia Work Phone: [facility] Work Phone: Start: 08-01-2023 Non-patient / Non-visit DO Bianca Garcia Work Phone: [facility] Work Phone: Start: 07-27-2023 ambulatory Bianca Garcia Facility:[facility] Start: 07-23-2023 End: 07-23-2023 ambulatory Bianca Garcia Other [facility] Other Start: 07-23-2023 Office outpatient visit 25 minutes Bianca Garcia [facility] Start: 07-23-2023 End: 07-23-2023 Patient encounter procedure DO Bianca Garcia Work Phone: [facility]- Start: 11-20-2022 ambulatory JÚNIOR GOLDBERG . Facili ty:[facility] Start: 11-04-2022 End: 11-04-[address] BIANCA GARCIA Facility:[facility] Start: 10-09-2022 End: 10-10-2022 ambulatory YANE VALERA . Facility:[facility] Start: 10-01-2022 End: 10-01-2022 ambulatory Bianca Garcia Other [facility] Other Start: 10-01-2022 Telephone encounter Bianca Garcia [facility] Start: 08-28-2022 End: 08-29-[address] LENORE STOLL . Facility:[facility] Start: 08-05-2022 End: 08-05-2022 ambulatory John Diallopinky Other [facility] Other Start: 08-05-2022 Telephone encounter Imad Asaad [facility] Service [facility] Start: 07-30-2022 End: 07-30-2022 ambulatory Bianca Garcia Other [facility] Other Start: 07-30-2022 Office outpatient visit 25 minutes Bianca Garcia [facility] Start: 07-26-2022 End: 07-27-[address] BIANCA GARCIA Facility:[facility] Start: 07-24-2022 End: 07-25-[address] LENORE STOLL . Facility:[facility] Start: 07-21-2022 End: 07-21-2022 ambulatory Bianca Garcia Other [facility] Other Start: 07-21-2022 Office outpatient visit 15 minutes Bianca Garcia [facility] Start: 05-27-2022 End: 05-27-2022 ambulatory [...] Author Start: 10-01-2023 MR Unspecified body region [facility] Start: 10-01-2023 MRI of head MR head/brain wo/w con [facility] Immunizations Immunization Date Immunization Notes Care Provider Fa cility 02-09-2021 COVID-19 Pfizer Bianca Garcia Other [facility] [place] 01-21-2021 COVID-19 Pfizer Bianca Garcia Other [facility] [place] Payers Date Payer Category Payer Self-pay 2022 Medicaid [id number] 2. [id number] 1965 Unknown [id number] 2.16.84 0.1.475332.3.579.2.593 1966 Unknown [id number] 2.16.84 0.1.547903.3.579.2.593 1966 Unknown [id number] 2.16.84 0.1.632279.3.579.2.593 1966 Unknown [id number] 2.16.84 0.1.993669.3.579.2.593 1966 Unknown [id number] 2.16.84 0.1.978760.3.579.2.593 1966 Unknown [id number] 2.16.84 0.1.701516.3.579.2.593 1966 Unknown [id number] 2.16.84 0.1.978679.3.579.2.593 1966 Unknown [id number] 2.16.84 0.1.675447.3.579.2.593 1966 Unknown [id number] 2.16.84 0.1.262979.3.579.2.593 1966 Unknown [id number] 2.16.84 0.1.958773.3.579.2.593 1966 Unknown [id number] 2.16.84 0.1.765175.3.579.2.593 1966 Unknown [id number] 2.16.84 0.1.408519.3.579.2.593 1966 Unknown [id number] 2.16.84 0.1.832106.3.579.2.593 1966 Unknown [id number] 2.16.8 40.1.569789.3.579.2.727 1966 Unknown [id number] 2.16.84 0.1.171792.3.579.2.1259 1966 Unknown [id number] 2.16.84 0.1.994173.3.579.2.1259 1966 Unknown [id number] 2.16.84 0.1.202635.3.579.2.1259 1959 Unknown [id number] Medicaid [employer] [id number] Unknown [id number] 2.16.8 40.1.473382.3.579.2.531 Social History Date Type Detail Facility Unknown if ever smoked [facility] Other Sex Assigned At [facility] Start: 09-30-2023 Tobacco smoking status Light t obacco smoker (finding) [facility] [place] Tobacco smoking status Never Gener [facility] Start: 08-04-2023 Tobacco smoking stat NHIS Smoker (finding) [facility] Start: 1965 Sex Assigned At Female F [facility] Functional Status Date Assessment Result Facility 09-30-2023 Functional Status N/A [facility] Clinical Notes 08-11-2011 to 09-30-2023 Note Date [...] SARS-CoV-2 (COVID-19) mRNA BNT-162b2 vax 01/21/2021 Recorded [facility] Comment on above: Result Comment: Elec [...] see whomever can see her first at [facility]. 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 Jul, Other roasterman (current) drug therapy (ICD-10 - Z79.899) Jul, Weight gain (ICD-10 - R63.5) Jul, Elevated blood pressure (ICD-10 - R03.0) Her blood pressure is controlled. Continue with above medication daily as directed. Jul, Other She voices that she was anxious to come into the office today but once she was in her exam room she was calmed down. [facility] Other 04-20-2023 NoteCONSULTATION CONSULTATION DATE: 10/09/2022 TO: [...] our patients to inform us about any swkd-enf-efacfpl medications or herbal remedies/nutritional supplements/alternative remedies. 2. [...] with their primary care provider.[facility] [id number] Note CONSULTATION CONSULTATION DATE: 08/28/2022 HISTORY OF [...] plan and all questions answered.[facility] [id number] Evaluation note* Encounter Date Diagnosis Assessment Notes [...] number of someone she can see through [facility]. She voices that she will think about it. I asked her not to take anymore Vistaril. Jul, Lumbar pain (ICD-10 - M54.50) She voices that Dr. Stoll is retiring and his SEO ASSISTANT is leaving. She is scheduled for an [...] and if/when testing needs to be repeated. [facility] Other 02-02-2023 NoteCONSULTATION CONSULTATION DATE: 07/24/2022 HISTORY [...] is in agreement to this.[facility] [id number] Evaluation note * Encounter Date Diagnosis Assessment [...] to the procedure and should have a taxi driver supervisor to take her to the procedure and [...] Jun, Hyperglycemia (ICD-10 - R73.9) Jun, Other roasterman (current) drug therapy (ICD-10 - Z79.899) Jun, [...] have a mammogram done but she refuses. [facility] Other 11-03-2022 NoteCONSULTATION CONSULTATION DATE: 04/24/2022 HISTORY [...] in the clinic post procedure.[facility] [id number] NoteCONSULTATION CONSULTATION DATE: 02/20/2022 HISTORY OF PRESENT [...] this and all questions answered.[facility] [id number] NoteCONSULTATION CONSULTATION DATE: 12/18/2921 This is a [...] up in the clinic. [facility] Signed and Approved by: JOSE ALEJANDRO STINSON . 12/26/2021 16:26:00[facility] [id number] History general Narrative - Reported* Type Description Date Medical History Gestational Diabetes Medical History History of Hemorrhoids Medical History Chest X-Ray Done 08-11-11 Medical History Lumbar Spine X-Ray Done 08-11-11 Medical History Pelvic Ultrasound 08-11-12; [facility] Medical History Transvaginal US 08-12-12; [facility] Medical History CT Abdomen and Pelvis 08-16-12; [facility] Medical History TDap (Adacel) 01-03-15 [place] E R Medical History 01/2015 Dr So, 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 Lu Colonoscopy, Divert iculosis 10-05-2012 Surgical History injection in back - Pain Mgmt Surgical History Nerve block in back 06/2019 Hospitalization History Tonsillectomy Hospitalization History Childbirth Hospitalization History [place] [facility] stic hes in rt hand cut during washing dishes 01/03/2015 [facility] [employer] Other Evaluation + Plan note No data available for this section General Surgery [place] Evaluation noteNo [facility] Other Evaluation noteNo assessment information available [facility] Work Phone: Hospital Discharge instructions No data available for this section General Surgery [place] Progress note No data available for this section General [facility] [place] Reason for visit Narrativecheck up/discuss dementia, discuss multiple issues, see treatment plan for further informationWashington [employer] Other Reason for Referral Reason appt 09/05/22 at 8am pt needs screening colonoscopy Diagnosis 1 Colon cancer screeni ng (Z12.11) Referral Organization [facility] Family Medicin e [place] Referring Provider First Name Bianca Referring Provider Last Name Jose Referring Provider Specialty Family Prac guero Referred Organization [facility] Gastroenterolo gy Referred Provider John Cedillo Referred Address [address],[facility] [facility] [address] ,[place], [place],[address] Referred Provider Specialty Gastroentero logy Referral Priority Routine Referral Appointment Date 2022-09-05 General Notes Delilah Sandoval 07/21/2022 11:57:58 AM > referral sent p2p. pt understands she will be contacted to schedule this appt. Delilah Sandoval 08/06/2022 10:17:55 AM > colonoscopy scheduled on 09/05/22 at 8am Reason appt pt needs cons ult to discuss memory changes Diagnosis 1 Memory changes (R41. 3) Referral Organization [facility] [place] Referring Provider First Name Bianca Referring Provider Last Name Jose Referring Provider Specialty Family Prac guero Referred Organization [facility] Referred Provider Carlitos Lu Referred Address [address],[place], [place],[address] Referred Provider Specialty Neurology Referral Priority Routine General Notes Delilah Sandoval 07/23/2023 11:40:43 AM > referral faxed thru [facility] with visit note and insurance card. pt understands she will be contacted to schedule this appt. Reason appt pt needs scre ening colonoscopy Diagnosis 1 Colon cancer screeni ng (Z12.11) Referral Organization [facility] [place] Referring Provider First Name Bianca Referring Provider Last Name Jose Referring Provider Specialty Family Prac guero [facility] Organization [facility] Referred Provider Esa Little [place] [address] [place] [place], [place],[address] Referred Provider Specialty Surgery Referral Priority Routine [...] CREATED AUTHOR AUTHOR'S ORGANIZ ATION 10/06/2023 [facility] DATE CREATED AUTHOR AUTHOR'S ORGANIZ ATION 10/27/2023 [facility] DATE CREATED AUTHOR AUTHOR'S ORGANIZ ATION 12/03/2023 [facility] d[facility] Specialists EPIC Patient Care team [...] BE BASED ON THE PRIMARY CLINICAL RECORDS. [facility] [employer] [facility]. provides no warranty or guarantee of the accuracy or completeness of information in this document.
--- NOTE | 2024-05-04 12:02 | PM.CN ---
Consult Note: HPI Data of Consult Patient: known to practice within the last 3 years Requesting Physician: Tori Noyola NP Primary Care Provider: BINACA GARCIA Consult Narrative Reason for consult: f/u Narrative: Arianna Tucker a pleasant 58 year old female presents for evaluation and management of chronic low back pain and right knee pain. Patient reporting pain 6/10 today. Continues to find functional improvement and mild pain relief from current medication regimen. Low back pain persisting, increased myofascial pain and spinal tenderness, cannot tolerate interventional therapy without IV sedation. cc:: CC: Tori Noyola NP Review of Systems ROS Status of ROS 10 or more systems reviewed and unremarkable except as noted in history and below Musculoskeletal Reports: back pain, neck pain and joint pain PFSH PFS Medical History (Updated 05/04/24 @ 12:04 by Tori Noyola NP) Lung nodule ?R91.1 - Solitary pulmonary nodule (ICD-10) Arthritis ?M19.90 - Unspecified osteoarthritis, unspecified site (ICD-10) Back pain ?M54.9 - Dorsalgia, unspecified (ICD-10) Insomnia ?G47.00 - Insomnia, unspecified (ICD-10) Anxiety ?F41.9 - Anxiety disorder, unspecified (ICD-10) Chronic obstructive pulmonary disease ?J44.9 - Chronic obstructive pulmonary disease, unspecified (ICD-10) Asthma ?J45.909 - Unspecified asthma, uncomplicated (ICD-10) Migraine ?G43.909 - Migraine, unspecified, not intractable, without status migrainosus (ICD-10) Lumbosacral spondylosis without myelopathy ?M47.817 - Spondylosis without myelopathy or radiculopathy, lumbosacral region (ICD-10) Hyperlipemia ?E78.5 - Hyperlipidemia, unspecified (ICD-10) Hyperglycemia ?R73.9 - Hyperglycemia, unspecified (ICD-10) Diverticulosis ?K57.90 - Diverticulosis of intestine, part unspecified, without perforation or abscess without bleeding (ICD-10) BMI 29.0-29.9,adult ?Z68.29 - Body mass index [BMI] 29.0-29.9, adult (ICD-10) Surgical History History of tubal ligation ?Z98.51 - Tubal ligation status (ICD-10) History of tonsillectomy ?Z90.89 - Acquired absence of other organs (ICD-10) H/O colonoscopy ?Z98.890 - Other specified postprocedural states (ICD-10) H/O laminectomy ?Z98.890 - Other specified postprocedural states (ICD-10) Family History Father Family history of COPD (chronic obstructive pulmonary disease) Brother Family history of diabetes mellitus Mother Family history of cancer Other Family history of hypertension Social History Within the past year, how often did you have a drink containing alcohol: never Score interpretation: A score less than 3 is consistent with normal alcohol consumption. Smoking status: Current every day smoker What tobacco products do you use: cigarettes Cigarettes per day: 8 Years smoked: 40 Smoking pack-years: 16.00 Non-prescribed substance use: denies use Highest level of school completed/degree received: high school graduate Little interest or pleasure in doing things: not at all Feeling down, depressed, or hopeless: not at all Meds Home Medications and Allergies Home Medications ?Medication ?Instructions ?Recorded ?Confirmed ?Type albuterol sulfate 2.5 mg/3 mL 2.5 mg inhalation Q4H PRN 11/20/22 04/30/24 History (0.083 %) solution for nebulization shortness of breath or wheezing celecoxib 100 mg capsule (Celebrex) 100 mg PO BID #60 caps 03/11/23 04/30/24 Rx pregabalin 75 mg capsule (Lyrica) 75 mg PO BID #60 caps 10/28/23 11/04/23 Rx albuterol sulfate 90 mcg/actuation 2 inh inhalation QID PRN shortness 10/29/23 10/29/23 History aerosol inhaler (ProAir HFA) of breath or wheezing cyclobenzaprine 10 mg tablet 20 mg PO BEDTIME PRN muscle spasm 10/29/23 04/30/24 History melatonin 10 mg capsule 10 mg PO BEDTIME PRN sleep 10/29/23 04/30/24 History multivitamin 1 tab PO DAILY 10/29/23 04/30/24 History amlodipine 5 mg tablet 5 mg PO DAILY 11/04/23 04/30/24 History tiotropium 2.5 mcg-olodaterol 2.5 2 inh inhalation Q24H 11/04/23 11/04/23 History mcg/actuation mist for inhalation (Stiolto Respimat) trazodone 50 mg tablet 50 mg PO DAILY #30 tabs 11/30/23 Rx oxycodone-acetaminophen 7.5 mg-325 1 tab PO TID PRN pain #90 tabs 01/25/24 Rx mg tablet (Percocet) oxycodone-acetaminophen 7.5 mg-325 1 tab PO TID PRN pain #90 tabs 02/23/24 Rx mg tablet (Percocet) pregabalin 75 mg capsule (Lyrica) 75 mg PO BID #60 caps 02/23/24 Rx trazodone 50 mg tablet 50 mg PO .HS #30 tabs 02/23/24 04/30/24 Rx oxycodone-acetaminophen 7.5 mg-325 1 tab PO TID PRN pain #90 tabs 03/29/24 Rx mg tablet (Percocet) pregabalin 75 mg capsule (Lyrica) 75 mg PO BID #60 caps 03/29/24 Rx celecoxib 100 mg capsule (Celebrex) 100 mg PO BID #60 caps 04/27/24 Rx cyclobenzaprine 10 mg tablet 10 mg PO TID PRN muscle spasm #90 04/27/24 Rx tabs naloxone 4 mg/actuation nasal 4 mg intranasal Q3M PRN opioid 04/27/24 Rx spray (Narcan) overdose #2 ea oxycodone-acetaminophen 7.5 mg-325 1 tab PO TID PRN pain #90 tabs 04/27/24 Rx mg tablet (Percocet) pregabalin 75 mg capsule (Lyrica) 75 mg PO BID #60 caps 04/27/24 Rx Allergies Allergy/AdvReac Type Severity Reaction Status Date / Time hydroxyzine (From Vistaril) AdvReac Unknown Palpitation Verified 04/30/24 06:56 s Exam Constitutional Documenting provider has reviewed patient's vital signs: yes Common normals: no apparent distress, oriented x3, healthy appearing, alert and well nourished General appearance: cooperative HENMN Common normals: normocephalic, hearing grossly normal bilaterally and moist oral mucous membranes Head and scalp: normocephalic Eye Common normals: PERRL Pupil: PERRL Neck & C-Spine Common normals: full ROM General: normal visual inspection Chest Common normals: inspection of chest normal Respiratory Common normals: normal respiratory effort, no retractions and no use of accessory muscles Back & Pelvis Lumbar spine/lower back: ROM limited, pain with ROM, paraspinal muscle spasm and straight leg raise negative bilaterally Sacroiliac joints: SI joint(s) abnormal Other: bilateral facet loading positive L>R pain from back to anterior thighs stopping at the knees L>R tenderness over bilateral PSIS, positive gaenslens thigh thrust FABERS bilaterally L>R pain with pressure on bilateral LCIH nerve significant myofascial pain above lumbar fusion scar Extremity Common normals: normal to inspection and full ROM Right lower extremity: knee joint (enlarged diameter, mild crepitus on exam. ) Other: positive lateral and medial stress testing, pain with activity and weight bearing. mild crepitus noted Neuro Common normals: oriented x3, CN's II-XII intact bilaterally, moves all extremities, no focal motor deficits, no sensory deficits noted and deep tendon reflexes 2+ bilaterally Sensorium/orientation: alert Gait (neuro): normal gait Motor exam: strength 5/5 throughout and no movement abnormalities noted Psych Common normals: mental status grossly normal, thought process normal, cooperative, affect normal, speech normal and activity/motor behavior normal Speech: normal speech Thought process: normal thought process Results Additional Findings Additional findings: If on a controlled substance or opioids, I have checked an [place]AR[place] report on this patient and there are no aberrancies noted in the prescribing history.??If on a controlled substance or opioid a drug screen was completed and reviewed within the last year, and if there has not been a drug screen completed we ordered one today to monitor higher risk, state monitored pain medication use. As part of providing excellent, safe, comprehensive care, the following was completed at our patient's visit: 1. A medication reconciliation and review to ensure accurate knowledge of current/active medications, including asking our patients to inform us about any axce-ssq-kgdhmro medications or herbal remedies/nutritional supplements/alternative remedies. 2. A review to specifically ensure our patients have had annual screening for screening for depression, screening for tobacco use, and screening for unhealthy alcohol use. For concerning screenings had a discussion with the patient, provided patient education, and recommended follow-up with primary care provider when appropriate. If patient noted with a risk of falling, they received education on strength, gait, and balance training to prevent future risk of falling. Assessment and Plan Assessment and Plan (1) Fibromyalgia: (2) Osteoarthritis of right knee: (3) History of lumbar fusion: (4) Chronic prescription opiate use: Assessment and Plan: I feel these medications are improving the patient's quality of life and allow them to tolerate activities of daily living as well as participate in recreational activity.? The patient does not report intolerable side effects. The patient is NOT opioid naive and non-pharmacologic and non-opioid treatment has failed to significantly relieve the patient's pain and improve functionality. The patient has a diagnosis that is related to a somatic or visceral pain etiology. ? ?? I reviewed with the patient the potential risks and side effects with the use of? opioid medications including but not limited to respiratory depression,? sedation, and even . I verified the patient has access to naloxone should? these effects occur. I advised the patient to avoid the use of any other? sedation substances including alcohol, THC, and benzodiazepines while? taking opioid medications due to the risk of compounding side effects and? detrimental outcomes. I reviewed the [employer], pain treatment agreement, urine? drug screen, and opioid start talking forms. The patient was advised to let? their family know they had Naloxone in case they would need to administer? the medication.? ?? A drug screen was completed within the last year, and no aberrancies were noted regarding their use of controlled substances. The patient understands they are subject to the terms and conditions of the pain contract that they have signed. ? ?? I have checked an OARRS report on this patient today and there are no aberrancies noted in the prescribing history.? (5) Lumbar spondylosis: (6) Failed back syndrome: (7) Muscle spasm: (8) Chronic low back pain: (9) Chronic pain syndrome: Plan increase pregabalin 75mg TID, risks vs benefits reviewed. continue other medications as ordered limit nsaids as discussed, hx of GERD. risks vs benefits reviewed continue efforts to stop tobacco use f/u 6 weeks to evaluate medication changes
== END 2024-05-04 10:58 | disposition home or self-care (01) ==
PROVIDERS: PCP Family Medicine; Visit Provider Nurse Practitioner
DX: M79.7 Fibromyalgia (principal); M17.11 Unilateral primary osteoarthritis, right knee; M43.26 Fusion of spine, lumbar region; Z79.891 Long term (current) use of opiate analgesic; M47.816 Spondylosis without myelopathy or radiculopathy, lumbar region; M96.1 Postlaminectomy syndrome, not elsewhere classified; M62.838 Other muscle spasm; M54.50 Low back pain, unspecified; G89.4 Chronic pain syndrome
CPT/HCPCS: G0463

== ENCOUNTER 2024-06-23 10:53 | Outpatient (OUT) | payer MEDICARE, MEDICAID, SELFPAY ==
--- OUTSIDE RECORDS SUMMARY | 2024-06-23 10:59 | XMS_ITS | CCD ---
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 Person Name Role Phone Bianca Garcia Unavailable John [...] HALSENG ., JÚNIOR Attending Unavailable JOSE, DR VALNEZUELA Primary Care Unavailable STOLL ., DR LENORE [...] Admitting Mora vailable STOLL ., DR LENORE eBcker Attending Unavailable JOSE, DR VALENZUELA Primary Care Unavailable SHANTELL .JOSE ALEJANDRO Consulting Unavailable MARNI ., DR LENORE Becker Admitting Unavailable Bianca Garcia Primary Care Physician DO Bianca Garcia Primary Care Provider [phone] DO Carlitos Lu Attending Provider [phone] Bianca Garcia Primary Care Unavailable Carlitos Lu Attending Unavailab Carlitos Kelley Admitting Unavailab Bianca Willoughby Referring Unavailable Esa LITTLE Attending Unavailable BART LEMUS Attending Unavailable Allergies Allergy Classification Reported Allergen(s) Allergy Type Date of Onset Reaction(s) Facility (6 sources) hydrOXYzine; Translations: [hydroxyzine] Drug Allergy 3 Palpitations (finding) General Surgery [place] (1 source) hydrOXYzine Drug Allergy [address] [place] [address] Repository (1 source) hydrOXYzine; Translations: [Vistaril] Drug Allergy [facility] Repository Medications Current Medications Medication Drug Class(es) [...] tablet Orally q8-12 hrs prn Jul, Active [id number] 200 actuat albuterol 0.09 mg/actuat metered dose [...] Status: Ordered take 2 tablets by mo [facility] every twenty-four hours Cyclobenzaprine HCl 10 [...] 08/24/23 Status: Ordered take 1 tablet by [facility] every twenty-four hours Melatonin 5 MG 1 [...] site] Chronic Other aftercare (3 sources) 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 00TIFF Normal [facility] Consent for Procedure/Surger yon 10-02-2023 Consent for Procedure/Surgery [id number] 0TIFF [facility] MR head/brain wo/w conon MR head/brain wo/w [facility] [place] [address] MRI Report Signed Patient: Arianna Tucker MR#: [id number] 2 : 1965 Acct:[id number] Age/Sex: 58 / F ADM Date: 10/01/23 Loc: MR Room: [facility] Attending Dr: Carlitos Lu DO Copies [...] Maciel Duarte M.D.10/02/2023 12:33 PM Dictation Location: [place] [address] Transcribed By: [facility] 10/02/23 1233 Dictated By: Maciel Duarte II, MD 10/02/23 1225 Signed By: 10/02/23 1233 Normal [facility] Facesheeton 10-01-2023 Facesheet [id number] 0TIFF Normal [facility] Ambulatory Visit Summaryon 0 09-30-2023 Ambulatory Visit [...] you for choosing us for your care. [facility] Provider Letteron 08-17-2023 Provider Letter August 17, 2023 ARIANNA T[address]ER [address] [place] [id number] : 1965 Dear Ms. Tucker, We have [...] your prompt attention to this matter. Sincerely, [facility] General Surgery [phone] [facility] No Panel Informationon 08-01 Miscellaneous Test COMMENT . [facility] Comment on above: Test Ordered: [id number] Alk Phos IsoenzymeAlkaline Phosphatase 117 IU/L CB Reference Range: 44-121Liver Fraction: 52 % CB Reference Range: 18-85Bone Fraction: 46 % CB Reference Range: 14-68Intestinal Frac.: 2 % CB Reference Range: 0-18Performed at: - [facility] [address] [id number] Director: Cam Reyes PhD, Phone: [phone] Physician Referralon 024 Physician Referral [id number] 0TIFF Normal [facility] CBC AUTO DIFFon 07-26-2022 BASO # 0.1 103/ul Normal 0.0-0.1 [facility] Comment on above: Performed By: #### U RCX #### [facility] [address] [address] [address] Roderick Greene Basophils/100 WBC (Bld) 0.6 % Normal 0.2-2.0 [facility] Comment on above: Performed By: #### U RCX #### [facility] [address] [place] [address] Dr. Roderick Greene EO # 0.8 103/ul Critically high 0.0-0.7 [facility] Comment on above: Performed By: #### U RCX #### [facility] [address] [place] [address] Dr. Roderick Greene Eosinophils/100 WBC (Bld) 7.9 % Critically high 0.9-7.0 [facility] Comment on above: Performed By: #### U RCX #### [facility] [address] [address] [address] Roderick Greene Erythrocyte distribution width (RBC) [Ratio] 13.2 % Normal 11.0-15.0 [facility] Comment on above: Performed By: #### U RCX #### [facility] [address] [place] [address] Dr. Roderick Greene Hematocrit (Bld) [Volume fraction] 50.3 % Critically high 36.0-48.0 [facility] Comment on above: Performed By: #### U RCX #### [facility] [address] [place] [address] Dr. Roderick Greene Hemoglobin (Bld) [Mass/Vol] 16.0 g/dL Normal 12.0-16.0 [facility] Comment on above: Performed By: #### U RCX #### [facility] [address] [place] [address] Dr. Roderick Greene IG # 0.02 10e3/ul Normal 0.00-0.03 [facility] Comment on above: Performed By: #### U RCX #### [facility] [address] [address] [address] Roderick Greene IG % 0.2 % Normal 0.0-0.5 [facility] Comment on above: Performed By: #### U RCX #### [facility] [address] [place] [address] Dr. Roderick Greene LYMPH # 2.3 103/ul Normal 1.2-3.8 [facility] Comment on above: Performed By: #### U RCX #### [facility] [address] [place] [address] Dr. Roderick Greene Lymphocytes/100 WBC (Bld) 24.5 % Normal 20.5-60.0 [facility] Comment on above: Performed By: #### U RCX #### [facility] [address] [place] [address] Dr. Roderick Greene MANUAL DIFF REQ NO Normal [facility] Comment on above: Performed By: #### U RCX #### [facility] [address] [place] [address] Dr. Roderick Greene MCH (RBC) [Entitic mass] 31.4 pg Normal 26.7-34.0 [facility] Comment on above: Performed By: #### U RCX #### [facility] [address] [place] [address] Dr. Roderick Greene MCHC (RBC) [Mass/Vol] 31.8 g/dL Normal 29.9-35.2 [facility] Comment on above: Performed By: #### U RCX #### [facility] [address] [place] [address] Dr. Roderick Greene MCV (RBC) [Entitic vol] 98.8 fL Normal 81.0-99.0 [facility] Comment on above: Performed By: #### U RCX #### [facility] [address] [place] [address] Dr. Roderick Greene MONO # 0.4 103/ul Normal 0.3-0.8 [facility] Comment on above: Performed By: #### U RCX #### [facility] [address] [place] [address] Dr. Roderick Greene Monocytes/100 WBC (Bld) 3.7 % Normal 1.7-12.0 [facility] Comment on above: Performed By: #### U RCX #### [facility] [address] [place] [address] Dr. Roderick Greene NEUT # 6.0 103/ul Normal 1.4-6.5 [facility] Comment on above: Performed By: #### U RCX #### [facility] [address] [place] [address] Dr. Roderick Greene Neutrophils/100 WBC (Bld) 63.1 % Normal 43.0-75.0 [facility] Comment on above: Performed By: #### U RCX #### [facility] [address] [place] [address] Dr. Roderick Greene Platelet mean volume (Bld) [Entitic vol] 10.7 fL Normal 9.5-13.5 [facility] Comment on above: Performed By: #### U RCX #### [facility] [address] [place] [address] Dr. Roderick Greene PLT 290 103/ul Normal 150-450 [facility] Comment on above: Performed By: #### U RCX #### [facility] [address] [place] [address] Dr. Roderick Greene RBC 5.09 106/ul Normal 4.20-5.40 [facility] Comment on above: Performed By: #### U RCX #### [facility] [address] [place] [address] Dr. Roderick Greene WBC 9.5 103/ul Normal 4.0-11.0 [facility] Comment on above: Performed By: #### U RCX #### [facility] [address] [place] [address] Dr. Roderick Greene CULTURE URINEon 07-26-2022 CULTURE URINE Culture Observations : LIGHT GROWTH OF MIXED GENITAL MATEO. NO POTENTIAL PATHOGENS SEEN. Normal [facility] Comment on above: Performed By: #### U RCX #### [facility] [address] [address] [address] Roderick Greene GLYCOHEMOGLOBIN A1Con 2022 ADA RECOMMENDATION SEE BELOW Normal [facility] Comment on above: Result Comment: ADA RECOMMENDED LIMIT 4.0 - 6.0 ADA THERAPEUTIC TARGET < 7.0 ACTION SUGGESTED > 7.0 Performed By: #### A 1C #### [facility] [address] [address] [address] Roderick Greene Glucose [Mass/Vol] 108 mg/dL Critically high 74-106 [facility] Comment on above: Performed By: #### A 1C #### [facility] [address] [place] [address] Dr. Roderick Greene Performed By: #### T SH, LIPID, CMP #### [facility] [address] [place] [address] Dr. Roderick Greene HbA1c (Bld) [Mass fraction] 5.4 % Normal 4.5-6.2 [facility] Comment on above: Performed By: #### A 1C #### [facility] [address] [place] [address] Dr. Roderick Greene LIPID PROFILEon 07-26-2022 CHOL-HDL RATIO NORM SEE BELOW Normal [facility] Comment on above: Result Comment: 3.3 - 4.4 LOW RISK 4.4 - 7.1 AVERAGE RISK 7.1 - 11.0 MODERATE RISK >11.0 HIGH RISK Performed By: #### U RCX #### [facility] [address] [place] [address] Dr. Roderick Greene Cholesterol [Mass/Vol] 217 mg/dL Critically high <=200 [facility] Comment on above: Performed By: #### U RCX #### [facility] [address] [place] [address] Dr. Roderick Greene Cholesterol in HDL [Mass/Vol] 55 mg/dL Normal 40-60 [facility] Comment on above: Performed By: #### U RCX #### [facility] [address] [place] [address] Dr. Roderick Greene Cholesterol in LDL [Mass/Vol] 143.6 mg/dL Normal [facility] Comment on above: Performed By: #### U RCX #### [facility] [address] [address] [address] Roderick Greene Cholesterol.total/Cho lesterol in HDL [Mass ratio] 3.9 {ratio} Normal [facility] Comment on above: Performed By: #### U RCX #### [facility] [address] [address] [address] Roderick Greene HDL NORMAL > or = 60 mg/dl - LO W CARDIOVASCULAR RISK <40 mg/dl - HIGH CARDIOVASCULAR RISK Normal [facility] Comment on above: Performed By: #### U RCX #### [facility] [address] [address] [address] Roderick Greene LDL CALC NORMAL SEE BELOW Normal [facility] Comment on above: Result Comment: <100 mg/dl OPTIMAL 100 - 129 mg/dl NEAR OR ABOVE OPTIMAL 130 - 159 mg/dl BORDERLINE HIGH 160 - 189 mg/dl HIGH >190 mg/dl VERY HIGH Performed By: #### U RCX #### [facility] [address] [place] [address] Dr. Roderick Greene Triglyceride [Mass/Vol] 92 mg/dL Normal <=150 [facility] Comment on above: Performed By: #### U RCX #### [facility] [address] [address] [address] Roderick Greene VLDL CALC 18.4 mg/dL Normal [facility] Comment on above: Performed By: #### U RCX #### [facility] [address] [address] [address] Roderick Greene PROF 14(COMP METB)on 023 Albumin [Mass/Vol] 3.7 g/dL Normal 3.4-5.0 [facility] Comment on above: Performed By: #### T SH, LIPID, CMP #### [facility] [address] [address] [address] Roderick Greene Albumin/Globulin [Mass ratio] 1.0 {ratio} Normal [facility] Comment on above: Performed By: #### T SH, LIPID, CMP #### [facility] [address] [address] [address] Roderick Greene ALP [Catalytic activity/Vol] 146 U/L Critically high 46-116 [facility] Comment on above: Performed By: #### T SH, LIPID, CMP #### [facility] [address] [address] [address] Roderick Greene ALT [Catalytic activity/Vol] 24 U/L Normal 14-59 [facility] Comment on above: Performed By: #### T SH, LIPID, CMP #### [facility] [address] [address] [address] Roderick Greene Anion gap [Moles/Vol] 11.7 mmol/L Normal [facility] Comment on above: Performed By: #### T SH, LIPID, CMP #### [facility] [address] [place] [address] Dr. Roderick Greene AST [Catalytic activity/Vol] 23 U/L Normal 15-37 [facility] Comment on above: Performed By: #### T SH, LIPID, CMP #### [facility] [address] [address] [address] Roderick Greene Bilirubin [Mass/Vol] 0.5 mg/dL Normal 0.2-1.0 [facility] Comment on above: Performed By: #### T SH, LIPID, CMP #### [facility] [address] [address] [address] Roderick Greene Calcium [Mass/Vol] 9.3 mg/dL Normal 8.5-10.1 [facility] Comment on above: Performed By: #### T SH, LIPID, CMP #### [facility] [address] [address] [address] Roderick Greene Chloride [Moles/Vol] 105 mmol/L Normal 98-107 [facility] Comment on above: Performed By: #### T SH, LIPID, CMP #### [facility] [address] [place] [address] Dr. Roderick Greene CO2 [Moles/Vol] 31.0 mmol/L Normal 21.0-32.0 [facility] Comment on above: Performed By: #### T SH, LIPID, CMP #### [facility] [address] [address] [address] Roderick Greene Creatinine [Mass/Vol] 0.65 mg/dL Normal 0.55-1.02 [facility] Comment on above: Performed By: #### T SH, LIPID, CMP #### [facility] [address] [address] [address] Roderick Greene EGFR-AF GUATEMALAN >60 Normal >=60 [facility] Comment on above: Performed By: #### T SH, LIPID, CMP #### [facility] [address] [address] [address] Roderick Greene EGFR-NON AF GUATEMALAN >60 Normal >=60 [facility] Comment on above: Performed By: #### T SH, LIPID, CMP #### [facility] [address] [address] [address] Roderick Greene Globulin (S) [Mass/Vol] 3.6 g/dL Normal [facility] Comment on above: Performed By: #### T SH, LIPID, CMP #### [facility] [address] [address] [address] Roderick Greene Potassium [Moles/Vol] 4.7 mmol/L Normal 3.5-5.1 [facility] Comment on above: Performed By: #### T SH, LIPID, CMP #### [facility] [address] [address] [address] Roderick Greene Protein [Mass/Vol] 7.3 g/dL Normal 6.4-8.2 [facility] Comment on above: Performed By: #### T SH, LIPID, CMP #### [facility] [address] [address] [address] Roderick Greene Sodium [Moles/Vol] 143 mmol/L Normal 136-145 [facility] Comment on above: Performed By: #### T SH, LIPID, CMP #### [facility] [address] [address] [address] Roderick Greene Urea nitrogen [Mass/Vol] 13.0 mg/dL Normal 7.0-18.0 [facility] Comment on above: Performed By: #### T SH, LIPID, CMP #### [facility] [address] [place] [address] Dr. Roderick Greene Urea nitrogen/Creatinine [Mass ratio] 20.0 mg/mg Normal [facility] Comment on above: Performed By: #### T SH, LIPID, CMP #### [facility] [address] [place] [address] Dr. Roderick Greene TSHon 07-26-2022 TSH 0.822 uIU/mL Normal 0.358-3.740 [facility] Comment on above: Performed By: #### T SH, LIPID, CMP #### [facility] [address] [place] [address] Dr. Roderick Greene UA RANDOM W/MICROSCOPICon BACTERIA TRACE Abnormal NONE SEEN [facility] Comment on above: Performed By: #### U AMIC #### [facility] [address] [place] [address] Dr. Roderick Greene Bilirubin Ql (U) Negative Normal NEGATIVE [facility] Comment on above: Performed By: #### U AMIC #### [facility] [address] [place] [address] Dr. Roderick Greene CAST NONE SEEN Normal NONE SEEN [facility] Comment on above: Performed By: #### U AMIC #### [facility] [address] [place] [address] Dr. Roderick Greene Clarity (U) CLEAR Normal CLEAR [facility] Comment on above: Performed By: #### U AMIC #### [facility] [address] [place] [address] Dr. Roderick Greene Color (U) LT. YELLOW Normal YELLOW [facility] Comment on above: Performed By: #### U AMIC #### [facility] [address] [place] [address] Dr. Roderick Greene Crystals LM Nom (Urine sed) NONE SEEN Normal NONE SEEN [facility] Comment on above: Performed By: #### U AMIC #### [facility] [address] [address] [address] Roderick Greene Epithelial cells LM Ql (Urine sed) FEW Abnormal NONE SEEN /RARE [facility] Comment on above: Performed By: #### U AMIC #### [facility] [address] [address] [address] Roderick Greene Glucose Ql (U) Negative Normal NEGATIVE [facility] Comment on above: Performed By: #### U AMIC #### [facility] [address] [address] [address] Roderick Gerene Hemoglobin Ql (U) Negative Normal NEGATIVE [facility] Comment on above: Performed By: #### U AMIC #### [facility] [address] [place] [address] Dr. Roderick Greene Ketones Ql (U) Negative Normal NEGATIVE [facility] Comment on above: Performed By: #### U AMIC #### [facility] [address] [place] [address] Dr. Roderick Greene LEUKOCYTES Negative Normal NEGATIVE [facility] Comment on above: Performed By: #### U AMIC #### [facility] [address] [address] [address] Roderick Greene MUCOUS SMALL Abnormal NONE SEEN [facility] Comment on above: Performed By: #### U AMIC #### [facility] [address] [place] [address] Dr. Roderick Greene Nitrite Ql (U) Negative Normal NEGATIVE [facility] Comment on above: Performed By: #### U AMIC #### [facility] [address] [place] [address] Dr. Roderick Greene pH (U) 8.0 [pH] Normal 5-9 [facility] Comment on above: Performed By: #### U AMIC #### [facility] [address] [place] [address] Dr. Roderick Greene RBC NONE SEEN Abnormal 0-2 [facility] Comment on above: Performed By: #### U AMIC #### [facility] [address] [place] [address] Dr. Roderick Greene SPEC GRAVITY 1.020 Normal 1.005-<=1.025 [facility] Comment on above: Performed By: #### U AMIC #### [facility] [address] [address] [address] Roderick Greene UA PROTEIN Negative Normal NEGATIVE/ TRACE [facility] Comment on above: Performed By: #### U AMIC #### [facility] [address] [address] [address] Roderick Greene Urobilinogen Qn (U) 0.2 {Jordan'U}/dL Normal 0.2 - 1. 0 [facility] Comment on above: Performed By: #### U AMIC #### [facility] [address] [address] [address] Roderick Greene WBC NONE SEEN Normal NONE SEEN [facility] Comment on above: Performed By: #### U AMIC #### [facility] [address] [address] CHEST WO CONon [...] by: SONU COLLINS Date: 2022-03-03 07:51 Normal [facility] Vital Signs Date Time Vital Sign Value Performing Clinician Facility 10-01-2023 07:08-0400 Body height 165.1 cm DO Bianca Garcia Work Phone: [facility] 10-01-2023 07:08-0400 Body weight 77.11 kg DO Bianca Garcia Work Phone: [facility] 09-30-2023 15:26-0400 Blood Pressure Location Esa NILL [facility] 09-30-2023 15:26-0400 Diastolic blood pressure 84 mm[Hg] Esa NILL [facility] 09-30-2023 15:26-0400 Heart rate 76 /min Esa NILL [facility] 09-30-2023 15:26-0400 Respiratory rate 16 /min Esa NILL [facility] 09-30-2023 15:26-0400 Systolic blood pressure 138 mm[Hg] Esa NILL [facility] 07-23-2023 09:50-0500 Body height 162.56 cm Bianca Garcia Other [facility] 07-23-2023 09:50-0500 Body mass index (BMI) [Ratio] 29.69 kg/m2 Bianca Garcia Other [facility] Other 07-23-2023 09:50-0500 Body temperature 98.1 [degF] Bianca Garcia Other [facility] [employer] Other 07-23-2023 09:50-0500 Body weight 78.47 kg Bianca Garcia Other [facility] 07-23-2023 09:50-0500 Diastolic blood pressure 88 mm[Hg] Bianca Garcia Other [facility] 07-23-2023 09:50-0500 Respiratory rate 18 /min Bianca Garcia Other [facility] Other 07-23-2023 09:50-0500 SaO2% (BldA) [Mass fraction] 99 % Bianca Garcia Other [facility] Other 07-23-2023 09:50-0500 Systolic blood pressure 128 mm[Hg] Bianca Garcia Other [facility] 07-30-2022 12:10-0500 Body height 162.56 cm Bianca Garcia Other [facility] Other 07-30-2022 12:10-0500 Body mass index (BMI) [Ratio] 27.12 kg/m2 Bianca Garcia Other [facility] Other 07-30-2022 12:10-0500 Body temperature 96.6 [degF] Bianca Garcia Other [facility] Other 07-30-2022 12:10-0500 Body weight 71.67 kg Bianca Garcia Other [facility] Other 07-30-2022 12:10-0500 Diastolic blood pressure 86 mm[Hg] Bianca Garcia Other [facility] Other 07-30-2022 12:10-0500 Respiratory rate 18 /min Bianca Garcia Other [facility] Other 07-30-2022 12:10-0500 SaO2% (BldA) [Mass fraction] 98 % Bianca Garcia Other [facility] Other 07-30-2022 12:10-0500 Systolic blood pressure 120 mm[Hg] Bianca Garcia Other [facility] Other 07-21-2022 11:30-0500 Body height 162.56 cm Bianca Garcia Other [facility] Other 07-21-2022 11:30-0500 Body mass index (BMI) [Ratio] 27.55 kg/m2 Bianca Garcia Other [facility] Other 07-21-2022 11:30-0500 Body temperature 98.4 [degF] Bianca Garcia Other [facility] Other 07-21-2022 11:30-0500 Body weight 72.8 kg Bianca Garcia Other [facility] Other 07-21-2022 11:30-0500 Diastolic blood pressure 88 mm[Hg] Bianca Garcia Other [facility] Other 07-21-2022 11:30-0500 Respiratory rate 18 /min Bianca Garcia Other [facility] Other 07-21-2022 11:30-0500 SaO2% (BldA) [Mass fraction] 95 % Bianca Garcia Other [facility] Other 07-21-2022 11:30-0500 Systolic blood pressure 122 mm[Hg] Bianca Garcia Other [facility] Other Encounters Encounter Date Encounter Type Care Provider Facility Start: 12-02-2023 End: 12-02-2023 ambulatory BART LEMUS Not Available Start: 11-12-2023 End: 11-12-2023 ambulatory BART LEMUS Not Available Start: 10-06-2023 End: 10-06-2023 ambulatory BART LEMUS Not Available Start: 10-01-2023 End: 10-01-2023 ambulatory Bianca Garcia Facility:[facility] Start: 10-01-2023 End: 10-01-2023 ambulatory DO Bianca Garcia Work Phone: [facility] Work Phone: Start: 10-01-2023 End: 10-01-2023 Patient encounter procedure DO Bianca Garcia Work Phone: [facility] [place] Work Phone: Start: 09-30-2023 End: 10-01-2023 ambulatory Bianca Garcia Facility:[facility] Start: 09-30-2023 End: 09-30-2023 Patient encounter procedure Esa LITTLE General Surgery Nill/Said [facility] Start: 09-03-2023 Non-patient / Non-visit DO Bianca Garcia Work Phone: [facility] Work Phone: Start: 08-01-2023 Non-patient / Non-visit DO Bianca Garcia Work Phone: [facility] Work Phone: Start: 07-27-2023 ambulatory Bianca Garcia Facility:[facility] Start: 07-23-2023 End: 07-23-2023 ambulatory Bianca Garcia Other [facility] Other Start: 07-23-2023 Office outpatient visit 25 minutes Bianca Garcia [facility] Start: 07-23-2023 End: 07-23-2023 Patient encounter procedure DO Bianca Garcia Work Phone: [facility] Start: 11-20-2022 ambulatory JÚNIOR GOLDBERG . Facili ty:[facility] Start: 11-04-2022 End: 11-04-[address] BIANCA GARCIA Facility:[facility] Start: 10-09-2022 End: 10-10-2022 ambulatory YANE VALERA . Facility:[facility] Start: 10-01-2022 End: 10-01-2022 ambulatory Bianca Garcia Other [facility] Other Start: 10-01-2022 Telephone encounter Bianca Garcia [facility] Start: 08-28-2022 End: 08-29-[address] LENORE STOLL . Facility:[facility] Start: 08-05-2022 End: 08-05-2022 ambulatory John Diallopinky Other [facility] Other Start: 08-05-2022 Telephone encounter Imad Asaad [facility] Start: 07-30-2022 End: 07-30-2022 ambulatory Bianca Garcia Other [facility] Other Start: 07-30-2022 Office outpatient visit 25 minutes Bianca Garcia [facility] Start: 07-26-2022 End: 07-27-[address] BIANCA GARCIA Facility:[facility] Start: 07-24-2022 End: 07-25-[address] LENORE STOLL . Facility:[facility] Start: 07-21-2022 End: 07-21-2022 ambulatory Bianca Garcia Other [facility] Other Start: 07-21-2022 Office outpatient visit 15 minutes Bianca Garcia [facility] Start: 05-27-2022 End: 05-27-[address] LENORE [...] Author Start: 10-01-2023 MR Unspecified body region [facility] Start: 10-01-2023 MRI of head MR head/brain wo/w con [facility] Immunizations Immunization Date Immunization Notes Care Provider Fa cility 02-09-2021 COVID-19 Pfizer Bianca Garcia Other [facility] 01-21-2021 COVID-19 Pfizer Bianca Garcia Other [facility] Payers Date Payer Category Payer Self-pay 2022 Medicaid [id number] 2. [id number] 1965 Unknown [id number] 2.16.84 0.1.481841.3.579.2.593 1966 Unknown [id number] 2.16.84 0.1.838223.3.579.2.593 1966 Unknown [id number] 2.16.84 0.1.641703.3.579.2.593 1966 Unknown [id number] 2.16.84 0.1.954700.3.579.2.593 1966 Unknown [id number] 2.16.84 0.1.741493.3.579.2.593 1966 Unknown [id number] 2.16.84 0.1.063561.3.579.2.593 1966 Unknown [id number] 2.16.84 0.1.552895.3.579.2.593 1966 Unknown [id number] 2.16.84 0.1.949581.3.579.2.593 1966 Unknown [id number] 2.16.84 0.1.705987.3.579.2.593 1966 Unknown [id number] 2.16.84 0.1.977474.3.579.2.593 1966 Unknown [id number] 2.16.84 0.1.776808.3.579.2.593 1966 Unknown [id number] 2.16.84 0.1.434752.3.579.2.593 1966 Unknown [id number] 2.16.84 0.1.463656.3.579.2.593 1966 Unknown [id number] 2.16.8 40.1.436209.3.579.2.727 1966 Unknown [id number] 2.16.84 0.1.451272.3.579.2.1259 1966 Unknown [id number] 2.16.84 0.1.971643.3.579.2.1259 1966 Unknown [id number] 2.16.84 0.1.064266.3.579.2.1259 1959 Unknown [id number] Medicaid [employer] [id number] Unknown [id number] 2.16.8 40.1.031882.3.579.2.531 Social History Date Type Detail Facility Unknown if ever smoked [facility] Other Sex Assigned At [facility] Start: 09-30-2023 Tobacco smoking status Light t obacco smoker (finding) [facility] Tobacco smoking status Never Gener al Surgery [facility] Start: 08-04-2023 Tobacco smoking stat NHIS Smoker (finding) [facility] Start: 1965 Sex Assigned At Female [facility] Functional Status Date Assessment Result Facility 09-30-2023 Functional Status N/A General [facility] Clinical Notes 08-11-2011 to 09-30-2023 Note Date [...] SARS-CoV-2 (COVID-19) mRNA BNT-162b2 vax 01/21/2021 Recorded [facility] Comment on above: Result Comment: Elec trotipally [...] see whomever can see her first at [facility]. 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 Continue with above medication daily as directed. Jul, Other She voices that she was anxious to come into the office today but once she was in her exam room she was calmed down. [facility] Other 04-20-2023 NoteCONSULTATION CONSULTATION DATE: 10/09/2022 TO: [...] our patients to inform us about any dauz-mri-ecflwry medications or herbal remedies/nutritional supplements/alternative remedies. 2. [...] treatment options with their primary care provider.[id number] Note CONSULTATION CONSULTATION DATE: 08/28/2022 HISTORY OF [...] with this plan and all questions answered.[facility] [id number] Evaluation note* Encounter Date Diagnosis Assessment Notes [...] number of someone she can see through [facility]. She voices that she will think about it. I asked her not to take anymore Vistaril. Jul, Lumbar pain (ICD-10 - M54.50) She voices that Dr. Stoll is retiring and his GIS ANALYST is leaving. She is scheduled for an [...] and if/when testing needs to be repeated. 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 [facility] Other 11-03-2022 NoteCONSULTATION CONSULTATION DATE: 04/24/2022 HISTORY [...] followed up in the clinic post procedure.[facility] [id number] NoteCONSULTATION CONSULTATION DATE: 02/20/2022 HISTORY OF PRESENT [...] agrees to this and all questions answered.[facility] [id number] NoteCONSULTATION CONSULTATION DATE: 12/18/2921 This is a [...] will be followed up in the clinic. [facility] Signed and Approved by: JOSE ALEJANDRO STINSON . 12/26/2021 16:26:00[facility] [id number] History general Narrative - Reported* Type Description Date Medical History Gestational Diabetes Medical History History of Hemorrhoids Medical History Chest X-Ray Done 08-11-11 Medical History Lumbar Spine X-Ray Done 08-11-11 Medical History Pelvic Ultrasound 08-11-12; [facility] Medical History Transvaginal US 08-12-12; [facility] Medical History CT Abdomen and Pelvis 08-16-12; [facility] Medical History TDap (Adacel) 01-03-15 [facility] E R Medical History 01/2015 Dr So, 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 Lu Colonoscopy, Divert iculosis 10-05-2012 Surgical History injection in back - Pain Mgmt Surgical History Nerve block in back 06/2019 Hospitalization History Tonsillectomy Hospitalization History Childbirth Hospitalization History [facility] ER stic hes in rt hand cut during washing dishes 01/03/2015 [facility] [employer] Other Evaluation + Plan note No data available for this section General Surgery [facility] Evaluation noteNo InformationNortTemple [facility] [employer] Other Evaluation noteNo assessment information available [facility] Work Phone: Hospital Discharge instructions No data available for this section General Surgery [facility] Progress note No data available for this section General Surgery [facility] Reason for visit Narrativecheck up/discuss dementia, discuss multiple issues, see treatment plan for further informationSamm[facility] Other Reason for Referral Reason appt 09/05/22 at 8am pt needs screening colonoscopy Diagnosis 1 Colon cancer screeni ng (Z12.11) Referral Organization [facility] Family Medicin e [facility] Referring Provider First Name Bianca Referring Provider Last Name Jose Referring Provider Specialty Family Prac guero Referred Organization [facility] Gastroenterolo gy Referred Provider John Cedillo Referred Address [address] ,[place], [place],[address] Referred Provider Specialty Gastroentero logy Referral Priority [...] Memory changes (R41. 3) Referral Organization [facility] Referring Provider First Name Bianca Referring Provider Last Name Jose Referring Provider Specialty Family Prac guero Referred Organization [facility] Referred Provider Carlitos Lu Referred Address [address],[place], [place],[address] Referred Provider Specialty Neurology Referral Priority Routine General Notes eDlilah Sandoval 07/23/2023 11:40:43 AM > referral faxed thru [facility] with visit note and insurance card. pt understands she will be contacted to schedule this appt. Reason appt pt needs scre ening colonoscopy Diagnosis 1 Colon cancer screeni ng (Z12.11) Referral Organization [facility] Family [facility] Referring Provider First Name Bianca Referring Provider Last Name Jose Referring Provider Specialty Family Prac guero Referred Organization [facility] Referred Provider Esa Little [place] [place],[address] Referred Provider Specialty Surgery Referral Priority Routine [...] CREATED AUTHOR AUTHOR'S ORGANIZ ATION 10/06/2023 [facility] DATE CREATED AUTHOR AUTHOR'S ORGANIZ ATION 10/27/2023 [facility] DATE CREATED AUTHOR AUTHOR'S ORGANIZ ATION 12/03/2023 [facility] d[facility] Specialists EP[facility] Patient Care team [...] BE BASED ON THE PRIMARY CLINICAL RECORDS. [facility] [employer] [facility]. provides no warranty or guarantee of the accuracy or completeness of information in this document.
--- NOTE | 2024-06-23 11:12 | P.CN_ITS ---
Consult Note: HPI Data of Consult Patient: known to practice within the last 3 years Requesting Physician: Tori Noyola NP Primary Care Provider: BIANCA GARCIA Consult Narrative Reason for consult: f/u Narrative: Arianna Tucker a pleasant 59 year old female presents for evaluation and management of chronic low back pain and right knee pain. Patient reporting pain 6/10 today. Continues to find functional improvement and mild pain relief from current medication regimen. Low back pain persisting, increased myofascial pain and spinal tenderness, cannot tolerate interventional therapy without IV sedation. could not tolerate higher dosing of gabapentin, currently on 75mg BID. previous lumbar MRI from 2019 consistent with lumbar stenosis with NC, lumbar ddd, lumbar spondylosis. continues to engage in provider guided HEP greater than 6 weeks without benefit. pain today 5/10 increasing to 10/10 with standing, walking, activity. cc:: CC: Tori Noyola NP Review of Systems ROS Status of ROS 10 or more systems reviewed and unremark able except as noted in history and below Musculoskeletal Reports: back pain, neck pain and joint pain PFSH [facility] Medical History (Updated 06/23/24 @ 11:14 by Tori Noyola NP) Lung nodule ?R91.1 - Solitary pulmonary nodule (ICD-10) Arthritis ?M19.90 - Unspecified osteoarthritis, unspecified site (ICD-10) Back pain ?M54.9 - Dorsalgia, unspecified (ICD-10) Insomnia ?G47.00 - Insomnia, unspecified (ICD-10) Anxiety ?F41.9 - Anxiety disorder, unspecified (ICD-10) Chronic obstructive pulmonary disease ?J44.9 - Chronic obstructive pulmonary disease, unspecified (ICD-10) Asthma ?J45.909 - Unspecified asthma, uncomplicated (ICD-10) Migraine ?G43.909 - Migraine, unspecified, not intractable, without status migrainosus (ICD-10) Lumbosacral spondylosis without myelopathy ?M47.817 - Spondylosis without myelopathy or radiculopathy, lumbosacral region (ICD-10) Hyperlipemia ?E78.5 - Hyperlipidemia, unspecified (ICD-10) Hyperglycemia ?R73.9 - Hyperglycemia, unspecified (ICD-10) Diverticulosis ?K57.90 - Diverticulosis of intestine, part unspecified, without perforation or abscess without bleeding (ICD-10) BMI 29.0-29.9,adult ?Z68.29 - Body mass index [BMI] 29.0-29.9, adult (ICD-10) Surgical History History of tubal ligation ?Z98.51 - Tubal ligation status (ICD-10) History of tonsillectomy ?Z90.89 - Acquired absence of other organs (ICD-10) H/O colonoscopy ?Z98.890 - Other specified postprocedural states (ICD-10) H/O laminectomy ?Z98.890 - Other specified postprocedural states (ICD-10) Family History Father Family history of COPD (chronic obstructive pulmonary disease) Brother Family history of diabetes mellitus Mother Family history of cancer Other Family history of hypertension Social History Within the past year, how often did you have a drink containing alcohol: never Score interpretation: A score less than 3 is consistent with normal alcohol consumption. Smoking status: Current every day smoker What tobacco products do you use: cigarettes Cigarettes per day: 8 Years smoked: 40 Smoking pack-years: 16.00 Non-prescribed substance use: denies use Highest level of school completed/degree received: high school graduate Little interest or pleasure in doing things: not at all Feeling down, depressed, or hopeless: not at all Meds Home Medications and Allergies Home Medications ?Medication ?Instructions ?Recorded ?Confirmed ?Type albuterol sulfate 2.5 mg/3 mL 2.5 mg inhalation Q4H PRN 11/20/22 04/30/24 History (0.083 %) solution for nebulization shortness of breath or wheezing celecoxib 100 mg capsule (Celebrex) 100 mg PO BID #60 caps 03/11/23 04/30/24 Rx albuterol sulfate 90 mcg/actuation 2 inh inhalation QID PRN shortness 10/29/23 10/29/23 History aerosol inhaler (ProAir HFA) of breath or wheezing cyclobenzaprine 10 mg tablet 20 mg PO BEDTIME PRN muscle spasm 10/29/23 04/30/24 History melatonin 10 mg capsule 10 mg PO BEDTIME PRN sleep 10/29/23 04/30/24 History multivitamin 1 tab PO DAILY 10/29/23 04/30/24 History amlodipine 5 mg tablet 5 mg PO DAILY 11/04/23 04/30/24 History tiotropium 2.5 mcg-olodaterol 2.5 2 inh inhalation Q24H 11/04/23 11/04/23 History mcg/actuation mist for inhalation (Stiolto Respimat) trazodone 50 mg tablet 50 mg PO DAILY #30 tabs 11/30/23 Rx celecoxib 100 mg capsule (Celebrex) 100 mg PO BID #60 caps 04/27/24 Rx naloxone 4 mg/actuation nasal 4 mg intranasal Q3M PRN opioid 04/27/24 Rx spray (Narcan) overdose #2 ea oxycodone-acetaminophen 7.5 mg-325 1 tab PO TID PRN pain #90 tabs 04/27/24 Rx mg tablet (Percocet) pregabalin 75 mg capsule (Lyrica) 75 mg PO TID 05/04/24 05/04/24 History oxycodone-acetaminophen 7.5 mg-325 1 tab PO TID PRN pain #90 tabs 05/25/24 Rx mg tablet (Percocet) pregabalin 75 mg capsule (Lyrica) 75 mg PO TID #90 caps 05/25/24 Rx trazodone 50 mg tablet 50 mg PO DAILY #30 tabs 05/25/24 Rx Allergies Allergy/AdvReac Type Severity Reaction Status Date / Time hydroxyzine (From Vistaril) AdvReac Unknown Palpitation Verified 04/30/24 06:56 s Exam Constitutional Documenting provider has reviewed patient's vital signs: yes Common normals: no apparent distress, oriented x3, healthy appearing, alert and well nourished General appearance: cooperative [facility] Common normals: normocephalic, hearing grossly normal bilaterally and moist oral mucous membranes Head and scalp: normocephalic Eye Common normals: PERRL Pupil: PERRL Neck & C-Spine Common normals: full ROM General: normal visual inspection Chest Common normals: inspection of chest normal Respiratory Common normals: normal respiratory effort, no retractions and no use of accessory muscles Back & Pelvis Lumbar spine/lower back: ROM limited, pain with ROM, paraspinal muscle spasm, straight leg raise positive right and straight leg raise positive left Sacroiliac joints: SI joint(s) abnormal Other: bilateral facet loading positive L>R tenderness over bilateral PSIS, positive gaenslens thigh thrust FABERS bilaterally L>R pain with pressure on bilateral LCIH nerve significant myofascial pain above lumbar fusion scar Extremity Common normals: normal to inspection and full ROM Right lower extremity: knee joint (enlarged diameter, mild crepitus on exam. ) Other: positive lateral and medial stress testing, pain with activity and weight bearing. mild crepitus noted Neuro Common normals: oriented x3, CN's II-XII intact bilaterally, moves all extremities, no focal motor deficits, no sensory deficits noted and deep tendon reflexes 2+ bilaterally Sensorium/orientation: alert Gait (neuro): normal gait Motor exam: strength 5/5 throughout and no movement abnormalities noted Psych Common normals: mental status grossly normal, thought process normal, cooperative, affect normal, speech normal and activity/motor behavior normal Speech: normal speech Thought process: normal thought process Results Additional Findings Additional findings: If on a controlled substance or opioids, I have checked an OARRS report on this patient and there are no aberrancies noted in the prescribing history.??If on a controlled substance or opioid a drug screen was completed and reviewed within the last year, and if there has not been a drug screen completed we ordered one today to monitor higher risk, state monitored pain medication use. As part of providing excellent, safe, comprehensive care, the following was completed at our patient's visit: 1. A medication reconciliation and review to ensure accurate knowledge of current/active medications, including asking our patients to inform us about any cduo-bmc-hlsrdwj medications or herbal remedies/nutritional supplements/alternative remedies. 2. A review to specifically ensure our patients have had annual screening for screening for depression, screening for tobacco use, and screening for unhealthy alcohol use. For concerning screenings had a discussion with the patient, provided patient education, and recommended follow-up with primary care provider when appropriate. If patient noted with a risk of falling, they received education on strength, gait, and balance training to prevent future risk of falling. Assessment and Plan Assessment and Plan (1) Failed back syndrome: (2) Fibromyalgia: (3) Osteoarthritis of right knee: (4) History of lumbar fusion: (5) Chronic prescription opiate use: Assessment and Plan: I feel these medications are improving the patient's quality of life and allow them to tolerate activities of daily living as well as participate in recreational activity.? The patient does not report intolerable side effects. The patient is NOT opioid naive and non-pharmacologic and non-opioid treatment has failed to significantly relieve the patient's pain and improve functionality. The patient has a diagnosis that is related to a somatic or visceral pain etiology. ? ?? I reviewed with the patient the potential risks and side effects with the use of? opioid medications including but not limited to respiratory depression,? sedation, and even . I verified the patient has access to naloxone should? these effects occur. I advised the patient to avoid the use of any other? sedation substances including alcohol, THC, and benzodiazepines while? taking opioid medications due to the risk of compounding side effects and? detrimental outcomes. I reviewed the LASER SPECIALIST, pain treatment agreement, urine? drug screen, and opioid start talking forms. The patient was advised to let? their family know they had Naloxone in case they would need to administer? the medication.? ?? A drug screen was completed within the last year, and no aberrancies were noted regarding their use of controlled substances. The patient understands they are subject to the terms and conditions of the pain contract that they have signed. ? ?? I have checked an OARRS report on this patient today and there are no narinder rrancies noted in the prescribing history.? (6) Lumbar spondylosis: (7) Muscle spasm: (8) Chronic low back pain: (9) Chronic pain syndrome: (10) Lumbar stenosis with neurogenic claudication: Plan update lumbar mri without contrast to assess chronic low back pain, failed back syndrome, lumbar stenosis with nc, lumbar ddd in preperation for IRMA vs NS consultation. will prescribe valium 10mg po 30-60mins prior to MRI for anxiety not interested in scs trial continue current medications continue HEP as tolerated f/u to review mRI
== END 2024-06-23 10:54 | disposition home or self-care (01) ==
PROVIDERS: PCP Family Medicine; Visit Provider Nurse Practitioner
DX: M96.1 Postlaminectomy syndrome, not elsewhere classified (principal); M79.7 Fibromyalgia; M17.11 Unilateral primary osteoarthritis, right knee; M43.26 Fusion of spine, lumbar region; Z79.891 Long term (current) use of opiate analgesic; M47.816 Spondylosis without myelopathy or radiculopathy, lumbar region; M62.838 Other muscle spasm; M54.50 Low back pain, unspecified; G89.4 Chronic pain syndrome; M48.062 Spinal stenosis, lumbar region with neurogenic claudication
CPT/HCPCS: G0463

== ENCOUNTER 2024-06-30 13:55 | Outpatient (OUT) | payer MEDICARE, SELFPAY ==
--- NOTE | 2024-06-30 14:00 | MR_ITS ---
[address] [address] Patient Name: INGA POLO MRN: [id number] date: 1965 Sex: F Assigned Patient Location: MRI Current Patient Location: MRI Accession/Order Number: [id number] Exam Date: 06/30/2024 14:10 Report Date: 06/30/2024 15:24 At the request of: FELICIA INGRAM Procedure: MR lumbar spine wo con EXAM: MR lumbar spine wo con HISTORY: Post Laminectomy Syndrome, Spinal Stenosis COMPARISON: 01/29/2023 TECHNIQUE: MRI images obtained with multiple sequences. MRI of the lumbar spine without contrast. Sequences obtained by standard department protocol. FINDINGS: The conus ends at L1. No abnormal signal to terminal spinal cord. T11-T12: Mild disc degeneration. No spinal canal stenosis. Moderate right neural foraminal narrowing. Left neural foramen is open. T12-L1: Intervertebral disc height is preserved. No spinal canal stenosis. No neural foraminal stenosis. Mild facet joint arthropathy. L1-L2: Moderate disc degeneration. Broad-based posterior disc bulge. No spinal canal stenosis. No neural foraminal stenosis. Mild facet joint arthropathy. L2-L3: Moderate disc degeneration. Broad-based posterior disc bulge. Severe spinal canal stenosis. Moderate facet joint arthropathy. No neural foraminal narrowing. L3-L4: Moderate disc degeneration. Moderate broad-based posterior disc bulge. Moderate spinal canal stenosis. Moderate left neural foraminal narrowing. Right neural foramen is open. L4-L5: Posterior spinal fusion hardware with bilateral pedicle screws and interconnecting rods. No spinal canal stenosis. No neural foraminal stenosis. L5-S1: Posterior spinal fusion hardware with bilateral pedicle screws and interconnecting rods. No spinal canal stenosis. Left neural foramen is open. Right moderate neural foraminal narrowing. Subchondral insufficiency fracture of the inferior L2 endplate with associated bone marrow edema. Anterior vertebral body height loss measuring approximately 30% Sacroiliac joints are normal. MR/MR lumbar spine wo con IMPRESSION: 1. Posterior spinal fusion hardware at L4-5 and L5-S1 with bilateral pedicle screws and interconnecting rods. 2. Subchondral insufficiency fracture of the inferior L2 endplate with associated bone marrow edema. Anterior vertebral body height loss measuring approximately 30% 3. Sacroiliac joints are normal. 4. Other degenerative findings as described. Electronically authenticated by: FABIANA ROUSE Date: 06/30/2024 15:24
== END 2024-06-30 13:56 | disposition home or self-care (01) ==
LOC: MRI 13:55
PROVIDERS: PCP Family Medicine; Visit Provider Nurse Practitioner
DX: M96.1 Postlaminectomy syndrome, not elsewhere classified (principal); M48.062 Spinal stenosis, lumbar region with neurogenic claudication; M43.27 Fusion of spine, lumbosacral region; M51.369 Other intervertebral disc degeneration, lumbar region without mention of lumbar back pain or lower extremity pain
CPT/HCPCS: 72148

== ENCOUNTER 2024-07-20 11:13 | Outpatient (OUT) | payer MEDICARE, MEDICAID, SELFPAY ==
--- NOTE | 2024-07-20 11:46 | P.CN_ITS ---
Consult Note: HPI Data of Consult Patient: known to practice within the last 3 years Requesting Physician: Tori Noyola NP Primary Care Provider: BIANCA GARCIA Consult Narrative Reason for consult: f/u Narrative: Arianna Tucker a pleasant 59 year old female presents for evaluation and management of chronic back pain. hx of lumbar fusion at L4-S1. has engaged in provider guided HEP >6 weeks without improvement. failed tylenol, motrin, heat, and ice. utilizes percocet 7.5mg TID PRN, flexeril 10mg TID PRN, celebrex 100mg BID, lyrica 75mg BID without side effects. DONNA 30%. recently underwent lumbar MRI, see chart for further details. cc:: CC: Tori Noyola NP Review of Systems ROS Status of ROS 10 or more systems reviewed and unremark able except as noted in history and below Musculoskeletal Reports: back pain and extremity pain PFSH PFSH Medical History Lung nodule ?R91.1 - Solitary pulmonary nodule (ICD-10) Arthritis ?M19.90 - Unspecified osteoarthritis, unspecified site (ICD-10) Back pain ?M54.9 - Dorsalgia, unspecified (ICD-10) Insomnia ?G47.00 - Insomnia, unspecified (ICD-10) Anxiety ?F41.9 - Anxiety disorder, unspecified (ICD-10) Chronic obstructive pulmonary disease ?J44.9 - Chronic obstructive pulmonary disease, unspecified (ICD-10) Asthma ?J45.909 - Unspecified asthma, uncomplicated (ICD-10) Migraine ?G43.909 - Migraine, unspecified, not intractable, without status migrainosus (ICD-10) Lumbosacral spondylosis without myelopathy ?M47.817 - Spondylosis without myelopathy or radiculopathy, lumbosacral region (ICD-10) Hyperlipemia ?E78.5 - Hyperlipidemia, unspecified (ICD-10) Hyperglycemia ?R73.9 - Hyperglycemia, unspecified (ICD-10) Diverticulosis ?K57.90 - Diverticulosis of intestine, part unspecified, without perforation or abscess without bleeding (ICD-10) BMI 29.0-29.9,adult ?Z68.29 - Body mass index [BMI] 29.0-29.9, adult (ICD-10) Surgical History History of tubal ligation ?Z98.51 - Tubal ligation status (ICD-10) History of tonsillectomy ?Z90.89 - Acquired absence of other organs (ICD-10) H/O colonoscopy ?Z98.890 - Other specified postprocedural states (ICD-10) H/O laminectomy ?Z98.890 - Other specified postprocedural states (ICD-10) Family History Father Family history of COPD (chronic obstructive pulmonary disease) Brother Family history of diabetes mellitus Mother Family history of cancer Other Family history of hypertension Social History Within the past year, how often did you have a drink containing alcohol: never Score interpretation: A score less than 3 is consistent with normal alcohol consumption. Smoking status: Current every day smoker What tobacco products do you use: cigarettes Cigarettes per day: 8 Years smoked: 40 Smoking pack-years: 16.00 Non-prescribed substance use: denies use Highest level of school completed/degree received: high school graduate Little interest or pleasure in doing things: not at all Feeling down, depressed, or hopeless: not at all Meds Home Medications and Allergies Home Medications ?Medication ?Instructions ?Recorded ?Confirmed ?Type albuterol sulfate 2.5 mg/3 mL 2.5 mg inhalation Q4H PRN 11/20/22 04/30/24 Histor y (0.083 %) solution for nebulization shortness of breath or wheezing celecoxib 100 mg capsule (Celebrex) 100 mg PO BID #60 caps 03/11/23 04/30/24 Rx albuterol sulfate 90 mcg/actuation 2 inh inhalation QID PRN shortness 10/29/23 10/29/23 History aerosol inhaler (ProAir HFA) of breath or wheezing cyclobenzaprine 10 mg tablet 20 mg PO BEDTIME PRN muscle spasm 10/29/23 04/30/24 History melatonin 10 mg capsule 10 mg PO BEDTIME PRN sleep 10/29/23 04/30/24 History multivitamin 1 tab PO DAILY 10/29/23 04/30/24 History amlodipine 5 mg tablet 5 mg PO DAILY 11/04/23 04/30/24 History tiotropium 2.5 mcg-olodaterol 2.5 2 inh inhalation Q24H 11/04/23 11/04/23 History mcg/actuation mist for inhalation (Stiolto Respimat) trazodone 50 mg tablet 50 mg PO DAILY #30 tabs 11/30/23 Rx celecoxib 100 mg capsule (Celebrex) 100 mg PO BID #60 caps 04/27/24 Rx naloxone 4 mg/actuation nasal 4 mg intranasal Q3M PRN opioid 04/27/24 Rx spray (Narcan) overdose #2 ea oxycodone-acetaminophen 7.5 mg-325 1 tab PO TID PRN pain #90 tabs 04/27/24 Rx mg tablet (Percocet) pregabalin 75 mg capsule (Lyrica) 75 mg PO TID 05/04/24 05/04/24 History oxycodone-acetaminophen 7.5 mg-325 1 tab PO TID PRN pain #90 tabs 05/25/24 Rx mg tablet (Percocet) pregabalin 75 mg capsule (Lyrica) 75 mg PO TID #90 caps 05/25/24 Rx trazodone 50 mg tablet 50 mg PO DAILY #30 tabs 05/25/24 Rx diazepam 10 mg tablet (Valium) 10 mg PO DAILY PRN anxiety #1 tab 06/23/24 Rx oxycodone-acetaminophen 7.5 mg-325 1 tab PO TID PRN pain #90 tabs 06/23/24 Rx mg tablet (Percocet) celecoxib 100 mg capsule (Celebrex) 100 mg PO BID #60 caps 07/20/24 Rx oxycodone-acetaminophen 7.5 mg-325 1 tab PO TID PRN pain #90 tabs 07/20/24 Rx mg tablet (Percocet) pregabalin 75 mg capsule (Lyrica) 75 mg PO BID #60 caps 07/20/24 Rx Allergies Allergy/AdvReac Type Severity Reaction Status Date / Time hydroxyzine (From Vistaril) AdvReac Unknown Palpitation Verified 04/30/24 06:56 s Exam Back & Pelvis Lumbar spine/lower back: ROM limited, pain with ROM, lumbar spinal tenderness, paraspinal muscle tenderness, paraspinal muscle spasm and straight leg raise positive right Sacroiliac joints: SI joint(s) abnormal Other: positive right SLR, decreased sensation to right L4,5,S1 positive facet loading L1-4 facets strength 5/5 in BLE bilateral sij positive rosa(patricks), gaenslens, thigh thrust, compression test Assessment and Plan Assessment and Plan (1) Failed back syndrome: (2) Lumbar stenosis with neurogenic claudication: (3) Chronic prescription opiate use: (4) Lumbar spondylosis: (5) Fibromyalgia: (6) Chronic pain syndrome: Plan lumbar MRI reviewed with pt. pt requesting her percocet be increased to 10-325mg TID PRN as 7.5mg is no longer effectively working, she reports less than 50% improvement in pain and functional ability for about 3 hours after taking. As discussed with pt the longer she is on an opioid medication the more tolerant you can become, which in turn requires higher dosing and increased risks. Pt does have a hx of lumbar fusion and recent lumbar MRI supports further interventional therapy vs NS intervention. Pt is not interested in interventions unless she can have IV sedation because she cannot tolerate the injections, reports it is very hard for her to lie flat and stay still and she worries what will happen during the procedure if she cannot be still. At this time she does have significant facet mediated pain, pain secondary to l2 subchondral in sufficiency fracture, and lumbar stenosis/DDD. I did offer a NS consultation, which pt declined as she is not interested in surgical intervention. I would recommend pt undergo caudal IRMA with MAC sedation under fluoroscopy to minimize risks of complications due to inability to safely tolerate the procedure. pt has declined spinal cord stimulation in the past, and will not undergo lumbar MBBs or RFAs without sedation. I have trialed pt on higher doses of pregabalin in the past but she had side effects. currently taking pregabalin 75mg BID and celebrex 100mg BID with flexeril 10mg TID PRN. I have asked pt meet with Dr Murillo for further evaluation following caudal IRMA to review medication regimen.
== END 2024-07-20 11:14 ==
PROVIDERS: PCP Family Medicine; Visit Provider Nurse Practitioner
DX: M96.1 Postlaminectomy syndrome, not elsewhere classified (principal); M48.062 Spinal stenosis, lumbar region with neurogenic claudication; Z79.891 Long term (current) use of opiate analgesic; M47.816 Spondylosis without myelopathy or radiculopathy, lumbar region; G89.4 Chronic pain syndrome; M79.7 Fibromyalgia
CPT/HCPCS: G0463

== ENCOUNTER 2024-08-09 06:48 | Day surgery (SDC) | payer MEDICARE, MEDICAID, SELFPAY ==
[2024-08-09 06:52] VITALS: BP 138/83; PULSE 78; TEMP 36.4; O2SAT 97
--- OUTSIDE RECORDS SUMMARY | 2024-08-09 06:52 | XMS_ITS | CCD ---
Author Organization [facility] Care Team Providers Care Day Porter Name Role Phone Bianca Garcia Unavailable John [...] Unavailable LAKSHMIPATHY ., YANE Consulting Mora vailable OJSE, DR VALENZUELA Primary Care Unavailable LAKSHMIPATHY ., NARKAROLINA Attending Mora vailable LAKSHMIPATHY ., NARENDRANATH Admitting Mora vailable STOLL ., DR LENORE Becker Attending Unavailable JOSE, DR VALENZUELA Primary Care Unavailable SHANTELL .JOSE ALEJANDRO Consulting Unavailable MARNI ., DR LENORE Becker Admitting Unavailable Bianca Garcia Primary Care Physician DO Bianca Garcia Primary Care Provider [phone] DO Carlitos Lu Attending Provider Bianca Garcia Primary Care Unavailable Carlitos Lu Attending Unavailab Carlitos Kelley Admitting Unavailab Bianca Willoughby Referring Unavailable Esa LITTLE Attending Unavailable BART LEMUS Attending Unavailable Allergies Allergy Classification Reported Allergen(s) Allergy Type Date of Onset Reaction(s) Facility (6 sources) hydrOXYzine; Translations: [hydroxyzine] Drug Allergy 3 Palpitations (finding) General Surgery [place] (1 source) hydrOXYzine Drug Allergy [address] [place] [address] Repository (1 source) hydrOXYzine; Translations: [Vistaril] Drug Allergy [facility] Repository Medications Current Medications Medication Drug [...] tablet Orally q8-12 hrs prn Jul, Active [id number] 200 actuat albuterol 0.09 mg/actuat metered dose [...] Status: Ordered take 2 tablets by mo [facility] every twenty-four hours Cyclobenzaprine [...] 08/24/23 Status: Ordered take 1 tablet by [facility] every twenty-four hours Melatonin 5 MG 1 [...] site] Chronic Other aftercare (3 sources) 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 00TIFF Normal [facility] Consent for Procedure/Surger yon 10-02-2023 Consent for Procedure/Surgery [id number] 0TIFF [facility] MR head/brain wo/w conon MR head/brain wo/w [facility] [place] [address] MRI Report Signed Patient: Arianna Tucker MR#: [id number] 2 : 1965 Acct:[id number] Age/Sex: 58 / F ADM Date: 10/01/23 Loc: MR [facility]: [facility] Dr: Carlitos Lu DO Copies [...] Maciel Duarte M.D.10/02/2023 12:33 PM Dictation Location: [place] [address] Transcribed By: [facility] 10/02/23 1233 Dictated By: Maciel Duarte II, MD 10/02/23 1225 Signed By: 10/02/23 1233 Normal [facility] Facesheeton 10-01-2023 Facesheet [id number] 0TIFF Normal [facility] Ambulatory Visit Summaryon 0 09-30-2023 Ambulatory [...] you for choosing us for your care. [facility] Provider Letteron 08-17-2023 Provider Letter August 17, 2023 ARIANNA TUCKER [address] [place] [id number] : 1965 Dear Ms. Tucker, We have [...] your prompt attention to this matter. Sincerely, [facility] General Surgery [phone] [facility] No Panel Informationon 08-01 Miscellaneous Test COMMENT . [facility] Comment on above: Test Ordered: [id number] Alk Phos IsoenzymeAlkaline Phosphatase 117 IU/L CB Reference Range: 44-121Liver Fraction: 52 % CB Reference Range: 18-85Bone Fraction: 46 % CB Reference Range: 14-68Intestinal Frac.: 2 % CB Reference Range: 0-18Performed at: - [facility] [address] [id number] Director: Cam Reyes PhD, Phone: [phone] Physician Referralon 024 Physician Referral [id number] 0TIFF Normal [facility] CBC AUTO DIFFon 07-26-2022 BASO # 0.1 103/ul Normal 0.0-0.1 [facility] Comment on above: Performed By: #### U RCX #### [facility] [address] [address] [address] Roderick Greene Basophils/100 WBC (Bld) 0.6 % Normal 0.2-2.0 [facility] Comment on above: Performed By: #### U RCX #### [facility] [address] [place] [address] Dr. Roderick Greene EO # 0.8 103/ul Critically high 0.0-0.7 [facility] Comment on above: Performed By: #### U RCX #### [facility] [address] [place] [address] Dr. Roderick Greene Eosinophils/100 WBC (Bld) 7.9 % Critically high 0.9-7.0 [facility] Comment on above: Performed By: #### U RCX #### [facility] [address] [address] [address] Roderick Greene Erythrocyte distribution width (RBC) [Ratio] 13.2 % Normal 11.0-15.0 [facility] Comment on above: Performed By: #### U RCX #### [facility] [address] [place] [address] Dr. Roderick Greene Hematocrit (Bld) [Volume fraction] 50.3 % Critically high 36.0-48.0 [facility] Comment on above: Performed By: #### U RCX #### [facility] [address] [place] [address] Dr. Roderick Greene Hemoglobin (Bld) [Mass/Vol] 16.0 g/dL Normal 12.0-16.0 [facility] Comment on above: Performed By: #### U RCX #### [facility] [address] [place] [address] Dr. Roderick Greene IG # 0.02 10e3/ul Normal 0.00-0.03 [facility] Comment on above: Performed By: #### U RCX #### [facility] [address] [address] [address] Roderick Greene IG % 0.2 % Normal 0.0-0.5 [facility] Comment on above: Performed By: #### U RCX #### [facility] [address] [place] [address] Dr. Roderick Greene LYMPH # 2.3 103/ul Normal 1.2-3.8 [facility] Comment on above: Performed By: #### U RCX #### [facility] [address] [place] [address] Dr. Roderick Greene Lymphocytes/100 WBC (Bld) 24.5 % Normal 20.5-60.0 [facility] Comment on above: Performed By: #### U RCX #### [facility] [address] [place] [address] Dr. Roderick Greene MANUAL DIFF REQ NO Normal [facility] Comment on above: Performed By: #### U RCX #### [facility] [address] [place] [address] Dr. Roderick Greene MCH (RBC) [Entitic mass] 31.4 pg Normal 26.7-34.0 [facility] Comment on above: Performed By: #### U RCX #### [facility] [address] [place] [address] Dr. Roderick Greene MCHC (RBC) [Mass/Vol] 31.8 g/dL Normal 29.9-35.2 [facility] Comment on above: Performed By: #### U RCX #### [facility] [address] [place] [address] Dr. Roderick Greene MCV (RBC) [Entitic vol] 98.8 fL Normal 81.0-99.0 [facility] Comment on above: Performed By: #### U RCX #### [facility] [address] [place] [address] Dr. Roderick Greene MONO # 0.4 103/ul Normal 0.3-0.8 [facility] Comment on above: Performed By: #### U RCX #### [facility] [address] [place] [address] Dr. Roderick Greene Monocytes/100 WBC (Bld) 3.7 % Normal 1.7-12.0 [facility] Comment on above: Performed By: #### U RCX #### [facility] [address] [place] [address] Dr. Roderick Greene NEUT # 6.0 103/ul Normal 1.4-6.5 [facility] Comment on above: Performed By: #### U RCX #### [facility] [address] [place] [address] Dr. Roderick Greene Neutrophils/100 WBC (Bld) 63.1 % Normal 43.0-75.0 [facility] Comment on above: Performed By: #### U RCX #### [facility] [address] [place] [address] Dr. Roderick Greene Platelet mean volume (Bld) [Entitic vol] 10.7 fL Normal 9.5-13.5 [facility] Comment on above: Performed By: #### U RCX #### [facility] [address] [place] [address] Dr. Roderick Greene PLT 290 103/ul Normal 150-450 [facility] Comment on above: Performed By: #### U RCX #### [facility] [address] [place] [address] Dr. Roderick Greene RBC 5.09 106/ul Normal 4.20-5.40 [facility] Comment on above: Performed By: #### U RCX #### [facility] [address] [place] [address] Dr. Roderick Greene WBC 9.5 103/ul Normal 4.0-11.0 [facility] Comment on above: Performed By: #### U RCX #### [facility] [address] [place] [address] Dr. Roderick Greene CULTURE URINEon 07-26-2022 CULTURE URINE Culture Observations : LIGHT GROWTH OF MIXED GENITAL MATEO. NO POTENTIAL PATHOGENS SEEN. Normal [facility] Comment on above: Performed By: #### U RCX #### [facility] [address] [address] [address] Roderick Greene GLYCOHEMOGLOBIN A1Con 2022 ADA RECOMMENDATION SEE BELOW Normal [facility] Comment on above: Result Comment: ADA RECOMMENDED LIMIT 4.0 - 6.0 ADA THERAPEUTIC TARGET < 7.0 ACTION SUGGESTED > 7.0 Performed By: #### A 1C #### [facility] [address] [address] [address] Roderick Greene Glucose [Mass/Vol] 108 mg/dL Critically high 74-106 [facility] Comment on above: Performed By: #### A 1C #### [facility] [address] [place] [address] Dr. Roderick Greene Performed By: #### T SH, LIPID, CMP #### [facility] [address] [place] [address] Dr. Roderick Greene HbA1c (Bld) [Mass fraction] 5.4 % Normal 4.5-6.2 [facility] Comment on above: Performed By: #### A 1C #### [facility] [address] [place] [address] Dr. Roderick Greene LIPID PROFILEon 07-26-2022 CHOL-HDL RATIO NORM SEE BELOW Normal [facility] Comment on above: Result Comment: 3.3 - 4.4 LOW RISK 4.4 - 7.1 AVERAGE RISK 7.1 - 11.0 MODERATE RISK >11.0 HIGH RISK Performed By: #### U RCX #### [facility] [address] [place] [address] Dr. Roderick Greene Cholesterol [Mass/Vol] 217 mg/dL Critically high <=200 [facility] Comment on above: Performed By: #### U RCX #### [facility] [address] [place] [address] Dr. Roderick Greene Cholesterol in HDL [Mass/Vol] 55 mg/dL Normal 40-60 [facility] Comment on above: Performed By: #### U RCX #### [facility] [address] [place] [address] Dr. Roderick Greene Cholesterol in LDL [Mass/Vol] 143.6 mg/dL Normal [facility] Comment on above: Performed By: #### U RCX #### [facility] [address] [address] [address] Roderick Greene Cholesterol.total/Cho lesterol in HDL [Mass ratio] 3.9 {ratio} Normal [facility] Comment on above: Performed By: #### U RCX #### [facility] [address] [address] [address] Roderick Greene HDL NORMAL > or = 60 mg/dl - LO W CARDIOVASCULAR RISK <40 mg/dl - HIGH CARDIOVASCULAR RISK Normal [facility] Comment on above: Performed By: #### U RCX #### [facility] [address] [address] [address] Roderick Greene LDL CALC NORMAL SEE BELOW Normal [facility] Comment on above: Result Comment: <100 mg/dl OPTIMAL 100 - 129 mg/dl NEAR OR ABOVE OPTIMAL 130 - 159 mg/dl BORDERLINE HIGH 160 - 189 mg/dl HIGH >190 mg/dl VERY HIGH Performed By: #### U RCX #### [facility] [address] [place] [address] Dr. Roderick Greene Triglyceride [Mass/Vol] 92 mg/dL Normal <=150 [facility] Comment on above: Performed By: #### U RCX #### [facility] [address] [address] [address] Roderick Greene VLDL CALC 18.4 mg/dL Normal [facility] Comment on above: Performed By: #### U RCX #### [facility] [address] [address] [address] Roderick Greene PROF 14(COMP METB)on 023 Albumin [Mass/Vol] 3.7 g/dL Normal 3.4-5.0 [facility] Comment on above: Performed By: #### T SH, LIPID, CMP #### [facility] [address] [address] [address] Roderick Greene Albumin/Globulin [Mass ratio] 1.0 {ratio} Normal [facility] Comment on above: Performed By: #### T SH, LIPID, CMP #### [facility] [address] [address] [address] Roderick Greene ALP [Catalytic activity/Vol] 146 U/L Critically high 46-116 [facility] Comment on above: Performed By: #### T SH, LIPID, CMP #### [facility] [address] [address] [address] Roderick Greene ALT [Catalytic activity/Vol] 24 U/L Normal 14-59 [facility] Comment on above: Performed By: #### T SH, LIPID, CMP #### [facility] [address] [address] [address] Roderick Greene Anion gap [Moles/Vol] 11.7 mmol/L Normal [facility] Comment on above: Performed By: #### T SH, LIPID, CMP #### [facility] [address] [place] [address] Dr. Roderick Greene AST [Catalytic activity/Vol] 23 U/L Normal 15-37 [facility] Comment on above: Performed By: #### T SH, LIPID, CMP #### [facility] [address] [address] [address] Roderick Greene Bilirubin [Mass/Vol] 0.5 mg/dL Normal 0.2-1.0 [facility] Comment on above: Performed By: #### T SH, LIPID, CMP #### [facility] [address] [address] [address] Roderick Greene Calcium [Mass/Vol] 9.3 mg/dL Normal 8.5-10.1 [facility] Comment on above: Performed By: #### T SH, LIPID, CMP #### [facility] [address] [address] [address] Roderick Greene Chloride [Moles/Vol] 105 mmol/L Normal 98-107 [facility] Comment on above: Performed By: #### T SH, LIPID, CMP #### [facility] [address] [place] [address] Dr. Roderick Greene CO2 [Moles/Vol] 31.0 mmol/L Normal 21.0-32.0 [facility] Comment on above: Performed By: #### T SH, LIPID, CMP #### [facility] [address] [address] [address] Roderick Greene Creatinine [Mass/Vol] 0.65 mg/dL Normal 0.55-1.02 [facility] Comment on above: Performed By: #### T SH, LIPID, CMP #### [facility] [address] [address] [address] Roderick Greene EGFR-AF MAURITANIAN >60 Normal >=60 [facility] Comment on above: Performed By: #### T SH, LIPID, CMP #### [facility] [address] [address] [address] Roderick Greene EGFR-NON AF MAURITANIAN >60 Normal >=60 [facility] Comment on above: Performed By: #### T SH, LIPID, CMP #### [facility] [address] [address] [address] Roderick Greene Globulin (S) [Mass/Vol] 3.6 g/dL Normal [facility] Comment on above: Performed By: #### T SH, LIPID, CMP #### [facility] [address] [address] [address] Roderick Greene Potassium [Moles/Vol] 4.7 mmol/L Normal 3.5-5.1 [facility] Comment on above: Performed By: #### T SH, LIPID, CMP #### [facility] [address] [address] [address] Roderick Greene Protein [Mass/Vol] 7.3 g/dL Normal 6.4-8.2 [facility] Comment on above: Performed By: #### T SH, LIPID, CMP #### [facility] [address] [address] [address] Roderick Greene Sodium [Moles/Vol] 143 mmol/L Normal 136-145 [facility] Comment on above: Performed By: #### T SH, LIPID, CMP #### [facility] [address] [address] [address] Roderick Greene Urea nitrogen [Mass/Vol] 13.0 mg/dL Normal 7.0-18.0 [facility] Comment on above: Performed By: #### T SH, LIPID, CMP #### [facility] [address] [place] [address] Dr. Roderick Greene Urea nitrogen/Creatinine [Mass ratio] 20.0 mg/mg Normal [facility] Comment on above: Performed By: #### T SH, LIPID, CMP #### [facility] [address] [place] [address] Dr. Roderick Greene TSHon 07-26-2022 TSH 0.822 uIU/mL Normal 0.358-3.740 [facility] Comment on above: Performed By: #### T SH, LIPID, CMP #### [facility] [address] [place] [address] Dr. Roderick Greene UA RANDOM W/MICROSCOPICon BACTERIA TRACE Abnormal NONE SEEN [facility] Comment on above: Performed By: #### U AMIC #### [facility] [address] [place] [address] Dr. Roderick Greene Bilirubin Ql (U) Negative Normal NEGATIVE [facility] Comment on above: Performed By: #### U AMIC #### [facility] [address] [place] [address] Dr. Roderick Greene CAST NONE SEEN Normal NONE SEEN [facility] Comment on above: Performed By: #### U AMIC #### [facility] [address] [place] [address] Dr. Roderick Greene Clarity (U) CLEAR Normal CLEAR [facility] Comment on above: Performed By: #### U AMIC #### [facility] [address] [place] [address] Dr. Roderick Greene Color (U) LT. YELLOW Normal YELLOW [facility] Comment on above: Performed By: #### U AMIC #### [facility] [address] [place] [address] Dr. Roderick Greene Crystals LM Nom (Urine sed) NONE SEEN Normal NONE SEEN [facility] Comment on above: Performed By: #### U AMIC #### [facility] [address] [address] [address] Roderick Greene Epithelial cells LM Ql (Urine sed) FEW Abnormal NONE SEEN /RARE [facility] Comment on above: Performed By: #### U AMIC #### [facility] [address] [address] [address] Roderick Greene Glucose Ql (U) Negative Normal NEGATIVE [facility] Comment on above: Performed By: #### U AMIC #### [facility] [address] [address] [address] Roderick Greene Hemoglobin Ql (U) Negative Normal NEGATIVE [facility] Comment on above: Performed By: #### U AMIC #### [facility] [address] [place] [address] Dr. Roderick Greene Ketones Ql (U) Negative Normal NEGATIVE [facility] Comment on above: Performed By: #### U AMIC #### [facility] [address] [place] [address] Dr. Roderick Greene LEUKOCYTES Negative Normal NEGATIVE [facility] Comment on above: Performed By: #### U AMIC #### [facility] [address] [address] [address] Roderick Greene MUCOUS SMALL Abnormal NONE SEEN [facility] Comment on above: Performed By: #### U AMIC #### [facility] [address] [place] [address] Dr. Roderick Greene Nitrite Ql (U) Negative Normal NEGATIVE [facility] Comment on above: Performed By: #### U AMIC #### [facility] [address] [place] [address] Dr. Roderick Greene pH (U) 8.0 [pH] Normal 5-9 [facility] Comment on above: Performed By: #### U AMIC #### [facility] [address] [place] [address] Dr. Roderick Greene RBC NONE SEEN Abnormal 0-2 [facility] Comment on above: Performed By: #### U AMIC #### [facility] [address] [place] [address] Dr. Roderick Greene SPEC GRAVITY 1.020 Normal 1.005-<=1.[address] [facility] Comment on above: Performed By: #### U AMIC #### [facility] [address] [address] [address] Roderick Greene UA PROTEIN Negative Normal NEGATIVE/ TRACE [facility] Comment on above: Performed By: #### U AMIC #### [facility] [address] [address] [address] Roderick Greene Urobilinogen Qn (U) 0.2 {Jordan'U}/dL Normal 0.2 - 1. 0 [facility] Comment on above: Performed By: #### U AMIC #### [facility] [address] [address] [address] Roderick Greene WBC NONE SEEN Normal NONE SEEN [facility] Comment on above: Performed By: #### U AMIC #### [facility] [address] [address] CHEST WO CONon [...] by: SONU COLLINS Date: 2022-03-03 07:51 Normal [facility] Vital Signs Date Time Vital Sign Value Performing Clinician Facility 10-01-2023 07:08-0400 Body height 165.1 cm DO Bianca Garcia Work Phone: [facility] 10-01-2023 07:08-0400 Body weight 77.11 kg DO Bianca Garcia Work Phone: [facility] 09-30-2023 15:26-0400 Blood Pressure Location Esa NILL [facility] 09-30-2023 15:26-0400 Diastolic blood pressure 84 mm[Hg] Esa NILL [facility] 09-30-2023 15:26-0400 Heart rate 76 /min Esa NILL [facility] 09-30-2023 15:26-0400 Respiratory rate 16 /min Esa NILL [facility] 09-30-2023 15:26-0400 Systolic blood pressure 138 mm[Hg] Esa NILL [facility] 07-23-2023 09:50-0500 Body height 162.56 cm Bianca Garcia Other [facility] 07-23-2023 09:50-0500 Body mass index (BMI) [Ratio] 29.69 kg/m2 Bianca Garcia Other [facility] Other 07-23-2023 09:50-0500 Body temperature 98.1 [degF] Bianca Garcia Other [facility] Other 07-23-2023 09:50-0500 Body weight 78.47 kg Bianca Garcia Other [facility] 07-23-2023 09:50-0500 Diastolic blood pressure 88 mm[Hg] Bianca Garcia Other [facility] 07-23-2023 09:50-0500 Respiratory rate 18 /min Bianca Garcia Other [facility] Other 07-23-2023 09:50-0500 SaO2% (BldA) [Mass fraction] 99 % Bianca Garcia Other [facility] Other 07-23-2023 09:50-0500 Systolic blood pressure 128 mm[Hg] Bianca Garcia Other [facility] 07-30-2022 12:10-0500 Body height 162.56 cm Bianca Garcia Other [facility] Other 07-30-2022 12:10-0500 Body mass index (BMI) [Ratio] 27.12 kg/m2 Bianca Garcia Other [facility] Other 07-30-2022 12:10-0500 Body temperature 96.6 [degF] Bianca Garcia Other [facility] Other 07-30-2022 12:10-0500 Body weight 71.67 kg Bianca Garcia Other [facility] Other 07-30-2022 12:10-0500 Diastolic blood pressure 86 mm[Hg] Bianca Garcia Other [facility] Other 07-30-2022 12:10-0500 Respiratory rate 18 /min Bianca Garcia Other [facility] Other 07-30-2022 12:10-0500 SaO2% (BldA) [Mass fraction] 98 % Bianca Garcia Other [facility] Other 07-30-2022 12:10-0500 Systolic blood pressure 120 mm[Hg] Bianca Garcia Other [facility] Other 07-21-2022 11:30-0500 Body height 162.56 cm Bianca Garcia Other [facility] Other 07-21-2022 11:30-0500 Body mass index (BMI) [Ratio] 27.55 kg/m2 Bianca Garcia Other [facility] Other 07-21-2022 11:30-0500 Body temperature 98.4 [degF] Bianca Garcia Other [facility] Other 07-21-2022 11:30-0500 Body weight 72.8 kg Bianca Garcia Other [facility] Other 07-21-2022 11:30-0500 Diastolic blood pressure 88 mm[Hg] Bianca Garcia Other [facility] Other 07-21-2022 11:30-0500 Respiratory rate 18 /min Bianca Garcia Other [facility] Other 07-21-2022 11:30-0500 SaO2% (BldA) [Mass fraction] 95 % Bianca Garcia Other [facility] Other 07-21-2022 11:30-0500 Systolic blood pressure 122 mm[Hg] Bianca Garcia Other [facility] Other Encounters Encounter Date Encounter Type Care Provider Facility Start: 12-02-2023 End: 12-02-2023 ambulatory BART LEMUS Not Available Start: 11-12-2023 End: 11-12-2023 ambulatory BART LEMUS Not Available Start: 10-06-2023 End: 10-06-2023 ambulatory BART LEMUS Not Available Start: 10-01-2023 End: 10-01-2023 ambulatory Bianca Garcia Facility:[facility] Start: 10-01-2023 End: 10-01-2023 ambulatory DO Bianca Garcia Work Phone: [facility] Work Phone: Start: 10-01-2023 End: 10-01-2023 Patient encounter procedure DO Bianca Garcia Work Phone: [facility] [place] Work Phone: Start: 09-30-2023 End: 10-01-2023 ambulatory Bianca Garcia Facility:[facility] Start: 09-30-2023 End: 09-30-2023 Patient encounter procedure Esa LITTLE General [facility] Start: 09-03-2023 Non-patient / Non-visit DO Bianca Garcia Work Phone: [facility] Work Phone: Start: 08-01-2023 Non-patient / Non-visit DO Bianca Garcia Work Phone: [facility] Work Phone: Start: 07-27-2023 ambulatory Bianca Garcia Facility:[facility] Start: 07-23-2023 End: 07-23-2023 ambulatory Bianca Garcia Other [facility] Other Start: 07-23-2023 Office outpatient visit 25 minutes Bianca Garcia [facility] Start: 07-23-2023 End: 07-23-2023 Patient encounter procedure DO Bianca Garcia Work Phone: [facility]- Start: 11-20-2022 ambulatory JÚNIOR GOLDBERG . Facili ty:[facility] Start: 11-04-2022 End: 11-04-[address] BIANCA GARCIA Facility:[facility] Start: 10-09-2022 End: 10-10-2022 ambulatory YANE VALERA . Facility:[facility] Start: 10-01-2022 End: 10-01-2022 ambulatory Bianca Garcia Other [facility] Other Start: 10-01-2022 Telephone encounter Bianca Garcia [facility] Start: 08-28-2022 End: 08-29-[address] LENORE STOLL . Facility:[facility] Start: 08-05-2022 End: 08-05-2022 ambulatory John Diallopinky Other [facility] Other Start: 08-05-2022 Telephone encounter Imad Asaad [employer] Start: 07-30-2022 End: 07-30-2022 ambulatory Bianca Garcia Other [facility] Other Start: 07-30-2022 Office outpatient visit 25 minutes Bianca Garcia [facility] Start: 07-26-2022 End: 07-27-[address] BIANCA GARCIA Facility:[facility] Start: 07-24-2022 End: 07-25-[address] LENOER STOLL . Facility:[facility] Start: 07-21-2022 End: 07-21-2022 ambulatory Bianca Garcia Other [facility] Other Start: 07-21-2022 Office outpatient visit 15 minutes Bianca Garcia [facility] Start: 05-27-2022 End: 05-27-[address] [...] Author Start: 10-01-2023 MR Unspecified body region [facility] Start: 10-01-2023 MRI of head MR head/brain wo/w con [facility] Immunizations Immunization Date Immunization Notes Care Provider Fa cility 02-09-2021 COVID-19 Pfizer Bianca Garcia Other [facility] [place] 01-21-2021 COVID-19 Pfizer Bianca Garcia Other [facility] [place] Payers Date Payer Category Payer Self-pay 2022 Medicaid [id number] 2. [id number] 1966 Unknown [id number] 2.16.84 0.1.268790.3.579.2.593 1966 Unknown [id number] 2.16.84 0.1.380891.3.579.2.593 1966 Unknown [id number] 2.16.84 0.1.890316.3.579.2.593 1966 Unknown [id number] 2.16.84 0.1.150130.3.579.2.593 1966 Unknown [id number] 2.16.84 0.1.683203.3.579.2.593 1966 Unknown [id number] 2.16.84 0.1.173873.3.579.2.593 1966 Unknown [id number] 2.16.84 0.1.876636.3.579.2.593 1966 Unknown [id number] 2.16.84 0.1.242766.3.579.2.593 1966 Unknown [id number] 2.16.84 0.1.940023.3.579.2.593 1966 Unknown [id number] 2.16.84 0.1.409671.3.579.2.593 1966 Unknown [id number] 2.16.84 0.1.765423.3.579.2.593 1966 Unknown [id number] 2.16.84 0.1.872801.3.579.2.593 1966 Unknown [id number] 2.16.84 0.1.351910.3.579.2.593 1966 Unknown [id number] 2.16.8 40.1.702781.3.579.2.727 1966 Unknown [id number] 2.16.84 0.1.475665.3.579.2.1259 1966 Unknown [id number] 2.16.84 0.1.882054.3.579.2.1259 1966 Unknown [id number] 2.16.84 0.1.863251.3.579.2.1259 1959 Unknown [id number] Medicaid [place] Ad[employer]age [id number] 301 [id number] Unknown [id number] 2.16.8 40.1.388214.3.579.2.531 Social History Date Type Detail Facility Unknown if ever smoked [facility] Other Sex Assigned At [facility] Start: 09-30-2023 Tobacco smoking status Light t obacco smoker (finding) [facility] [place] Tobacco smoking status Never Gener al [facility] Start: 08-04-2023 Tobacco smoking stat NHIS Smoker (finding) [facility] Start: 1965 Sex Assigned At Female F [facility] Functional Status Date Assessment Result Facility [...] SARS-CoV-2 (COVID-19) mRNA BNT-162b2 vax 01/21/2021 Recorded [facility] Comment on above: Result Comment: Elec [...] see whomever can see her first at [facility]. 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 Continue with above medication daily as directed. Jul, Other She voices that she was anxious to come into the office today but once she was in her exam room she was calmed down. [facility] Other 04-20-2023 NoteCONSULTATION CONSULTATION DATE: 10/09/2022 TO: [...] our patients to inform us about any kmyk-kzl-nrvhmfh medications or herbal remedies/nutritional supplements/alternative remedies. 2. [...] treatment options with their primary care provider.[id number] Note CONSULTATION CONSULTATION DATE: 08/28/2022 HISTORY OF [...] with this plan and all questions answered.[facility]Ptxbyqop03-29-1060 Evaluation note* Encounter Date Diagnosis Assessment Notes [...] someone she can see through [facility]. She voices that she will think about it. I asked her not to take anymore Vistaril. Jul, Lumbar pain (ICD-10 - M54.50) She voices that Dr. Stoll is retiring and his WEAPONS OFFICER is leaving. She is scheduled for an [...] and if/when testing needs to be repeated. 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 [facility] Other 11-03-2022 NoteCONSULTATION CONSULTATION DATE: 04/24/2022 HISTORY [...] followed up in the clinic post procedure.[id number] NoteCONSULTATION CONSULTATION DATE: 02/20/2022 HISTORY OF PRESENT [...] agrees to this and all questions answered.[id number] NoteCONSULTATION CONSULTATION DATE: 12/18/2921 This is a [...] will be followed up in the clinic. [facility] Signed and Approved by: JOSE ALEJANDRO STINSON . 12/26/2021 16:26:00[facility] [id number] History general Narrative - Reported* Type Description Date Medical History Gestational Diabetes Medical History History of Hemorrhoids Medical History Chest X-Ray Done 08-11-11 Medical History Lumbar Spine X-Ray Done 08-11-11 Medical History Pelvic Ultrasound 08-11-12; [facility] Medical History Transvaginal US 08-12-12; [facility] Medical History CT Abdomen and Pelvis 08-16-12; [facility] Medical History TDap (Adacel) 01-03-15 [place] E R Medical History 01/2015 Dr So, 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 Lu Colonoscopy, Divert iculosis 10-05-2012 Surgical History injection in back - Pain Mgmt Surgical History Nerve block in back 06/2019 Hospitalization History Tonsillectomy Hospitalization History Childbirth Hospitalization History [place] [facility] stic hes in rt hand cut during washing dishes 01/03/2015 [facility] [employer] Other Evaluation + Plan note No data available for this section [facility] [place] Evaluation noteNo InformationNortGeisinger St[facility] [employer] Other Evaluation noteNo assessment information available [facility] Work Phone: Hospital Discharge instructions No data available for this section [facility] [place] Progress note No data available for this section [facility] [place] Reason for visit Narrativecheck up/discuss dementia, discuss multiple issues, see treatment plan for further informationPicher Rover Other Reason for Referral Reason appt 09/05/22 at 8am pt needs screening colonoscopy Diagnosis 1 Colon cancer screeni ng (Z12.11) Referral Organization [facility] Family Medicin e [place] Referring Provider First Name Bianca Referring Provider Last Name Jose Referring Provider Specialty Family Prac guero Referred Organization [facility] Gastroenterolo gy Referred Provider John Cedillo Referred Address [address],[facility] [address], [place],[address] Referred Provider Specialty Gastroentero logy Referral Priority Routine Referral Appointment Date 2022-09-05 General Notes Delilah Sandoval 07/21/2022 11:57:58 AM > referral sent p2p. pt understands she will be contacted to schedule this appt. Delilah Sandoval 08/06/2022 10:17:55 AM > colonoscopy scheduled on 09/05/22 at 8am Reason appt pt needs cons ult to discuss memory changes Diagnosis 1 Memory changes (R41. 3) Referral Organization [facility] Family Medicin [facility] [place] Referring Provider First Name Bianca Referring Provider Last Name Jose Referring Provider Specialty Family Prac guero Referred Organization [facility] Referred Provider Carlitos Lu Referred Address [address],[place], [place],[address] Referred Provider Specialty Neurology Referral Priority Routine General Notes Delilah Sandoval 07/23/2023 11:40:43 AM > referral faxed thru [facility] with visit note and insurance card. pt understands she will be contacted to schedule this appt. Reason appt pt needs scre ening colonoscopy Diagnosis 1 Colon cancer screeni ng (Z12.11) Referral Organization [facility] Family Medicin [facility] [place] Referring Provider First Name Bianca Referring Provider Last Name Jose Referring Provider Specialty Family Prac guero Ref[facility] Organization [facility] Referred Provider Esa Little [place]erred Address [address] [place] [place], [place],[address] Referred Provider Specialty Surgery Referral Priority Routine [...] CREATED AUTHOR AUTHOR'S ORGANIZ ATION 10/06/2023 [facility] DATE CREATED AUTHOR AUTHOR'S ORGANIZ ATION 10/27/2023 [facility] DATE CREATED AUTHOR AUTHOR'S ORGANIZ ATION 12/03/2023 [facility] EPIC Patient Care team informatio [...] BE BASED ON THE PRIMARY CLINICAL RECORDS. [facility] [employer], [place] [facility]. provides no warranty or guarantee of the accuracy or completeness of information in this document.
[2024-08-09] MEDS: 0.9 % SODIUM CHLORIDE 500 ML 50 ML IV (07:21)
[2024-08-09] MEDS: BUPIVACAINE HCL 0.25% PF 25 MG/10 ML VIAL 2 ML INJ (07:38)
[2024-08-09] MEDS: 0.9 % SODIUM CHLORIDE 10 ML SYRINGE - SALINE FLUSH 2 ML INJ (07:38)
[2024-08-09] MEDS: LIDOCAINE HCL 2% 400 MG/20 ML MDV 4 ML INJ (07:39)
[2024-08-09] MEDS: IOHEXOL 240 MG/ML - 10 ML VIAL 48 MG IV (07:39)
[2024-08-09] MEDS: METHYLPREDNISOLONE ACETATE 80 MG/ML VIAL INJ (07:39)
[2024-08-09 07:40] VITALS: BP 121/71; PULSE 69; TEMP 36.9; O2SAT 99
[2024-08-09 07:45] VITALS: BP 119/73; PULSE 69; O2SAT 96
--- NOTE | 2024-08-09 08:21 | W.PM.PROCNOT ---
Date of procedure: 08/09/24 Pre-op diagnosis: Lumbar stenosis with neurogenic claudication Post-op diagnosis: same as pre-op Procedure: Caudal Epidural Steroid Injection With catheter advancement Pre-operative diagnosis includes lumbar stenosis with neurgenic claudication, Postoperative diagnosis same, Under fluoroscopic guidance Solution used for the injection is Marcaine 0.25% Depo-Medrol 80 mg total of 5ml Omnipaque 3cc,3ml total, 1ml was used for injection to confirm needle tip placement and catheter tip placement within the epidural space. catheter was removed with the tip intact. Anesthesia: local anesthesia using 2% lidocaine, total no more than 5 mL. Timeout process compliant After obtaining informed consent .the patient was brought to the procedure room .placed in the prone position . the area was prepped and draped in a sterile fashion utilizing betadine. 25 gauge needle was used to create a skin wheal over the sacral hiatus identified under fluoroscopy. 17 gauge touhy needle was inserted over the anesthetized area and directed to the [place] hiatus under fluoroscopic guidance. after piercing the sacrococcygeal ligament. Confirmation of needle tip placement within the epidural space was accomplished with injection of contrast solution in AP and Lateral views. Epidural catheter was advanced to the L5 level .catheter placement confirmed with injection of contrast solution . the steroid solution was then injected .needle and catheter was removed post procedurally. patient transferred to recovery area in stable condition. Discharged home after meeting criteria. Anesthesia: MAC Surgeon: Deangelo Murillo Condition: stable
== END 2024-08-09 08:06 | disposition home or self-care (01) ==
LOC: SURGOUT 06:49
PROVIDERS: PCP Family Medicine; Visit Provider Anesthesiology Pain Medicine
PROC: (CPT 1992; principal; 2024-08-09 07:30)
DX: M48.062 Spinal stenosis, lumbar region with neurogenic claudication (principal)
CPT/HCPCS: 62323; J0665; J1010; J2250; J2704; Q9966

== ENCOUNTER 2024-08-23 10:54 | Outpatient (OUT) | payer MEDICARE, MEDICAID, SELFPAY ==
--- NOTE | 2024-08-23 | CONS_ITS ---
CONSULTATION DATE: 08/23/2024 TO: Warren Harman D.O. CHIEF COMPLAINT: Includes 4-5/10 pain in the lower back bilaterally, worse on the right than left side. HISTORY: She describes it as a spasm type of pain, increased with activities such as standing, walking, performing transitioning maneuvers. She has undergone a caudal epidural steroid injection. Reports it improved her pain symptoms by at least 75%. CURRENT MEDICATION: Includes Lyrica 75 mg b.i.d., trazodone 50 mg at h.s., Percocet 7.5 mg t.i.d, Flexeril 10 mg t.i.d. EXAMINATION: Notable for patient having no clinical radiculopathy or myelopathy involving the lower extremities. Patient did have a moderate amount of myofascial spasm involving the lumbar paravertebral muscles and erector spinae with myalgia, worse on the right than the left side. IMPRESSION: Our impression is patient appears to have chronic pain status post successful caudal epidural steroid injection under fluoroscopic guidance. RECOMMENDATIONS: I have had a long discussion regarding opioid usage. We will initiate reduction in her opioid usage by increasing Lyrica 75 mg two pills b.i.d., adding tizanidine 4 mg pills, half a pill to one pill b.i.d. I have asked her to decrease the use of Percocet to 7.5 mg b.i.d. I also asked her to discontinue Flexeril. Will have her return to the office in four weeks? time to monitor her response to change in medication. As part of providing excellent, safe, comprehensive care, the following was completed at our patient's visit: 1. A medication reconciliation and review to ensure accurate knowledge of current/active medications, including asking our patients to inform us about any [id number] medications or herbal remedies/nutritional supplements/alternative remedies. 2. A review to specifically ensure our patients have had annual screening for: elevated body mass index (BMI, see intake chart for exact total), tobacco use, screening for depression, and screening for unhealthy alcohol use. When screening is concerning, patients are provided with education and the specific recommendation to discuss the concerning health issue and treatment options with their primary care provider. WIL[facility]
--- OUTSIDE RECORDS SUMMARY | 2024-08-23 11:05 | XMS_ITS | CCD ---
Author Organization [facility] Care Team Providers Care [employer] Representative Name Role Phone Bianca Garcia Unavailable John [...] Unavailable JOSE, DR VALENZUELA Primary Care Unavailable HALSEGN ., JÚNIOR Attending Unavailable JOSE, DR VALENZUELA [...] DR VALENZUELA Primary Care Unavailable ANDRA ., BEYT Attending Unavailable SAMSA ., BETY Admitting Unavailable [...] Admitting Unavailable Bianca Garcia Primary Care Physician [phone] DO Bianca Garcia Primary Care Provider DO Carlitos Lu Attending Provider Bianca Garcia Primary Care Unavailable Carlitos Lu Attending Unavailab Carlitos Kelley Admitting Unavailab Bianca Willoughby Referring Unavailable Esa LITTLE Attending Unavailable BART LEMUS Attending Unavailable Allergies Allergy Classification Reported Allergen(s) Allergy Type Date of Onset Reaction(s) Facility (6 sources) hydrOXYzine; Translations: [hydroxyzine] Drug Allergy 3 Palpitations (finding) General Surgery [place] (1 source) hydrOXYzine Drug Allergy [address] [place] [address] Repository (1 source) hydrOXYzine; Translations: [Vistaril] Drug Allergy [facility] Repository Medications Current Medications Medication Drug [...] tablet Orally q8-12 hrs prn Jul, Active [id number] 200 actuat albuterol 0.09 mg/actuat metered dose [...] Status: Ordered take 2 tablets by mo [facility] every twenty-four hours Cyclobenzaprine HCl 10 [...] 08/24/23 Status: Ordered take 1 tablet by [facility] every twenty-four hours Melatonin 5 MG [...] site] Chronic Other aftercare (3 sources) Other alf (current) drug therapy; Translations: [OTH [facility] CURRENT DRUG THERAPY] Onset: 07-27-2022 Episodic Other [...] Facility Insurance Correspondenceon 0 10-26-2023 Insurance Correspondence [id number] 00TIFF Normal [facility] Consent for Procedure/Surger yon 10-02-2023 Consent for Procedure/Surgery [id number] 0TIFF [facility] MR head/brain wo/w conon MR head/brain wo/w [facility] [place] [address] MRI Report Signed Patient: Arianna Tucker MR#: [id number] 2 : 1965 Acct:[id number] Age/Sex: 58 / F ADM Date: 10/01/23 Loc: MR Room: Type: [facility] Attending Dr: Carlitos Lu DO Copies to: [...] Maciel Duarte M.D.10/02/2023 12:33 PM Dictation Location: [place] [address] Transcribed By: [facility] 10/02/23 1233 Dictated By: Maciel Duarte II, MD 10/02/23 1225 Signed By: 10/02/23 1233 Normal [facility] Facesheeton 10-01-2023 Facesheet [id number] 0TIFF Normal [facility] Ambulatory Visit Summaryon 0 09-30-2023 Ambulatory [...] you for choosing us for your care. [facility] Provider Letteron 08-17-2023 Provider Letter August 17, 2023 ARI[address]NA T[address]ER [address] [place] [id number] : 1965 Dear Ms. Tucker, We have [...] your prompt attention to this matter. Sincerely, [facility] General Surgery [phone] [facility] No Panel Informationon 08-01 Miscellaneous Test COMMENT . [facility] Comment on above: Test Ordered: [id number] Alk Phos IsoenzymeAlkaline Phosphatase 117 IU/L CB Reference Range: 44-121Liver Fraction: 52 % CB Reference Range: 18-85Bone Fraction: 46 % CB Reference Range: 14-68Intestinal Frac.: 2 % CB Reference Range: 0-18Performed at: - [facility] [address] [id number] Director: Cam Reyes PhD, Phone: [phone] Physician Referralon 024 Physician Referral [id number] 0TIFF Normal [facility] CBC AUTO DIFFon 07-26-2022 BASO # 0.1 103/ul Normal 0.0-0.1 [facility] Comment on above: Performed By: #### U RCX #### [facility] [address] [address] [address] Roderick Greene Basophils/100 WBC (Bld) 0.6 % Normal 0.2-2.0 [facility] Comment on above: Performed By: #### U RCX #### [facility] [address] [place] [address] Dr. Roderick Greene EO # 0.8 103/ul Critically high 0.0-0.7 [facility] Comment on above: Performed By: #### U RCX #### [facility] [address] [place] [address] Dr. Roderick Greene Eosinophils/100 WBC (Bld) 7.9 % Critically high 0.9-7.0 [facility] Comment on above: Performed By: #### U RCX #### [facility] [address] [address] [address] Roderick Greene Erythrocyte distribution width (RBC) [Ratio] 13.2 % Normal 11.0-15.0 [facility] Comment on above: Performed By: #### U RCX #### [facility] [address] [place] [address] Dr. Roderick Greene Hematocrit (Bld) [Volume fraction] 50.3 % Critically high 36.0-48.0 [facility] Comment on above: Performed By: #### U RCX #### [facility] [address] [place] [address] Dr. Roderick Greene Hemoglobin (Bld) [Mass/Vol] 16.0 g/dL Normal 12.0-16.0 [facility] Comment on above: Performed By: #### U RCX #### [facility] [address] [place] [address] Dr. Roderick Greene IG # 0.02 10e3/ul Normal 0.00-0.03 [facility] Comment on above: Performed By: #### U RCX #### [facility] [address] [address] [address] Roderick Greene IG % 0.2 % Normal 0.0-0.5 [facility] Comment on above: Performed By: #### U RCX #### [facility] [address] [place] [address] Dr. Roderick Greene LYMPH # 2.3 103/ul Normal 1.2-3.8 [facility] Comment on above: Performed By: #### U RCX #### [facility] [address] [place] [address] Dr. Roderick Greene Lymphocytes/100 WBC (Bld) 24.5 % Normal 20.5-60.0 [facility] Comment on above: Performed By: #### U RCX #### [facility] [address] [place] [address] Dr. Roderick Greene MANUAL DIFF REQ NO Normal [facility] Comment on above: Performed By: #### U RCX #### [facility] [address] [place] [address] Dr. Roderick Greene MCH (RBC) [Entitic mass] 31.4 pg Normal 26.7-34.0 [facility] Comment on above: Performed By: #### U RCX #### [facility] [address] [place] [address] Dr. Roderick Greene MCHC (RBC) [Mass/Vol] 31.8 g/dL Normal 29.9-35.2 [facility] Comment on above: Performed By: #### U RCX #### [facility] [address] [place] [address] Dr. Roderick Greene MCV (RBC) [Entitic vol] 98.8 fL Normal 81.0-99.0 [facility] Comment on above: Performed By: #### U RCX #### [facility] [address] [place] [address] Dr. Roderick Greene MONO # 0.4 103/ul Normal 0.3-0.8 [facility] Comment on above: Performed By: #### U RCX #### [facility] [address] [place] [address] Dr. Roderick Greene Monocytes/100 WBC (Bld) 3.7 % Normal 1.7-12.0 [facility] Comment on above: Performed By: #### U RCX #### [facility] [address] [place] [address] Dr. Roderick Greene NEUT # 6.0 103/ul Normal 1.4-6.5 [facility] Comment on above: Performed By: #### U RCX #### [facility] [address] [place] [address] Dr. Roderick Greene Neutrophils/100 WBC (Bld) 63.1 % Normal 43.0-75.0 [facility] Comment on above: Performed By: #### U RCX #### [facility] [address] [place] [address] Dr. Roderick Greene Platelet mean volume (Bld) [Entitic vol] 10.7 fL Normal 9.5-13.5 [facility] Comment on above: Performed By: #### U RCX #### [facility] [address] [place] [address] Dr. Roderick Greene PLT 290 103/ul Normal 150-450 [facility] Comment on above: Performed By: #### U RCX #### [facility] [address] [place] [address] Dr. Roderick Greene RBC 5.09 106/ul Normal 4.20-5.40 [facility] Comment on above: Performed By: #### U RCX #### [facility] [address] [place] [address] Dr. Roderick Greene WBC 9.5 103/ul Normal 4.0-11.0 [facility] Comment on above: Performed By: #### U RCX #### [facility] [address] [place] [address] Dr. Roderick Greene CULTURE URINEon 07-26-2022 CULTURE URINE Culture Observations : LIGHT GROWTH OF MIXED GENITAL MATEO. NO POTENTIAL PATHOGENS SEEN. Normal [facility] Comment on above: Performed By: #### U RCX #### [facility] [address] [address] [address] Roderick Greene GLYCOHEMOGLOBIN A1Con 2022 ADA RECOMMENDATION SEE BELOW Normal [facility] Comment on above: Result Comment: ADA RECOMMENDED LIMIT 4.0 - 6.0 ADA THERAPEUTIC TARGET < 7.0 ACTION SUGGESTED > 7.0 Performed By: #### A 1C #### [facility] [address] [address] [address] Roderick Greene Glucose [Mass/Vol] 108 mg/dL Critically high 74-106 [facility] Comment on above: Performed By: #### A 1C #### [facility] [address] [place] [address] Dr. Roderick Greene Performed By: #### T SH, LIPID, CMP #### [facility] [address] [place] [address] Dr. Roderick Greene HbA1c (Bld) [Mass fraction] 5.4 % Normal 4.5-6.2 [facility] Comment on above: Performed By: #### A 1C #### [facility] [address] [place] [address] Dr. Roderick Greene LIPID PROFILEon 07-26-2022 CHOL-HDL RATIO NORM SEE BELOW Normal [facility] Comment on above: Result Comment: 3.3 - 4.4 LOW RISK 4.4 - 7.1 AVERAGE RISK 7.1 - 11.0 MODERATE RISK >11.0 HIGH RISK Performed By: #### U RCX #### [facility] [address] [place] [address] Dr. Roderick Greene Cholesterol [Mass/Vol] 217 mg/dL Critically high <=200 [facility] Comment on above: Performed By: #### U RCX #### [facility] [address] [place] [address] Dr. Roderick Greene Cholesterol in HDL [Mass/Vol] 55 mg/dL Normal 40-60 [facility] Comment on above: Performed By: #### U RCX #### [facility] [address] [place] [address] Dr. Roderick Greene Cholesterol in LDL [Mass/Vol] 143.6 mg/dL Normal [facility] Comment on above: Performed By: #### U RCX #### [facility] [address] [address] [address] Roderick Greene Cholesterol.total/Cho lesterol in HDL [Mass ratio] 3.9 {ratio} Normal [facility] Comment on above: Performed By: #### U RCX #### [facility] [address] [address] [address] Roderick Greene HDL NORMAL > or = 60 mg/dl - LO W CARDIOVASCULAR RISK <40 mg/dl - HIGH CARDIOVASCULAR RISK Normal [facility] Comment on above: Performed By: #### U RCX #### [facility] [address] [address] [address] Roderick Greene LDL CALC NORMAL SEE BELOW Normal [facility] Comment on above: Result Comment: <100 mg/dl OPTIMAL 100 - 129 mg/dl NEAR OR ABOVE OPTIMAL 130 - 159 mg/dl BORDERLINE HIGH 160 - 189 mg/dl HIGH >190 mg/dl VERY HIGH Performed By: #### U RCX #### [facility] [address] [place] [address] Dr. Roderick Greene Triglyceride [Mass/Vol] 92 mg/dL Normal <=150 [facility] Comment on above: Performed By: #### U RCX #### [facility] [address] [address] [address] Roderick Greene VLDL CALC 18.4 mg/dL Normal [facility] Comment on above: Performed By: #### U RCX #### [facility] [address] [address] [address] Roderick Greene PROF 14(COMP METB)on 023 Albumin [Mass/Vol] 3.7 g/dL Normal 3.4-5.0 [facility] Comment on above: Performed By: #### T SH, LIPID, CMP #### [facility] [address] [address] [address] Roderikc Greene Albumin/Globulin [Mass ratio] 1.0 {ratio} Normal [facility] Comment on above: Performed By: #### T SH, LIPID, CMP #### [facility] [address] [address] [address] Roderick Greene ALP [Catalytic activity/Vol] 146 U/L Critically high 46-116 [facility] Comment on above: Performed By: #### T SH, LIPID, CMP #### [facility] [address] [address] [address] Roderick Greene ALT [Catalytic activity/Vol] 24 U/L Normal 14-59 [facility] Comment on above: Performed By: #### T SH, LIPID, CMP #### [facility] [address] [address] [address] Roderick Greene Anion gap [Moles/Vol] 11.7 mmol/L Normal [facility] Comment on above: Performed By: #### T SH, LIPID, CMP #### [facility] [address] [place] [address] Dr. Roderick Greene AST [Catalytic activity/Vol] 23 U/L Normal 15-37 [facility] Comment on above: Performed By: #### T SH, LIPID, CMP #### [facility] [address] [address] [address] Roderick Greene Bilirubin [Mass/Vol] 0.5 mg/dL Normal 0.2-1.0 [facility] Comment on above: Performed By: #### T SH, LIPID, CMP #### [facility] [address] [address] [address] Roderick Greene Calcium [Mass/Vol] 9.3 mg/dL Normal 8.5-10.1 [facility] Comment on above: Performed By: #### T SH, LIPID, CMP #### [facility] [address] [address] [address] Roderick Greene Chloride [Moles/Vol] 105 mmol/L Normal 98-107 [facility] Comment on above: Performed By: #### T SH, LIPID, CMP #### [facility] [address] [place] [address] Dr. Roderick Greene CO2 [Moles/Vol] 31.0 mmol/L Normal 21.0-32.0 [facility] Comment on above: Performed By: #### T SH, LIPID, CMP #### [facility] [address] [address] [address] Roderick Greene Creatinine [Mass/Vol] 0.65 mg/dL Normal 0.55-1.02 [facility] Comment on above: Performed By: #### T SH, LIPID, CMP #### [facility] [address] [address] [address] Roderick Greene EGFR-AF CZECH >60 Normal >=60 [facility] Comment on above: Performed By: #### T SH, LIPID, CMP #### [facility] [address] [address] [address] Roderick Greene EGFR-NON AF CZECH >60 Normal >=60 [facility] Comment on above: Performed By: #### T SH, LIPID, CMP #### [facility] [address] [address] [address] Roderick Greene Globulin (S) [Mass/Vol] 3.6 g/dL Normal [facility] Comment on above: Performed By: #### T SH, LIPID, CMP #### [facility] [address] [address] [address] Roderick Greene Potassium [Moles/Vol] 4.7 mmol/L Normal 3.5-5.1 [facility] Comment on above: Performed By: #### T SH, LIPID, CMP #### [facility] [address] [address] [address] Roderick Greene Protein [Mass/Vol] 7.3 g/dL Normal 6.4-8.2 [facility] Comment on above: Performed By: #### T SH, LIPID, CMP #### [facility] [address] [address] [address] Roderick Greene Sodium [Moles/Vol] 143 mmol/L Normal 136-145 [facility] Comment on above: Performed By: #### T SH, LIPID, CMP #### [facility] [address] [address] [address] Roderick Greene Urea nitrogen [Mass/Vol] 13.0 mg/dL Normal 7.0-18.0 [facility] Comment on above: Performed By: #### T SH, LIPID, CMP #### [facility] [address] [place] [address] Dr. Roderick Greene Urea nitrogen/Creatinine [Mass ratio] 20.0 mg/mg Normal [facility] Comment on above: Performed By: #### T SH, LIPID, CMP #### [facility] [address] [place] [address] Dr. Roderick Greene TSHon 07-26-2022 TSH 0.822 uIU/mL Normal 0.358-3.740 [facility] Comment on above: Performed By: #### T SH, LIPID, CMP #### [facility] [address] [place] [address] Dr. Roderick Greene UA RANDOM W/MICROSCOPICon BACTERIA TRACE Abnormal NONE SEEN [facility] Comment on above: Performed By: #### U AMIC #### [facility] [address] [place] [address] Dr. Roderick Greene Bilirubin Ql (U) Negative Normal NEGATIVE [facility] Comment on above: Performed By: #### U AMIC #### [facility] [address] [place] [address] Dr. Roderick Greene CAST NONE SEEN Normal NONE SEEN [facility] Comment on above: Performed By: #### U AMIC #### [facility] [address] [place] [address] Dr. Roderick Greene Clarity (U) CLEAR Normal CLEAR [facility] Comment on above: Performed By: #### U AMIC #### [facility] [address] [place] [address] Dr. Roderick Greene Color (U) LT. YELLOW Normal YELLOW [facility] Comment on above: Performed By: #### U AMIC #### [facility] [address] [place] [address] Dr. Roderick Greene Crystals LM Nom (Urine sed) NONE SEEN Normal NONE SEEN [facility] Comment on above: Performed By: #### U AMIC #### [facility] [address] [address] [address] Roderick Greene Epithelial cells LM Ql (Urine sed) FEW Abnormal NONE SEEN /RARE [facility] Comment on above: Performed By: #### U AMIC #### [facility] [address] [address] [address] Roderick Greene Glucose Ql (U) Negative Normal NEGATIVE [facility] Comment on above: Performed By: #### U AMIC #### [facility] [address] [address] [address] Roderick Greene Hemoglobin Ql (U) Negative Normal NEGATIVE [facility] Comment on above: Performed By: #### U AMIC #### [facility] [address] [place] [address] Dr. Roderick Greene Ketones Ql (U) Negative Normal NEGATIVE [facility] Comment on above: Performed By: #### U AMIC #### [facility] [address] [place] [address] Dr. Roderick Greene LEUKOCYTES Negative Normal NEGATIVE [facility] Comment on above: Performed By: #### U AMIC #### [facility] [address] [address] [address] Roderick Greene MUCOUS SMALL Abnormal NONE SEEN [facility] Comment on above: Performed By: #### U AMIC #### [facility] [address] [place] [address] Dr. Roderick Greene Nitrite Ql (U) Negative Normal NEGATIVE [facility] Comment on above: Performed By: #### U AMIC #### [facility] [address] [place] [address] Dr. Roderick Greene pH (U) 8.0 [pH] Normal 5-9 [facility] Comment on above: Performed By: #### U AMIC #### [facility] [address] [place] [address] Dr. Roderick Greene RBC NONE SEEN Abnormal 0-2 [facility] Comment on above: Performed By: #### U AMIC #### [facility] [address] [place] [address] Dr. Roderick Greene SPEC GRAVITY 1.020 Normal 1.005-<=1.025 [facility] Comment on above: Performed By: #### U AMIC #### [facility] [address] [address] [address] Roderick Greene UA PROTEIN Negative Normal NEGATIVE/ TRACE [facility] Comment on above: Performed By: #### U AMIC #### [facility] [address] [address] [address] Roderick Greene Urobilinogen Qn (U) 0.2 {Jordan'U}/dL Normal 0.2 - 1. 0 [facility] Comment on above: Performed By: #### U AMIC #### [facility] [address] [address] [address] Roderick Greene WBC NONE SEEN Normal NONE SEEN [facility] Comment on above: Performed By: #### U AMIC #### [facility] [address] [address] [address] CHEST WO CONon [...] by: SONU COLLINS Date: 2022-03-03 07:51 Normal [facility] Vital Signs Date Time Vital Sign Value Performing Clinician Facility 10-01-2023 07:08-0400 Body height 165.1 cm DO Bianca Garcia Work Phone: [facility] 10-01-2023 07:08-0400 Body weight 77.11 kg DO Bianca Garcia Work Phone: [facility] 09-30-2023 15:26-0400 Blood Pressure Location Esa NILL [facility] 09-30-2023 15:26-0400 Diastolic blood pressure 84 mm[Hg] Esa NILL [facility] 09-30-2023 15:26-0400 Heart rate 76 /min Esa NILL [facility] 09-30-2023 15:26-0400 Respiratory rate 16 /min Esa NILL [facility] 09-30-2023 15:26-0400 Systolic blood pressure 138 mm[Hg] Esa NILL [facility] 07-23-2023 09:50-0500 Body height 162.56 cm Bianca Garcia Other [facility] 07-23-2023 09:50-0500 Body mass index (BMI) [Ratio] 29.69 kg/m2 Bianca Garcia Other [employer] Other 07-23-2023 09:50-0500 Body temperature 98.1 [degF] Bianca Garcia Other [facility] [employer] Other 07-23-2023 09:50-0500 Body weight 78.47 kg Bianca Garcia Other [facility] 07-23-2023 09:50-0500 Diastolic blood pressure 88 mm[Hg] Bianca Garcia Other [facility] 07-23-2023 09:50-0500 Respiratory rate 18 /min Bianca Garcia Other [employer] Other 07-23-2023 09:50-0500 SaO2% (BldA) [Mass fraction] 99 % Bianca Garcia Other [employer] Other 07-23-2023 09:50-0500 Systolic blood pressure 128 mm[Hg] Bianca Garcia Other [facility] 07-30-2022 12:10-0500 Body height 162.56 cm Bianca Garcia Other [employer] Other 07-30-2022 12:10-0500 Body mass index (BMI) [Ratio] 27.12 kg/m2 Bianca Garcia Other [employer] Other 07-30-2022 12:10-0500 Body temperature 96.6 [degF] Bianca Garcia Other [employer] Other 07-30-2022 12:10-0500 Body weight 71.67 kg Bianca Garcia Other [employer] Other 07-30-2022 12:10-0500 Diastolic blood pressure 86 mm[Hg] Bianca Garcia Other [employer] Other 07-30-2022 12:10-0500 Respiratory rate 18 /min Bianca Garcia Other [employer] Other 07-30-2022 12:10-0500 SaO2% (BldA) [Mass fraction] 98 % Bianca Garcia Other [employer] Other 07-30-2022 12:10-0500 Systolic blood pressure 120 mm[Hg] Bianca Garcia Other [facility] Other 07-21-2022 11:30-0500 Body height 162.56 cm Bianca Garcia Other [facility] Other 07-21-2022 11:30-0500 Body mass index (BMI) [Ratio] 27.55 kg/m2 Bianca Garcia Other [facility] Other 07-21-2022 11:30-0500 Body temperature 98.4 [degF] Bianca Garcia Other [facility] Other 07-21-2022 11:30-0500 Body weight 72.8 kg Bianca Garcia Other [facility] Other 07-21-2022 11:30-0500 Diastolic blood pressure 88 mm[Hg] Bianca Garcia Other [facility] Other 07-21-2022 11:30-0500 Respiratory rate 18 /min Bianca Garcia Other [facility] Other 07-21-2022 11:30-0500 SaO2% (BldA) [Mass fraction] 95 % Bianca Garcia Other [facility] Other 07-21-2022 11:30-0500 Systolic blood pressure 122 mm[Hg] Bianca Garcia Other [facility] Other Encounters Encounter Date Encounter Type Care Provider Facility Start: 12-02-2023 End: 12-02-2023 ambulatory BART LEMUS Not Available Start: 11-12-2023 End: 11-12-2023 ambulatory BART LEMUS Not Available Start: 10-06-2023 End: 10-06-2023 ambulatory BART LEMUS Not Available Start: 10-01-2023 End: 10-01-2023 ambulatory Bianca Garcia Facility:[facility] Start: 10-01-2023 End: 10-01-2023 ambulatory DO Bianca Garcia Work Phone: [facility] Work Phone: Start: 10-01-2023 End: 10-01-2023 Patient encounter procedure DO Bianca Garcia Work Phone: [facility] Work Phone: Start: 09-30-2023 End: 10-01-2023 ambulatory Bianca Garcia Facility:[facility] Start: 09-30-2023 End: 09-30-2023 Patient encounter procedure Esa LITTLE [facility] Start: 09-03-2023 Non-patient / Non-visit DO Bianca Garcia Work Phone: [facility] Work Phone: Start: 08-01-2023 Non-patient / Non-visit DO Bianca Garcia Work Phone: [facility] Work Phone: Start: 07-27-2023 ambulatory Bianca Garcia Facility:[facility] Start: 07-23-2023 End: 07-23-2023 ambulatory Bianca Garcia Other [facility] Other Start: 07-23-2023 Office outpatient visit 25 minutes Bianca Garcia [facility] Start: 07-23-2023 End: 07-23-2023 Patient encounter procedure DO Bianca Garcia Work Phone: [facility]- Start: 11-20-2022 ambulatory JÚNIOR GOLDBERG . Facili ty:[facility] Start: 11-04-2022 End: 11-04-[address] BIANCA GARCIA Facility:[facility] Start: 10-09-2022 End: 10-10-2022 ambulatory YANE VALERA . Facility:[facility] Start: 10-01-2022 End: 10-01-2022 ambulatory Bianca Garcia Other [facility] Other Start: 10-01-2022 Telephone encounter Bianca Garcia [facility] Start: 08-28-2022 End: 08-29-[address] LENORE STOLL . Facility:[facility] Start: 08-05-2022 End: 08-05-2022 ambulatory John Diallopinky Other [facility] Other Start: 08-05-2022 Telephone encounter Imad Asaad [facility] [employer] Start: 07-30-2022 End: 07-30-2022 ambulatory Bianca Garcia Other [facility] Other Start: 07-30-2022 Office outpatient visit 25 minutes Bianca Garcia [facility] Start: 07-26-2022 End: 07-27-[address] BIANCA GARCIA Facility:[facility] Start: 07-24-2022 End: 07-25-[address] LENORE STOLL . Facility:[facility] Start: 07-21-2022 End: 07-21-2022 ambulatory Bianca Garcia Other [facility] Other Start: 07-21-2022 Office outpatient visit 15 minutes Bianca Garcia [facility] Start: 05-27-2022 End: 05-27-[address] LENORE [...] Author Start: 10-01-2023 MR Unspecified body region [facility] Start: 10-01-2023 MRI of head MR head/brain wo/w con [facility] Immunizations Immunization Date Immunization Notes Care Provider Fa cility 02-09-2021 COVID-19 Pfizer Bianca Garcia Other [facility] 01-21-2021 COVID-19 Pfizer Bianca Garcia Other [facility] Payers Date Payer Category Payer Self-pay 2022 Medicaid [id number] 2. [id number] 1966 Unknown [id number] 2.16.84 0.1.000413.3.579.2.593 1966 Unknown [id number] 2.16.84 0.1.296318.3.579.2.593 1966 Unknown [id number] 2.16.84 0.1.584178.3.579.2.593 1966 Unknown [id number] 2.16.84 0.1.864839.3.579.2.593 1966 Unknown [id number] 2.16.84 0.1.524348.3.579.2.593 1966 Unknown [id number] 2.16.84 0.1.641594.3.579.2.593 1966 Unknown [id number] 2.16.84 0.1.985316.3.579.2.593 1966 Unknown [id number] 2.16.84 0.1.263873.3.579.2.593 1966 Unknown [id number] 2.16.84 0.1.129066.3.579.2.593 1966 Unknown [id number] 2.16.84 0.1.440214.3.579.2.593 1966 Unknown [id number] 2.16.84 0.1.216871.3.579.2.593 1966 Unknown [id number] 2.16.84 0.1.222290.3.579.2.593 1966 Unknown [id number] 2.16.84 0.1.970979.3.579.2.593 1966 Unknown [id number] 2.16.8 40.1.683010.3.579.2.727 1966 Unknown [id number] 2.16.84 0.1.150166.3.579.2.1259 1966 Unknown [id number] 2.16.84 0.1.446879.3.579.2.1259 1966 Unknown [id number] 2.16.84 0.1.873815.3.579.2.1259 1959 Unknown [id number] Medicaid [employer] [id number] Unknown [id number] 2.16.8 40.1.441793.3.579.2.531 Social History Date Type Detail Facility Unknown if ever smoked [facility] Other Sex Assigned At [facility] Start: 09-30-2023 Tobacco smoking status Light t obacco smoker (finding) [facility] Tobacco smoking status Never [facility] Start: 08-04-2023 Tobacco smoking stat NHIS Smoker (finding) [facility] Start: 1965 Sex Assigned At Female F [facility] Functional Status Date Assessment Result Facility [...] mRNA BNT-162b2 vax 01/21/2021 Recorded [facility] Comment on above: Result Comment: Elec [...] see whomever can see her first at [facility]. 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 Jul, Other oil heaterman (current) drug therapy (ICD-10 - Z79.899) Jul, Weight gain (ICD-10 - R63.5) Jul, Elevated blood pressure (ICD-10 - R03.0) Her blood pressure is controlled. Continue with above medication daily as directed. Jul, Other She voices that she was anxious to come into the office today but once she was in her exam room she was calmed down. [facility] Other 04-20-2023 NoteCONSULTATION CONSULTATION DATE: 10/09/2022 TO: [...] our patients to inform us about any blqw-cti-zabhnuq medications or herbal remedies/nutritional supplements/alternative remedies. 2. [...] treatment options with their primary care provider.[facility] [id number] Note CONSULTATION CONSULTATION DATE: 08/28/2022 HISTORY OF [...] with this plan and all questions answered.[facility] HospitalEajyrwmu79-09-2680 Evaluation note* Encounter Date Diagnosis Assessment Notes [...] she can see through [facility]. She voices that she will think about it. I asked her not to take anymore Vistaril. Jul, Lumbar pain (ICD-10 - M54.50) She voices that Dr. Stoll is retiring and his [employer] is leaving. She is scheduled for an [...] and if/when testing needs to be repeated. 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 [facility] Other 11-03-2022 NoteCONSULTATION CONSULTATION DATE: 04/24/2022 HISTORY [...] followed up in the clinic post procedure.[facility] HospitalMjhamyky43-40-1831 NoteCONSULTATION CONSULTATION DATE: 02/20/2022 HISTORY OF PRESENT [...] agrees to this and all questions answered.[facility] [id number] NoteCONSULTATION CONSULTATION DATE: 12/18/2921 This is a [...] will be followed up in the clinic. [facility] Signed and Approved by: JOSE ALEJANDRO STINSON . 12/26/2021 16:26:00[facility] [id number] History general Narrative - Reported* Type Description Date Medical History Gestational Diabetes Medical History History of Hemorrhoids Medical History Chest X-Ray Done 08-11-11 Medical History Lumbar Spine X-Ray Done 08-11-11 Medical History Pelvic Ultrasound 08-11-12; [facility] Medical History Transvaginal US 08-12-12; [facility] Medical History CT Abdomen and Pelvis 08-16-12; [place] [facility] [place] TDap (Adacel) 01-03-15 [facility] Medical History 01/2015 Dr So, 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 Lu Colonoscopy, Divert iculosis 10-05-2012 Surgical History injection in back - Pain Mgmt Surgical History Nerve block in back 06/2019 Hospitalization History Tonsillectomy Hospitalization History Childbirth Hospitalization History [facility] stic hes in rt hand cut during washing dishes 01/03/2015 [facility] [employer] Other Evaluation + Plan note No data available for this section [facility] Evaluation noteNo InformationNortEll[facility] [employer] Other Evaluation noteNo assessment information available [facility] Work Phone: Hospital Discharge instructions No data available for this section [facility] Progress note No data available for this section [facility] Reason for visit Narrativecheck up/discuss dementia, discuss multiple issues, see treatment plan for further informationOran xkoto Other Reason for Referral Reason appt 09/05/22 at 8am pt needs screening colonoscopy Diagnosis 1 Colon cancer screeni ng (Z12.11) Referral Organization [facility] [place] Referring Provider First Name Bianca Referring Provider Last Name Jose Referring Provider Specialty Family Prac guero Referred Organization [facility] Gastroenterolo gy Referred Provider John Cedillo Referred Address [address], [place],[address] Referred Provider Specialty Gastroentero logy Referral Priority Routine Referral Appointment Date 2022-09-05 General Notes Delilah Sadnoval 07/21/2022 11:57:58 AM > referral sent p2p. pt understands she will be contacted to schedule this appt. Delilah Sandoval 08/06/2022 10:17:55 AM > colonoscopy scheduled on 09/05/22 at 8am Reason appt pt needs cons ult to discuss memory changes Diagnosis 1 Memory changes (R41. 3) Referral Organization [facility] [place] Referring Provider First Name Bianca Referring Provider Last Name Jose Referring Provider Specialty Family Prac guero Referred Organization [facility] Referred Provider Carlitos Lu Referred Address [address],[place], [place],[address] Referred Provider Specialty Neurology Referral Priority Routine General Notes Delilah Sandoval 07/23/2023 11:40:43 AM > referral faxed thru [facility] with visit note and insurance card. pt understands she will be contacted to schedule this appt. Reason appt pt needs scre ening colonoscopy Diagnosis 1 Colon cancer screeni ng (Z12.11) Referral Organization [facility] [place] Referring Provider First Name Bianca Referring Provider Last Name Jose Referring Provider Specialty Family Prac guero Ref[facility] Organization [facility] Referred Provider Esa Little [place]erred Address [address] [place], [place],[address] Referred Provider Specialty Surgery Referral Priority Routine [...] CREATED AUTHOR AUTHOR'S ORGANIZ ATION 10/06/2023 [facility] DATE CREATED AUTHOR AUTHOR'S ORGANIZ ATION 10/27/2023 [facility] DATE CREATED AUTHOR AUTHOR'S ORGANIZ ATION 12/03/2023 [facility] EPIC Patient Care team [...] BE BASED ON THE PRIMARY CLINICAL RECORDS. [facility] [employer] [facility]. provides no warranty or guarantee of the accuracy or completeness of information in this document.
== END 2024-08-23 10:55 | disposition home or self-care (01) ==
LOC: PM 10:54
PROVIDERS: PCP Family Medicine; Visit Provider Anesthesiology Pain Medicine
DX: G89.4 Chronic pain syndrome (principal)
CPT/HCPCS: G0463

== ENCOUNTER 2024-09-15 11:00 | Outpatient (OUT) | payer MEDICARE, MEDICAID, SELFPAY ==
--- OUTSIDE RECORDS SUMMARY | 2024-09-15 11:17 | XMS_ITS | CCD ---
Author Organization [facility] Care Team Providers Care Customer Support Technician Name Role Phone Bianca Garcia Unavailable John [...] LENORE Becker Attending Unavailable STOLL ., DR LENROE Becker Consulting Unavailable STOLL ., DR LENORE [...] Admitting Unavailable Bianca Garcia Primary Care Physician [phone] DO Bianca Garcia Primary Care Provider DO Carlitos Lu Attending Provider [phone] Bianca Garcia Primary Care Unavailable Carlitos Lu Attending Unavailab Carlitos Kelley Admitting Unavailab Bianca Willoughby Referring Unavailable Esa LITTLE Attending Unavailable BART LEMUS Attending Unavailable Allergies Allergy Classification Reported Allergen(s) Allergy Type Date of Onset Reaction(s) Facility (6 sources) hydrOXYzine; Translations: [hydroxyzine] Drug Allergy 3 Palpitations (finding) General Surgery [place] (1 source) hydrOXYzine Drug Allergy [address] [place] [address] Repository (1 source) hydrOXYzine; Translations: [Vistaril] Drug Allergy [facility] Repository Medications Current Medications Medication Drug [...] tablet Orally q8-12 hrs prn Jul, Active [id number] 200 actuat albuterol 0.09 mg/actuat metered dose [...] Status: Ordered take 2 tablets by mo [facility] every twenty-four hours Cyclobenzaprine HCl 10 MG [...] Ordered take 1 tablet by [facility] every twenty-four hours Melatonin 5 [...] site] Chronic Other aftercare (3 sources) Other intermission coordinator (current) drug therapy; Translations: [OTH SENIOR LIVING [...] Facility Insurance Correspondenceon 0 10-26-2023 Insurance Correspondence [id number] Normal [facility] Consent for Procedure/Surger yon 10-02-2023 Consent for Procedure/Surgery [id number] 0TIFF [facility] MR head/brain wo/w [facility]on MR head/brain wo/w [facility] [place] [address] MRI Report Signed Patient: Arianna Tucker MR#: [id number] 2 : 1965 Acct:[id number] Age/Sex: 58 / F ADM Date: 10/01/23 Loc: MR [facility]: [facility]ending Dr: Carlitos Lu DO [...] Maciel Duarte M.D.10/02/2023 12:33 PM Dictation Location: [place] [address] Transcribed By: [facility] 10/02/23 1233 Dictated By: Maciel Duarte II, MD 10/02/23 1225 Signed By: 10/02/23 1233 Normal [facility] Facesheeton 10-01-2023 Facesheet [id number] 0TIFF Normal [facility] Ambulatory Visit Summaryon 0 09-30-2023 Ambulatory [...] you for choosing us for your care. [facility] Provider Letteron 08-17-2023 Provider Letter August 17, 2023 ARIANNA TUCKER [address] [place] [phone] : 1965 Dear Ms. Tucker, We have [...] your prompt attention to this matter. Sincerely, [facility] General Surgery [phone] [facility] No Panel Informationon 08-01 Miscellaneous Test COMMENT . [facility] Comment on above: Test Ordered: [id number] Alk Phos IsoenzymeAlkaline Phosphatase 117 IU/L CB Reference Range: 44-121Liver Fraction: 52 % CB Reference Range: 18-85Bone Fraction: 46 % CB Reference Range: 14-68Intestinal Frac.: 2 % CB Reference Range: 0-18Performed at: - [facility] [address] [id number] Director: Cam Reyes PhD, Phone: [phone] Physician Referralon 024 Physician Referral [id number] 0TIFF Normal [facility] CBC AUTO DIFFon 07-26-2022 BASO # 0.1 103/ul Normal 0.0-0.1 [facility] Comment on above: Performed By: #### U RCX #### [facility] [address] [address] [address] Roderick Greene Basophils/100 WBC (Bld) 0.6 % Normal 0.2-2.0 [facility] Comment on above: Performed By: #### U RCX #### [facility] [address] [place] [address] Dr. Roderick Greene EO # 0.8 103/ul Critically high 0.0-0.7 [facility] Comment on above: Performed By: #### U RCX #### [facility] [address] [place] [address] Dr. Roderick Greene Eosinophils/100 WBC (Bld) 7.9 % Critically high 0.9-7.0 [facility] Comment on above: Performed By: #### U RCX #### [facility] [address] [address] [address] Roderick Greene Erythrocyte distribution width (RBC) [Ratio] 13.2 % Normal 11.0-15.0 [facility] Comment on above: Performed By: #### U RCX #### [facility] [address] [place] [address] Dr. Roderick Greene Hematocrit (Bld) [Volume fraction] 50.3 % Critically high 36.0-48.0 [facility] Comment on above: Performed By: #### U RCX #### [facility] [address] [place] [address] Dr. Roderick Greene Hemoglobin (Bld) [Mass/Vol] 16.0 g/dL Normal 12.0-16.0 [facility] Comment on above: Performed By: #### U RCX #### [facility] [address] [place] [address] Dr. Roderick Greene IG # 0.02 10e3/ul Normal 0.00-0.03 [facility] Comment on above: Performed By: #### U RCX #### [facility] [address] [address] [address] Roderick Greene IG % 0.2 % Normal 0.0-0.5 [facility] Comment on above: Performed By: #### U RCX #### [facility] [address] [place] [address] Dr. Roderick Greene LYMPH # 2.3 103/ul Normal 1.2-3.8 [facility] Comment on above: Performed By: #### U RCX #### [facility] [address] [place] [address] Dr. Roderick Greene Lymphocytes/100 WBC (Bld) 24.5 % Normal 20.5-60.0 [facility] Comment on above: Performed By: #### U RCX #### [facility] [address] [place] [address] Dr. Roderick Greene MANUAL DIFF REQ NO Normal [facility] Comment on above: Performed By: #### U RCX #### [facility] [address] [place] [address] Dr. Roderick Greene MCH (RBC) [Entitic mass] 31.4 pg Normal 26.7-34.0 [facility] Comment on above: Performed By: #### U RCX #### [facility] [address] [place] [address] Dr. Roderick Greene MCHC (RBC) [Mass/Vol] 31.8 g/dL Normal 29.9-35.2 [facility] Comment on above: Performed By: #### U RCX #### [facility] [address] [place] [address] Dr. Roderick Greene MCV (RBC) [Entitic vol] 98.8 fL Normal 81.0-99.0 [facility] Comment on above: Performed By: #### U RCX #### [facility] [address] [place] [address] Dr. Roderick Greene MONO # 0.4 103/ul Normal 0.3-0.8 [facility] Comment on above: Performed By: #### U RCX #### [facility] [address] [place] [address] Dr. Roderick Greene Monocytes/100 WBC (Bld) 3.7 % Normal 1.7-12.0 [facility] Comment on above: Performed By: #### U RCX #### [facility] [address] [place] [address] Dr. Roderick Greene NEUT # 6.0 103/ul Normal 1.4-6.5 [facility] Comment on above: Performed By: #### U RCX #### [facility] [address] [place] [address] Dr. Roderick Greene Neutrophils/100 WBC (Bld) 63.1 % Normal 43.0-75.0 [facility] Comment on above: Performed By: #### U RCX #### [facility] [address] [place] [address] Dr. Roderick Greene Platelet mean volume (Bld) [Entitic vol] 10.7 fL Normal 9.5-13.5 [facility] Comment on above: Performed By: #### U RCX #### [facility] [address] [place] [address] Dr. Roderick Greene PLT 290 103/ul Normal 150-450 [facility] Comment on above: Performed By: #### U RCX #### [facility] [address] [place] [address] Dr. Roderick Greene RBC 5.09 106/ul Normal 4.20-5.40 [facility] Comment on above: Performed By: #### U RCX #### [facility] [address] [place] [address] Dr. Roderick Greene WBC 9.5 103/ul Normal 4.0-11.0 [facility] Comment on above: Performed By: #### U RCX #### [facility] [address] [place] [address] Dr. Roderick Greene CULTURE URINEon 07-26-2022 CULTURE URINE Culture Observations : LIGHT GROWTH OF MIXED GENITAL MATEO. NO POTENTIAL PATHOGENS SEEN. Normal [facility] Comment on above: Performed By: #### U RCX #### [facility] [address] [address] [address] Roderick Greene GLYCOHEMOGLOBIN A1Con 2022 ADA RECOMMENDATION SEE BELOW Normal [facility] Comment on above: Result Comment: ADA RECOMMENDED LIMIT 4.0 - 6.0 ADA THERAPEUTIC TARGET < 7.0 ACTION SUGGESTED > 7.0 Performed By: #### A 1C #### [facility] [address] [address] [address] Roderick Greene Glucose [Mass/Vol] 108 mg/dL Critically high 74-106 [facility] Comment on above: Performed By: #### A 1C #### [facility] [address] [place] [address] Dr. Roderick Greene Performed By: #### T SH, LIPID, CMP #### [facility] [address] [place] [address] Dr. Roderick Greene HbA1c (Bld) [Mass fraction] 5.4 % Normal 4.5-6.2 [facility] Comment on above: Performed By: #### A 1C #### [facility] [address] [place] [address] Dr. Roderick Greene LIPID PROFILEon 07-26-2022 CHOL-HDL RATIO NORM SEE BELOW Normal [facility] Comment on above: Result Comment: 3.3 - 4.4 LOW RISK 4.4 - 7.1 AVERAGE RISK 7.1 - 11.0 MODERATE RISK >11.0 HIGH RISK Performed By: #### U RCX #### [facility] [address] [place] [address] Dr. Roderick Greene Cholesterol [Mass/Vol] 217 mg/dL Critically high <=200 [facility] Comment on above: Performed By: #### U RCX #### [facility] [address] [place] [address] Dr. Roderick Greene Cholesterol in HDL [Mass/Vol] 55 mg/dL Normal 40-60 [facility] Comment on above: Performed By: #### U RCX #### [facility] [address] [place] [address] Dr. Roderick Greene Cholesterol in LDL [Mass/Vol] 143.6 mg/dL Normal [facility] Comment on above: Performed By: #### U RCX #### [facility] [address] [address] [address] Roderick Greene Cholesterol.total/Cho lesterol in HDL [Mass ratio] 3.9 {ratio} Normal [facility] Comment on above: Performed By: #### U RCX #### [facility] [address] [place] [address] [address] Roderick Greene HDL NORMAL > or = 60 mg/dl - LO W CARDIOVASCULAR RISK <40 mg/dl - HIGH CARDIOVASCULAR RISK Normal [facility] Comment on above: Performed By: #### U RCX #### [facility] [address] [address] [address] Roderick Greene LDL CALC NORMAL SEE BELOW Normal [facility] Comment on above: Result Comment: <100 mg/dl OPTIMAL 100 - 129 mg/dl NEAR OR ABOVE OPTIMAL 130 - 159 mg/dl BORDERLINE HIGH 160 - 189 mg/dl HIGH >190 mg/dl VERY HIGH Performed By: #### U RCX #### [facility] [address] [place] [address] Dr. Roderick Greene Triglyceride [Mass/Vol] 92 mg/dL Normal <=150 [facility] Comment on above: Performed By: #### U RCX #### [facility] [address] [address] [address] Roderick Greene VLDL CALC 18.4 mg/dL Normal [facility] Comment on above: Performed By: #### U RCX #### [facility] [address] [address] [address] Roderick Greene PROF 14(COMP METB)on 023 Albumin [Mass/Vol] 3.7 g/dL Normal 3.4-5.0 [facility] Comment on above: Performed By: #### T SH, LIPID, CMP #### [facility] [address] [address] [address] Roderick Greene Albumin/Globulin [Mass ratio] 1.0 {ratio} Normal [facility] Comment on above: Performed By: #### T SH, LIPID, CMP #### [facility] [address] [address] [address] Roderick Greene ALP [Catalytic activity/Vol] 146 U/L Critically high 46-116 [facility] Comment on above: Performed By: #### T SH, LIPID, CMP #### [facility] [address] [address] [address] Roderick Greene ALT [Catalytic activity/Vol] 24 U/L Normal 14-59 [facility] Comment on above: Performed By: #### T SH, LIPID, CMP #### [facility] [address] [address] [address] Roderick Greene Anion gap [Moles/Vol] 11.7 mmol/L Normal [facility] Comment on above: Performed By: #### T SH, LIPID, CMP #### [facility] [address] [place] [address] Dr. Roderick Greene AST [Catalytic activity/Vol] 23 U/L Normal 15-37 [facility] Comment on above: Performed By: #### T SH, LIPID, CMP #### [facility] [address] [address] [address] Roderick Greene Bilirubin [Mass/Vol] 0.5 mg/dL Normal 0.2-1.0 [facility] Comment on above: Performed By: #### T SH, LIPID, CMP #### [facility] [address] [address] [address] Roderick Greene Calcium [Mass/Vol] 9.3 mg/dL Normal 8.5-10.1 [facility] Comment on above: Performed By: #### T SH, LIPID, CMP #### [facility] [address] [address] [address] Roderick Greene Chloride [Moles/Vol] 105 mmol/L Normal 98-107 [facility] Comment on above: Performed By: #### T SH, LIPID, CMP #### [facility] [address] [place] [address] Dr. Roderick Greene CO2 [Moles/Vol] 31.0 mmol/L Normal 21.0-32.0 [facility] Comment on above: Performed By: #### T SH, LIPID, CMP #### [facility] [address] [address] [address] Roderick Greene Creatinine [Mass/Vol] 0.65 mg/dL Normal 0.55-1.02 [facility] Comment on above: Performed By: #### T SH, LIPID, CMP #### [facility] [address] [address] [address] Roderick Greene EGFR-AF AZERBAIJANI >60 Normal >=60 [facility] Comment on above: Performed By: #### T SH, LIPID, CMP #### [facility] [address] [address] [address] Roderick Greene EGFR-NON AF AZERBAIJANI >60 Normal >=60 [facility] Comment on above: Performed By: #### T SH, LIPID, CMP #### [facility] [address] [address] [address] Roderick Greene Globulin (S) [Mass/Vol] 3.6 g/dL Normal [facility] Comment on above: Performed By: #### T SH, LIPID, CMP #### [facility] [address] [address] [address] Roderick Greene Potassium [Moles/Vol] 4.7 mmol/L Normal 3.5-5.1 [facility] Comment on above: Performed By: #### T SH, LIPID, CMP #### [facility] [address] [address] [address] Roderick Greene Protein [Mass/Vol] 7.3 g/dL Normal 6.4-8.2 [facility] Comment on above: Performed By: #### T SH, LIPID, CMP #### [facility] [address] [address] [address] Roderick Greene Sodium [Moles/Vol] 143 mmol/L Normal 136-145 [facility] Comment on above: Performed By: #### T SH, LIPID, CMP #### [facility] [address] [address] [address] Roderick Greene Urea nitrogen [Mass/Vol] 13.0 mg/dL Normal 7.0-18.0 [facility] Comment on above: Performed By: #### T SH, LIPID, CMP #### [facility] [address] [place] [address] Dr. Roderick Greene Urea nitrogen/Creatinine [Mass ratio] 20.0 mg/mg Normal [facility] Comment on above: Performed By: #### T SH, LIPID, CMP #### [facility] [address] [place] [address] Dr. Roderick Greene TSHon 07-26-2022 TSH 0.822 uIU/mL Normal 0.358-3.740 [facility] Comment on above: Performed By: #### T SH, LIPID, CMP #### [facility] [address] [place] [address] Dr. Roderick Greene UA RANDOM W/MICROSCOPICon BACTERIA TRACE Abnormal NONE SEEN [facility] Comment on above: Performed By: #### U AMIC #### [facility] [address] [place] [address] Dr. Roderick Greene Bilirubin Ql (U) Negative Normal NEGATIVE [facility] Comment on above: Performed By: #### U AMIC #### [facility] [address] [place] [address] Dr. Roderikc Greene CAST NONE SEEN Normal NONE SEEN [facility] Comment on above: Performed By: #### U AMIC #### [facility] [address] [place] [address] Dr. Roderick Greene Clarity (U) CLEAR Normal CLEAR [facility] Comment on above: Performed By: #### U AMIC #### [facility] [address] [place] [address] Dr. Roderick Greene Color (U) LT. YELLOW Normal YELLOW [facility] Comment on above: Performed By: #### U AMIC #### [facility] [address] [place] [address] Dr. Roderick Greene Crystals LM Nom (Urine sed) NONE SEEN Normal NONE SEEN [facility] Comment on above: Performed By: #### U AMIC #### [facility] [address] [address] [address] Roderick Greene Epithelial cells LM Ql (Urine sed) FEW Abnormal NONE SEEN /RARE [facility] Comment on above: Performed By: #### U AMIC #### [facility] [address] [address] [address] Roderick Greene Glucose Ql (U) Negative Normal NEGATIVE [facility] Comment on above: Performed By: #### U AMIC #### [facility] [address] [address] [address] Roderick Greene Hemoglobin Ql (U) Negative Normal NEGATIVE [facility] Comment on above: Performed By: #### U AMIC #### [facility] [address] [place] [address] Dr. Roderick Greene Ketones Ql (U) Negative Normal NEGATIVE [facility] Comment on above: Performed By: #### U AMIC #### [facility] [address] [place] [address] Dr. Roderick Greene LEUKOCYTES Negative Normal NEGATIVE [facility] Comment on above: Performed By: #### U AMIC #### [facility] [address] [address] [address] Roderick Greene MUCOUS SMALL Abnormal NONE SEEN [facility] Comment on above: Performed By: #### U AMIC #### [facility] [address] [place] [address] Dr. Roderick Greene Nitrite Ql (U) Negative Normal NEGATIVE [facility] Comment on above: Performed By: #### U AMIC #### [facility] [address] [place] [address] Dr. Roderick Greene pH (U) 8.0 [pH] Normal 5-9 [facility] Comment on above: Performed By: #### U AMIC #### [facility] [address] [place] [address] Dr. Roderick Greene RBC NONE SEEN Abnormal 0-2 [facility] Comment on above: Performed By: #### U AMIC #### [facility] [address] [place] [address] Dr. Roderick Greene SPEC GRAVITY 1.020 Normal 1.005-<=1.025 [facility] Comment on above: Performed By: #### U AMIC #### [facility] [address] [address] [address] Roderick Greene UA PROTEIN Negative Normal NEGATIVE/ TRACE [facility] Comment on above: Performed By: #### U AMIC #### [facility] [address] [address] [address] Roderick Greene Urobilinogen Qn (U) 0.2 {Jordan'U}/dL Normal 0.2 - 1. 0 [facility] Comment on above: Performed By: #### U AMIC #### [facility] [address] [address] [address] Roderick Greene WBC NONE SEEN Normal NONE SEEN [facility] Comment on above: Performed By: #### U AMIC #### [facility] [address] [address] [address] CHEST WO CONon [...] by: SONU COLLINS Date: 2022-03-03 07:51 Normal [facility] Vital Signs Date Time Vital Sign Value Performing Clinician Facility 10-01-2023 07:08-0400 Body height 165.1 cm DO Bianca Garcia Work Phone: [facility] 10-01-2023 07:08-0400 Body weight 77.11 kg DO Bianca Garcia Work Phone: [facility] 09-30-2023 15:26-0400 Blood Pressure Location Esa NILL [facility] 09-30-2023 15:26-0400 Diastolic blood pressure 84 mm[Hg] Esa NILL [facility] 09-30-2023 15:26-0400 Heart rate 76 /min Esa NILL [facility] 09-30-2023 15:26-0400 Respiratory rate 16 /min Esa NILL [facility] 09-30-2023 15:26-0400 Systolic blood pressure 138 mm[Hg] Esa NILL [facility] 07-23-2023 09:50-0500 Body height 162.56 cm Bianca Garcia Other [facility] 07-23-2023 09:50-0500 Body mass index (BMI) [Ratio] 29.69 kg/m2 Bianca Garcia Other [facility] Other 07-23-2023 09:50-0500 Body temperature 98.1 [degF] Bianca Garcia Other [facility] Other 07-23-2023 09:50-0500 Body weight 78.47 kg Bianca Garcia Other [facility] 07-23-2023 09:50-0500 Diastolic blood pressure 88 mm[Hg] Bianca Garcia Other [facility] 07-23-2023 09:50-0500 Respiratory rate 18 /min Bianca Garcia Other [facility] Other 07-23-2023 09:50-0500 SaO2% (BldA) [Mass fraction] 99 % Bianca Garcia Other [facility] Other 07-23-2023 09:50-0500 Systolic blood pressure 128 mm[Hg] Bianca Garcia Other [facility] 07-30-2022 12:10-0500 Body height 162.56 cm Bianca Garcia Other [facility] Other 07-30-2022 12:10-0500 Body mass index (BMI) [Ratio] 27.12 kg/m2 Bianca Garcia Other [facility] Other 07-30-2022 12:10-0500 Body temperature 96.6 [degF] Bianca Garcia Other [facility] Other 07-30-2022 12:10-0500 Body weight 71.67 kg Bianca Garcia Other [facility] Other 07-30-2022 12:10-0500 Diastolic blood pressure 86 mm[Hg] Bianca Garcia Other [facility] Other 07-30-2022 12:10-0500 Respiratory rate 18 /min Bianca Garcia Other [facility] Other 07-30-2022 12:10-0500 SaO2% (BldA) [Mass fraction] 98 % Bianca Garcia Other [facility] Other 07-30-2022 12:10-0500 Systolic blood pressure 120 mm[Hg] Bianca Garcia Other [facility] Other 07-21-2022 11:30-0500 Body height 162.56 cm Bianca Garcia Other [facility] Other 07-21-2022 11:30-0500 Body mass index (BMI) [Ratio] 27.55 kg/m2 Bianca Garcia Other [facility] Other 07-21-2022 11:30-0500 Body temperature 98.4 [degF] Bianca Garcia Other [facility] Other 07-21-2022 11:30-0500 Body weight 72.8 kg Bianca Garcia Other [facility] Other 07-21-2022 11:30-0500 Diastolic blood pressure 88 mm[Hg] Bianca Garcia Other [facility] Other 07-21-2022 11:30-0500 Respiratory rate 18 /min Bianca Garcia Other [facility] Other 07-21-2022 11:30-0500 SaO2% (BldA) [Mass fraction] 95 % Bianca Garcia Other [facility] Other 07-21-2022 11:30-0500 Systolic blood pressure 122 mm[Hg] Bianca Garcia Other [facility] Other Encounters Encounter Date Encounter Type Care Provider Facility Start: 12-02-2023 End: 12-02-2023 ambulatory BART LEMUS Not Available Start: 11-12-2023 End: 11-12-2023 ambulatory BART LEMUS Not Available Start: 10-06-2023 End: 10-06-2023 ambulatory BART LEMUS Not Available Start: 10-01-2023 End: 10-01-2023 ambulatory Bianca Garcia Facility:[facility] Start: 10-01-2023 End: 10-01-2023 ambulatory DO Bianca Garcia Work Phone: [facility] Work Phone: Start: 10-01-2023 End: 10-01-2023 Patient encounter procedure DO Bianca Garcia Work Phone: [facility] [place] Work Phone: Start: 09-30-2023 End: 10-01-2023 ambulatory Bianca Garcia Facility:[facility] Start: 09-30-2023 End: 09-30-2023 Patient encounter procedure Esa LITTLE General Surgery [facility] Start: 09-03-2023 Non-patient / Non-visit DO Bianca Garcia Work Phone: [facility] Work Phone: Start: 08-01-2023 Non-patient / Non-visit DO Bianca Garcia Work Phone: [facility] Work Phone: Start: 07-27-2023 ambulatory Bianca Garcia Facility:[facility] Start: 07-23-2023 End: 07-23-2023 ambulatory Bianca Garcia Other [facility] Other Start: 07-23-2023 Office outpatient visit 25 minutes Bianca Garcia [facility] Start: 07-23-2023 End: 07-23-2023 Patient encounter procedure DO Bianca Garcia Work Phone: [facility]- Start: 11-20-2022 ambulatory JÚNIOR GOLDBERG . Facili ty:[facility] Start: 11-04-2022 End: 11-04-[address] BIANCA GARCIA Facility:[facility] Start: 10-09-2022 End: 10-10-2022 ambulatory YANE VALERA . Facility:[facility] Start: 10-01-2022 End: 10-01-2022 ambulatory Bianca Garcia Other [facility] Other Start: 10-01-2022 Telephone encounter Bianca Garcia [facility] Start: 08-28-2022 End: 08-29-[address] LENORE STOLL . Facility:[facility] Start: 08-05-2022 End: 08-05-2022 ambulatory John Diallopinky Other [facility] Other Start: 08-05-2022 Telephone encounter Imad Asaad [facility] Start: 07-30-2022 End: 07-30-2022 ambulatory Bianca Garcia Other [facility] Other Start: 07-30-2022 Office outpatient visit 25 minutes Bianca Garcia [facility] Start: 07-26-2022 End: 07-27-[address] BIANCA GARCIA Facility:[facility] Start: 07-24-2022 End: 07-25-[address] LENORE STOLL . Facility:[facility] Start: 07-21-2022 End: 07-21-2022 ambulatory Bianca Garcia Other [facility] Other Start: 07-21-2022 Office outpatient visit 15 [...] Author Start: 10-01-2023 MR Unspecified body region [facility] Start: 10-01-2023 MRI of head MR head/brain wo/w con [facility] Immunizations Immunization Date Immunization Notes Care Provider Fa cility 02-09-2021 COVID-19 Pfizer Bianca Garcia Other General [facility] 01-21-2021 COVID-19 Pfizer Bianca Garcia Other [facility] [place] Payers Date Payer Category Payer Self-pay 2022 Medicaid [id number] 2. [id number] 1966 Unknown [id number] 2.16.84 [id number] 1966 Unknown [id number] 2.16.84 0.1.970367.3.579.2.593 1966 Unknown [id number] 2.16.84 0.1.009127.3.579.2.593 1966 Unknown [id number] 2.16.84 0.1.736598.3.579.2.593 1966 Unknown [id number] 2.16.84 0.1.000221.3.579.2.593 1966 Unknown [id number] 2.16.84 0.1.331264.3.579.2.593 1966 Unknown [id number] 2.16.84 0.1.025055.3.579.2.593 1966 Unknown [id number] 2.16.84 0.1.428007.3.579.2.593 1966 Unknown [id number] 2.16.84 0.1.791379.3.579.2.593 1966 Unknown [id number] 2.16.84 0.1.766273.3.579.2.593 1966 Unknown [id number] 2.16.84 0.1.690187.3.579.2.593 1966 Unknown [id number] 2.16.84 0.1.928295.3.579.2.593 1966 Unknown [id number] 2.16.84 0.1.228682.3.579.2.593 1966 Unknown [id number] 2.16.8 40.1.991659.3.579.2.727 1966 Unknown [id number] 2.16.84 0.1.560242.3.579.2.1259 1966 Unknown [id number] 2.16.84 0.1.005340.3.579.2.1259 1966 Unknown [id number] 2.16.84 0.1.340787.3.579.2.1259 1959 Unknown [id number] Medicaid [place] [employer] [id number] 301 [id number] Unknown [id number] 2.16.8 40.1.250826.3.579.2.531 Social History Date Type Detail Facility Unknown if ever smoked [facility] Other Sex Assigned At [facility] Start: 09-30-2023 Tobacco smoking status Light t obacco smoker (finding) [facility] [place] Tobacco smoking status Never Gener [facility] [place] Start: 08-04-2023 Tobacco smoking stat NHIS Smoker (finding) [facility] Start: 1965 Sex Assigned At Female F [facility] Functional Status Date Assessment Result Facility 09-30-2023 Functional Status N/A [facility] [place] Clinical Notes 08-11-2011 to 09-30-2023 Note Date [...] SARS-CoV-2 (COVID-19) mRNA BNT-162b2 vax 01/21/2021 Recorded [facility] Comment on above: Result Comment: Elec [...] see whomever can see her first at [facility]. 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 Jul, Other intermission coordinator (current) drug therapy (ICD-10 - Z79.899) Jul, Weight gain (ICD-10 - R63.5) Jul, Elevated blood pressure (ICD-10 - R03.0) Her blood pressure is controlled. Continue with above medication daily as directed. Jul, Other She voices that she was anxious to come into the office today but once she was in her exam room she was calmed down. [facility] Other 04-20-2023 NoteCONSULTATION CONSULTATION DATE: 10/09/2022 TO: [...] our patients to inform us about any [id number] medications or herbal remedies/nutritional supplements/alternative remedies. 2. [...] treatment options with their primary care provider.[facility] [id number] Note CONSULTATION CONSULTATION DATE: 08/28/2022 HISTORY OF [...] with this plan and all questions answered.[facility] HospitalTkowzeml29-94-8598 Evaluation note* Encounter Date Diagnosis Assessment Notes [...] number of someone she can see through [facility]. She voices that she will think about it. I asked her not to take anymore Vistaril. Jul, Lumbar pain (ICD-10 - M54.50) She voices that Dr. Stoll is retiring and his [employer] SUPERVISOR is leaving. She is scheduled for an [...] and if/when testing needs to be repeated. [facility] Other 02-02-2023 NoteCONSULTATION CONSULTATION DATE: 07/24/2022 HISTORY [...] The patient is in agreement to this.[facility] [id number] Evaluation note * Encounter Date Diagnosis Assessment [...] to the procedure and should have a food service driver to take her to the procedure [...] Jun, Hyperglycemia (ICD-10 - R73.9) Jun, Other intermission coordinator (current) drug therapy (ICD-10 - Z79.899) Jun, [...] have a mammogram done but she refuses. [facility] Other 11-03-2022 NoteCONSULTATION CONSULTATION DATE: 04/24/2022 HISTORY [...] followed up in the clinic post procedure.[facility] [id number] NoteCONSULTATION CONSULTATION DATE: 02/20/2022 HISTORY OF PRESENT [...] agrees to this and all questions answered.[facility] HospitalMunkitvc03-57-8930 NoteCONSULTATION CONSULTATION DATE: 12/18/2921 This is a [...] followed up in the clinic. [facility] Signed and Approved by: JOSE ALEJANDRO STINSON . 12/26/2021 16:26:00[facility] [id number] History general Narrative - Reported* Type Description Date Medical History Gestational Diabetes Medical History History of Hemorrhoids Medical History Chest X-Ray Done 08-11-11 Medical History Lumbar Spine X-Ray Done 08-11-11 Medical History Pelvic Ultrasound 08-11-12; [facility] Medical History Transvaginal US 08-12-12; [facility] Medical History CT Abdomen and Pelvis 08-16-12; [facility] Medical History TDap (Adacel) 01-03-15 [place] E R Medical History 01/2015 Dr So, 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 Lu Colonoscopy, Divert iculosis 10-05-2012 Surgical History injection in back - Pain Mgmt Surgical History Nerve block in back 06/2019 Hospitalization History Tonsillectomy Hospitalization History Childbirth Hospitalization History [facility] [facility] stic hes in rt hand cut during washing dishes 01/03/2015 [facility] Other Evaluation + Plan note No data available for this section General [facility] [place] Evaluation noteNo InformationN[facility]St[facility] [employer] Other Evaluation noteNo assessment information available [facility] Work Phone: Hospital Discharge instructions No data available for this section General [facility] [place] Progress note No data available for this section General [facility] Reason for visit Narrativecheck up/discuss dementia, discuss multiple issues, see treatment [place] Other Reason for Referral Reason appt 09/05/22 at 8am pt needs screening colonoscopy Diagnosis 1 Colon cancer screeni ng (Z12.11) Referral Organization [facility] Family Medicin e [place] Referring Provider First Name Bianca Referring Provider Last Name Jose Referring Provider Specialty Family Prac guero Referred Organization [facility] Gastroenterolo gy Referred Provider John Cedillo Referred Address [address] ,[place], [place],[address] Referred Provider Specialty Gastroentero logy Referral Priority Routine Referral Appointment Date 2022-09-05 General Notes Delilah Sandoval 07/21/2022 11:57:58 AM > referral sent p2p. pt understands she will be contacted to schedule this appt. Delilah Sandoval 08/06/2022 10:17:55 AM > colonoscopy scheduled on 09/05/22 at 8am Reason appt pt needs cons ult to discuss memory changes Diagnosis 1 Memory changes (R41. 3) Referral Organization [facility] [place] Referring Provider First Name Bianca Referring Provider Last Name Jose Referring Provider Specialty Family Prac guero Referred Organization [facility] Referred Provider Carlitos Lu Referred Address [address],[place], [place],[address] Referred Provider Specialty Neurology Referral Priority Routine General Notes Delilah Sandoval 07/23/2023 11:40:43 AM > referral faxed thru [facility] with visit note and insurance card. pt understands she will be contacted to schedule this appt. Reason appt pt needs scre ening colonoscopy Diagnosis 1 Colon cancer screeni ng (Z12.11) Referral Organization [facility] Family Medicin [facility] Referring Provider First Name Bianca Referring Provider Last Name Jose Referring Provider Specialty Family Prac guero Ref[facility] Organization [facility] Referred Provider Esa Little [place] [address] [place] [place],[address] Referred Provider Specialty Surgery Referral Priority Routine [...] CREATED AUTHOR AUTHOR'S ORGANIZ ATION 10/06/2023 [facility] DATE CREATED AUTHOR AUTHOR'S ORGANIZ ATION 10/27/2023 [facility] DATE CREATED AUTHOR AUTHOR'S ORGANIZ ATION 12/03/2023 [facility] EPIC Patient Care team [...] BE BASED ON THE PRIMARY CLINICAL RECORDS. [facility] [employer] [facility]. provides no warranty or guarantee of the accuracy or completeness of information in this document.
--- NOTE | 2024-09-15 11:19 | P.CN_ITS ---
Consult Note: HPI Data of Consult Patient: known to practice within the last 3 years Requesting Physician: Tori Noyola NP Primary Care Provider: BIANCA GARCIA Consult Narrative Reason for consult: f/u Narrative: Arianna Tucker a pleasant 59 year old female presents for evaluation and management of chronic back pain. hx of lumbar fusion at L4-S1. has engaged in provider guided HEP >6 weeks without improvement. failed tylenol, motrin, heat, and ice. utilizes percocet 7.5mg BID PRN, celebrex 100mg BID, lyrica 75mg BID without side effects. DONNA 34%. recently underwent lumbar MRI, see chart for further details. since last visit her percocet was decreased to BID and her flexeril was discontinued, her insurance would not cover tizanidine. she is noticing increased aching and stiffness especially to right low back and hip. cc:: CC: Tori Noyola NP Review of Systems ROS Status of ROS 10 or more systems reviewed and unremark able except as noted in history and below Musculoskeletal Reports: back pain and joint pain PFSH PFSH Medical History Lung nodule ?R91.1 - Solitary pulmonary nodule (ICD-10) Arthritis ?M19.90 - Unspecified osteoarthritis, unspecified site (ICD-10) Back pain ?M54.9 - Dorsalgia, unspecified (ICD-10) Insomnia ?G47.00 - Insomnia, unspecified (ICD-10) Anxiety ?F41.9 - Anxiety disorder, unspecified (ICD-10) Chronic obstructive pulmonary disease ?J44.9 - Chronic obstructive pulmonary disease, unspecified (ICD-10) Asthma ?J45.909 - Unspecified asthma, uncomplicated (ICD-10) Migraine ?G43.909 - Migraine, unspecified, not intractable, without status migrainosus (ICD-10) Lumbosacral spondylosis without myelopathy ?M47.817 - Spondylosis without myelopathy or radiculopathy, lumbosacral region (ICD-10) Hyperlipemia ?E78.5 - Hyperlipidemia, unspecified (ICD-10) Hyperglycemia ?R73.9 - Hyperglycemia, unspecified (ICD-10) Diverticulosis ?K57.90 - Diverticulosis of intestine, part unspecified, without perforation or abscess without bleeding (ICD-10) BMI 29.0-29.9,adult ?Z68.29 - Body mass index [BMI] 29.0-29.9, adult (ICD-10) Surgical History History of tubal ligation ?Z98.51 - Tubal ligation status (ICD-10) History of tonsillectomy ?Z90.89 - Acquired absence of other organs (ICD-10) H/O colonoscopy ?Z98.890 - Other specified postprocedural states (ICD-10) H/O laminectomy ?Z98.890 - Other specified postprocedural states (ICD-10) Family History Father Family history of COPD (chronic obstructive pulmonary disease) Brother Family history of diabetes mellitus Mother Family history of cancer Other Family history of hypertension Social History Within the past year, how often did you have a drink containing alcohol: never Score interpretation: A score less than 3 is consistent with normal alcohol consumption. Smoking status: Current every day smoker What tobacco products do you use: cigarettes Cigarettes per day: 8 Years smoked: 40 Smoking pack-years: 16.00 Non-prescribed substance use: denies use Highest level of school completed/degree received: high school graduate Little interest or pleasure in doing things: not at all Feeling down, depressed, or hopeless: not at all Meds Home Medications and Allergies Home Medications ?Medication ?Instructions ?Recorded ?Confirmed ?Type albuterol sulfate 2.5 mg/3 mL 2.5 mg inhalation Q4H PRN 11/20/22 08/09/24 History (0.083 %) solution for nebulization shortness of breath or wheezing albuterol sulfate 90 mcg/actuation 2 inh inhalation QID PRN shortness 10/29/23 08/09/24 History aerosol inhaler (ProAir HFA) of breath or wheezing cyclobenzaprine 10 mg tablet 20 mg PO BEDTIME PRN muscle spasm 10/29/23 08/09/24 History melatonin 10 mg capsule 10 mg PO BEDTIME PRN sleep 10/29/23 08/09/24 History multivitamin 1 tab PO DAILY 10/29/23 08/09/24 History amlodipine 5 mg tablet 5 mg PO DAILY 11/04/23 08/09/24 History tiotropium 2.5 mcg-olodaterol 2.5 2 inh inhalation Q24H 11/04/23 08/09/24 History mcg/actuation mist for inhalation (Stiolto Respimat) trazodone 50 mg tablet 50 mg PO DAILY #30 tabs 11/30/23 08/09/24 Rx naloxone 4 mg/actuation nasal 4 mg intranasal Q3M PRN opioid 04/27/24 08/09/24 Rx spray (Narcan) overdose #2 ea celecoxib 100 mg capsule (Celebrex) 100 mg PO BID #60 caps 07/20/24 08/09/24 Rx oxycodone-acetaminophen 7.5 mg-325 1 tab PO TID PRN pain #90 tabs 07/20/24 Rx mg tablet (Percocet) pregabalin 75 mg capsule (Lyrica) 75 mg PO BID #60 caps 07/20/24 08/09/24 Rx oxycodone-acetaminophen 7.5 mg-325 1 tab PO BID PRN pain #60 tabs 08/23/24 Rx mg tablet (Percocet) pregabalin 75 mg capsule (Lyrica) 150 mg (2 x 75 mg) PO BID #120 caps 08/23/24 Rx tizanidine 4 mg capsule (Zanaflex) See Rx Instructions .Route 08/23/24 Rx .COMPLEX PRN muscle spasticity #60 caps Allergies Allergy/AdvReac Type Severity Reaction Status Date / Time hydroxyzine (From Vistaril) AdvReac Unknown Palpitation Verified 08/09/24 07:01 s Exam Back & Pelvis Lumbar spine/lower back: ROM limited, pain with ROM, lumbar spinal tenderness, paraspinal muscle tenderness, paraspinal muscle spasm and straight leg raise negative bilaterally Sacroiliac joints: SI joint(s) abnormal Other: positive facet loading L1-4 facets strength 5/5 in BLE right sij positive rosa(patricks), gaenslens, thigh thrust, compression test Assessment and Plan Assessment and Plan (1) Sacroiliitis: (2) Failed back syndrome: (3) Lumbar stenosis with neurogenic claudication: (4) Chronic prescription opiate use: Assessment and Plan: I feel these medications are improving the patient's quality of life and allow them to tolerate activities of daily living as well as participate in recreational activity.? The patient does not report intolerable side effects. The patient is NOT opioid naive and non-pharmacologic and non-opioid treatment has failed to significantly relieve the patient's pain and improve functionality. The patient has a diagnosis that is related to a somatic or visceral pain etiology. ? ?? I reviewed with the patient the potential risks and side effects with the use of? opioid medications including but not limited to respiratory depression,? sedation, and even . Within the last 12 months I have verified the patient has access to naloxone should? these effects occur. The patient was advised to let? their family know they had Naloxone in case they would need to administer? the medication. I advised the patient to avoid the use of any other? sedation substances including alcohol, THC, and benzodiazepines while? taking opioid medications due to the risk of compounding side effects and? detrimental outcomes. within the last 12 months I have reviewed the INTERSTATE BUS DRIVER, pain treatment agreement and urine drug screen.? ?? A drug screen was completed within the last year, and no aberrancies were noted regarding their use of controlled substances. The patient understands they are subject to the terms and conditions of the pain contract that they have signed. ? ?? I have checked an [place]AR[place] report on this patient today and there are no aberrancies noted in the prescribing history.? (5) Lumbar spondylosis: (6) Fibromyalgia: (7) Chronic pain syndrome: Plan recommend pt undergo right SIJ injection with 10mg po valium 30-60mins prior to injection, pt declining at this time. can call to schedule. procedure to be completed under fluoroscopy dc tizanidine, restart flexeril 10mg TID PRN pain/spasms continue percocet 7.5mg BID PRN moderate to severe pain, pregabalin 75mg am and 150mg hs continue otc nsaids PRN f/u 3 months, or 2 weeks after SIJ injection
== END 2024-09-15 11:01 | disposition home or self-care (01) ==
PROVIDERS: PCP Family Medicine; Visit Provider Nurse Practitioner
DX: M46.1 Sacroiliitis, not elsewhere classified (principal); M96.1 Postlaminectomy syndrome, not elsewhere classified; M48.062 Spinal stenosis, lumbar region with neurogenic claudication; Z79.891 Long term (current) use of opiate analgesic; M47.816 Spondylosis without myelopathy or radiculopathy, lumbar region; M79.7 Fibromyalgia; G89.4 Chronic pain syndrome
CPT/HCPCS: G0463

== ENCOUNTER 2024-12-14 11:23 | Outpatient (OUT) | payer MEDICARE, MEDICAID, SELFPAY ==
--- OUTSIDE RECORDS SUMMARY | 2024-12-14 11:26 | XMS_ITS | Clinical Summary ---
Author Organization [facility] Address [address] [place] [address] Care Team Providers Care Car Mechanic Helper Name Role Phone Warren Harman MD Primary Care Provider [phone] Carlitos Lu DO Unavailable [phone] Medications cyclobenzaprine (Flexeril) 10 MG tablet 4 Active traZODone (Desyrel) 50 MG tablet Take 50 mg by mouth at bedtime 4 Active Stiolto Respimat 2.5-2.5 MCG/ACT aerosol solution inhaler INHALE 2 PUFFS BY MOUTH EVERY DAY FOR 30 DAYS 4 Active pregabalin (Lyrica) 75 MG capsule Take 75 mg by mouth in the morning and 75 mg before bedtime. 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/30/2023 Social History Tobacco Use Types Packs/Day Years Used Date Smoking Tobacco: Never Assessed Comments Unknown Sex and Gender Information Value Date Recorded Sex Assigned at Not on file Legal Sex Female 6:51 PM EDT Gender Identity Not on file Sexual Orientation Not on file Last Filed Vital Signs Vital Sign Reading Time Taken Comments Blood Pressure 126/69 12/02/2023 11:26 AM EDT Pulse 88 12/02/2023 11:26 AM EDT Temperature - - Respiratory Rate - - Oxygen Saturation - - Inhaled Oxygen Concentration - - Weight 74.8 kg (165 lb) 12/02/2023 11:26 AM EDT Height 165.1 cm (5' 5 ) 12/02/2023 11:26 AM EDT Body Mass Index 27.46 12/02/2023 11:26 AM EDT Plan of Treatment Health Maintenance Due Date Last Done Comments CT Colonography 1966 Colonoscopy 1966 Colorectal Cancer Screening 1966 FIT-DNA 1966 FIT 1966 FOBT 1966 Sigmoidoscopy 1966 Pap Smear 1987 Cervical Cancer Screening 1996 HPV/Cotest 1996 Mammogram 2006 Influenza Vaccine (Season Ended) 2025 Insurance [employer] [place]ICA[place] Care Teams Car Mechanic Helper Relationship Specialty Start Date End Date Warren Harman MD [address] [place] [address] PCP - General Family Medicine 10/02/23 Carlitos Lu DO [address] [place] [phone] Referring Physician Neurology 10/02/23
--- OUTSIDE RECORDS SUMMARY | 2024-12-14 11:26 | XMS_ITS | Clinical Summary ---
[facility] Address [id number] [place] [address] Care Team Providers Care Vacation Sales Advisor Name Role Phone Unavailable Primary Care Provider Unavailabl e Social History Tobacco Use Types Packs/Day Years Used Date Smoking Tobacco: Never Assessed Childcare Answer Date Recorded Childcare Unknown 08/15/2020 Employment Answer Date Recorded Employment Unknown 08/15/2020 Purpose - Life Answer Date Recorded Purpose and direction in life Unknown Comments Unknown Sex and Gender Information Value Date Recorded Sex Assigned at Not on file Legal Sex Female 10:58 AM EDT Gender Identity Not on file Sexual Orientation Not on file Plan of Treatment Health Maintenance Due Date Last Done Comments Depression Screening 1978 Tobacco Screening 1978 Adult BMI Screening 1984 DTaP,Tdap and Td Vaccines (1 - Tdap) 1985 Pap Smear 1987 Zoster (Shingles) Vaccine (1 of 2) 2016 Influenza Vaccine 02/20/2025 Medical Devices Not on file
--- NOTE | 2024-12-14 11:54 | P.CN_ITS ---
Consult Note: HPI Data of Consult Patient: known to practice within the last 3 years Requesting Physician: Tori Noyola NP Primary Care Provider: BIANCA GARCIA Consult Narrative Reason for consult: f/u Narrative: Arianna Tucker a pleasant 59 year old female presents for evaluation and management of chronic back pain. hx of lumbar fusion at L4-S1. has engaged in provider guided HEP >6 weeks without improvement. failed tylenol, motrin, heat, and ice. utilizes percocet 7.5mg BID PRN, celebrex 100mg BID, lyrica 75mg BID without side effects. DONNA 50%, significant increased since last visit. she reports worsening of her chronic low back and right knee pain. pain today 7/10 increasing to 10/10 with standing, walking, twisting, pushing, pulling, sleeping, sitting, ADLs. She elected not to proceed with previously recommended SIJ injection as she does not think she can tolerate injections without MAC sedation. cc:: CC: Tori Noyola NP Review of Systems ROS Status of ROS 10 or more systems reviewed and unremark able except as noted in history and below Musculoskeletal Reports: back pain and joint pain PFSH PFS Medical History Lung nodule ?R91.1 - Solitary pulmonary nodule (ICD-10) Arthritis ?M19.90 - Unspecified osteoarthritis, unspecified site (ICD-10) Back pain ?M54.9 - Dorsalgia, unspecified (ICD-10) Insomnia ?G47.00 - Insomnia, unspecified (ICD-10) Anxiety ?F41.9 - Anxiety disorder, unspecified (ICD-10) Chronic obstructive pulmonary disease ?J44.9 - Chronic obstructive pulmonary disease, unspecified (ICD-10) Asthma ?J45.909 - Unspecified asthma, uncomplicated (ICD-10) Migraine ?G43.909 - Migraine, unspecified, not intractable, without status migrainosus (ICD-10) Lumbosacral spondylosis without myelopathy ?M47.817 - Spondylosis without myelopathy or radiculopathy, lumbosacral region (ICD-10) Hyperlipemia ?E78.5 - Hyperlipidemia, unspecified (ICD-10) Hyperglycemia ?R73.9 - Hyperglycemia, unspecified (ICD-10) Diverticulosis ?K57.90 - Diverticulosis of intestine, part unspecified, without perforation or abscess without bleeding (ICD-10) BMI 29.0-29.9,adult ?Z68.29 - Body mass index [BMI] 29.0-29.9, adult (ICD-10) Surgical History History of tubal ligation ?Z98.51 - Tubal ligation status (ICD-10) History of tonsillectomy ?Z90.89 - Acquired absence of other organs (ICD-10) H/O colonoscopy ?Z98.890 - Other specified postprocedural states (ICD-10) H/O laminectomy ?Z98.890 - Other specified postprocedural states (ICD-10) Family History Father Family history of COPD (chronic obstructive pulmonary disease) Brother Family history of diabetes mellitus Mother Family history of cancer Other Family history of hypertension Social History Within the past year, how often did you have a drink containing alcohol: never Score interpretation: A score less than 3 is consistent with normal alcohol consumption. Smoking status: Current every day smoker What tobacco products do you use: cigarettes Cigarettes per day: 8 Years smoked: 40 Smoking pack-years: 16.00 Non-prescribed substance use: denies use Highest level of school completed/degree received: high school graduate Little interest or pleasure in doing things: not at all Feeling down, depressed, or hopeless: not at all Meds Home Medications and Allergies Home Medications ?Medication ?Instructions ?Recorded ?Confirmed ?Type albuterol sulfate 2.5 mg/3 mL 2.5 mg inhalation Q4H NM N 11/20/22 08/09/24 History (0.083 %) solution for nebulization shortness of breat h or wheezing albuterol sulfate 90 mcg/actuation 2 inh inhalation QI D PRN shortness 10/29/23 08/09/24 History aerosol inhaler (ProAir HFA) of breath or wheezing cyclobenzaprine 10 mg tablet 20 mg PO BEDTIME PRN musc le spasm 10/29/23 08/09/24 History melatonin 10 mg capsule 10 mg PO BEDTIME PRN sleep 0 10/29/23 08/09/24 History multivitamin 1 tab PO DAILY 10/29/2307/23 History amlodipine 5 mg tablet 5 mg PO DAILY 11/04/2308/09 History tiotropium 2.5 mcg-olodaterol 2.5 2 inh inhalation Q24 H 11/04/23 08/09/24 History mcg/actuation mist for inhalation (Stiolto Respimat) trazodone 50 mg tablet 50 mg PO DAILY #30 tabs 11/2008/09/24 Rx naloxone 4 mg/actuation nasal 4 mg intranasal Q3M PRN opioid 04/27/24 08/09/24 Rx spray (Narcan) overdose #2 ea celecoxib 100 mg capsule (Celebrex) 100 mg PO BID #60 caps 07/20/24 08/09/24 Rx oxycodone-acetaminophen 7.5 mg-325 1 tab PO TID PRN pa in #90 tabs 07/20/24 08/09/24 Rx mg tablet (Percocet) pregabalin 75 mg capsule (Lyrica) 75 mg PO BID #60 cap s 07/20/24 08/09/24 Rx oxycodone-acetaminophen 7.5 mg-325 1 tab PO BID PRN pa in #60 tabs 08/23/24 Rx mg tablet (Percocet) pregabalin 75 mg capsule (Lyrica) 150 mg (2 x 75 mg) P O BID #120 caps 08/23/24 Rx tizanidine 4 mg capsule (Zanaflex) See Rx Instructions .Route 08/23/24 Rx .COMPLEX PRN muscle spasticity #60 caps oxycodone-acetaminophen 7.5 mg-325 1 tab PO BID PRN pa in #60 tabs 09/28/24 Rx mg tablet (Percocet) pregabalin 75 mg capsule (Lyrica) See Rx Instructions .Route 09/28/24 Rx .COMPLEX #120 caps trazodone 50 mg tablet 50 mg PO DAILY #30 tabs 03/16 Rx celecoxib 100 mg capsule (Celebrex) 100 mg PO BID #60 caps 10/24/24 Rx cyclobenzaprine 10 mg tablet 10 mg PO TID PRN muscle s pasm #90 10/24/24 Rx tabs oxycodone-acetaminophen 7.5 mg-325 1 tab PO BID PRN pa in #60 tabs 10/24/24 Rx mg tablet (Percocet) pregabalin 75 mg capsule (Lyrica) 150 mg (2 x 75 mg) P O BID #120 caps 10/24/24 Rx celecoxib 100 mg capsule (Celebrex) 100 mg PO BID #60 caps 11/21/24 Rx oxycodone-acetaminophen 7.5 mg-325 1 tab PO BID PRN pa in #60 tabs 11/21/24 Rx mg tablet (Percocet) pregabalin 75 mg capsule (Lyrica) 75 mg PO QID #120 ca ps 11/21/24 Rx Allergies Allergy/AdvReac Type Severity Reaction Status Date / Time hydroxyzine (From Vistaril) AdvReac Unknown Palpitation Verified 08/09/24 07:01 s Exam Constitutional Documenting provider has reviewed patient's vital signs: yes Common normals: no apparent distress, oriented x3, healthy appearing, alert and well nourished General appearance: cooperative HENMT Common normals: normocephalic, hearing grossly normal bilaterally and moist oral mucous membranes Head and scalp: normocephalic Eye Common normals: PERRL Pupil: PERRL Neck & C-Spine Common normals: full ROM General: normal visual inspection Chest Common normals: inspection of chest normal Respiratory Common normals: normal respiratory effort, no retractions and no use of accessory muscles Back & Pelvis Lumbar spine/lower back: ROM limited, pain with ROM, lumbar spinal tenderness, paraspinal muscle tenderness, paraspinal muscle spasm, straight leg raise positive right and straight leg raise positive left Sacroiliac joints: SI joint(s) abnormal Other: positive facet loading L1-4 facets strength 5/5 in BLE bilateral sij positive rosa(patricks), gaenslens, thigh thrust, compression test Extremity Right lower extremity: knee joint Other: moderate edema to right knee, increased pain with medial and lateral stress testing. no instability noted. moderate crepitus noted Neuro Common normals: oriented x3 Sensorium/orientation: alert Psych Common normals: mental status grossly normal, thought process normal, cooperative, affect normal, speech normal and activity/motor behavior normal Speech: normal speech Thought process: normal thought process Assessment and Plan Assessment and Plan (1) Sacroiliitis: (2) Failed back syndrome: (3) Lumbar stenosis with neurogenic claudication: (4) Chronic prescription opiate use: Assessment and Plan: I feel these medications are improving the patient's quality of life and allow them to tolerate activities of daily living as well as participate in recreational activity.? The patient does not report intolerable side effects. The patient is NOT opioid naive and non-pharmacologic and non-opioid treatment has failed to significantly relieve the patient's pain and improve functionality. The patient has a diagnosis that is related to a somatic or visceral pain etiology. ? ?? I reviewed with the patient the potential risks and side effects with the use of? opioid medications including but not limited to respiratory depression,? sedation, and even . Within the last 12 months I have verified the patient has access to naloxone should? these effects occur. The patient was advised to let? their family know they had Naloxone in case they would need to administer? the medication. I advised the patient to avoid the use of any other? sedation substances including alcohol, THC, and benzodiazepines while? taking opioid medications due to the risk of compounding side effects and? detrimental outcomes. within the last 12 months I have reviewed the [employer], pain treatment agreement and urine drug screen.? ?? A drug screen was completed within the last year, and no aberrancies were noted regarding their use of controlled substances. The patient understands they are subject to the terms and conditions of the pain contract that they have signed. ? ?? I have checked an [place] report on this patient today and there are no aberrancies noted in the prescribing history.? (5) Lumbar spondylosis: (6) Fibromyalgia: (7) Chronic pain syndrome: (8) Osteoarthritis of right knee: Assessment and Plan: prior right knee injection provided >50% improvement greater than 6 months Plan pt declining SIJ injection, declining SCS trial, declining NS consultation. pt again requesting increased dose/frequency of percocet as shes noticed significant decline in her functional ability and worsened pain control with decreased percocet use over the last few months. update UDS today. risks vs benefits reviewed, increase percocet 7.5mg BID-TID PRN moderate to severe pain 75 tabs to last 30 days. update narcan script. proceed with right knee injection for OA/pain. continue pregabalin 150mg BID, flexeril 10mg TID PRN pain/spasms, celebrex 100mg BID PRN pain. f/u after injection
== END 2024-12-14 11:24 | disposition home or self-care (01) ==
PROVIDERS: PCP Family Medicine; Visit Provider Nurse Practitioner
DX: M46.1 Sacroiliitis, not elsewhere classified (principal); M96.1 Postlaminectomy syndrome, not elsewhere classified; M48.062 Spinal stenosis, lumbar region with neurogenic claudication; Z79.891 Long term (current) use of opiate analgesic; M47.816 Spondylosis without myelopathy or radiculopathy, lumbar region; M79.7 Fibromyalgia; G89.4 Chronic pain syndrome; M17.11 Unilateral primary osteoarthritis, right knee
CPT/HCPCS: G0463